=== PATIENT | male | born 1955 | race American Indian/Alaskan Native ===

== ENCOUNTER 2016-08-13 14:14 | Emergency (ER) | payer OTHER ==
[2016-08-13 14:27] VITALS: RESP 18; O2SAT 99
[2016-08-13 14:57] VITALS: BP 133/88; PULSE 84; TEMP 98.7
--- NOTE | 2016-08-13 15:00 | C.PDOC ---
History Of Present Illness 61M c/o lum in his right groin for "ahwhile" that seemed to be worse the last couple days. 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 he said it looked bigger earlier but now has gone down again. Time Seen by Provider: 08/13/16 14:40 Chief Complaint (Nursing): Male Genitourinary Past Medical History Vital Signs: Last Vital Signs Temp 97.3 F L 08/13/16 14:25 Pulse 85 08/13/16 14:25 Resp 18 08/13/16 14:25 BP 157/100 H 08/13/16 14:25 Pulse Ox 99 08/13/16 14:25 - Medical History PMH: HTN Family History: States: Other Other Family History: nc - Social History Hx Alcohol Use: No Hx Substance Use: No - Immunization History Hx Tetanus Toxoid Vaccination: No Hx Influenza Vaccination: No Hx Pneumococcal Vaccination: No Review Of Systems Constitutional: Negative for: Fever, Chills, Malaise Cardiovascular: Negative for: Chest Pain Respiratory: Negative for: Cough, Shortness of Breath Gastrointestinal: Negative for: Nausea, Vomiting, Abdominal Pain, Diarrhea Genitourinary: Negative for: Dysuria, Hematuria, Penile Discharge, Scrotal Pain , Penile Pain Physical Exam - Physical Exam Appears: Well, Non-toxic, No Acute Distress Skin: Warm, Dry Cardiovascular: Rhythm Regular Respiratory: No Accessory Muscle Use Gastrointestinal/Abdominal: Soft, No Tenderness, No Distention, No Rebound Male Genital: No Testicular Tenderness, No Testicular Swelling, Inguinal Tenderness, Inguinal Swelling (small soft ruducible right inguinal hernia), No Scrotal Swelling Neurological/Psych: Oriented x3 ED Course And Treatment O2 Sat by Pulse Oximetry: 99 Medical Decision Making Medical Decision Making: reducible inguinal hernia, no signs of incarceration at this time. disc w pt plan for f/u w surgeon and reasons to return. Disposition - Disposition Disposition: HOME/ ROUTINE Disposition Time: 15:02 Condition: GOOD - Clinical Impression Clinical Impression: Inguinal hernia
== END 2016-08-13 14:50 | disposition home or self-care (01) ==
LOC: C.ER 14:14
DX: K40.90 Unilateral inguinal hernia, without obstruction or gangrene, not specified as recurrent (principal)

== ENCOUNTER 2016-09-28 11:50 | Inpatient (IN) | payer OTHER ==
[2016-09-28] MEDS ORDERED: Albuterol-Ipratrop 3 mg / 0.5 (3 ml) UD IH STA (13:32)
[2016-09-28] MEDS ORDERED: MethylPREDNISolone 40 mg Vial IVP STA (13:33)
[2016-09-28] MEDS ORDERED: Albuterol-Ipratrop 3 mg / 0.5 (3 ml) UD ONE (13:55)
[2016-09-28 13:57] LABS: BASO % 0.1 % (0.0-2.0); EOS % 0.1 % (0.0-4.0); LYMPH # 0.4 K/uL (1.0-4.3); LYMPH % 2.3 % (20.0-40.0); MEAN CELL VOLUME 94.6 fL (80.0-94.0); MEAN CORPUSCULAR HGB CONC 32.7 g/dL (33.0-37.0); MEAN PLATELET VOLUME 8.6 fL (7.2-11.7); MONO # 1.2 K/uL (0.0-0.8); MONO % 6.3 % (0.0-10.0); NEUT # 16.9 K/uL (1.8-7.0); NEUT % 91.2 % (50.0-75.0); PLATELET COUNT 280 K/uL (130-400); RED CELL DISTRIBUTION WIDTH 14.7 % (11.5-14.5); WHITE BLOOD COUNT 18.5 K/uL (4.8-10.8)
[2016-09-28 14:11] LABS: SQUAMOUS EPITHIAL 1 /hpf (0-5); URINE BILIRUBIN NEGATIVE (NEGATIVE); URINE BLOOD 1+ (NEGATIVE); URINE CLARITY Hazy (Clear); URINE COLOR Amber (YELLOW); URINE GLUCOSE (UA) NORMAL (Normal); URINE NITRATE NEGATIVE (NEGATIVE); URINE PROTEIN 2+ mg/dL (NEGATIVE); WBC CLUMPS RARE /hpf
--- NOTE | 2016-09-28 14:14 | RAD ---
HISTORY: cough, fever COMPARISON: No prior. TECHNIQUE: Chest PA and lateral FINDINGS: LUNGS: There is mild pulmonary venous congestion. There is airspace disease in the right lower lobe. PLEURA: No significant pleural effusion identified. No pneumothorax apparent. There is fluid in the horizontal fissure. CARDIOVASCULAR: There is severe cardiomegaly. OSSEOUS STRUCTURES: No significant abnormalities. VISUALIZED UPPER ABDOMEN: Normal. OTHER FINDINGS: None. IMPRESSION: 1. Airspace disease in the right lower lobe could represent pneumonia. Follow-up after medical management is recommended to ensure complete resolution. 2. Severe cardiomegaly and mild pulmonary venous congestion. Fluid in the horizontal fissure.
[2016-09-28 14:16] LABS: URINE LEUKOCYTE ESTERASE 2+ Leu/uL (Negative)
[2016-09-28] MEDS ORDERED: Azithromycin 500 MG in Sodium Chloride 0.9% 250 ML IVPB STA (14:16)
[2016-09-28 14:18] LABS: BANDS 24 % (0-2); LYMPHOCYTE 2 % (20-40); MONOCYTE 5 % (0-10); NEUTROPHIL 69 % (50-75); PLATELET ESTIMATE NORMAL (NORMAL); TOTAL CELLS COUNTED 100
[2016-09-28 14:19] LABS: LARGE PLATELETS PRESENT; TARGET CELLS SLIGHT
[2016-09-28 14:21] LABS: ALBUMIN 3.1 g/dL (3.5-5.0)
[2016-09-28] MEDS ORDERED: cefTRIAXone IV 1 gm in Dextros 50 ML IVPB ONE (14:23)
[2016-09-28 14:24] LABS: ALB/GLOB RATIO 0.7 (1.0-2.1); CALCIUM 9.3 mg/dl (8.6-10.4)
--- NOTE | 2016-09-28 15:15 | C.PDOC ---
History Of Present Illness 61 y/o M c PMHx COPD, inguinal hernia p/w cough x 1 week and fever x 1 day. Patient also reports R lower R thoracic pain. Denies recent travel. Patient also notes that he has a hernia that he is concerned about. Has been seen in this ER for it before and has never seen a physician in office. Denies constipation, vomiting. Time Seen by Provider: 09/28/16 12:57 Chief Complaint (Nursing): Abdominal Pain Past Medical History Vital Signs: Last Vital Signs Temp 97.6 F 09/28/16 12:17 Pulse 88 09/28/16 12:17 Resp 18 09/28/16 12:17 BP 121/85 09/28/16 12:17 Pulse Ox 98 09/28/16 12:17 - Medical History PMH: HTN Family History: States: No Known Family Hx - Social History Hx Alcohol Use: No Hx Substance Use: No - Immunization History Hx Tetanus Toxoid Vaccination: No Hx Influenza Vaccination: No Hx Pneumococcal Vaccination: No Review Of Systems Except As Marked, All Systems Reviewed And Found Negative. Constitutional: Positive for: Fever Cardiovascular: Negative for: Chest Pain Respiratory: Positive for: Cough Physical Exam - Physical Exam Additional Physical Exam Comments: Constitutional: No acute distress. Head: Normocephalic. Atraumatic. Eyes: PERRL. EOMI ENT: Moist mucous membranes. Neck: Supple. Cardiovascular: Regular rate. Radial pulses 2+ bilaterally. Chest: No tenderness. Respiratory: R basilar rhonchi. Diffuse wheezing. GI: Soft. Nontender. Nondistended. : Inguinal hernia causing scrotal enlargement. Back: No CVA tenderness. No midline tenderness. Musculoskeletal: No tenderness or swelling of extremities. Skin: No rash. Neurologic: Alert, no focal deficit. ED Course And Treatment - Laboratory Results Result Diagrams: 09/28/16 13:52 09/28/16 13:52 O2 Sat by Pulse Oximetry: 98 Medical Decision Making Medical Decision Making: Patient with normal vital signs. CXR shows R sided opacification at R lower lung, consistent with Pneumonia. CAP antibiotics initiated. Will cover UTI as well. Dr. Cerrato accepts patient to hospitalist service. I discussed hernia repair with the patient and at length and the need to come to the ER for symptoms of strangulation. Disposition - Disposition Disposition: HOSPITALIZED Disposition Time: 14:37 Condition: GUARDED - POA Core Measure Indicators: Pneumonia - Clinical Impression Clinical Impression: UTI (urinary tract infection), Pneumonia, Bandemia
--- NOTE | 2016-09-28 15:44 | CP.PCM.HP ---
<DaphneKareemDarian R - Last Filed: 09/28/16 17:44> History of Present Illness - History of Present Illness History of Present Illness: CC: cough, diaphoresis and fever HPI: Mr Hirsch is a 61 yo M who presents to the the ED with worsening non- productive cough which began 3 days ago. The patient also admits to diaphoresis and fever which also began 3 days ago. The patients temperature 2 days ago was 101F as taken by his . The patient admits to right sided abdominal pain associated with the cough in the right upper and right lower quadrant. The patient admits to a loss of appetite and difficulty sleeping due to the persistent cough. The patient admits to 1 episode of diarrhea 2 days ago which has resolved. The patient states he took advil which did not alleviate his symptoms. He did not notice anything which exacerbates his symptoms. The patient denies chest pain, vomiting, shortness of breath, constipation, dysuria , numbness. 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, denies smoking, denies drinking, denies illicit drug use PMD: Dr Saucedo Present on Admission - Present on Admission Any Indicators Present on Admission: No History of DVT/PE: No History of Uncontrolled Diabetes: No Urinary Catheter: No Decubitus Ulcer Present: No History Surgical Site Infection Following: None Review of Systems - Constitutional Constitutional: As Per HPI - EENT Eyes: absent: As Per HPI, Blind Spots, Blurred Vision, Change in Vision, Decreased Night Vision, Diplopia, Discharge, Dry Eye, Exophthalmos, Floaters, Irritation, Itchy Eyes, Loss of Peripheral Vision, Pain, Photophobia, Requires Corrective Lenses, Sees Flashes, Spots in Vision, Tunnel Vision, Other Visual Disturbances, Loss of Vision, Other Ears: absent: As Per HPI, Decreased Hearing, Ear Discharge, Ear Pain, Tinnitus, Abnormal Hearing, Disequilibrium, Dizziness, Other Nose/Mouth/Throat: absent: As Per HPI, Epistaxis, Nasal Congestion, Nasal Discharge, Nasal Obstruction, Nasal Trauma, Nose Pain, Post Nasal Drip, Sinus Pain, Sinus Pressure, Bleeding Gums, Change in Voice, Dental Pain, Dry Mouth, Dysphagia, Halitosis, Hoarsness, Lip Swelling, Mouth Lesions, Mouth Pain, Odynophagia, Sore Throat, Throat Swelling, Tongue Swelling, Facial Pain, Neck Pain, Neck Mass, Other - Cardiovascular Cardiovascular: absent: As Per HPI, Acrocyanosis, Chest Pain, Chest Pain at Rest , Chest Pain with Activity, Claudication, Diaphoresis, Dyspnea, Dyspnea on Exertion, Edema, Irregular Heart Rhythm, Pain Radiating to Arm/Neck/Jaw, Leg Edema, Leg Ulcers, Lightheadedness, Orthopnea, Palpitations, Paroxysmal Nocturnal Dyspnea, Pedal Edema, Radiating Pain, Rapid Heart Rate, Slow Heart Rate, Syncope, Other - Respiratory Respiratory: Cough, Pain with Coughing. absent: Hemoptysis, Dyspnea on Exertion , Stridor - Gastrointestinal Gastrointestinal: Abdominal Pain. absent: Bloating, Constipation, Hematochezia - Genitourinary Genitourinary: absent: As Per HPI, Change in Urinary Stream, Difficulty Urinating, Dysuria, Flank Pain, Hematuria, Pyuria, Nocturia, Urinary Incontinence, Urinary Frequency, Urinary Hesitance, Urinary Urgency, Voiding Freq/Small Amts, Freq UTI, Hx Renal/Bladder Calculi, Hx /Renal Surgery, Bladder Distension, Other Additional comments: fluid collection in scrotum - Musculoskeletal Additional comments: occasional left leg pain with activity/ambulation - Neurological Neurological: absent: As Per HPI, Abnormal Gait, Abnormal Hearing, Abnormal Movements, Abnormal Speech, Behavioral Changes, Burning Sensations, Confusion, Convulsions, Disequilibrium, Dizziness, Numbness, Focal Weakness, Frequent Falls , Headaches, Lack of Coordination, Loss of Vision, Memory Loss, Paresthesias, Radicular Pain, Restless Legs, Sensory Deficit, Syncope, Tingling, Tremor, Vertigo, Weakness, Other Visual Disturbances, Other - Psychiatric Psychiatric: absent: As Per HPI, Abnormal Sleep Pattern, Anhedonia, Anxiety, Auditory Hallucinations, Behavioral Changes, Change in Appetite, Change in Libido, Confusion, Depression, Difficulty Concentrating, Hallucinations, Homicidal Ideation, Hopelessness, Irritability, Memory Loss, Mood Swings, Panic Attacks, Paranoia, Suicidal Ideation, Visual Hallucinations, Tactile Hallucinations, Other - Endocrine Endocrine: absent: As Per HPI, Change in Body Appearance, Change in Libido, Cold Intolorance, Deepening of Voice, Excessive Sweating, Fatigue, Flushing, Heat Intolorance, Increase in Ring/Shoe/Hat Size, Palpitations, Polydipsia, Polyphagia, Polyuria, Other - Hematologic/Lymphatic Hematologic: absent: As Per HPI, Easy Bleeding, Easy Bruising, Lymphadenopathy, Other Past Patient History - Infectious Disease Hx of Infectious Diseases: None - Past Social History Smoking Status: Never Smoked - CARDIAC Hx Hypertension: Yes - NEUROLOGICAL HX Cerebrovascular Accident: Yes - PSYCHIATRIC Hx Substance Use: No - SURGICAL HISTORY Hx Surgeries: No - ANESTHESIA Hx Anesthesia: No Meds Allergies/Adverse Reactions: Allergies Allergy/AdvReac Type Severity Reaction Status Date / Time No Known Allergies Allergy Verified 06/28/15 10:51 Physical Exam - Constitutional Appears: Toxic - Head Exam Head Exam: ATRAUMATIC, NORMAL INSPECTION - Eye Exam Eye Exam: EOMI, Normal appearance Pupil Exam: NORMAL ACCOMODATION, PERRL Additional comments: mild icterus - ENT Exam ENT Exam: Mucous Membranes Moist - Neck Exam Neck exam: Positive for: Normal Inspection - Respiratory Exam Respiratory Exam: Wheezes. absent: Clear to Auscultation Bilateral, Respiratory Distress - Cardiovascular Exam Cardiovascular Exam: REGULAR RHYTHM, RRR, +S1, +S2 - GI/Abdominal Exam GI & Abdominal Exam: Guarding, Normal Bowel Sounds Additional comments: some guarding on right side - Rectal Exam Rectal Exam: Deferred - Exam Exam: Scrotal Swelling Additional comments: TTP in scrotum and right inguinal area - Extremities Exam Extremities exam: Positive for: normal inspection - Back Exam Back exam: NORMAL INSPECTION. absent: CVA tenderness (L), CVA tenderness (R) - Neurological Exam Neurological exam: Alert, CN II-XII Intact, Oriented x3 - Psychiatric Exam Psychiatric exam: Normal Affect, Normal Mood - Skin Skin Exam: Normal Color, Warm Results - Vital Signs Recent Vital Signs: Last Vital Signs Temp 97.6 F 09/28/16 12:17 Pulse 88 09/28/16 12:17 Resp 18 09/28/16 12:17 BP 121/85 09/28/16 12:17 Pulse Ox 98 09/28/16 15:16 - Labs Result Diagrams: 09/28/16 13:52 09/28/16 13:52 Assessment & Plan - Assessment and Plan (Free Text) Assessment: Cough and Fever possible 2/2 to pneumonia WBC 18.5, Band Neutrophils 24 Chest xray [09/28]: airspace disease in right lower lobe could represent pneumonia stat CT chest/abd/pelvis w/o contrast, f/u rocephin 1g IV BID azithromycin 500mg IV qh sputum cx and sensitivity, f/u blood culture (collected in ED), f/u repeat chest xray [09/29], f/u cmp, cbc, mag, phos, f/u 0.9% normal saline 70 cc/hr Possible UTI vs pyleonephritis urinalysis with protein 2+, blood 1+, leukocyte esterase 2+, wbc 16 (H), rbc 6 ( H), hyaline casts 11-20 (H) stat CT chest/abd/pelvis w/o contrast, f/u urine cx, f/u Possible new-onset CHF ekg in ED - left bundle branch block chest xray [09/28] - severe cardiomegaly and mild pulmonary venous congestion. BNP, f/u echocardiogram, f/u LAURA x3, EKG x3, f/u Prophylactic Measures protonix 40mg po daily SCDs <Alex Cerrato H - Last Filed: 09/28/16 18:57> Results - Vital Signs Recent Vital Signs: Last Vital Signs Temp 98.5 F 09/28/16 18:16 Pulse 95 H 09/28/16 18:16 Resp 18 09/28/16 18:16 BP 120/75 09/28/16 18:16 Pulse Ox 98 09/28/16 18:16 - Labs Result Diagrams: 09/28/16 13:52 09/28/16 13:52 Labs: Laboratory Results - last 24 hr 09/28/16 17:35 Total Creatine Kinase 93 CK-MB (Mass) 1.79 Troponin I, Quant 0.0300 NT-Pro-B Natriuret Pep 61747 H Attending/Attestation - Attestation I have personally seen and examined this patient.: Yes I have fully participated in the care of the patient.: Yes I have reviewed all pertinent clinical information: Yes Notes (Text): 09/28/16 18:52 Medical attending: Patient was seen and examined by me with the medical lab director in the hallway 8 of the ER. The patient was not under any acute distress when he saw him, however we reviewed his lab work with him and also spoke with. We also looked at the chest x-ray. He says that he's having right side chest as well as right flank pain. His urinalysis also suggest the possibility of a UTI, possibly polynephritis as well since on exam he does have flank pain on the right-hand side he's been feeling pretty bad for the past few days with fever at home. Here he has elevated white blood cell count as well as bandemia. Because the patient's chest x-ray findings as well as right flank findings were to get a CT scan of the chest abdomen and pelvis. We'll also check sputum cultures, urine cultures, blood culture. We'll continue the IV into biotics as well. Because of the chest x-ray findings he does have cardiomegaly, it's quite impressive. On the EKG this a left bundle branch block. He tells us that he does not have any chest pain however work and check additional cardiac enzymes, he should get an echo as well considering how big the cardiac silhouette is on x -ray. Will also check a BNP. Considering that he needs sirs criteria, with the bandemia fever white blood cell count, were to start the patient on gentle intravenous fluids. Tomorrow [place] to add on a portable chest x-ray only because I don't want to fluid overload the patient in case he has as history of CHF. He tells us that he takes a diarrhetic however he is not sure what it is. Thank you very much, Alex Cerrato
[2016-09-28] MEDS ORDERED: Azithromycin 500mg/250ML NS 500 MG/250 ML BAG IVPB ONE (16:04)
[2016-09-28] MEDS ORDERED: Azithromycin 500 MG in Sodium Chloride 0.9% 250 ML IVPB SCH (17:45)
[2016-09-28] MEDS ORDERED: Sodium Chloride 0.9% 1,000 ML ONE (17:55)
[2016-09-28 18:03] LABS: CK-MB 1.79 ng/mL (0.0-3.38)
[2016-09-28] MEDS ORDERED: Benzoin Compound Tincture (60 ml) ONE (18:11)
[2016-09-28] MEDS: Sodium Chloride 0.9% 1,000 ML IV SCH (18:14)
[2016-09-29 00:16] LABS: CK-MB 2.18 ng/mL (0.0-3.38)
--- NOTE | 2016-09-29 09:15 | CP.PCM.PN ---
<Darian Serna Liz - Last Filed: 09/29/16 15:34> Subjective - Date & Time of Evaluation Date of Evaluation: 09/29/16 Time of Evaluation: 07:15 - Subjective Subjective: Patient examined at bedside. Patient is not in acute distress. Patient still complains of cough with occasional production of yellow phlegm. Patient states that he feels better than yesterday. He says he is still diaphoretic but less diaphoretic than yesterday. He complains of mild abdominal pain on his right side which has improved some since yesterday. Patient denies chest pain, shortness of breath, headache, nausea, vomiting, diarrhea, constipation, palpitations. Objective - Vital Signs/Intake and Output Vital Signs (last 24 hours): Temp Pulse Resp BP Pulse Ox 98.2 F 92 H 20 146/98 H 96 09/29/16 09:01 09/29/16 09:01 09/29/16 09:01 09/29/16 09:01 09/29/16 09:01 Intake and Output: 09/29/16 09/29/16 06:59 18:59 Intake Total 560 Balance 560 - Medications Medications: Current Medications Sodium Chloride (Sodium Chloride 0.9%) 1,000 mls @ 70 mls/hr IV .[id number] [facility] Last Admin: 09/28/16 18:14 Dose: 70 mls/hr Azithromycin 500 mg/ Sodium (Chloride) 250 mls @ 250 mls/hr IVPB Q24H [facility] Ceftriaxone Sodium 1 gm/ (Sodium Chloride) 100 mls @ 100 mls/hr IVPB Q12H [facility] Last Admin: 09/29/16 02:45 Dose: 100 mls/hr Pantoprazole Sodium (Protonix Ec Tab) 40 mg PO DAILY [facility] Pneumococcal Polyvalent Vaccine (Pneumovax 23 Vaccine) 0.5 ml IM .ONCE ONE Stop: 10/01/16 10:01 - Constitutional Appears: No Acute Distress - Head Exam Head Exam: ATRAUMATIC, NORMAL INSPECTION, NORMOCEPHALIC - Eye Exam Eye Exam: EOMI, Normal appearance, PERRL - ENT Exam ENT Exam: Mucous Membranes Moist, Normal Exam - Neck Exam Neck Exam: Full ROM, Normal Inspection. absent: Lymphadenopathy - Respiratory Exam Respiratory Exam: Rhonchi, Wheezes, NORMAL BREATHING PATTERN - Cardiovascular Exam Cardiovascular Exam: REGULAR RHYTHM, RRR, +S1, +S2 - GI/Abdominal Exam GI & Abdominal Exam: Tenderness Additional comments: tenderness on right side of abdomen - Rectal Exam Rectal Exam: Deferred - Exam Exam: Scrotal Swelling - Extremities Exam Extremities Exam: Full ROM, Normal Capillary Refill, Normal Inspection. absent : Joint Swelling, Pedal Edema - Neurological Exam Neurological Exam: Alert, Awake, Oriented x3 - Psychiatric Exam Psychiatric exam: Normal Affect, Normal Mood - Skin Skin Exam: Dry, Intact, Normal Color, Warm Assessment and Plan - Assessment and Plan (Free Text) Assessment: - Assessment and Plan (Free Text) Assessment: Pneumonia [09/28]: WBC 18.5, Band Neutrophils 24 Chest xray [09/28]: airspace disease in right lower lobe could represent pneumonia chest xray [09/29]: not significantly changed from prior examination stat CT chest/abd/pelvis w/o contrast [09/28], impression: "Consolidation in right lower lobe and lesser consolidation in posterior right upper lobe. Multifocal small opacities in right upper lobe as well as multifocal small airways disease in right upper and middle lobes. Likely pneumonia. Followup advised. Cardiomegaly. Small pericardial effusion. Aneurysmal dilatation of the ascending thoracic aorta. Right inguinal hernia containing nonobstructed loops of small bowel. Small amount of fluid in right inguinal hernia sac. Evaluation for pyelonephritis grossly limited by the absence of intravenous contrast administration." rocephin 1g IV BID azithromycin 500mg IV qh sputum cx and sensitivity: "few polymorphonuclear wbc's, few epithelial cells, no organisms seen" blood culture (collected in ED), f/u cmp, cbc, mag, phos, f/u 0.9% normal saline 70 cc/hr Right flank pain UTI vs pyleonephritis urinalysis with protein 2+, blood 1+, leukocyte esterase 2+, wbc 16 (H), rbc 6 ( H), hyaline casts 11-20 (H) stat CT chest/abd/pelvis w/o contrast [09/28] impression: "Evaluation for pyelonephritis grossly limited by the absence of intravenous contrast administration." urine cx, f/u CHF ekg in ED - left bundle branch block chest xray [09/28] - severe cardiomegaly and mild pulmonary venous congestion. BNP [id number] echocardiogram, f/u LAURA x3, negative EKG x3, f/u Prophylactic Measures protonix 40mg po daily SCDs heparin 5,000 sc q12 heart healthy diet <Alex Cerrato H - Last Filed: 09/29/16 16:03> Objective - Vital Signs/Intake and Output Vital Signs (last 24 hours): Temp Pulse Resp BP Pulse Ox 97.6 F 90 20 132/86 96 09/29/16 15:00 09/29/16 15:00 09/29/16 15:00 09/29/16 15:00 09/29/16 15:00 Intake and Output: 09/29/16 09/29/16 06:59 18:59 Intake Total 560 Balance 560 - Medications Medications: Current Medications Heparin Sodium (Porcine) (Heparin) 5,000 units SC Q12 [facility] Sodium Chloride (Sodium Chloride 0.9%) 1,000 mls @ 70 mls/hr IV .[id number] [facility] Last Admin: 09/29/16 10:06 Dose: Not Given Azithromycin 500 mg/ Sodium (Chloride) 250 mls @ 250 mls/hr IVPB Q24H [facility] Ceftriaxone Sodium 1 gm/ (Sodium Chloride) 100 mls @ 100 mls/hr IVPB Q12H [facility] Last Admin: 09/29/16 02:45 Dose: 100 mls/hr Pantoprazole Sodium (Protonix Ec Tab) 40 mg PO DAILY [facility] Last Admin: 09/29/16 09:58 Dose: 40 mg Pneumococcal Polyvalent Vaccine (Pneumovax 23 Vaccine) 0.5 ml IM .ONCE ONE Stop: 10/01/16 10:01 Attending/Attestation - Attestation I have personally seen and examined this patient.: Yes I have fully participated in the care of the patient.: Yes I have reviewed all pertinent clinical information, including history, physical exam and plan: Yes Notes (Text): 09/29/16 16:01 Medical attending: Patient was seen and examined by me, agrees the above note by medical assistant supervisor. We saw the patient together. The patient thinks that he's feeling better. We explained to them the CAT scan results showing that he has at least a right sided consolidation/pneumonia. He remains on IV into biotics at this time. He tells us that the pain that he was having when we saw him in the ER on the right chest as well as right flank area has resolved at this time. He still reporting some difficulty breathing. We should continue to monitor his cultures both blood and sputum and urine At this moment were still pending on echo to return. He does have a high BNP We repeated chest x-rays well since we do have the patient on intravenous fluids. The chest x-ray did not seem to suggest that he was fluid overload with the intravenous fluids that were giving. So at this time because he's still sepsis will continue with intravenous fluids and will monitor how he does. Hopefully we'll be able to take off intravenous fluids Thank you very much, Alex Cerrato 09/29/16 16:02
[2016-09-29] MEDS: Pantoprazole 40 mg EC Tab PO SCH (09:58)
[2016-09-29] MEDS: Sodium Chloride 0.9% 1,000 ML IV SCH ×3 (10:02→23:51)
--- NOTE | 2016-09-29 11:31 | CT ---
PROCEDURE: CT Chest, Abdomen and Pelvis without intravenous contrast HISTORY: possible pneumonia, pyleonephritis, UTI COMPARISON: None. TECHNIQUE: Radiation dose: Total exam DLP = 602.00 mGy-cm. This CT exam was performed using one or more of the following dose reduction techniques: Automated exposure control, adjustment of the mA and/or kV according to patient size, and/or use of iterative reconstruction technique. FINDINGS: CT CHEST WITHOUT CONTRAST: LUNGS: Extensive confluent opacity right lower lobe. Confluent opacity posterior right upper lobe. Multifocal small opacities apical segment right upper lobe. Also multifocal small airways disease in right upper lobe (tree in bud ). Small airways disease seen in right middle lobe. Linear scar/atelectasis apical posterior segment left upper lobe. Findings are likely infectious in origin. Cannot rule out other etiologies such as inflammatory disease or aspiration. MEDIASTINUM: Aneurysmal dilatation of the ascending thoracic aorta to a diameter of 4.8 cm. Normal descending thoracic aorta. No significant dilatation of main pulmonary artery. No lymphadenopathy. Mild cardiomegaly. Small pericardial effusion. LYMPH NODES: Unremarkable. PLEURA: Unremarkable. No pneumothorax. No pleural fluid. BONES: Unremarkable. OTHER FINDINGS: None. CT ABDOMEN AND PELVIS: LIVER: Unremarkable. No gross lesion or ductal dilatation. GALLBLADDER AND BILE DUCTS: Partially contracted. No calcified gallstones. No mural thickening. PANCREAS: Unremarkable. No gross lesion or ductal dilatation. SPLEEN: Unremarkable. ADRENALS: Unremarkable. No mass. KIDNEYS AND URETERS: No mass, calculus or hydronephrosis. Please note that evaluation for pyelonephritis is grossly limited in the absence of intravenous contrast administration. VASCULATURE: Unremarkable. No aortic aneurysm. BOWEL: No bowel obstruction. Right inguinal herniation of small bowel without evidence of bowel obstruction. Fluid is noted in the right inguinal hernia sac as well. APPENDIX: Normal appendix. PERITONEUM: Fluid in right inguinal hernia sac. No generalized ascites. Small right hydrocele mendez are noted. LYMPH NODES: Unremarkable. No enlarged lymph nodes. BLADDER: Unremarkable. REPRODUCTIVE: Normal prostate. BONES: No acute fracture. OTHER FINDINGS: None. IMPRESSION: Consolidation in right lower lobe and lesser consolidation in posterior right upper lobe. Multifocal small opacities in right upper lobe as well as multifocal small airways disease in right upper and middle lobes. Likely pneumonia. Followup advised. Cardiomegaly. Small pericardial effusion. Aneurysmal dilatation of the ascending thoracic aorta. Right inguinal hernia containing nonobstructed loops of small bowel. Small amount of fluid in right inguinal hernia sac. Evaluation for pyelonephritis grossly limited by the absence of intravenous contrast administration. Preliminary interpretation of this examination was reported by [facility] at 7:44 p.m. on 09/28/2016. There is concurrence of this report with the preliminary interpretation.
--- NOTE | 2016-09-29 12:51 | CARD ---
APPROVED REPORT EKG Measurement Heart [id number] [place] [id number] <Conclusion> Normal sinus rhythm Possible Left atrial enlargement Left bundle branch block Abnormal ECG
--- NOTE | 2016-09-29 12:59 | RAD ---
HISTORY: possible pneumonia COMPARISON: 09/28/2016 TECHNIQUE: Chest PA and lateral FINDINGS: LUNGS: Opacity at right lung base, likely lower lobe. There is opacity abutting the minor fissure in the right upper lobe. Patchy opacity in right apex. PLEURA: No significant pleural effusion identified. No pneumothorax apparent. CARDIOVASCULAR: Mild cardiomegaly. OSSEOUS STRUCTURES: No significant abnormalities. VISUALIZED UPPER ABDOMEN: Normal. OTHER FINDINGS: None. IMPRESSION: Multifocal right-sided pulmonary opacity. Not significantly changed from prior examination.
[2016-09-29] MEDS: Azithromycin 500 MG in Sodium Chloride 0.9% 250 ML IVPB SCH (18:32)
[2016-09-30 08:16] LABS: BASO % 0.1 % (0.0-2.0); LYMPH # 0.8 K/uL (1.0-4.3); LYMPH % 3.2 % (20.0-40.0); MEAN CELL VOLUME 94.8 fL (80.0-94.0); MEAN CORPUSCULAR HEMOGLOBIN 32.9 pg (27.0-31.0); MEAN CORPUSCULAR HGB CONC 34.6 g/dL (33.0-37.0); MEAN PLATELET VOLUME 8.3 fL (7.2-11.7); MONO # 1.2 K/uL (0.0-0.8); MONO % 4.8 % (0.0-10.0); NEUT # 23.8 K/uL (1.8-7.0); NEUT % 91.9 % (50.0-75.0); RED CELL DISTRIBUTION WIDTH 14.8 % (11.5-14.5); WHITE BLOOD COUNT 25.9 K/uL (4.8-10.8)
[2016-09-30 08:20] LABS: CK-MB 2.07 ng/mL (0.0-3.38)
[2016-09-30 08:23] LABS: ALBUMIN 2.6 g/dL (3.5-5.0); HEMOGLOBIN 10.9 g/dL (12.0-18.0); PLATELET COUNT 393 K/uL (130-400)
[2016-09-30 08:26] LABS: ALB/GLOB RATIO 0.7 (1.0-2.1)
[2016-09-30 08:27] LABS: CALCIUM 8.6 mg/dl (8.6-10.4); MAGNESIUM 2.7 mg/dL (1.6-2.3)
[2016-09-30] MEDS: Sodium Chloride 0.9% 1,000 ML IV SCH (08:39)
[2016-09-30 09:05] LABS: ANISOCYTOSIS SLIGHT; HYPOCHROMIC SLIGHT; LYMPHOCYTE 7 % (20-40); MONOCYTE 3 % (0-10); NEUTROPHIL 90 % (50-75); PLATELET ESTIMATE NORMAL (NORMAL); POIKILOCYTOSIS SLIGHT; TOTAL CELLS COUNTED 100
[2016-09-30 09:06] LABS: LARGE PLATELETS PRESENT; TARGET CELLS SLIGHT
[2016-09-30] MEDS: Pantoprazole 40 mg EC Tab PO SCH (11:10)
--- NOTE | 2016-09-30 12:59 | CP.PCM.PN ---
<Darian Serna R - Last Filed: 09/30/16 12:57> Subjective - Date & Time of Evaluation Date of Evaluation: 09/30/16 Time of Evaluation: 12:00 - Subjective Subjective: Patient was examined at bedside. Patient was not in acute distress. He states that he felt slightly improved since yesterday. He still has a productive cough with yellow phlegm. He said he was able to sleep, his appetite is good and he's able to make bowel movements and urinate normally. He denies chest pain, shortness of breath, headache, nausea, vomiting, diarrhea, constipation. Objective - Vital Signs/Intake and Output Vital Signs (last 24 hours): Temp Pulse Resp BP Pulse Ox 98.7 F 93 H 18 144/99 H 97 09/30/16 07:10 09/30/16 08:00 09/30/16 07:10 09/30/16 07:10 09/30/16 07:10 Intake and Output: 09/30/16 09/30/16 06:59 18:59 Intake Total 940 Output Total 700 Balance 240 - Medications Medications: Current Medications Heparin Sodium (Porcine) (Heparin) 5,000 units SC Q12 [facility] Last Admin: 09/30/16 11:09 Dose: 5,000 units Azithromycin 500 mg/ Sodium (Chloride) 250 mls @ 250 mls/hr IVPB Q24H [facility] Last Admin: 09/29/16 18:32 Dose: 250 mls/hr Ceftriaxone Sodium 1 gm/ (Sodium Chloride) 100 mls @ 100 mls/hr IVPB Q12H [facility] Last Admin: 09/30/16 03:09 Dose: 100 mls/hr Pantoprazole Sodium (Protonix Ec Tab) 40 mg PO DAILY [facility] Last Admin: 09/30/16 11:10 Dose: 40 mg Pneumococcal Polyvalent Vaccine (Pneumovax 23 Vaccine) 0.5 ml IM .ONCE ONE Stop: 10/01/16 10:01 - Labs Labs: 09/30/16 07:54 09/30/16 07:54 - Constitutional Appears: No Acute Distress - Head Exam Head Exam: ATRAUMATIC, NORMAL INSPECTION, NORMOCEPHALIC - Eye Exam Eye Exam: EOMI, Normal appearance, PERRL - ENT Exam ENT Exam: Mucous Membranes Moist, Normal Exam - Neck Exam Neck Exam: Full ROM, Normal Inspection. absent: Lymphadenopathy - Respiratory Exam Respiratory Exam: Rhonchi, Wheezes - Cardiovascular Exam Cardiovascular Exam: REGULAR RHYTHM - GI/Abdominal Exam GI & Abdominal Exam: Normal Bowel Sounds Additional comments: tender to palpation on right side - Rectal Exam Rectal Exam: Deferred - Exam Exam: Scrotal Swelling Additional comments: inguinal hernia on right side with fluid collection in scrotum - Extremities Exam Extremities Exam: Full ROM, Normal Inspection - Back Exam Back Exam: NORMAL INSPECTION - Neurological Exam Neurological Exam: Alert, Awake, Normal Gait, Oriented x3 - Psychiatric Exam Psychiatric exam: Normal Affect, Normal Mood - Skin Skin Exam: Dry, Intact, Normal Color, Warm Assessment and Plan - Assessment and Plan (Free Text) Assessment: - Assessment and Plan (Free Text) Assessment: Pneumonia con't rocephin 1g IV BID con't azithromycin 500mg IV qh [09/30]: WBC 25.9 [09/28]: WBC 18.5, Band Neutrophils 24 Chest xray [09/28]: airspace disease in right lower lobe could represent pneumonia chest xray [09/29]: not significantly changed from prior examination stat CT chest/abd/pelvis w/o contrast [09/28], impression: "Consolidation in right lower lobe and lesser consolidation in posterior right upper lobe. Multifocal small opacities in right upper lobe as well as multifocal small airways disease in right upper and middle lobes. Likely pneumonia. Followup advised. Cardiomegaly. Small pericardial effusion. Aneurysmal dilatation of the ascending thoracic aorta. Right inguinal hernia containing nonobstructed loops of small bowel. Small amount of fluid in right inguinal hernia sac. Evaluation for pyelonephritis grossly limited by the absence of intravenous contrast administration." sputum cx and sensitivity: "few polymorphonuclear wbc's, few epithelial cells, no organisms seen" blood culture (collected in ED), negative x2 urine culture negative cmp, cbc, mag, phos, f/u 0.9% normal saline 70 cc/hr discontinued [09/30] due to CHF (EF 34%) Right flank pain UTI vs pyleonephritis urinalysis with protein 2+, blood 1+, leukocyte esterase 2+, wbc 16 (H), rbc 6 ( H), hyaline casts 11-20 (H) stat CT chest/abd/pelvis w/o contrast [09/28] impression: "Evaluation for pyelonephritis grossly limited by the absence of intravenous contrast administration." urine cx, negative CHF ekg in ED - left bundle branch block chest xray [09/28] - severe cardiomegaly and mild pulmonary venous congestion. BNP [id number] echocardiogram [09/30], EF of 34% LAURA x3, negative EKG x3, normal sinus rhythm Prophylactic Measures protonix 40mg po daily SCDs heparin 5,000 sc q12 heart healthy diet <Alex Cerrato H - Last Filed: 09/30/16 17:52> Objective - Vital Signs/Intake and Output Vital Signs (last 24 hours): Temp Pulse Resp BP Pulse Ox 98.3 F 88 20 135/98 H 98 09/30/16 15:08 09/30/16 15:08 09/30/16 15:08 09/30/16 15:08 09/30/16 15:08 Intake and Output: 09/30/16 09/30/16 06:59 18:59 Intake Total 940 Output Total 700 Balance 240 - Medications Medications: Current Medications Heparin Sodium (Porcine) (Heparin) 5,000 units SC Q12 [facility] Last Admin: 09/30/16 11:09 Dose: 5,000 units Azithromycin 500 mg/ Sodium (Chloride) 250 mls @ 250 mls/hr IVPB Q24H [facility] Last Admin: 09/30/16 16:15 Dose: 250 mls/hr Ceftriaxone Sodium 1 gm/ (Sodium Chloride) 100 mls @ 100 mls/hr IVPB Q12H [facility] Last Admin: 09/30/16 14:35 Dose: 100 mls/hr Pantoprazole Sodium (Protonix Ec Tab) 40 mg PO DAILY [facility] Last Admin: 09/30/16 11:10 Dose: 40 mg Pneumococcal Polyvalent Vaccine (Pneumovax 23 Vaccine) 0.5 ml IM .ONCE ONE Stop: 10/01/16 10:01 - Labs Labs: 09/30/16 07:54 09/30/16 07:54 Attending/Attestation - Attestation I have personally seen and examined this patient.: Yes I have fully participated in the care of the patient.: Yes I have reviewed all pertinent clinical information, including history, physical exam and plan: Yes Notes (Text): Attending: Patient was seen and examined by me, agrees the above note by medical delivery technician. The patient's white blood cell count has actually increased in #25. He is not on any IV Solu-Medrol or steroid-induced's time. This being said the patient says that he feels substantially better as documented above when he came in he was having substantial right side chest pain as well as right flank pain and this was reflected on the chest imaging which showed that he had a substantial consolidative changes in the right lower lobe of the lung This is can be day 2 of the IV azithromycin and IV Rocephin. The cultures both sputum and blood are currently negative at this time the urine cultures also negative as well He's been getting intravenous fluids, this is help of his renal function. He tells us that he's been eating and drinking quite well so organist stop with intravenous fluids as he does have a history of CHF and I don't want to put him into fulminant CHF Thank you very much, working continue to monitor the blood work particularly this white blood cell count he's afebrile as well Alex Cerrato
--- NOTE | 2016-09-30 13:48 | CARD ---
APPROVED REPORT EXAM: Two-dimensional and M-mode echocardiogram with Doppler and color Doppler. Other Information Quality : GoodRhythm : NSR INDICATION CVA/TIA Chest Pain Fever; pneumonia RISK FACTORS Hypertension M-Mode DIMENSIONS RVDd3.30 (2.1-3.2cm)Left Atrium (MM)4.74 (2.5-4.0cm) IVSd0.95 (0.7-1.1cm)Aortic Root3.50 (2.2-3.7cm) LVDd6.22 (4.0-5.6cm)Aortic Cusp Exc.2.14 (1.5-2.0cm) PWd1.07 (0.7-1.1cm)FS (%) 17 % LVDs5.19 (2.0-3.8cm)LVEF (%)34 (>50%) Mitral Valve MV E Dskcxxom309.8cm/sMV A Oerkcqzb63.6cm/sE/A ratio2.5 TDI E/Lateral E'0.0E/Medial E'0.0 Tricuspid Valve TR Peak Ghrdexxx840iv/sTR Peak Gr.[id number] <Conclusion> moderately dilated la,lv. severe global lv systolic dysfunciton,paradoxical septal motion probably from severe pulmonary hypertension.,lvef of 30-35%. normal size ra,rv with normal rv systolic function. aortic,mitral,tv & pv appears normal/ severe mitral regurtion,moderate tr with calculated pulmonary systolic pressures of 70 mm of hg. moderate degree of lv diastolic dysfunction.elevated la vome index. no pericardial effusion seen. normal size aortic root. ivc is mildly dilated with poor inspiratory collapse,ra of 15 mm of hg.
[2016-09-30] MEDS: Azithromycin 500 MG in Sodium Chloride 0.9% 250 ML IVPB SCH (16:15)
[2016-10-01 07:41] LABS: BASO % 0.1 % (0.0-2.0); EOS % 0.4 % (0.0-4.0); HEMOGLOBIN 11.3 g/dL (12.0-18.0); LYMPH # 1.2 K/uL (1.0-4.3); LYMPH % 8.7 % (20.0-40.0); MEAN CELL VOLUME 93.9 fL (80.0-94.0); MEAN CORPUSCULAR HEMOGLOBIN 32.8 pg (27.0-31.0); MEAN PLATELET VOLUME 7.6 fL (7.2-11.7); MONO # 0.9 K/uL (0.0-0.8); MONO % 6.3 % (0.0-10.0); NEUT # 11.6 K/uL (1.8-7.0); NEUT % 84.5 % (50.0-75.0); NRBC % 0.1 % (0.0-2.0); PLATELET COUNT 449 K/uL (130-400); RBC 3.43 Mil/uL (4.40-5.90); WHITE BLOOD COUNT 13.8 K/uL (4.8-10.8)
--- NOTE | 2016-10-01 07:53 | CP.PCM.PN ---
<Darian Serna Liz - Last Filed: 10/01/16 11:42> Subjective - Date & Time of Evaluation Date of Evaluation: 10/01/16 Time of Evaluation: 07:20 - Subjective Subjective: Patient was examined at bedside. Patient says he feels the same/slightly better since yesterday. He admits to cough with production of yellow phlegm. He admits to pain in the right chest under his right axilla. He is having normal bowel movements and urinating normally. He denies fevers, shortness of breath, vomiting, constipation, chills. Objective - Vital Signs/Intake and Output Vital Signs (last 24 hours): Temp Pulse Resp BP Pulse Ox 98.8 F 99 H 20 149/97 H 98 10/01/16 04:53 10/01/16 04:53 10/01/16 04:53 10/01/16 04:53 09/30/16 23:25 Intake and Output: 10/01/16 10/01/16 06:59 18:59 Output Total 600 Balance -600 - Medications Medications: Current Medications Heparin Sodium (Porcine) (Heparin) 5,000 units SC Q12 [facility] Last Admin: 09/30/16 21:57 Dose: 5,000 units Azithromycin 500 mg/ Sodium (Chloride) 250 mls @ 250 mls/hr IVPB Q24H [facility] Last Admin: 09/30/16 16:15 Dose: 250 mls/hr Ceftriaxone Sodium 1 gm/ (Sodium Chloride) 100 mls @ 100 mls/hr IVPB Q12H [facility] Last Admin: 10/01/16 04:57 Dose: 100 mls/hr Pantoprazole Sodium (Protonix Ec Tab) 40 mg PO DAILY [facility] Last Admin: 09/30/16 11:10 Dose: 40 mg Pneumococcal Polyvalent Vaccine (Pneumovax 23 Vaccine) 0.5 ml IM .ONCE ONE Stop: 10/01/16 10:01 - Labs Labs: 10/01/16 07:29 09/30/16 07:54 - Constitutional Appears: Well, No Acute Distress - Head Exam Head Exam: ATRAUMATIC, NORMAL INSPECTION, NORMOCEPHALIC - Eye Exam Eye Exam: EOMI, Normal appearance, PERRL Pupil Exam: NORMAL ACCOMODATION, PERRL - ENT Exam ENT Exam: Mucous Membranes Moist, Normal Exam - Neck Exam Neck Exam: Full ROM, Normal Inspection. absent: Lymphadenopathy - Respiratory Exam Respiratory Exam: Rhonchi, Wheezes - Cardiovascular Exam Cardiovascular Exam: REGULAR RHYTHM, +S1, +S2 - GI/Abdominal Exam GI & Abdominal Exam: Soft, Normal Bowel Sounds - Rectal Exam Rectal Exam: Deferred - Extremities Exam Extremities Exam: Full ROM, Normal Capillary Refill, Normal Inspection. absent : Joint Swelling, Pedal Edema - Back Exam Back Exam: NORMAL INSPECTION - Neurological Exam Neurological Exam: Alert, Awake, Oriented x3 - Psychiatric Exam Psychiatric exam: Normal Affect, Normal Mood - Skin Skin Exam: Dry, Intact, Normal Color, Warm Assessment and Plan - Assessment and Plan (Free Text) Assessment: Pneumonia con't rocephin 1g IV BID con't azithromycin 500mg IV qh [10/01]: WBC 13.8 [09/30]: WBC 25.9 [09/28]: WBC 18.5, Band Neutrophils 24 Chest xray [09/28]: airspace disease in right lower lobe could represent pneumonia chest xray [09/29]: not significantly changed from prior examination stat CT chest/abd/pelvis w/o contrast [09/28], impression: "Consolidation in right lower lobe and lesser consolidation in posterior right upper lobe. Multifocal small opacities in right upper lobe as well as multifocal small airways disease in right upper and middle lobes. Likely pneumonia. Followup advised. Cardiomegaly. Small pericardial effusion. Aneurysmal dilatation of the ascending thoracic aorta. Right inguinal hernia containing nonobstructed loops of small bowel. Small amount of fluid in right inguinal hernia sac. Evaluation for pyelonephritis grossly limited by the absence of intravenous contrast administration." sputum cx and sensitivity: "few polymorphonuclear wbc's, few epithelial cells, no organisms seen" blood culture (collected in ED), negative x2 urine culture negative cmp, cbc, mag, phos, f/u 0.9% normal saline 70 cc/hr discontinued [09/30] due to CHF (EF 34%) Right flank pain DOMINGA, BUN 43 UTI, pyleonephritis ruled out urinalysis with protein 2+, blood 1+, leukocyte esterase 2+, wbc 16 (H), rbc 6 ( H), hyaline casts 11-20 (H) stat CT chest/abd/pelvis w/o contrast [09/28] impression: "Evaluation for pyelonephritis grossly limited by the absence of intravenous contrast administration." urine cx, negative HTN lisinopril 2.5 po daily coreg 3.125 po bid CHF [10/01] lasix 20mg IV once ekg in ED - left bundle branch block chest xray [09/28] - severe cardiomegaly and mild pulmonary venous congestion. BNP [id number] echocardiogram [09/30], EF of 34% LAURA x3, negative EKG x3, normal sinus rhythm Prophylactic Measures protonix 40mg po daily SCDs heparin 5,000 sc q12 heart healthy diet <Alex Cerrato H - Last Filed: 10/01/16 15:25> Objective - Vital Signs/Intake and Output Vital Signs (last 24 hours): Temp Pulse Resp BP Pulse Ox 98.1 F 62 20 126/83 96 10/01/16 08:59 10/01/16 08:59 10/01/16 08:59 10/01/16 14:49 10/01/16 08:59 Intake and Output: 10/01/16 10/01/16 06:59 18:59 Output Total 600 Balance -600 - Medications Medications: Current Medications Carvedilol (Coreg) 3.125 mg PO BID [facility] Last Admin: 10/01/16 12:58 Dose: 3.125 mg Heparin Sodium (Porcine) (Heparin) 5,000 units SC Q12 [facility] Last Admin: 10/01/16 09:20 Dose: 5,000 units Azithromycin 500 mg/ Sodium (Chloride) 250 mls @ 250 mls/hr IVPB Q24H [facility] Last Admin: 09/30/16 16:15 Dose: 250 mls/hr Ceftriaxone Sodium 1 gm/ (Sodium Chloride) 100 mls @ 100 mls/hr IVPB Q12H [facility] Last Admin: 10/01/16 14:49 Dose: 100 mls/hr Lisinopril (Zestril) 2.5 mg PO DAILY [facility] Last Admin: 10/01/16 12:58 Dose: 2.5 mg Pantoprazole Sodium (Protonix Ec Tab) 40 mg PO DAILY [facility] Last Admin: 10/01/16 09:16 Dose: 40 mg - Labs Labs: 10/01/16 07:29 10/01/16 07:29 Attending/Attestation - Attestation I have personally seen and examined this patient.: Yes I have fully participated in the care of the patient.: Yes I have reviewed all pertinent clinical information, including history, physical exam and plan: Yes Notes (Text): 10/01/16 15:24 Medical attending: Patient was seen and examined by me, agree with the above note by medical aides teacher. The patient's white blood cell count has decreased, so for were continue to follow the cultures, the blood cultures sputum cultures are negative at this time.. He remains on IV antibiotics There is also decrease in the BUN/creatinine as well. The patient is eating well and drinking well so were to stop with intravenous fluids at this time Thank you very much, Alex Cerrato
[2016-10-01 08:05] LABS: ALBUMIN 2.9 g/dL (3.5-5.0)
[2016-10-01 08:07] LABS: GFR AFRICAN-AMERICAN > 60; GFR NON-AFRICAN AMERICAN 52
[2016-10-01 08:08] LABS: ALB/GLOB RATIO 0.7 (1.0-2.1); ALT/SGPT 37 U/L (21-72); AST/SGOT 36 U/L (17-59); BLOOD UREA NITROGEN 43 mg/dL (9-20); CALCIUM 8.6 mg/dl (8.6-10.4)
[2016-10-01 08:09] LABS: MAGNESIUM 2.4 mg/dL (1.6-2.3)
[2016-10-01 08:45] LABS: ANISOCYTOSIS SLIGHT; BANDS 1 % (0-2); GIANT PLATELETS PRESENT; HYPOCHROMIC SLIGHT; LARGE PLATELETS PRESENT; LYMPHOCYTE 7 % (20-40); MONOCYTE 5 % (0-10); NEUTROPHIL 86 % (50-75); PLATELET ESTIMATE NORMAL (NORMAL); POIKILOCYTOSIS SLIGHT; REACTIVE LYMPHOCYTES 1 % (0-0); TOTAL CELLS COUNTED 100
[2016-10-01] MEDS: Pantoprazole 40 mg EC Tab PO SCH (09:16)
[2016-10-01] MEDS ORDERED: Pneumococcal 23-Valent Vaccine IM ONE (10:00)
[2016-10-01] MEDS ORDERED: Potassium Chloride 20 mEq ER Tab PO ONE ×2 (10:00→13:00)
[2016-10-01] MEDS: Azithromycin 500 MG in Sodium Chloride 0.9% 250 ML IVPB SCH (16:58)
[2016-10-02 07:34] LABS: BASO % 0.3 % (0.0-2.0); EOS # 0.2 K/uL (0.0-0.7); EOS % 1.4 % (0.0-4.0); HEMOGLOBIN 10.8 g/dL (12.0-18.0); LYMPH # 1.4 K/uL (1.0-4.3); LYMPH % 12.1 % (20.0-40.0); MEAN CELL VOLUME 94.1 fL (80.0-94.0); MEAN CORPUSCULAR HEMOGLOBIN 32.2 pg (27.0-31.0); MEAN CORPUSCULAR HGB CONC 34.3 g/dL (33.0-37.0); MEAN PLATELET VOLUME 7.6 fL (7.2-11.7); MONO # 0.9 K/uL (0.0-0.8); MONO % 8.1 % (0.0-10.0); NEUT # 8.9 K/uL (1.8-7.0); NEUT % 78.1 % (50.0-75.0); RBC 3.35 Mil/uL (4.40-5.90); RED CELL DISTRIBUTION WIDTH 15.2 % (11.5-14.5); WHITE BLOOD COUNT 11.4 K/uL (4.8-10.8)
[2016-10-02 08:28] LABS: ALBUMIN 2.6 g/dL (3.5-5.0)
[2016-10-02 08:31] LABS: ALB/GLOB RATIO 0.7 (1.0-2.1); AST/SGOT 31 U/L (17-59); BLOOD UREA NITROGEN 37 mg/dL (9-20); GFR AFRICAN-AMERICAN > 60; GFR NON-AFRICAN AMERICAN 56
[2016-10-02 08:32] LABS: ALT/SGPT 31 U/L (21-72); CALCIUM 8.3 mg/dl (8.6-10.4); MAGNESIUM 2.2 mg/dL (1.6-2.3)
--- NOTE | 2016-10-02 10:04 | CP.PCM.PN ---
<Precious Marie - Last Filed: 10/02/16 16:46> Subjective - Date & Time of Evaluation Date of Evaluation: 10/02/16 Time of Evaluation: 07:00 - Subjective Subjective: PGY1- Medicine note- Dr. Cerrato's service Patient seen and examined at bedside. Patient had complaint of right side rib pain. Pain is reproducible while coughing, nonradiating, severity of 9/10, and does not have remitting factors. Cough is productive and clear in color. Patient is also experiencing intermittent shortness of breath with his last episode occurring last night for a couple of hours. SOB is better upon sleeping in an upright position and denies chest pain. Patient also complains of long standing intermittent RUQ, RLQ nonradiating abdominal pain that is currently rated as 8/10. Denies chest pain, headache, dizziness, nausea, vomiting, diarrhea, constipation, dysuria, burning and frequency of urination. Objective - Vital Signs/Intake and Output Vital Signs (last 24 hours): Temp Pulse Resp BP Pulse Ox 98.1 F 82 20 125/80 98 10/02/16 08:09 10/02/16 08:09 10/02/16 08:09 10/02/16 08:09 10/02/16 08:09 Intake and Output: 10/02/16 10/02/16 06:59 18:59 Intake Total 570 Balance 570 - Medications Medications: Current Medications Carvedilol (Coreg) 3.125 mg PO BID [facility] Last Admin: 10/01/16 18:22 Dose: 3.125 mg Heparin Sodium (Porcine) (Heparin) 5,000 units SC Q12 [facility] Last Admin: 10/01/16 22:12 Dose: 5,000 units Azithromycin 500 mg/ Sodium (Chloride) 250 mls @ 250 mls/hr IVPB Q24H [facility] Last Admin: 10/01/16 16:58 Dose: 250 mls/hr Ceftriaxone Sodium 1 gm/ (Sodium Chloride) 100 mls @ 100 mls/hr IVPB Q12H [facility] Last Admin: 10/02/16 02:42 Dose: 100 mls/hr Lisinopril (Zestril) 2.5 mg PO DAILY [facility] Last Admin: 10/01/16 12:58 Dose: 2.5 mg Pantoprazole Sodium (Protonix Ec Tab) 40 mg PO DAILY [facility] Last Admin: 10/01/16 09:16 Dose: 40 mg Potassium Chloride (K-Dur 20 Meq Er Tab) 20 meq PO DAILY [facility] - Labs Labs: 10/02/16 07:20 10/02/16 07:20 - Constitutional Appears: Well, Non-toxic, No Acute Distress - Head Exam Head Exam: ATRAUMATIC, NORMAL INSPECTION, NORMOCEPHALIC - Eye Exam Eye Exam: EOMI, Normal appearance, PERRL - ENT Exam ENT Exam: Mucous Membranes Moist, Normal Exam - Respiratory Exam Respiratory Exam: Wheezes, NORMAL BREATHING PATTERN. absent: Rales, Rhonchi, Respiratory Distress, Stridor Additional comments: mild expiratory wheezes - Cardiovascular Exam Cardiovascular Exam: REGULAR RHYTHM, RRR. absent: Gallop, Rubs, Murmur - GI/Abdominal Exam GI & Abdominal Exam: Soft, Tenderness, Normal Bowel Sounds. absent: Distended, Firm, Guarding, Rigid Additional comments: right sided rib pain - Extremities Exam Extremities Exam: Full ROM, Pedal Edema. absent: Tenderness Additional comments: 1 + pitting edema bilaterally - Back Exam Back Exam: NORMAL INSPECTION. absent: rash noted - Neurological Exam Neurological Exam: Alert, Awake, Oriented x3 - Psychiatric Exam Psychiatric exam: Normal Affect, Normal Mood - Skin Skin Exam: Intact, Normal Color, Warm Assessment and Plan - Assessment and Plan (Free Text) Assessment: 1. Pneumonia CXR completed on 09/29, suspicious of pneumonia. CT 09/30, RLL infiltrates Leukocytosis is improving. 11.4 today. No bandemia. Afebrile. Sputum culture negative Blood culture negative for 3 days Treatment with azithromycin (started 09/29), rocephin (started 09/29) 2. Systolic CHF 09/28 echo results: dilated left atria, left ventricle, global LV systolic dysfunction. LVEF 30-35%. Mitral regurgitation. 09/28 BNP [id number] Continue Lisinopril 2.5mg PO daily, Coreg 3.125mg PO BID Lasix 40 mg IV, once today 3. Ascending Aortic Aneurysm Strict BP control Consult surgery, Dr. Desai, help appreciated 4. Asthma Currently well controlled Dunebs INH qh PRN 5. R inguinal hernia Non obstructed hernia No acute intervention 6. Hypokalemia 3.5 today Potassium Check CMP daily 7. UTI (09/28) Results of urine culture negative Urine culture today 8. Prophylactic Measures Heparin 5000 q12 Protonics 40 daily [facility] <Alex Cerrato H - Last Filed: 10/02/16 17:17> Objective - Vital Signs/Intake and Output Vital Signs (last 24 hours): Temp Pulse Resp BP Pulse Ox 98.6 F 80 18 125/81 98 10/02/16 15:41 10/02/16 15:41 10/02/16 15:41 10/02/16 16:26 10/02/16 15:41 Intake and Output: 10/02/16 10/02/16 06:59 18:59 Intake Total 570 Output Total 850 Balance 570 -850 - Medications Medications: Current Medications Albuterol/Ipratropium (Duoneb 3 Mg/0.5 Mg (3 Ml) Ud) 3 ml INH RQ6 PRN PRN Reason: Shortness of Breath Carvedilol (Coreg) 3.125 mg PO BID [facility] Last Admin: 10/02/16 10:23 Dose: 3.125 mg Heparin Sodium (Porcine) (Heparin) 5,000 units SC Q12 [facility] Last Admin: 10/02/16 10:23 Dose: 5,000 units Azithromycin 500 mg/ Sodium (Chloride) 250 mls @ 250 mls/hr IVPB Q24H [facility] Last Admin: 10/01/16 16:58 Dose: 250 mls/hr Ceftriaxone Sodium 1 gm/ (Sodium Chloride) 100 mls @ 100 mls/hr IVPB Q12H [facility] Last Admin: 10/02/16 16:26 Dose: 100 mls/hr Lisinopril (Zestril) 2.5 mg PO DAILY [facility] Last Admin: 10/02/16 10:23 Dose: 2.5 mg Pantoprazole Sodium (Protonix Ec Tab) 40 mg PO DAILY [facility] Last Admin: 10/02/16 10:23 Dose: 40 mg Potassium Chloride (K-Dur 20 Meq Er Tab) 20 meq PO DAILY [facility] Last Admin: 10/02/16 10:23 Dose: 20 meq - Labs Labs: 10/02/16 07:20 10/02/16 07:20 Attending/Attestation - Attestation I have personally seen and examined this patient.: Yes I have fully participated in the care of the patient.: Yes I have reviewed all pertinent clinical information, including history, physical exam and plan: Yes Notes (Text): 10/02/16 17:15 Medical Attending: Patient was seen and examined by me. Agree with the above note by the resident. The patient WBC is stable. continue with the IV abx, also the blood and sputum cultures have been negative as well. thank you Alex Cerrato
[2016-10-02] MEDS: Pantoprazole 40 mg EC Tab PO SCH (10:23)
[2016-10-02] MEDS: Potassium Chloride 20 mEq ER Tab PO SCH (10:23)
[2016-10-02] MEDS ORDERED: Potassium Chloride 20 mEq ER Tab PO ONE ×2 (12:30→15:56)
[2016-10-02] MEDS ORDERED: Albuterol-Ipratrop 3 mg / 0.5 (3 ml) UD INH PRN (15:34)
--- NOTE | 2016-10-02 16:24 | CP.PCM.CON ---
History of Present Illness - History of Present Illness History of Present Illness: SURGERY CONSULT NOTE FOR DR. LIMON 61M being treated at [facility] for pneumonia. Consult for incidental finding of thoracic aneurysm. Patient states the symptoms that brought him to the hospital started earlier this week and consisted of shortness of breathe with cough. Patient had productive cough with dark, yellow sputum that has now resolved. He denies chest pain, headache, abdominal pain. He also complains of right inguinal hernia that bothers him at work. He states this does not affect is bowel movements at all. PMH: CVA in 2004, HTN, Asthma, R inguinal hernia PSH: denies Social: denies tobacco, alcohol, illicit drug use Allergies: NKDA Past Patient History - Infectious Disease Hx of Infectious Diseases: None - Past Social History Smoking Status: Never Smoked - CARDIAC Hx Hypertension: Yes - PULMONARY Hx Chronic Obstructive Pulmonary Disease (COPD): Yes - NEUROLOGICAL HX Cerebrovascular Accident: Yes - HEENT Hx HEENT Problems: No - RENAL Hx Chronic Kidney Disease: No - ENDOCRINE/METABOLIC Hx Endocrine Disorders: No - HEMATOLOGICAL/ONCOLOGICAL Hx Blood Transfusions: No - INTEGUMENTARY Hx Dermatological Problems: No - MUSCULOSKELETAL/RHEUMATOLOGICAL Hx Falls: No - GASTROINTESTINAL Hx Gastrointestinal Disorders: No - PSYCHIATRIC Hx Substance Use: No - SURGICAL HISTORY Hx Surgeries: No - ANESTHESIA Hx Anesthesia: No Hx Anesthesia Reactions: No Hx Malignant Hyperthermia: No Has any member of the family had a problem w/ anesthesia?: No Meds Allergies/Adverse Reactions: Allergies Allergy/AdvReac Type Severity Reaction Status Date / Time No Known Allergies Allergy Verified 06/28/15 10:51 - Medications Medications: Current Medications Albuterol/Ipratropium (Duoneb 3 Mg/0.5 Mg (3 Ml) Ud) 3 ml INH RQ6 PRN PRN Reason: Shortness of Breath Carvedilol (Coreg) 3.125 mg PO BID [facility] Last Admin: 10/02/16 10:23 Dose: 3.125 mg Heparin Sodium (Porcine) (Heparin) 5,000 units SC Q12 [facility] Last Admin: 10/02/16 10:23 Dose: 5,000 units Azithromycin 500 mg/ Sodium (Chloride) 250 mls @ 250 mls/hr IVPB Q24H [facility] Last Admin: 10/01/16 16:58 Dose: 250 mls/hr Ceftriaxone Sodium 1 gm/ (Sodium Chloride) 100 mls @ 100 mls/hr IVPB Q12H [facility] Last Admin: 10/02/16 02:42 Dose: 100 mls/hr Lisinopril (Zestril) 2.5 mg PO DAILY [facility] Last Admin: 10/02/16 10:23 Dose: 2.5 mg Pantoprazole Sodium (Protonix Ec Tab) 40 mg PO DAILY [facility] Last Admin: 10/02/16 10:23 Dose: 40 mg Potassium Chloride (K-Dur 20 Meq Er Tab) 20 meq PO DAILY [facility] Last Admin: 10/02/16 10:23 Dose: 20 meq Physical Exam - Constitutional Appears: Non-toxic, No Acute Distress - Head Exam Head Exam: ATRAUMATIC - Eye Exam Eye Exam: EOMI, PERRL - ENT Exam ENT Exam: Mucous Membranes Moist - Respiratory Exam Respiratory Exam: Clear to Auscultation Bilateral, NORMAL BREATHING PATTERN - Cardiovascular Exam Cardiovascular Exam: REGULAR RHYTHM, +S1, +S2 - GI/Abdominal Exam GI & Abdominal Exam: Soft. absent: Distended, Firm, Guarding, Pulsatile Mass, Rebound, Rigid, Tenderness - Exam Exam: Scrotal Swelling (right inguinal hernia, reducible) - Extremities Exam Extremities exam: Negative for: pedal edema, tenderness - Neurological Exam Neurological exam: Alert, Oriented x3 - Psychiatric Exam Psychiatric exam: Normal Affect, Normal Mood - Skin Skin Exam: Dry, Intact, Normal Color, Warm Results - Vital Signs Recent Vital Signs: Last Vital Signs Temp 98.6 F 10/02/16 15:41 Pulse 80 10/02/16 15:41 Resp 18 10/02/16 15:41 BP 125/81 10/02/16 15:41 Pulse Ox 98 10/02/16 15:41 - Labs Result Diagrams: 10/02/16 07:20 10/02/16 07:20 Labs: Laboratory Results - last 24 hr 10/02/16 10/02/16 07:20 07:20 WBC 11.4 H RBC 3.35 L Hgb 10.8 L Hct 31.5 L MCV 94.1 H MCH 32.2 H MCHC 34.3 RDW 15.2 H Plt Count 471 H MPV 7.6 Neut % (Auto) 78.1 H Lymph % (Auto) 12.1 L Blair % (Auto) 8.1 Eos % (Auto) 1.4 Baso % (Auto) 0.3 Neut # 8.9 H Lymph # 1.4 Blair # 0.9 H Eos # 0.2 Baso # 0.0 Sodium 140 Potassium 3.5 L Chloride 102 Carbon Dioxide 30 Anion Gap 11 BUN 37 H Creatinine 1.3 Est GFR ( Amer) > 60 Est GFR (Non-Af Amer) 56 Random Glucose 84 Calcium 8.3 L Phosphorus 3.6 Magnesium 2.2 Total Bilirubin 0.8 AST 31 ALT 31 Alkaline Phosphatase 216 H Total Protein 6.3 Albumin 2.6 L Globulin 3.6 Albumin/Globulin Ratio 0.7 L Assessment & Plan - Assessment and Plan (Free Text) Assessment: 61M presents with aneurysm of ascending thoracic aorta, 4.8cm CT: 4.8cm aneurysm of ascending thoracic aorta, right inguinal hernia with no obstruction Plan: - continue blood pressure control - Follow up CT chest in 6 months - No indication for surgery for thoracic aneurysm at this time - Patient should follow up outpatient to schedule same day operation for right inguinal hernia Further recs discuss with Dr. Giselle Smith, PGY1
[2016-10-02] MEDS: Azithromycin 500 MG in Sodium Chloride 0.9% 250 ML IVPB SCH (17:32)
[2016-10-02 23:08] LABS: SQUAMOUS EPITHIAL < 1 /hpf (0-5); URINE BILIRUBIN NEGATIVE (NEGATIVE); URINE BLOOD NEGATIVE (NEGATIVE); URINE CLARITY Clear (Clear); URINE COLOR Yellow (YELLOW); URINE GLUCOSE (UA) NORMAL (Normal); URINE LEUKOCYTE ESTERASE NEG Leu/uL (Negative); URINE NITRATE NEGATIVE (NEGATIVE); URINE PROTEIN NEGATIVE (NEGATIVE)
[2016-10-03 06:33] LABS: BASO % 0.1 % (0.0-2.0); EOS # 0.1 K/uL (0.0-0.7); EOS % 1.2 % (0.0-4.0); HEMOGLOBIN 10.8 g/dL (12.0-18.0); LYMPH # 1.6 K/uL (1.0-4.3); MEAN CELL VOLUME 92.8 fL (80.0-94.0); MEAN CORPUSCULAR HEMOGLOBIN 30.9 pg (27.0-31.0); MEAN CORPUSCULAR HGB CONC 33.3 g/dL (33.0-37.0); MEAN PLATELET VOLUME 7.5 fL (7.2-11.7); MONO % 9.9 % (0.0-10.0); NEUT # 7.3 K/uL (1.8-7.0); NEUT % 72.8 % (50.0-75.0); RBC 3.49 Mil/uL (4.40-5.90); RED CELL DISTRIBUTION WIDTH 15.3 % (11.5-14.5)
--- NOTE | 2016-10-03 06:52 | CARD ---
APPROVED REPORT EKG Measurement Heart [id number] <Conclusion> Normal sinus rhythm Possible Left atrial enlargement Left axis deviation Left bundle branch block Abnormal ECG
[2016-10-03 07:21] LABS: ALBUMIN 2.7 g/dL (3.5-5.0)
[2016-10-03 07:23] LABS: GFR AFRICAN-AMERICAN > 60; GFR NON-AFRICAN AMERICAN 56
[2016-10-03 07:24] LABS: ALB/GLOB RATIO 0.7 (1.0-2.1); ALT/SGPT 31 U/L (21-72); AST/SGOT 30 U/L (17-59); BLOOD UREA NITROGEN 27 mg/dL (9-20); CALCIUM 8.3 mg/dl (8.6-10.4)
[2016-10-03 07:25] LABS: MAGNESIUM 2.1 mg/dL (1.6-2.3)
[2016-10-03] MEDS: Pantoprazole 40 mg EC Tab PO SCH (09:25)
[2016-10-03] MEDS: Potassium Chloride 20 mEq ER Tab PO SCH (09:25)
--- NOTE | 2016-10-03 11:19 | CP.PCM.PN ---
Subjective - Date & Time of Evaluation Date of Evaluation: 10/03/16 Time of Evaluation: 11:00 - Subjective Subjective: Patient was seen and examined by me. He reports feeling better. Not coughing today The WBC has decreased to 10, also is afebrile, the blood cultures negative for 4 days and the sputum negative as well. The creatine has also decreased to 1.3 I explained to the patient he might be discharged tomorrow. He wanted a note for some time off 1 week. Objective - Vital Signs/Intake and Output Vital Signs (last 24 hours): Temp Pulse Resp BP Pulse Ox 98.4 F 80 20 113/75 96 10/03/16 07:45 10/03/16 07:45 10/03/16 07:45 10/03/16 07:45 10/03/16 07:45 Intake and Output: 10/03/16 10/03/16 06:59 18:59 Intake Total 350 Output Total 1700 Balance -1350 - Medications Medications: Current Medications Albuterol/Ipratropium (Duoneb 3 Mg/0.5 Mg (3 Ml) Ud) 3 ml INH RQ6 PRN PRN Reason: Shortness of Breath Carvedilol (Coreg) 3.125 mg PO BID [facility] Last Admin: 10/03/16 09:25 Dose: 3.125 mg Heparin Sodium (Porcine) (Heparin) 5,000 units SC Q12 [facility] Last Admin: 10/03/16 09:25 Dose: 5,000 units Azithromycin 500 mg/ Sodium (Chloride) 250 mls @ 250 mls/hr IVPB Q24H [facility] Last Admin: 10/02/16 17:32 Dose: 250 mls/hr Ceftriaxone Sodium 1 gm/ (Sodium Chloride) 100 mls @ 100 mls/hr IVPB Q12H [facility] Last Admin: 10/03/16 02:00 Dose: 100 mls/hr Lisinopril (Zestril) 2.5 mg PO DAILY [facility] Last Admin: 10/03/16 09:28 Dose: 2.5 mg Pantoprazole Sodium (Protonix Ec Tab) 40 mg PO DAILY [facility] Last Admin: 10/03/16 09:25 Dose: 40 mg Potassium Chloride (K-Dur 20 Meq Er Tab) 20 meq PO DAILY [facility] Last Admin: 10/03/16 09:25 Dose: 20 meq - Labs Labs: 10/03/16 06:20 07/01/17 06:20 - Constitutional Appears: Well, Non-toxic, No Acute Distress - Head Exam Head Exam: NORMAL INSPECTION, NORMOCEPHALIC - Eye Exam Eye Exam: EOMI, Normal appearance - ENT Exam ENT Exam: Mucous Membranes Moist - Respiratory Exam Respiratory Exam: Clear to Ausculation Bilateral, NORMAL BREATHING PATTERN. absent: Chest Wall Tenderness - Cardiovascular Exam Cardiovascular Exam: REGULAR RHYTHM - GI/Abdominal Exam GI & Abdominal Exam: Soft, Normal Bowel Sounds - Neurological Exam Neurological Exam: Alert, Awake, CN II-XII Intact, Oriented x3 Neuro motor strength exam: Left Upper Extremity: 5, Right Upper Extremity: 5, Left Lower Extremity: 5, Right Lower Extremity: 5 - Psychiatric Exam Psychiatric exam: Normal Affect, Normal Mood - Skin Skin Exam: Normal Color, Warm Assessment and Plan - Assessment and Plan (Free Text) Assessment: Assessment: 1. Pneumonia 10/03: The WBC is now decreased to 10, blood cultures have been negative for 4 days. Afebrile, the sputum cx is negative as well. Will stop the IV Rocephin and IV Azithromycin. 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 CT 09/30, RLL infiltrates Leukocytosis is improving. 11.4 today. No bandemia. Afebrile. Treatment with azithromycin (started 09/29), rocephin (started 09/29) 2. Systolic CHF - Currently stable. 10/03: Stable, continue with ACEI, Lasix, BB, ASA 09/28 echo results: dilated left atria, left ventricle, global LV systolic dysfunction. LVEF 30-35%. Mitral regurgitation. 09/28 BNP 07291 Continue Lisinopril 2.5mg PO daily, Coreg 3.125mg PO BID Lasix 40 mg IV, once today 3. Ascending Aortic Aneurysm - stable 10/03: BP has been stable while here, no chest pain. Strict BP control Consult surgery, Dr. Desai, help appreciated 4. Asthma Currently well controlled Dunebs INH qh PRN 5. R inguinal hernia 10/03: I explained to the patient that he is here for pneumonia and that he will need to follow up with his PMD for outpatient refferal eventually. Non obstructed hernia No acute intervention 6. Hypokalemia 3.5 today Potassium Check CMP daily 7. Prophylactic Measures Heparin 5000 q12 Protonics 40 daily [facility]
--- NOTE | 2016-10-03 21:30 | CP.PCM.PN ---
Subjective - Date & Time of Evaluation Date of Evaluation: 10/03/16 Time of Evaluation: 07:45 - Subjective Subjective: CT sx progress note for Dr. Danisha Quintero, PGY-1 Pt S & E at bedside this AM. Pt reports some right sided abdominal discomfort overnight. Denies N/V/F/C, SOB , CP, abdominal pain, headache, vision changes. Objective - Vital Signs/Intake and Output Vital Signs (last 24 hours): Temp Pulse Resp BP Pulse Ox 98.4 F 80 20 113/75 96 10/03/16 07:45 10/03/16 07:45 10/03/16 07:45 10/03/16 07:45 10/03/16 07:45 - Medications Medications: Current Medications Albuterol/Ipratropium (Duoneb 3 Mg/0.5 Mg (3 Ml) Ud) 3 ml INH RQ6 PRN PRN Reason: Shortness of Breath Last Admin: 10/03/16 11:48 Dose: 3 ml Amoxicillin/Clavulanate Potassium (Augmentin 875 Mg-125 Mg Tab) 1 tab PO Q12 [facility] Carvedilol (Coreg) 3.125 mg PO BID [facility] Last Admin: 10/03/16 09:25 Dose: 3.125 mg Heparin Sodium (Porcine) (Heparin) 5,000 units SC Q12 [facility] Last Admin: 10/03/16 09:25 Dose: 5,000 units Lisinopril (Zestril) 2.5 mg PO DAILY [facility] Last Admin: 10/03/16 09:28 Dose: 2.5 mg Pantoprazole Sodium (Protonix Ec Tab) 40 mg PO DAILY [facility] Last Admin: 10/03/16 09:25 Dose: 40 mg Potassium Chloride (K-Dur 20 Meq Er Tab) 20 meq PO DAILY [facility] Last Admin: 10/03/16 09:25 Dose: 20 meq - Labs Labs: 10/03/16 06:20 10/03/16 06:20 - Constitutional Appears: Non-toxic, No Acute Distress - Head Exam Head Exam: ATRAUMATIC, NORMAL INSPECTION, NORMOCEPHALIC - Eye Exam Eye Exam: EOMI, Normal appearance - ENT Exam ENT Exam: Mucous Membranes Moist, Normal Exam - Neck Exam Neck Exam: Full ROM, Normal Inspection - Respiratory Exam Respiratory Exam: Clear to Ausculation Bilateral, NORMAL BREATHING PATTERN. absent: Decreased Breath Sounds, Rales, Rhonchi, Wheezes, Respiratory Distress, Stridor - Cardiovascular Exam Cardiovascular Exam: REGULAR RHYTHM, +S1, +S2 - GI/Abdominal Exam GI & Abdominal Exam: Soft, Tenderness (over right flank), Hernia (R inguinal), Normal Bowel Sounds. absent: Firm, Guarding, Rigid, Pulsatile Mass, Rebound - Extremities Exam Extremities Exam: Pedal Edema (non pitting) - Back Exam Back Exam: Full ROM, NORMAL INSPECTION - Neurological Exam Neurological Exam: Alert, Awake, CN II-XII Intact, Oriented x3 - Psychiatric Exam Psychiatric exam: Normal Affect, Normal Mood - Skin Skin Exam: Dry, Intact, Normal Color, Warm Assessment and Plan - Assessment and Plan (Free Text) Assessment: 61M w/Ascending thoracic aneurysm, R inguinal hernia w/o obstruction, currently asymptomatic with both Plan: Ascending thoracic aneurysm, R inguinal hernia w/o obstruction -Asymptomatic -Cont BP control -no current CT surgery indicated -FU with PMD every 3-6 mos for monitoring after d/c from hospital -FU outpatient for R inguinal hernia, can schedule with same day surgery Please re-consult CT surgery as needed. NATALI attending Ingrid PGY-1
[2016-10-03] MEDS: Amoxicillin-Clav 875-125 mg Tab PO SCH (23:23)
[2016-10-04 01:59] VITALS: BP 121/78
--- NOTE | 2016-10-04 02:22 | CP.PCM.PN ---
Subjective - Date & Time of Evaluation Date of Evaluation: 10/04/16 Time of Evaluation: 06:45 - Subjective Subjective: PGY-[address] Cerrato's Service: Patient was examined at bedside. Patient says he feels better since yesterday. He says he is coughing less now. He still admits to pain in the right chest under his right axilla. He is having normal bowel movements and urinating normally. He denies fevers, shortness of breath, vomiting, constipation, chills. Objective - Vital Signs/Intake and Output Vital Signs (last 24 hours): Temp Pulse Resp BP Pulse Ox 97.3 F L 90 20 121/78 99 10/03/16 23:30 10/04/16 01:07 10/03/16 23:30 10/03/16 23:30 10/03/16 23:30 Intake and Output: 10/03/16 10/04/16 18:59 06:59 Intake Total 750 Output Total 700 Balance 50 - Medications Medications: Current Medications Albuterol/Ipratropium (Duoneb 3 Mg/0.5 Mg (3 Ml) Ud) 3 ml INH RQ6 PRN PRN Reason: Shortness of Breath Last Admin: 10/03/16 11:48 Dose: 3 ml Amoxicillin/Clavulanate Potassium (Augmentin 875 Mg-125 Mg Tab) 1 tab PO Q12 [facility] Last Admin: 10/03/16 23:23 Dose: 1 tab Carvedilol (Coreg) 3.125 mg PO BID [facility] Last Admin: 10/03/16 09:25 Dose: 3.125 mg Heparin Sodium (Porcine) (Heparin) 5,000 units SC Q12 [facility] Last Admin: 10/03/16 23:22 Dose: 5,000 units Lisinopril (Zestril) 2.5 mg PO DAILY [facility] Last Admin: 10/03/16 09:28 Dose: 2.5 mg Pantoprazole Sodium (Protonix Ec Tab) 40 mg PO DAILY [facility] Last Admin: 10/03/16 09:25 Dose: 40 mg Potassium Chloride (K-Dur 20 Meq Er Tab) 20 meq PO DAILY [facility] Last Admin: 10/03/16 09:25 Dose: 20 meq - Labs Labs: 10/03/16 06:20 10/03/16 06:20 - Constitutional Appears: Well, No Acute Distress - Head Exam Head Exam: NORMAL INSPECTION - Eye Exam Eye Exam: Normal appearance Pupil Exam: NORMAL ACCOMODATION, PERRL - ENT Exam ENT Exam: Mucous Membranes Moist - Neck Exam Neck Exam: Full ROM - Respiratory Exam Respiratory Exam: Decreased Breath Sounds, Wheezes, NORMAL BREATHING PATTERN - Cardiovascular Exam Cardiovascular Exam: REGULAR RHYTHM, +S1, +S2. absent: Murmur - GI/Abdominal Exam GI & Abdominal Exam: Soft, Normal Bowel Sounds. absent: Tenderness - Rectal Exam Rectal Exam: Deferred - Extremities Exam Extremities Exam: Full ROM, Normal Capillary Refill, Normal Inspection. absent : Joint Swelling, Pedal Edema - Neurological Exam Neurological Exam: Alert, Awake, Normal Gait, Oriented x3 - Psychiatric Exam Psychiatric exam: Normal Affect, Normal Mood - Skin Skin Exam: Dry, Intact, Normal Color, Warm Assessment and Plan - Assessment and Plan (Free Text) Assessment: Assessment: 1. Pneumonia 10/03: The WBC is now decreased to 10, blood cultures have been negative for 4 days. Afebrile, the sputum cx is negative as well. Will stop the IV Rocephin and IV Azithromycin. 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 CT 09/30, RLL infiltrates Leukocytosis is improving. 11.4 today. No bandemia. Afebrile. Treatment with azithromycin (started 09/29), rocephin (started 09/29) 2. Systolic CHF - Currently stable. 10/03: Stable, continue with ACEI, Lasix, BB, ASA 09/28 echo results: dilated left atria, left ventricle, global LV systolic dysfunction. LVEF 30-35%. Mitral regurgitation. 09/28 BNP 38176 Continue Lisinopril 2.5mg PO daily, Coreg 3.125mg PO BID Lasix 40 mg IV, once today 3. Ascending Aortic Aneurysm - stable 10/03: BP has been stable while here, no chest pain. Strict BP control Consult surgery, Dr. Desia, help appreciated Per Dr. Smith: "- continue blood pressure control - Follow up CT chest in 6 months - No indication for surgery for thoracic aneurysm at this time - Patient should follow up outpatient to schedule same day operation for right inguinal hernia" 4. Asthma Currently well controlled Dunebs INH qh PRN 5. R inguinal hernia 10/03: I explained to the patient that he is here for pneumonia and that he will need to follow up with his PMD for outpatient referral eventually. Non obstructed hernia No acute intervention 6. Hypokalemia 4 today Potassium Check CMP daily 7. Prophylactic Measures Heparin 5000 q12 Protonics 40 daily [facility]
[2016-10-04 08:20] LABS: BASO # 0.1 K/uL (0.0-0.2); BASO % 1.7 % (0.0-2.0); EOS # 0.2 K/uL (0.0-0.7); EOS % 2.3 % (0.0-4.0); HEMOGLOBIN 10.4 g/dL (12.0-18.0); LYMPH # 1.4 K/uL (1.0-4.3); LYMPH % 18.9 % (20.0-40.0); MEAN CELL VOLUME 90.9 fL (80.0-94.0); MEAN PLATELET VOLUME 7.1 fL (7.2-11.7); MONO # 0.7 K/uL (0.0-0.8); NEUT % 68.1 % (50.0-75.0); RBC 3.46 Mil/uL (4.40-5.90); RED CELL DISTRIBUTION WIDTH 15.5 % (11.5-14.5); WHITE BLOOD COUNT 7.3 K/uL (4.8-10.8)
[2016-10-04 08:41] VITALS: PULSE 93; RESP 18; TEMP 97.6; O2SAT 96
[2016-10-04 08:48] LABS: ALBUMIN 2.9 g/dL (3.5-5.0)
[2016-10-04 08:51] LABS: AST/SGOT 33 U/L (17-59); GFR AFRICAN-AMERICAN > 60; GFR NON-AFRICAN AMERICAN > 60
[2016-10-04 08:52] LABS: ALB/GLOB RATIO 0.8 (1.0-2.1); ALT/SGPT 32 U/L (21-72); BLOOD UREA NITROGEN 26 mg/dL (9-20); CALCIUM 8.4 mg/dl (8.6-10.4)
[2016-10-04 08:53] LABS: MAGNESIUM 2.1 mg/dL (1.6-2.3)
[2016-10-04] MEDS: Pantoprazole 40 mg EC Tab PO SCH (09:11)
[2016-10-04] MEDS: Potassium Chloride 20 mEq ER Tab PO SCH (09:11)
[2016-10-04] MEDS: Amoxicillin-Clav 875-125 mg Tab PO SCH (09:11)
--- NOTE | 2016-10-04 10:31 | CP.PCM.DIS ---
Provider - Provider Date of Admission: 09/28/16 14:37 Attending physician: Alex Cerrato DO Primary care physician: Dr Saucedo (Patient explains he has not been to is sometime) Time Spent in preparation of Discharge (in minutes): 29 Hospital Course - Lab Results Lab Results: Micro Results 09/29/16 06:00 Sputum Gram Stain - Final 09/29/16 06:00 Sputum Sputum Culture - Final NORMAL ORAL ISA 09/29/16 06:00 Urine,Clean Catch Urine Culture - Final No Growth (<1,000 CFU/ML) Most Recent Lab Values WBC 7.3 K/uL (4.8-10.8) 10/04/16 08:13 RBC 3.46 Mil/uL (4.40-5.90) L 10/04/16 08:13 Hgb 10.4 g/dL (12.0-18.0) L 10/04/16 08:13 Hct 31.5 % (35.0-51.0) L 10/04/16 08:13 MCV 90.9 fL (80.0-94.0) 10/04/16 08:13 MCH 30.0 pg (27.0-31.0) 10/04/16 08:13 MCHC 33.0 g/dL (33.0-37.0) 10/04/16 08:13 RDW 15.5 % (11.5-14.5) H 10/04/16 08:13 Plt Count 592 K/uL (130-400) H 10/04/16 08:13 MPV 7.1 fL (7.2-11.7) L 10/04/16 08:13 Neut % (Auto) 68.1 % (50.0-75.0) 10/04/16 08:13 Lymph % (Auto) 18.9 % (20.0-40.0) L 10/04/16 08:13 [place] % (Auto) 9.0 % (0.0-10.0) 10/04/16 08:13 Eos % (Auto) 2.3 % (0.0-4.0) 10/04/16 08:13 Baso % (Auto) 1.7 % (0.0-2.0) 10/04/16 08:13 Neut # 5.0 K/uL (1.8-7.0) 10/04/16 08:13 Lymph # 1.4 K/uL (1.0-4.3) 10/04/16 08:13 [place] # 0.7 K/uL (0.0-0.8) 10/04/16 08:13 Eos # 0.2 K/uL (0.0-0.7) 10/04/16 08:13 Baso # 0.1 K/uL (0.0-0.2) 10/04/16 08:13 Neutrophils % (Manual) 86 % (50-75) H 10/01/16 07:29 Band Neutrophils % 1 % (0-2) 10/01/16 07:29 Lymphocytes % (Manual) 7 % (20-40) L 10/01/16 07:29 Reactive Lymphs % 1 % (0-0) H 10/01/16 07:29 Monocytes % (Manual) 5 % (0-10) 10/01/16 07:29 Platelet Estimate Normal (NORMAL) 10/01/16 07:29 Large Platelets Present 10/01/16 07:29 Giant Platelets Present 10/01/16 07:29 Hypochromasia (manual) Slight 10/01/16 07:29 Poikilocytosis (manual Slight 10/01/16 07:29 Anisocytosis (manual) Slight 10/01/16 07:29 Target Cells Slight 09/30/16 07:54 Sodium 139 mmol/L (132-148) 10/04/16 08:13 Potassium 4.2 mmol/L (3.6-5.2) 10/04/16 08:13 Chloride 104 mmol/L (98-107) 10/04/16 08:13 Carbon Dioxide 29 mmol/L (22-30) 10/04/16 08:13 Anion Gap 10 (10-20) 10/04/16 08:13 BUN 26 mg/dL (9-20) H 10/04/16 08:13 Creatinine 1.2 MG/DL (0.8-1.5) 10/04/16 08:13 Est GFR ( Amer) > 60 10/04/16 08:13 Est GFR (Non-Af Amer) > 60 10/04/16 08:13 Random Glucose 84 mg/dL (75-110) 10/04/16 08:13 Calcium 8.4 mg/dl (8.6-10.4) L 10/04/16 08:13 Phosphorus 3.5 mg/dL (2.5-4.5) 10/04/16 08:13 Magnesium 2.1 mg/dL (1.6-2.3) 10/04/16 08:13 Total Bilirubin 0.8 mg/dL (0.2-1.3) 10/04/16 08:13 AST 33 U/L (17-59) 10/04/16 08:13 ALT 32 U/L (21-72) 10/04/16 08:13 Alkaline Phosphatase 235 U/L (38-126) H 10/04/16 08:13 Total Creatine Kinase 48 U/L (55-170) L 09/30/16 07:54 CK-MB (Mass) 2.07 ng/mL (0.0-3.38) 09/30/16 07:54 Troponin I, Quant 0.0310 ng/mL (0.00-0.120) 09/30/16 07:54 NT-Pro-B Natriuret Pep 94459 pg/mL (0-900) H 09/28/16 17:35 Total Protein 6.7 g/dL (6.3-8.3) 10/04/16 08:13 Albumin 2.9 g/dL (3.5-5.0) L 10/04/16 08:13 Globulin 3.8 gm/dL (2.2-3.9) 10/04/16 08:13 Albumin/Globulin Ratio 0.8 (1.0-2.1) L 10/04/16 08:13 TSH 3rd Generation 0.83 mIU/L (0.46-4.68) 09/28/16 18:44 Urine Color Yellow (YELLOW) 10/02/16 23:01 Urine Clarity Clear (Clear) 10/02/16 23:01 Urine pH 6.0 (5.0-8.0) 10/02/16 23:01 Ur Specific [place] 1.012 (1.003-1.030) 10/02/16 23:01 Urine Protein Negative mg/dL (NEGATIVE) 10/02/16 23:01 Urine Glucose (UA) Normal mg/dL (Normal) 10/02/16 23:01 Urine Ketones Negative mg/dL (NEGATIVE) 10/02/16 23:01 Urine Blood Negative (NEGATIVE) 10/02/16 23:01 Urine Nitrate Negative (NEGATIVE) 10/02/16 23:01 Urine Bilirubin Negative (NEGATIVE) 10/02/16 23:01 Urine Urobilinogen 2.0 mg/dL (0.2-1.0) 10/02/16 23:01 Ur Leukocyte Esterase Neg Lola/uL (Negative) 10/02/16 23:01 Urine WBC (Auto) 1 /hpf (0-5) 10/02/16 23:01 Urine RBC (Auto) < 1 /hpf (0-3) 10/02/16 23:01 Urine WBC Clumps (Auto) Rare /hpf (NONE) H 09/28/16 13:22 Ur Squamous Epith Cells < 1 /hpf (0-5) 10/02/16 23:01 Hyaline Casts 11-20 /lpf (0-2) H 09/28/16 13:22 Stool Occult Blood Negative (NEGATIVE) 10/03/16 11:12 - Hospital Course Hospital Course: This is a 61 year old male with a past medical history of HTN who came to the hospital with right side chest tenderness, coughing, and fever. CXRAY imaging suggested right lung findings and a CT scan of the chest was done showing he has infiltrate/consolidation of the right upper and right middle lobes. CT also revealed a thoracic anursym that is stable and he will need future U/S to follow in the future. When he came to the hospital on 09/28 he had a large WBC and left shift as well as DOMINGA The patient was treated with Rocephin and Azithromycin and IVF and had a very good response. There was a history of CHF, however stable at this time and he tolerated slow IVF. His creatine decreased to 1.2. The WBC of 25 and left shift resolved. He no longer had the right side chest tenderness. He will be DC with the following: PO Augmentin 875/125 BID PO Coreg 6.25 BID PO Lisinopril 5mg QD Stop taking the Clonodine. From the resident HPI: " HPI: Mr Hirsch is a 61 yo M who presents to the the ED with worsening non- productive cough which began 3 days ago. The patient also admits to diaphoresis and fever which also began 3 days ago. The patients temperature 2 days ago was 101F as taken by his . The patient admits to right sided abdominal pain associated with the cough in the right upper and right lower quadrant. The patient admits to a loss of appetite and difficulty sleeping due to the persistent cough. The patient admits to 1 episode of diarrhea 2 days ago which has resolved. The patient states he took advil which did not alleviate his symptoms. He did not notice anything which exacerbates his symptoms. The patient denies chest pain, vomiting, shortness of breath, constipation, dysuria , numbness. " Discharge Exam - Head Exam Head Exam: NORMAL INSPECTION - Eye Exam Eye Exam: EOMI, Normal appearance Pupil Exam: NORMAL ACCOMODATION - Respiratory Exam Respiratory Exam: Clear to PA & Lateral, NORMAL BREATHING PATTERN, UNREMARKABLE. absent: Chest Wall Tenderness Additional comments: Chest wall tenderness is resolved. - GI/Abdominal Exam GI & Abdominal Exam: Normal Bowel Sounds, Soft - Exam Additional comments: he has an inguinal hernia - it is stable - not obstructing or incarecerated. - Neurological Exam Neurological exam: Abnormal Gait, Alert, CN II-XII Intact, Oriented x3 - Psychiatric Exam Psychiatric exam: Normal Affect, Normal Mood - Skin Skin Exam: Dry, Normal Color, Warm Discharge Plan - Discharge Medications Prescriptions: Amoxicillin/Clavulanate [Augmentin 875 MG-125 MG Tab] 1 tab PO Q12 #6 tab Carvedilol [Coreg] 6.25 mg PO BID #60 tab Furosemide [Lasix] 20 mg PO STAT #30 tab Lisinopril [Zestril] 5 mg PO DAILY #30 tab - Follow Up Plan Condition: GUARDED Disposition: HOME/ ROUTINE Instructions: Urinary Tract Infection in Women (DC), Urinary Tract Infection in Men (DC), Dysuria (GEN)
--- NOTE | 2016-10-07 15:22 | PQF CHF ---
This form is a permanent part of the medical record To Alex Cerrato MD, Patient was admitted thru ED with Cough, SOB, history of HTN,CHF Hyperlipidemia, Hypercholesterolemia, found to have Pneumonia and Congestive Heart Failure. Lab Reports ProBnp [id number] Ejection Fraction was 34 % Progress notes Documented as SYSTOLIC HEART FAILURE, Please document if ACUTE/CHRONIC/ACUTE ON CHRONIC CHF. tHANK YOU. Clarification of your documentation is requested to better reflect the severity of illness and intensity of treatment of your patient. Indicators present [x] Diagnosis of CHF and/or history of CHF --- SYSTOLIC CHF [x] BNP > 200 ---- [id number] [] Imaging Finding of Pulmonary Edema /Pleural Effusions [] Fluid/Volume Overload [] Pitting edema [X] Ejection Fraction < 40% (Indicative of Systolic Heart Failure) 34% [] Ejection Fraction > 40% (Indicative of Diastolic Heart Failure) [] Dyspnea / Orthopenea / Paroxysmal Nocturnal Dyspnea [] Other: Location in the medical record that reflects the above clinical findings: [] Treatment Provided: [] PHYSICIAN'S RESPONSE Based on your medical judgment of the clinical indicators outlined above, are you treating this patient for a known or suspected: [x] Acute CHF [x] Systolic [] Diastolic [] Combined [] Chronic CHF [] Systolic [] Diastolic [] Combined [] Acute on Chronic CHF []Systolic [] Diastolic [] Combined [] CHF due hypertension [] Acute systolic []Chronic systolic [] Acute/ chronic systolic [] Other, please indicate: [] [] If Unable to Determine, please check the box, sign and date. Present On Admission (POA) Indicator: [] Present at the time of admission [] Not present at the time of admission [] Clinically Undetermined In responding to this query, please exercise your independent professional judgment. The fact that a question is asked does not imply that any particular answer is desired or expected. Thank you for your clarification on this documentation. If you have any questions please call:[ ] * Thank you, [ LAURENT AMEZCUA,[facility]] research aide ELVIS
--- NOTE | 2016-10-19 13:31 | CARD ---
APPROVED REPORT EKG Measurement Heart [id number] <Conclusion> Normal sinus rhythm Possible Left atrial enlargement Left bundle branch block Abnormal ECG
== END 2016-10-04 16:15 | disposition home or self-care (01) | DRG 541 ==
LOC: C.ER 11:50 → C.9E 14:37 → C.6T 20:28
PROVIDERS: ADMIT Hospitalist; ATTEND Hospitalist
DX: J18.9 Pneumonia, unspecified organism (principal); I50.23 Acute on chronic systolic (congestive) heart failure; N12 Tubulo-interstitial nephritis, not specified as acute or chronic; I71.2 Thoracic aortic aneurysm, without rupture; J44.9 Chronic obstructive pulmonary disease, unspecified; I11.0 Hypertensive heart disease with heart failure; E87.6 Hypokalemia; D72.825 Bandemia; Z86.73 Personal history of transient ischemic attack (TIA), and cerebral infarction without residual deficits; I44.7 Left bundle-branch block, unspecified; K40.90 Unilateral inguinal hernia, without obstruction or gangrene, not specified as recurrent; J45.909 Unspecified asthma, uncomplicated; I34.0 Nonrheumatic mitral (valve) insufficiency

== ENCOUNTER 2016-11-22 16:30 | Emergency (ER) | payer OTHER ==
[2016-11-22 16:47] VITALS: O2SAT 100
--- NOTE | 2016-11-22 17:04 | C.PDOC ---
History Of Present Illness Patient is a 61 y/o M presenting with cough x 2 days. He denies chest pain, shortness of breath or fever. He reports that cough is productive with clear sputum. He also reports persistent R hydrocele but reports "its not so bad today." He reports that he has surgery follow-up and understands that he needs operative mgmt. Time Seen by Provider: 11/22/16 16:40 Chief Complaint (Nursing): Cough, Cold, Congestion Past Medical History Vital Signs: Last Vital Signs Temp 98 F 11/22/16 17:23 Pulse 82 11/22/16 17:23 Resp 16 11/22/16 17:23 BP 133/70 11/22/16 17:23 Pulse Ox 100 11/22/16 17:23 - Medical History PMH: COPD, HTN Denies: Chronic Kidney Disease Family History: States: No Known Family Hx - Social History Hx Alcohol Use: No Hx Substance Use: No - Immunization History Hx Tetanus Toxoid Vaccination: No Hx Influenza Vaccination: No Hx Pneumococcal Vaccination: No Review Of Systems Constitutional: Negative for: Fever, Chills Cardiovascular: Negative for: Chest Pain, Palpitations, Paroxysmal Noc. Dyspnea , Light Headedness Respiratory: Positive for: Cough, Sputum (clear). Negative for: Shortness of Breath, SOB with Excertion, Pleuritic Pain, Wheezing Gastrointestinal: Negative for: Nausea, Vomiting, Abdominal Pain, Diarrhea, Constipation Genitourinary: Negative for: Dysuria Musculoskeletal: Negative for: Back Pain Neurological: Negative for: Weakness, Numbness, Incoordination, Change in Speech , Confusion, Seizures, Altered Mental Status, Headache, Dizziness Psych: Negative for: Anxiety Physical Exam - Physical Exam Appears: Well, Non-toxic, No Acute Distress Skin: Normal Color, Warm, Dry Head: Atraumatic, Normacephalic Eye(s): bilateral: Normal Inspection, PERRL, EOMI Neck: Normal, Supple Chest: Symmetrical Cardiovascular: Rhythm Regular Respiratory: Normal Breath Sounds, No Rales, No Rhonchi, No Stridor, No Wheezing Gastrointestinal/Abdominal: Soft, No Tenderness, No Mass, No Distention Back: Normal Inspection Male Genital: Testicular Swelling (R sided testicular swelling) Extremity: Normal ROM Neurological/Psych: Oriented x3, Normal Cranial Nerves Gait: Steady ED Course And Treatment O2 Sat by Pulse Oximetry: 100 - Other Rad CXR X-Ray: Viewed By Me, Read By Radiologist Interpretation: HISTORY: productive cough. COMPARISON: Chest x-ray performed 09/29/16. TECHNIQUE: Chest PA and lateral. FINDINGS: LUNGS: Mild pulmonary venous congestion. No focal consolidation. PLEURA: No significant pleural effusion identified. No definite pneumothorax . CARDIOVASCULAR: Cardiomegaly. OSSEOUS STRUCTURES: Degenerative changes of the spine. VISUALIZED UPPER ABDOMEN: Elevation of the right hemidiaphragm. OTHER FINDINGS: None. IMPRESSION: Cardiomegaly. Mild pulmonary venous congestion. Medical Decision Making Medical Decision Making: Xray negative for pna. Cxray shows cardiomegaly (known to patient) and mild pulmonary venous congestion. Patient has no complaint of shortness of breath and no leg swelling. Patient is well appearing and afebrile with lungs CTA b/l and normal o2 sat. He is requesting cough medication. He has had prior testicular u/s that shows "bilateral epididymal head cysts. Mildly complex large right hydrocele. Small L hydrocele." Patient reports normal bowel habits and denies abdominal pain. He is aware that he needs to follow-up with urology. Disposition - Disposition Disposition: HOME/ ROUTINE Disposition Time: 17:09 Condition: GOOD Additional Instructions: Follow-up with PMD within 2 days. Take medication as needed for cough. Follow- up with urology Prescriptions: Benzonatate [Tessalon Perles] 100 mg PO TID PRN #30 sgl PRN Reason: Cough Instructions: Hydrocele (ED), Upper Respiratory Infection (ED) Forms: [employer] ([place]) - Clinical Impression Clinical Impression: Hydrocele, Upper respiratory infection
--- NOTE | 2016-11-22 17:06 | RAD ---
HISTORY: productive cough COMPARISON: Chest x-ray performed 09/29/16 TECHNIQUE: Chest PA and lateral FINDINGS: LUNGS: Mild pulmonary venous congestion. No focal consolidation. PLEURA: No significant pleural effusion identified. No definite pneumothorax . CARDIOVASCULAR: Cardiomegaly. OSSEOUS STRUCTURES: Degenerative changes of the spine. VISUALIZED UPPER ABDOMEN: Elevation of the right hemidiaphragm. OTHER FINDINGS: None. IMPRESSION: Cardiomegaly. Mild pulmonary venous congestion.
[2016-11-22 17:24] VITALS: BP 133/70; PULSE 82; RESP 16; TEMP 98
== END 2016-11-22 17:23 | disposition home or self-care (01) ==
LOC: C.ER 16:30
DX: J06.9 Acute upper respiratory infection, unspecified (principal); N43.3 Hydrocele, unspecified

== ENCOUNTER 2016-11-28 13:55 | Inpatient (IN) | payer OTHER ==
[2016-11-28] MEDS ORDERED: Aspirin 325 mg EC Tablets PO STA (14:08)
--- NOTE | 2016-11-28 14:15 | C.PDOC ---
History Of Present Illness 61 y/o male with a PMHx of hypertension, asthma, and cardiac disease, who states he has an enlarged heart. Presents to the ED c/o mid-sternal chest tightness and pressure associated with palpitations intermittently all week. Today he developed worsening shortness of breath and swollen ankles, and is having difficulty walking. Also with cough productive of clear phlegm. Denies fever and chills. Not taking any medications. PMD: Margaret Liriano Time Seen by Provider: 11/28/16 14:02 Chief Complaint (Nursing): Chest Pain History Per: Patient History/Exam Limitations: no limitations Onset/Duration Of Symptoms: Days (x 1 week) Current Symptoms Are (Timing): Still Present Past Medical History Reviewed: Historical Data, Nursing Documentation, Vital Signs Vital Signs: Last Vital Signs Temp 97.9 F 11/28/16 14:14 Pulse 85 11/28/16 14:24 Resp 20 11/28/16 14:24 BP 147/103 H 11/28/16 14:24 Pulse Ox 95 11/28/16 14:24 - Medical History PMH: Asthma, COPD, HTN Denies: Chronic Kidney Disease Other PMH: Cardiac disease Family History: States: No Known Family Hx - Social History Hx Alcohol Use: No Hx Substance Use: No - Immunization History Hx Tetanus Toxoid Vaccination: Yes Hx Influenza Vaccination: Yes Hx Pneumococcal Vaccination: Yes Review Of Systems Except As Marked, All Systems Reviewed And Found Negative. Constitutional: Negative for: Fever, Chills Cardiovascular: Positive for: Chest Pain, Palpitations Respiratory: Positive for: Cough, Shortness of Breath, Sputum (clear) Gastrointestinal: Negative for: Nausea, Vomiting Physical Exam - Physical Exam Appears: Well (Well-appearing at rest. Appears winded while walking in exam room.), Non-toxic, No Acute Distress Skin: Normal Color, Warm, Dry Head: Atraumatic, Normacephalic Eye(s): bilateral: Normal Inspection, PERRL, EOMI Oral Mucosa: Moist Neck: Normal ROM, Supple Chest: Symmetrical Cardiovascular: Rhythm Regular, No Murmur Respiratory: Normal Breath Sounds, No Accessory Muscle Use, No Wheezing Gastrointestinal/Abdominal: Bowel Sounds, Soft, Tenderness (Epigastric tenderness on palpation), Guarding (voluntary), No Rebound Back: Normal Inspection Extremity: Normal ROM, Pedal Edema (2-3+ firm edema to both ankles) Neurological/Psych: Oriented x3, Normal Speech Gait: Steady ED Course And Treatment - Laboratory Results Result Diagrams: 11/28/16 14:32 11/28/16 14:32 Lab Interpretation: Abnormal (BNP 22673, BUN 32, K+ 3.0 Hgb 11.0, Hct 32.4) ECG: Interpreted By Me ECG Rhythm: Sinus Rhythm, L BBB (with left axis deviation) ECG Interpretation: Abnormal - Radiology CXR: Interpreted by Me CXR Interpretation: Yes: Cardiomegaly (with vascular congestion) Progress Note: Patient treated with Lasix and Kdur in ED. Reevaluation Time: 15:27 Reassessment Condition: Unchanged - Physician Consult Information Time Consulting Physician Contacted: 15:28 Physician Contacted: Alex Cerrato Outcome Of Conversation: Patient to be admitted to telemetry for treatment of chest pain with CHF Medical Decision Making Medical Decision Making: Time: 14:08 Plan: --EKG --CMP --B-type natriuretic peptide --Troponin I --CBC --Aspirin 325 mg PO --Pending Chest X-Ray Disposition - Disposition Disposition: HOSPITALIZED Disposition Time: 15:28 Condition: STABLE - POA Present On Arrival: None - Clinical Impression Clinical Impression: Chest pain, Congestive heart failure - Scribe Statement The provider has reviewed the documentation as recorded by the Scribjerri Camejo All medical record entries made by the Scribe were at my direction and personally dictated by me. I have reviewed the chart and agree that the record accurately reflects my personal performance of the history, physical exam, medical decision making, and the department course for this patient. I have also personally directed, reviewed, and agree with the discharge instructions and disposition.
[2016-11-28 14:35] LABS: BASO # 0.1 K/uL (0.0-0.2); BASO % 0.8 % (0.0-2.0); EOS % 0.2 % (0.0-4.0); HEMATOCRIT 32.4 % (35.0-51.0); LYMPH % 15.1 % (20.0-40.0); MEAN CELL VOLUME 93.6 fL (80.0-94.0); MEAN CORPUSCULAR HEMOGLOBIN 31.7 pg (27.0-31.0); MEAN CORPUSCULAR HGB CONC 33.9 g/dL (33.0-37.0); MEAN PLATELET VOLUME 6.9 fL (7.2-11.7); MONO # 0.4 K/uL (0.0-0.8); MONO % 6.9 % (0.0-10.0); RED CELL DISTRIBUTION WIDTH 17.1 % (11.5-14.5); WHITE BLOOD COUNT 6.4 K/uL (4.8-10.8)
[2016-11-28 14:44] LABS: CHLORIDE 102 mmol/L (98-107); SODIUM 140 mmol/L (132-148)
[2016-11-28 14:46] LABS: GFR AFRICAN-AMERICAN > 60
[2016-11-28 14:47] LABS: ALB/GLOB RATIO 0.9 (1.0-2.1); ALKALINE PHOSPHATASE 180 U/L (38-126); ALT/SGPT 58 U/L (21-72); AST/SGOT 46 U/L (17-59); BLOOD UREA NITROGEN 32 mg/dL (9-20); CARBON DIOXIDE 21 mmol/L (22-30); GLUCOSE,RANDOM 91 mg/dL (75-110); TOTAL PROTEIN 6.9 g/dL (6.3-8.3)
[2016-11-28 14:48] LABS: CALCIUM 8.5 mg/dl (8.6-10.4)
[2016-11-28] MEDS ORDERED: Potassium Chloride 20 mEq ER Tab PO STA (15:26)
--- NOTE | 2016-11-28 15:26 | RAD ---
PROCEDURE: CHEST RADIOGRAPH, 1 VIEW HISTORY: chest pain COMPARISON: Prior chest radiographs 11/22/2016 FINDINGS: LUNGS: No acute infiltrate identified. PLEURA: No pneumothorax or pleural fluid seen. CARDIOVASCULAR: Stable cardiomegaly remains prominent with no pulmonary derangement appreciated. Mediastinal silhouette is unremarkable otherwise. OSSEOUS STRUCTURES: No significant abnormalities. VISUALIZED UPPER ABDOMEN: Normal. OTHER FINDINGS: None. IMPRESSION: Stable cardiomegaly. No pulmonary derangement infiltrate or pleural effusion identified at this time in the interval compared to 11/22/2016.
--- NOTE | 2016-11-28 15:37 | C.PDOC ---
History Of Present Illness This is a 61 year old male with a past medical history of HTN, CVA in 2005, systolic CHF, Bilateral epididymal cysts, and right sided inguinal hernia. Mr. Hirsch was recently admitted to [facility], in September 2016, and treated for pneumonia. He states that since his discharge the symptoms he had associated with his pneumonia have resolved so, he has no followed up with any of his doctors since. He states that he has been experiencing intermitted chest pain, localized to the left side of the chest, non-radiating, both at rest and with exertion. Associated with his chest pain, he has also been experiencing shortness of breath and pedal edema; that he explains worsens when he eats salt. He admits to experiencing orthopnea for several weeks now as well, explaining that he needs to sleep almost sitting up with 3-4 pillows. Despite these constellation of symptoms he has resisted returning to the hospital. Nevertheless, he states that his symptoms were acutely exacerbated overnight, last night after he ate a salty meal at [facility] [employer]. He states that he does not have any fevers, chills, nausea, vomiting, diarrhea, constipation. He acknowledges chest pain, shortness of breath, coughing, abdominal pain associated with coughing, and bilateral pedal edema. 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 drinking, denies illicit drug use Time Seen by Provider: 11/28/16 14:02 Chief Complaint (Nursing): Chest Pain Past Medical History Vital Signs: Last Vital Signs Temp 97.9 F 11/28/16 16:56 Pulse 92 H 11/28/16 16:56 Resp 18 11/28/16 16:56 BP 150/100 H 11/28/16 16:56 Pulse Ox 95 11/28/16 17:02 - Medical History PMH: Asthma, COPD, HTN Denies: Chronic Kidney Disease Other PMH: Cardiac disease Family History: States: No Known Family Hx - Social History Hx Alcohol Use: No Hx Substance Use: No - Immunization History Hx Tetanus Toxoid Vaccination: Yes Hx Influenza Vaccination: Yes Hx Pneumococcal Vaccination: Yes Review Of Systems Constitutional: Negative for: Fever, Chills Eyes: Negative for: Vision Change Cardiovascular: Positive for: Chest Pain, Orthopnea, Edema Respiratory: Positive for: Cough, Shortness of Breath, SOB with Excertion. Negative for: Hemoptysis, Wheezing Gastrointestinal: Positive for: Abdominal Pain (with coughing). Negative for: Nausea, Vomiting, Diarrhea, Constipation Genitourinary: Negative for: Dysuria Neurological: Negative for: Weakness, Numbness, Confusion, Dizziness Physical Exam - Physical Exam Appears: No Acute Distress Skin: Warm, Dry, No Rash Head: Atraumatic, Normacephalic Eye(s): bilateral: Normal Inspection, EOMI Oral Mucosa: Moist Neck: Normal (no jvd) Chest: No Deformity, No Tenderness Cardiovascular: Rhythm Regular, Murmur (2/6) Respiratory: No Accessory Muscle Use, No Wheezing, Other (mild basilar crackles ) Gastrointestinal/Abdominal: Soft, Tenderness, No Distention Extremity: Pedal Edema (+2 bilaterally), No Calf Tenderness Neurological/Psych: Oriented x3, Normal Speech ED Course And Treatment - Laboratory Results Result Diagrams: 11/28/16 14:32 11/28/16 14:32 ECG: Viewed By Me ECG Rhythm: L BBB (pre-existing on previous EKG in September 2016) O2 Sat by Pulse Oximetry: 95 Disposition - Disposition Disposition: HOSPITALIZED Condition: STABLE - Clinical Impression Clinical Impression: Chest pain, Congestive heart failure
[2016-11-28 15:40] LABS: RBC URINE 1 /hpf (0-3); URINE BACTERIA RARE (<OCC); URINE BILIRUBIN NEGATIVE (NEGATIVE); URINE BLOOD NEGATIVE (NEGATIVE); URINE COLOR Yellow (YELLOW); URINE GLUCOSE (UA) NORMAL (Normal); URINE HYALINE CAST 0-2 /lpf (0-2); URINE KETONE NEGATIVE (NEGATIVE); URINE LEUKOCYTE ESTERASE NEG Leu/uL (Negative); URINE PROTEIN 2+ mg/dL (NEGATIVE); WBC URINE < 1 /hpf (0-5)
[2016-11-28] MEDS ORDERED: Potassium Chloride 20 mEq ER Tab PO ONE (16:07)
--- NOTE | 2016-11-28 17:05 | CP.PCM.HP ---
<MarleenHilario Rivas - Last Filed: 11/28/16 17:28> History of Present Illness - History of Present Illness History of Present Illness: Medicine Admission Note This is a 61 year old male with a past medical history of HTN, CVA in 2004, systolic CHF, Bilateral epididymal cysts, and right sided inguinal hernia. Mr. Hirsch was recently admitted to [facility], in September 2016, and treated for pneumonia. He states that since his discharge the symptoms he had associated with his pneumonia have resolved so, he has no followed up with any of his doctors since. He states that he has been experiencing intermitted chest pain, localized to the left side of the chest, non-radiating, both at rest and with exertion. Associated with his chest pain, he has also been experiencing shortness of breath and pedal edema; that he explains worsens when he eats salt. He admits to experiencing orthopnea for several weeks now as well, explaining that he needs to sleep almost sitting up with 3-4 pillows. Despite these constellation of symptoms he has resisted returning to the hospital. Nevertheless, he states that his symptoms were acutely exacerbated overnight, last night after he ate a salty meal at [employer]. He states that he does not have any fevers, chills, nausea, vomiting, diarrhea, constipation. He acknowledges chest pain, shortness of breath, coughing, abdominal pain associated with coughing, and bilateral pedal edema. 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 absent: Diaphoresis, Syncope - Respiratory Respiratory: Cough, Dyspnea. absent: Hemoptysis - Gastrointestinal Gastrointestinal: As Per HPI, Abdominal Pain. absent: Constipation, Diarrhea, Nausea, Vomiting - Genitourinary Genitourinary: absent: Dysuria - Neurological Neurological: As Per HPI. absent: Dizziness, Numbness, Tingling, Weakness Past Patient History - Infectious Disease Hx of Infectious Diseases: None - Past Social History Smoking Status: Never Smoked - CARDIAC Hx Hypertension: Yes - PULMONARY Hx Asthma: Yes Hx Chronic Obstructive Pulmonary Disease (COPD): Yes - NEUROLOGICAL Hx Neurological Disorder: Yes HX Cerebrovascular Accident: Yes - HEENT Hx HEENT Problems: No - RENAL Hx Chronic Kidney Disease: No - ENDOCRINE/METABOLIC Hx Endocrine Disorders: No - HEMATOLOGICAL/ONCOLOGICAL Hx Blood Transfusions: No - INTEGUMENTARY Hx Dermatological Problems: No - MUSCULOSKELETAL/RHEUMATOLOGICAL Hx Falls: No - GASTROINTESTINAL Hx Gastrointestinal Disorders: No - PSYCHIATRIC Hx Substance Use: No - SURGICAL HISTORY Hx Surgeries: No - ANESTHESIA Hx Anesthesia: No Hx Anesthesia Reactions: No Hx Malignant Hyperthermia: No Meds Allergies/Adverse Reactions: Allergies Allergy/AdvReac Type Severity Reaction Status Date / Time No Known Allergies Allergy Verified 11/28/16 14:05 Physical Exam - Head Exam Head Exam: ATRAUMATIC, NORMOCEPHALIC - Eye Exam Eye Exam: EOMI, Normal appearance - ENT Exam ENT Exam: Mucous Membranes Moist - Respiratory Exam Respiratory Exam: NORMAL BREATHING PATTERN (mild basilar crackles) - Cardiovascular Exam Cardiovascular Exam: Tachycardia, Diastolic murmur (2/6) - GI/Abdominal Exam GI & Abdominal Exam: Soft, Tenderness - Extremities Exam Extremities exam: Positive for: pedal edema (+2). Negative for: calf tenderness - Neurological Exam Neurological exam: Alert, Oriented x3 Results - Vital Signs Recent Vital Signs: Last Vital Signs Temp 97.9 F 11/28/16 16:56 Pulse 92 H 11/28/16 16:56 Resp 18 11/28/16 16:56 BP 150/100 H 11/28/16 16:56 Pulse Ox 95 11/28/16 17:03 - Labs Result Diagrams: 11/28/16 14:32 11/28/16 14:32 Assessment & Plan - Assessment and Plan (Free Text) Assessment: 61 year old male with a past medical history of HTN, CVA in 2004, systolic CHF, Bilateral epididymal cysts, and right sided inguinal hernia presenting with acutely worsening chest pain and shortness of breath Plan: 1. History of systolic CHF with acute exacerbation 09/28 echo results: dilated left atria, left ventricle, global LV systolic dysfunction. LVEF 30-35%. Mitral regurgitation. 11/30 EKG: unchanged from previous admission; pre-existing L BBB 11/28 BNP [id number] Start Lisinopril 5mg PO daily Lasix 40 mg IV BID Start ASA daily Crestor 20mg PO hs Follow up AM labs: A1C, Lipid panel, TSH, T4 Heart healthy diet Consider addition of beta tere once the patient has been properly diuresed 2. Ascending Aortic Aneurysm - stable Strict BP control Pt was evaluated by Dr. Desai during last admission; no surgical intervention 4.8cm identified on CT 09/28 3. HTN Start lisinopril 5mg PO daily Continue home med: clonidine 0.2mg PO BID 4. Asthma- mild intermittent Dunebs INH q6 PRN Does not use any medications at home 5. R inguinal hernia Will need to follow up with his PMD for outpatient referral Non obstructed hernia No acute intervention 6. Hypokalemia 3.0 today Oral KCL given in ED KCL 40meq PO daily Check CMP daily 7. Prophylactic Measures Lovenox 4omg SC daily Protonics 40mg PO daily SCD Tylenol PRN Zofran PRN Case discussed with Dr. Cerrato. <Alex Cerrato H - Last Filed: 11/29/16 07:49> Results - Vital Signs Recent Vital Signs: Last Vital Signs Temp 98.1 F 11/28/16 23:10 Pulse 88 11/28/16 23:10 Resp 20 11/28/16 23:10 BP 134/93 H 11/28/16 23:10 Pulse Ox 98 11/28/16 23:10 - Labs Result Diagrams: 11/29/16 07:08 11/28/16 14:32 Labs: Laboratory Results - last 24 hr 11/29/16 07:08 WBC 6.2 RBC 3.47 L Hgb 10.9 L Hct 32.6 L MCV 93.9 MCH 31.4 H MCHC 33.5 RDW 17.1 H Plt Count 270 MPV 6.9 L Neut % (Auto) 74.1 Lymph % (Auto) 17.8 L [place] % (Auto) 7.6 Eos % (Auto) 0.2 Baso % (Auto) 0.3 Neut # 4.6 Lymph # 1.1 [place] # 0.5 Eos # 0.0 Baso # 0.0 Attending/Attestation - Attestation I have personally seen and examined this patient.: Yes I have fully participated in the care of the patient.: Yes I have reviewed all pertinent clinical information: Yes Notes (Text): Medical Attending: agree with the above note by the resident. The patient is known to the hospitalist group from previous admissions. As mentioned previously he is here with lower extremity edema, shortness of breath, several pillow orthopnea, as well as chest pressure. The patient had earlier been given IV Lasix by the emergency room chest x-ray shows that he has cardiomegaly which is known from previous admissions as well as some pulmonary congestion as well on physical exam, it was difficult to see if he had S3 or not. He certainly does have lower extremity pitting edema and spot +2 from his foot up to his mid floyd area. Cardiac exam he seemed to have a area around his mitral valve that had heavy systolic murmur. This does appear to be consistent with the recent echo this year which suggested that he has a mitral valve problems So at this time were to continue giving the patient Lasix, will have to monitor his electrolytes. Tomorrow if he is feeling better we can consider starting a beta tere. We need to continue KAMALJIT inhibitor as well. Thank you very much, Alex Cerrato
[2016-11-28] MEDS ORDERED: Albuterol-Ipratrop 3 mg / 0.5 (3 ml) UD INH PRN (17:19)
[2016-11-28] MEDS: Potassium Chloride 20 mEq ER Tab PO SCH ×2 (19:57→19:58)
[2016-11-28] MEDS ORDERED: Potassium Chloride 20 mEq ER Tab PO SCH (20:00)
[2016-11-29 07:17] LABS: BASO % 0.3 % (0.0-2.0); EOS % 0.2 % (0.0-4.0); HEMATOCRIT 32.6 % (35.0-51.0); LYMPH # 1.1 K/uL (1.0-4.3); LYMPH % 17.8 % (20.0-40.0); MEAN CELL VOLUME 93.9 fL (80.0-94.0); MEAN CORPUSCULAR HEMOGLOBIN 31.4 pg (27.0-31.0); MEAN CORPUSCULAR HGB CONC 33.5 g/dL (33.0-37.0); MEAN PLATELET VOLUME 6.9 fL (7.2-11.7); MONO # 0.5 K/uL (0.0-0.8); MONO % 7.6 % (0.0-10.0); NRBC % 0.1 % (0.0-2.0); RED CELL DISTRIBUTION WIDTH 17.1 % (11.5-14.5); WHITE BLOOD COUNT 6.2 K/uL (4.8-10.8)
[2016-11-29 07:34] LABS: CHLORIDE 101 mmol/L (98-107); POTASSIUM 3.4 mmol/L (3.6-5.2); SODIUM 138 mmol/L (132-148)
[2016-11-29 07:36] LABS: AST/SGOT 51 U/L (17-59); BILIRUBIN,TOTAL 1.7 mg/dL (0.2-1.3); BLOOD UREA NITROGEN 37 mg/dL (9-20); CARBON DIOXIDE 26 mmol/L (22-30); CHOLESTEROL 81 mg/dL (0-199); GFR AFRICAN-AMERICAN > 60; TOTAL PROTEIN 6.6 g/dL (6.3-8.3)
[2016-11-29 07:37] LABS: ALKALINE PHOSPHATASE 179 U/L (38-126); ALT/SGPT 63 U/L (21-72); CALCIUM 8.7 mg/dl (8.6-10.4); GLUCOSE,RANDOM 91 mg/dL (75-110); MAGNESIUM 1.7 mg/dL (1.6-2.3); PHOSPHOROUS 4.4 mg/dL (2.5-4.5)
--- NOTE | 2016-11-29 07:45 | CP.PCM.PN ---
<Hilario Hawley S - Last Filed: 11/29/16 09:02> Subjective - Date & Time of Evaluation Date of Evaluation: 11/29/16 Time of Evaluation: 07:45 - Subjective Subjective: Medicine Progress Note Pt seen and examined at bedside. He is sitting up comfortably enjoying his breakfast. He states that he is feeling better this morning and he was able to sleep last night but had to keep the bed inclined because he would otherwise become SOB/cough is he was flat. He acknowledges increased urinary output and good response to diuretics. He denies any acute symptoms; no F/C/N/V/CP/D/C. No acute events overnight. Objective - Vital Signs/Intake and Output Vital Signs (last 24 hours): Temp Pulse Resp BP Pulse Ox 98.1 F 88 20 134/93 H 98 11/28/16 23:10 11/28/16 23:10 11/28/16 23:10 11/28/16 23:10 11/28/16 23:10 Intake and Output: 11/29/16 11/29/16 06:59 18:59 Output Total 500 Balance -500 - Medications Medications: Current Medications Acetaminophen (Tylenol 325mg Tab) 650 mg PO Q6 PRN PRN Reason: Pain, moderate (4-7) Albuterol/Ipratropium (Duoneb 3 Mg/0.5 Mg (3 Ml) Ud) 3 ml INH RQ6 PRN PRN Reason: Shortness of Breath Aspirin (Aspirin) 325 mg PO DAILY [facility] Clonidine HCl (Catapres) 0.2 mg PO BID [facility] Last Admin: 11/28/16 17:34 Dose: 0.2 mg Enoxaparin Sodium (Lovenox) 40 mg SC DAILY [facility] Furosemide (Lasix) 40 mg IVP Q12 [facility] Last Admin: 11/28/16 21:15 Dose: 40 mg Lisinopril (Zestril) 5 mg PO DAILY [facility] Ondansetron HCl (Zofran Inj) 4 mg IVP Q6 PRN PRN Reason: Nausea/Vomiting Pantoprazole Sodium (Protonix Ec Tab) 40 mg PO DAILY [facility] Potassium Chloride (K-Dur 20 Meq Er Tab) 40 meq PO DAILY [facility] Last Admin: 11/28/16 19:58 Dose: 40 meq Potassium Chloride (K-Dur 20 Meq Er Tab) 40 meq PO DAILY [facility] Last Admin: 11/28/16 19:57 Dose: 40 meq Rosuvastatin Calcium (Crestor) 20 mg PO HS [facility] Last Admin: 11/28/16 21:15 Dose: 20 mg - Labs Labs: 11/29/16 07:08 - Head Exam Head Exam: ATRAUMATIC, NORMAL INSPECTION - Eye Exam Eye Exam: EOMI, Normal appearance - ENT Exam ENT Exam: Mucous Membranes Moist - Respiratory Exam Respiratory Exam: NORMAL BREATHING PATTERN Additional comments: minimal bibasilar crackling - Cardiovascular Exam Cardiovascular Exam: REGULAR RHYTHM, Murmur (diastolic 2/6 mitral) - GI/Abdominal Exam GI & Abdominal Exam: Soft. absent: Tenderness - Extremities Exam Extremities Exam: Pedal Edema Additional comments: + 2 pitting b/l pedal edema - Neurological Exam Neurological Exam: Alert, Awake, Oriented x3 - Skin Skin Exam: Dry, Intact Assessment and Plan - Assessment and Plan (Free Text) Plan: 1. History of systolic CHF with acute exacerbation 09/28 echo results: dilated left atria, left ventricle, global LV systolic dysfunction. LVEF 30-35%. Mitral regurgitation. 11/30 EKG: unchanged from previous admission; pre-existing L BBB 11/28 BNP [id number] 11/28 CXR- stable cardiomegaly, no infiltrates. Repeat CXR ordered for today- follow up results Start Lisinopril 5mg PO daily Lasix 40 mg IV BID Start ASA daily Crestor 20mg PO hs Follow up A1C Lipid panel * Total cholesterol- 81 * LDL- 37 * HDL- 32 * Triglycerides- 46 TSH- 0.68 T4- 7.31 Heart healthy diet PT/OT evaluations ordered- follow up recommendations Consider addition of beta tere once the patient has been properly diuresed/ optimized Pt is showing clinical improvement of symptoms today, however he has continued, significant pedal edema. We will continue diuretics and monitor electrolytes. 2. Ascending Aortic Aneurysm - stable Strict BP control Pt was evaluated by Dr. Desai during last admission; no surgical intervention 4.8cm identified on CT 09/28 3. HTN- controlled Start lisinopril 5mg PO daily Continue home med: clonidine 0.2mg PO BID 4. Asthma- mild intermittent Dunebs INH q6 PRN Does not use any medications at home 5. R inguinal hernia Will need to follow up with his PMD for outpatient referral Non obstructed hernia No acute intervention 6. Hypokalemia Improving from 3.0 yesterday to 3.4 today Continue KCl 40meq PO daily monitor daily Mg- 1.7 P- 4.4 7. Prophylactic Measures Lovenox 4omg SC daily Protonics 40mg PO daily SCD Tylenol PRN Zofran PRN Case discussed with Dr. Cerrato. <Alex Cerrato - Last Filed: 11/29/16 10:09> Objective - Vital Signs/Intake and Output Vital Signs (last 24 hours): Temp Pulse Resp BP Pulse Ox 98.3 F 71 17 133/83 99 11/29/16 07:35 11/29/16 07:35 11/29/16 07:35 11/29/16 07:35 11/29/16 07:35 Intake and Output: 11/29/16 11/29/16 06:59 18:59 Output Total 500 Balance -500 - Medications Medications: Current Medications Acetaminophen (Tylenol 325mg Tab) 650 mg PO Q6 PRN PRN Reason: Pain, moderate (4-7) Albuterol/Ipratropium (Duoneb 3 Mg/0.5 Mg (3 Ml) Ud) 3 ml INH RQ6 PRN PRN Reason: Shortness of Breath Aspirin (Aspirin) 325 mg PO DAILY [facility] Clonidine HCl (Catapres) 0.2 mg PO BID [facility] Last Admin: 11/28/16 17:34 Dose: 0.2 mg Enoxaparin Sodium (Lovenox) 40 mg SC DAILY [facility] Furosemide (Lasix) 40 mg IVP Q12 [facility] Last Admin: 11/28/16 21:15 Dose: 40 mg Lisinopril (Zestril) 5 mg PO DAILY [facility] Ondansetron HCl (Zofran Inj) 4 mg IVP Q6 PRN PRN Reason: Nausea/Vomiting Pantoprazole Sodium (Protonix Ec Tab) 40 mg PO DAILY [facility] Potassium Chloride (K-Dur 20 Meq Er Tab) 40 meq PO DAILY [facility] Last Admin: 11/28/16 19:58 Dose: 40 meq Potassium Chloride (K-Dur 20 Meq Er Tab) 40 meq PO DAILY [facility] Last Admin: 11/28/16 19:57 Dose: 40 meq Rosuvastatin Calcium (Crestor) 20 mg PO HS [facility] Last Admin: 11/28/16 21:15 Dose: 20 mg - Labs Labs: 11/29/16 07:08 11/29/16 07:08 Attending/Attestation - Attestation I have personally seen and examined this patient.: Yes I have fully participated in the care of the patient.: Yes I have reviewed all pertinent clinical information, including history, physical exam and plan: Yes Notes (Text): Medical Attending : Patient was seen and examined by me. Agree with the above note by the resident The patient reported getting up all night to urinate. Otherwise he did ok overnight. Denied chest pain. His breathing is reported as improved as well. Will add back on Coreg BID at this time Continue follow I and Os, daily weights. thank you Alex Cerrato
[2016-11-29 07:57] LABS: T4 7.31 ug/dL (5.5-11.0)
[2016-11-29 08:50] LABS: THYROID STIMULATING HORMONE 0.68 mIU/L (0.46-4.68)
[2016-11-29] MEDS: Pantoprazole 40 mg EC Tab PO SCH (10:04)
[2016-11-29] MEDS: Enoxaparin 40 mg Syringe SC SCH (10:04)
[2016-11-29] MEDS: Potassium Chloride 20 mEq ER Tab PO SCH ×2 (10:21)
--- NOTE | 2016-11-29 12:27 | RAD ---
HISTORY: CHF with SOB COMPARISON: Portable chest 11/28/2016 TECHNIQUE: Chest PA and lateral FINDINGS: LUNGS: No active pulmonary disease. PLEURA: No significant pleural effusion identified. No pneumothorax apparent. CARDIOVASCULAR: Stable cardiomegaly. No pulmonary vascular derangement identified. OSSEOUS STRUCTURES: No significant abnormalities. VISUALIZED UPPER ABDOMEN: Normal. OTHER FINDINGS: None. IMPRESSION: Stable cardiomegaly. No definitive pulmonary vascular derangement appreciated this time. No significant interval change compared to chest radiograph 11/28/2016.
[2016-11-30 07:15] LABS: BILIRUBIN,TOTAL 0.9 mg/dL (0.2-1.3); CALCIUM 8.7 mg/dl (8.6-10.4); POTASSIUM 3.8 mmol/L (3.6-5.2); TOTAL PROTEIN 6.1 g/dL (6.3-8.3)
[2016-11-30 07:23] LABS: BASO % 0.6 % (0.0-2.0); EOS # 0.1 K/uL (0.0-0.7); EOS % 2.3 % (0.0-4.0); LYMPH # 1.3 K/uL (1.0-4.3); LYMPH % 21.6 % (20.0-40.0); MEAN CELL VOLUME 93.7 fL (80.0-94.0); MEAN CORPUSCULAR HEMOGLOBIN 31.5 pg (27.0-31.0); MEAN CORPUSCULAR HGB CONC 33.6 g/dL (33.0-37.0); MEAN PLATELET VOLUME 7.3 fL (7.2-11.7); MONO # 0.5 K/uL (0.0-0.8); RED CELL DISTRIBUTION WIDTH 17.6 % (11.5-14.5); WHITE BLOOD COUNT 6.1 K/uL (4.8-10.8)
--- NOTE | 2016-11-30 07:50 | CP.PCM.PN ---
Addendum entered and electronically signed by Ce Cole 11/30/16 14:37 : Patient states he is complaint with his medications at home and does follow up with his PMD. 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 1. History of systolic CHF with acute exacerbation Patient continues to have +2 pedal edema. - Will continue diuretics and monitor electrolytes. 09/28 echo results: dilated left atria, left ventricle, global LV systolic dysfunction. LVEF 30-35%. Mitral regurgitation. - Cardiology Consult: Dr. Garcia --> help appreciated Lisinopril 5mg PO daily Lasix 40 mg IV BID Start ASA daily Crestor 20mg PO hs A1C: 5.0 Consider addition of beta tere once the patient has been properly diuresed/ optimized Original Note: <Ce Cole - Last Filed: 11/30/16 14:25> Subjective - Date & Time of Evaluation Date of Evaluation: 11/30/16 Time of Evaluation: 07:30 - Subjective Subjective: Medicine Progress Note: Patient was seen and examined at bedside in the AM. Patient states his leg swelling has improved but is still swollen bilaterally. Patient states he has chronic bilateral upper and lower leg pain for the past 5 years. Patient denies chest pain, palpitations, nausea, vomiting, dysuria, or diarrhea. Objective - Vital Signs/Intake and Output Vital Signs (last 24 hours): Temp Pulse Resp BP Pulse Ox 98.4 F 80 20 129/85 98 11/29/16 23:15 11/30/16 07:30 11/29/16 23:15 11/29/16 23:15 11/29/16 23:15 Intake and Output: 11/30/16 11/30/16 06:59 18:59 Intake Total 500 Output Total 800 Balance -300 - Medications Medications: Current Medications Acetaminophen (Tylenol 325mg Tab) 650 mg PO Q6 PRN PRN Reason: Pain, moderate (4-7) Albuterol/Ipratropium (Duoneb 3 Mg/0.5 Mg (3 Ml) Ud) 3 ml INH RQ6 PRN PRN Reason: Shortness of Breath Aspirin (Aspirin) 325 mg PO DAILY [facility] Last Admin: 11/29/16 10:04 Dose: 325 mg Clonidine HCl (Catapres) 0.2 mg PO BID [facility] Last Admin: 11/29/16 17:52 Dose: 0.2 mg Enoxaparin Sodium (Lovenox) 40 mg SC DAILY [facility] Last Admin: 11/29/16 10:04 Dose: 40 mg Furosemide (Lasix) 40 mg IVP Q12 [facility] Last Admin: 11/29/16 21:41 Dose: 40 mg Lisinopril (Zestril) 5 mg PO DAILY [facility] Last Admin: 11/29/16 10:04 Dose: 5 mg Ondansetron HCl (Zofran Inj) 4 mg IVP Q6 PRN PRN Reason: Nausea/Vomiting Pantoprazole Sodium (Protonix Ec Tab) 40 mg PO DAILY [facility] Last Admin: 11/29/16 10:04 Dose: 40 mg Potassium Chloride (K-Dur 20 Meq Er Tab) 40 meq PO DAILY [facility] Last Admin: 11/29/16 10:21 Dose: 40 meq Potassium Chloride (K-Dur 20 Meq Er Tab) 40 meq PO DAILY [facility] Last Admin: 11/29/16 10:21 Dose: Not Given Rosuvastatin Calcium (Crestor) 20 mg PO HS [facility] Last Admin: 11/29/16 21:40 Dose: 20 mg - Labs Labs: 11/30/16 06:45 11/30/16 06:45 - Constitutional Appears: Well, Non-toxic, No Acute Distress - Head Exam Head Exam: ATRAUMATIC, NORMAL INSPECTION, NORMOCEPHALIC - Eye Exam Eye Exam: EOMI, Normal appearance, PERRL Pupil Exam: NORMAL ACCOMODATION - ENT Exam ENT Exam: Mucous Membranes Moist - Respiratory Exam Respiratory Exam: Clear to Ausculation Bilateral, NORMAL BREATHING PATTERN. absent: Rales, Rhonchi, Wheezes, Respiratory Distress, Stridor - Cardiovascular Exam Cardiovascular Exam: REGULAR RHYTHM, RRR, +S1, +S2 - GI/Abdominal Exam GI & Abdominal Exam: Soft, Normal Bowel Sounds. absent: Tenderness - Extremities Exam Extremities Exam: Pedal Edema (+2 pedal edema till below the knee ) - Neurological Exam Neurological Exam: Alert, Awake, Oriented x3 - Psychiatric Exam Psychiatric exam: Normal Affect - Skin Skin Exam: Normal Color, Warm. absent: Rash Assessment and Plan - Assessment and Plan (Free Text) Plan: 1. History of systolic CHF with acute exacerbation Patient continues to have +2 pedal edema. - Will continue diuretics and monitor electrolytes. 09/28 echo results: dilated left atria, left ventricle, global LV systolic dysfunction. LVEF 30-35%. Mitral regurgitation. Lisinopril 5mg PO daily Lasix 40 mg IV BID Start ASA daily Crestor 20mg PO hs A1C: 5.0 Consider addition of beta tere once the patient has been properly diuresed/ optimized 2. Ascending Aortic Aneurysm - stable Strict BP control Pt was evaluated by Dr. Desai during last admission; no surgical intervention 4.8cm identified on CT 09/28 3. HTN- controlled Lisinopril 5mg PO daily Continue home med: clonidine 0.2mg PO BID 4. Asthma- mild intermittent Dunebs INH q6 PRN Does not use any medications at home 5. Right inguinal hernia Will need to follow up with his PMD for outpatient referral Non obstructed hernia No acute intervention 6. Hypokalemia- Stable 11/30: K 3.8 monitor daily 7. Prophylactic Measures Lovenox 4omg SC daily Protonics 40mg PO daily SCD Tylenol PRN Zofran PRN Case discussed with Dr. Bill Cole- PGY-1 <Preet Khan M - Last Filed: 12/01/16 09:08> Objective - Vital Signs/Intake and Output Vital Signs (last 24 hours): Temp Pulse Resp BP Pulse Ox 97.5 F L 78 20 124/75 97 12/01/16 08:48 12/01/16 08:48 12/01/16 08:48 12/01/16 08:48 12/01/16 08:48 Intake and Output: 12/01/16 12/01/16 06:59 18:59 Intake Total 480 Output Total 3700 Balance -3220 - Medications Medications: Current Medications Acetaminophen (Tylenol 325mg Tab) 650 mg PO Q6 PRN PRN Reason: Pain, moderate (4-7) Albuterol/Ipratropium (Duoneb 3 Mg/0.5 Mg (3 Ml) Ud) 3 ml INH RQ6 PRN PRN Reason: Shortness of Breath Aspirin (Aspirin) 325 mg PO DAILY [facility] Last Admin: 11/30/16 09:56 Dose: 325 mg Clonidine HCl (Catapres) 0.2 mg PO BID [facility] Last Admin: 11/30/16 17:53 Dose: 0.2 mg Enoxaparin Sodium (Lovenox) 40 mg SC DAILY [facility] Last Admin: 11/30/16 09:57 Dose: 40 mg Furosemide (Lasix) 40 mg IVP Q12 [facility] Last Admin: 11/30/16 21:41 Dose: 40 mg Lisinopril (Zestril) 5 mg PO DAILY [facility] Last Admin: 11/30/16 09:56 Dose: 5 mg Metoprolol Tartrate (Lopressor) 25 mg PO BID [facility] Ondansetron HCl (Zofran Inj) 4 mg IVP Q6 PRN PRN Reason: Nausea/Vomiting Pantoprazole Sodium (Protonix Ec Tab) 40 mg PO DAILY [facility] Last Admin: 11/30/16 09:56 Dose: 40 mg Rosuvastatin Calcium (Crestor) 20 mg PO HS [facility] Last Admin: 11/30/16 21:41 Dose: 20 mg - Labs Labs: 12/01/16 06:25 12/01/16 06:25 Attending/Attestation - Attestation I have personally seen and examined this patient.: Yes I have fully participated in the care of the patient.: Yes I have reviewed all pertinent clinical information, including history, physical exam and plan: Yes Notes (Text): 12/01/16 09:08 Patient was seen and examined at bedside with the resident Patient stated that breathing is improved and is able to lie down flat now. We will continue diuresis. We'll request a cardiology evaluation for the patient I discussed the plan of care with the resident and agree with the assessment and plan documented.
[2016-11-30] MEDS: Pantoprazole 40 mg EC Tab PO SCH (09:56)
[2016-11-30] MEDS: Enoxaparin 40 mg Syringe SC SCH (09:57)
[2016-11-30] MEDS: Potassium Chloride 20 mEq ER Tab PO SCH ×2 (09:58→10:00)
--- NOTE | 2016-11-30 12:32 | CARD ---
APPROVED REPORT EKG Measurement Heart [id number] <Conclusion> Normal sinus rhythm Possible Left atrial enlargement Left axis deviation Left bundle branch block Abnormal ECG
--- NOTE | 2016-11-30 14:36 | CP.PCM.CON ---
History of Present Illness - History of Present Illness History of Present Illness: Consultation requested for evaluation of CHF HPI: 61-year-old -[place] male with past medical history significant for hypertension and CVA in 2004 congestive heart failure ejection fraction 30-35% etiology unknown presenting with complains of intermittent episodes of worsening chest pain and shortness of breath. According to the patient his sister last week and he has been under significant stress and emotional distress. Since then he has been very noncompliant with his diet consuming significantly high amounts of salt load. He notices over the past week that he was getting progressively short of breath with severe worsening of his symptoms. At baseline he is NYHA - II dyspnea but over the course of the last 2 weeks symptoms got progressively worse to the point where he is now at NYHA functional class IV. He also noticed significant swelling of bilateral lower extremities. He denies having any fevers chills nausea vomiting diarrhea or constipation. He describes the chest pain as pressure-like intermittent in nature radiating to the back and neck area. He also has known history of ascending aortic aneurysm 4.7 cm which has been stable and he has been observed closely for that. Past medical history as stated above significant for CVA in 2004 for which she was treated at [facility] hypertension congestive heart failure etiology unknown bilateral epididymal cyst. Medications patient was taking clonidine 0.2 mg daily hydrochlorothiazide pain medications for his hernia and Lipitor. Next and allergies no known drug allergies penicillin family history mother from CVA father disease unknown causes stressed has diabetes and end-stage renal disease on hemodialysis. 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 Review of Systems - Review of Systems All systems: reviewed and no additional remarkable complaints except - Constitutional Constitutional: As Per HPI, Lethargy, Malaise - EENT Eyes: As Per HPI Ears: As Per HPI Nose/Mouth/Throat: As Per HPI - Cardiovascular Cardiovascular: As Per HPI, Chest Pain, Dyspnea, Dyspnea on Exertion, Leg Edema , Orthopnea - Respiratory Respiratory: As Per HPI, Dyspnea - Gastrointestinal Gastrointestinal: As Per HPI - Genitourinary Genitourinary: As Per HPI - Reproductive: Male Reproductive:Male: As Per HPI - Musculoskeletal Musculoskeletal: As Per HPI - Integumentary Integumentary: As Per HPI - Neurological Neurological: As Per HPI - Psychiatric Psychiatric: As Per HPI - Endocrine Endocrine: As Per HPI - Hematologic/Lymphatic Hematologic: As Per HPI Past Patient History - Infectious Disease Hx of Infectious Diseases: None - Past Medical History & Family History Pertinent Family History: +ve for CVA ( mom ) - Past Social History Smoking Status: Never Smoked - CARDIAC Hx Hypertension: Yes - PULMONARY Hx Chronic Obstructive Pulmonary Disease (COPD): Yes - NEUROLOGICAL HX Cerebrovascular Accident: Yes (2004) - HEENT Hx HEENT Problems: No - RENAL Hx Chronic Kidney Disease: No - ENDOCRINE/METABOLIC Hx Endocrine Disorders: No - HEMATOLOGICAL/ONCOLOGICAL Hx Blood Transfusions: No - INTEGUMENTARY Hx Dermatological Problems: No - MUSCULOSKELETAL/RHEUMATOLOGICAL Hx Falls: No - GASTROINTESTINAL Hx Gastrointestinal Disorders: No - PSYCHIATRIC Hx Substance Use: No - SURGICAL HISTORY Hx Surgeries: No - ANESTHESIA Hx Anesthesia: No Hx Anesthesia Reactions: No Hx Malignant Hyperthermia: No Meds Allergies/Adverse Reactions: Allergies Allergy/AdvReac Type Severity Reaction Status Date / Time No Known Allergies Allergy Verified 11/28/16 14:05 - Medications Medications: Current Medications Acetaminophen (Tylenol 325mg Tab) 650 mg PO Q6 PRN PRN Reason: Pain, moderate (4-7) Albuterol/Ipratropium (Duoneb 3 Mg/0.5 Mg (3 Ml) Ud) 3 ml INH RQ6 PRN PRN Reason: Shortness of Breath Aspirin (Aspirin) 325 mg PO DAILY [facility] Last Admin: 11/30/16 09:56 Dose: 325 mg Clonidine HCl (Catapres) 0.2 mg PO BID [facility] Last Admin: 11/30/16 09:56 Dose: 0.2 mg Enoxaparin Sodium (Lovenox) 40 mg SC DAILY [facility] Last Admin: 11/30/16 09:57 Dose: 40 mg Furosemide (Lasix) 40 mg IVP Q12 [facility] Last Admin: 11/30/16 09:57 Dose: 40 mg Lisinopril (Zestril) 5 mg PO DAILY [facility] Last Admin: 11/30/16 09:56 Dose: 5 mg Ondansetron HCl (Zofran Inj) 4 mg IVP Q6 PRN PRN Reason: Nausea/Vomiting Pantoprazole Sodium (Protonix Ec Tab) 40 mg PO DAILY [facility] Last Admin: 11/30/16 09:56 Dose: 40 mg Potassium Chloride (K-Dur 20 Meq Er Tab) 40 meq PO DAILY [facility] Last Admin: 11/30/16 09:58 Dose: 40 meq Potassium Chloride (K-Dur 20 Meq Er Tab) 40 meq PO DAILY [facility] Last Admin: 11/30/16 10:00 Dose: Not Given Rosuvastatin Calcium (Crestor) 20 mg PO HS [facility] Last Admin: 11/29/16 21:40 Dose: 20 mg Physical Exam - Constitutional Appears: Well - Head Exam Head Exam: ATRAUMATIC, NORMAL INSPECTION, NORMOCEPHALIC - Eye Exam Eye Exam: EOMI, Normal appearance, PERRL Pupil Exam: NORMAL ACCOMODATION, PERRL - ENT Exam ENT Exam: Mucous Membranes Moist, Normal Exam - Neck Exam Neck exam: Positive for: Normal Inspection - Respiratory Exam Respiratory Exam: Rales, NORMAL BREATHING PATTERN - Cardiovascular Exam Cardiovascular Exam: Irregular Rhythm, +S1, +S2, +S4, Systolic Murmur - GI/Abdominal Exam GI & Abdominal Exam: Normal Bowel Sounds, Soft. absent: Tenderness - Extremities Exam Extremities exam: Positive for: normal inspection, pedal edema - Back Exam Back exam: NORMAL INSPECTION - Neurological Exam Neurological exam: Alert, CN II-XII Intact, Normal Gait, Oriented x3, Reflexes Normal - Psychiatric Exam Psychiatric exam: Normal Affect, Normal Mood - Skin Skin Exam: Dry, Intact, Normal Color, Warm Results - Vital Signs Recent Vital Signs: Last Vital Signs Temp 98.2 F 11/30/16 09:44 Pulse 82 11/30/16 09:44 Resp 20 11/30/16 09:44 BP 133/90 11/30/16 09:57 Pulse Ox 96 11/30/16 09:44 - Labs Result Diagrams: 12/02/16 07:52 12/02/16 07:52 Labs: Laboratory Results - last 24 hr 11/29/16 11/30/16 11/30/16 07:08 06:45 06:45 WBC 6.1 RBC 3.52 L Hgb 11.1 L Hct 33.0 L MCV 93.7 MCH 31.5 H MCHC 33.6 RDW 17.6 H Plt Count 264 MPV 7.3 Neut % (Auto) 67.5 Lymph % (Auto) 21.6 [place] % (Auto) 8.0 Eos % (Auto) 2.3 Baso % (Auto) 0.6 Neut # 4.1 Lymph # 1.3 [place] # 0.5 Eos # 0.1 Baso # 0.0 Sodium 138 Potassium 3.8 Chloride 101 Carbon Dioxide 26 Anion Gap 15 BUN 42 H Creatinine 1.6 H Est GFR ( Amer) 54 Est GFR (Non-Af Amer) 44 Random Glucose 85 Hemoglobin A1c 5.0 Calcium 8.7 Total Bilirubin 0.9 AST 42 ALT 54 Alkaline Phosphatase 159 H Total Protein 6.1 L Albumin 3.1 L Globulin 3.0 Albumin/Globulin Ratio 1.0 Assessment & Plan (1) Congestive heart failure Assessment and Plan: etiology of heart failure unknown. Continue diuretic therapy for preload reduction KAMALJIT inhibitors for afterload reduction monitor ins and outs closely. Watch renal function. Will need further ischemic evaluation stress test Status: Acute (2) Pedal edema Assessment and Plan: secondary to acute exacerbation of Heart failure with fluid overload from activated renin angiotensin aldoster. Patient responding to IV Lasix therapContinue diuretic therapy check echocardiogram Status: Acute (3) Chest pain Assessment and Plan: etiology ? ischemic heart diseaes LAURA stress test in am asa BB once compensated statins Status: Acute
[2016-12-01 06:39] LABS: BASO % 0.9 % (0.0-2.0); EOS # 0.2 K/uL (0.0-0.7); EOS % 3.8 % (0.0-4.0); HEMATOCRIT 33.1 % (35.0-51.0); LYMPH # 1.2 K/uL (1.0-4.3); LYMPH % 23.8 % (20.0-40.0); MEAN CELL VOLUME 94.2 fL (80.0-94.0); MEAN CORPUSCULAR HEMOGLOBIN 31.5 pg (27.0-31.0); MEAN CORPUSCULAR HGB CONC 33.4 g/dL (33.0-37.0); MEAN PLATELET VOLUME 6.9 fL (7.2-11.7); MONO # 0.5 K/uL (0.0-0.8); MONO % 9.5 % (0.0-10.0); NRBC % 0.1 % (0.0-2.0); RED CELL DISTRIBUTION WIDTH 17.1 % (11.5-14.5); WHITE BLOOD COUNT 4.9 K/uL (4.8-10.8)
[2016-12-01 06:50] LABS: BILIRUBIN,TOTAL 0.6 mg/dL (0.2-1.3); CALCIUM 8.7 mg/dl (8.6-10.4); POTASSIUM 3.6 mmol/L (3.6-5.2)
--- NOTE | 2016-12-01 07:53 | CP.PCM.PN ---
<Ce Cole - Last Filed: 12/01/16 14:30> Subjective - Date & Time of Evaluation Date of Evaluation: 12/01/16 Time of Evaluation: 07:00 - Subjective Subjective: Medicine Progress Note: Patient was seen and examined at bedside in the AM. Patient states he still continues to have leg swelling. Patient also states he continues to have bilateral chronic leg pain but states he has been able to walk up and down the hallways. Per nurse he states he has some burning pain located near the chronic right inguinal hernia. Patient denies chest pain, shortness of breath, difficulty breathing, nausea or vomiting. Objective - Vital Signs/Intake and Output Vital Signs (last 24 hours): Temp Pulse Resp BP Pulse Ox 975 F H 67 20 100/63 97 12/01/16 04:35 12/01/16 04:35 12/01/16 04:35 12/01/16 04:35 11/30/16 23:15 Intake and Output: 12/01/16 12/01/16 06:59 18:59 Intake Total 480 Output Total 3700 Balance -3220 - Medications Medications: Current Medications Acetaminophen (Tylenol 325mg Tab) 650 mg PO Q6 PRN PRN Reason: Pain, moderate (4-7) Albuterol/Ipratropium (Duoneb 3 Mg/0.5 Mg (3 Ml) Ud) 3 ml INH RQ6 PRN PRN Reason: Shortness of Breath Aspirin (Aspirin) 325 mg PO DAILY [facility] Last Admin: 11/30/16 09:56 Dose: 325 mg Clonidine HCl (Catapres) 0.2 mg PO BID [facility] Last Admin: 11/30/16 17:53 Dose: 0.2 mg Enoxaparin Sodium (Lovenox) 40 mg SC DAILY [facility] Last Admin: 11/30/16 09:57 Dose: 40 mg Furosemide (Lasix) 40 mg IVP Q12 [facility] Last Admin: 11/30/16 21:41 Dose: 40 mg Lisinopril (Zestril) 5 mg PO DAILY [facility] Last Admin: 11/30/16 09:56 Dose: 5 mg Metoprolol Tartrate (Lopressor) 25 mg PO BID [facility] Ondansetron HCl (Zofran Inj) 4 mg IVP Q6 PRN PRN Reason: Nausea/Vomiting Pantoprazole Sodium (Protonix Ec Tab) 40 mg PO DAILY [facility] Last Admin: 11/30/16 09:56 Dose: 40 mg Rosuvastatin Calcium (Crestor) 20 mg PO [facility] Last Admin: 11/30/16 21:41 Dose: 20 mg - Labs Labs: 12/01/16 06:25 12/01/16 06:25 - Constitutional Appears: Well, No Acute Distress - Head Exam Head Exam: ATRAUMATIC, NORMAL INSPECTION, NORMOCEPHALIC - Eye Exam Eye Exam: EOMI, Normal appearance, PERRL Pupil Exam: NORMAL ACCOMODATION - ENT Exam ENT Exam: Mucous Membranes Moist - Respiratory Exam Respiratory Exam: Clear to Ausculation Bilateral, NORMAL BREATHING PATTERN. absent: Rales, Rhonchi, Wheezes, Stridor - Cardiovascular Exam Cardiovascular Exam: REGULAR RHYTHM, RRR, +S1, +S2 - GI/Abdominal Exam GI & Abdominal Exam: Soft, Normal Bowel Sounds. absent: Tenderness - Extremities Exam Extremities Exam: Pedal Edema (bilateral +2 pedal edema up until his knees. ) - Neurological Exam Neurological Exam: Alert, Awake, Oriented x3 - Psychiatric Exam Psychiatric exam: Normal Affect, Normal Mood - Skin Skin Exam: Normal Color, Warm Assessment and Plan - Assessment and Plan (Free Text) Plan: 1. History of systolic CHF with acute exacerbation Patient continues to have +2 pedal edema. - Will continue diuretics and monitor electrolytes until edema improves. 09/28 echo results: dilated left atria, left ventricle, global LV systolic dysfunction. LVEF 30-35%. Mitral regurgitation. - Cardiology Consult: Dr. Garcia --> help appreciated f/u Myocardial perfusion nuclear scan completed 12/01 Lisinopril 5mg PO daily Lasix 40 mg IV BID Start ASA daily Crestor 20mg PO hs A1C: 5.0 Consider addition of beta tere once the patient has been properly diuresed/ optimized 2. Ascending Aortic Aneurysm - stable Strict BP control Pt was evaluated by Dr. Desai during last admission; no surgical intervention 4.8cm identified on CT 09/28 3. HTN- controlled Lisinopril 5mg PO daily Continue home med: clonidine 0.2mg PO BID 4. Asthma- mild intermittent Dunebs INH q6 PRN Does not use any medications at home 5. Right inguinal hernia Will need to follow up with his PMD for outpatient referral Non obstructed hernia (CT of abdomen/pelvis 09/28/16) No acute intervention Patient complained of pain 12/01 - 650mg PO Tylenol once - Will continue to monitor if patient continues to have discomfort. 6. Hypokalemia- Stable 11/30: K 3.6 monitor daily 7. Prophylactic Measures Lovenox 4omg SC daily Protonics 40mg PO daily [facility] Tylenol PRN Zofran PRN Case discussed with Dr. Bill Cole- PGY-1 <Preet Khan - Last Filed: 12/02/16 12:39> Objective - Vital Signs/Intake and Output Vital Signs (last 24 hours): Temp Pulse Resp BP Pulse Ox 98 F 70 17 120/81 100 12/02/16 07:30 12/02/16 07:30 12/02/16 07:30 12/02/16 10:19 12/02/16 07:30 Intake and Output: 12/02/16 12/02/16 06:59 18:59 Intake Total 650 Balance 650 - Medications Medications: Current Medications Acetaminophen (Tylenol 325mg Tab) 650 mg PO Q6 PRN PRN Reason: Pain, moderate (4-7) Albuterol/Ipratropium (Duoneb 3 Mg/0.5 Mg (3 Ml) Ud) 3 ml INH RQ6 PRN PRN Reason: Shortness of Breath Aspirin (Aspirin) 325 mg PO DAILY [facility] Last Admin: 12/02/16 10:19 Dose: 325 mg Clonidine HCl (Catapres) 0.2 mg PO BID [facility] Last Admin: 12/02/16 10:19 Dose: 0.2 mg Enoxaparin Sodium (Lovenox) 40 mg SC DAILY [facility] Last Admin: 12/02/16 10:20 Dose: 40 mg Furosemide (Lasix) 40 mg IVP Q12 [facility] Last Admin: 12/02/16 10:18 Dose: 40 mg Lisinopril (Zestril) 5 mg PO DAILY [facility] Last Admin: 12/02/16 10:20 Dose: 5 mg Metoprolol Tartrate (Lopressor) 25 mg PO BID [facility] Last Admin: 12/02/16 10:19 Dose: 25 mg Ondansetron HCl (Zofran Inj) 4 mg IVP Q6 PRN PRN Reason: Nausea/Vomiting Pantoprazole Sodium (Protonix Ec Tab) 40 mg PO DAILY [facility] Last Admin: 12/02/16 10:20 Dose: 40 mg Rosuvastatin Calcium (Crestor) 20 mg PO HS [facility] Last Admin: 12/01/16 21:12 Dose: 20 mg - Labs Labs: 12/02/16 07:52 12/02/16 07:52 Attending/Attestation - Attestation I have personally seen and examined this patient.: Yes I have fully participated in the care of the patient.: Yes I have reviewed all pertinent clinical information, including history, physical exam and plan: Yes Notes (Text): 12/02/16 12:38 Patient was seen and examined at bedside with the resident Patient states that breathing is improved but has significant bilateral lower extremity edema and sent continue diuresis. Monitor intake and output Follow-up the results of the nuclear stress test. Follow up cardiology recommendations. I agree with the assessment and plan documented by the resident.
[2016-12-01] MEDS ORDERED: Aminophylline 25 mg/ml Inj ONE (08:57)
[2016-12-01] MEDS: Pantoprazole 40 mg EC Tab PO SCH (10:42)
[2016-12-01] MEDS: Enoxaparin 40 mg Syringe SC SCH (10:43)
[2016-12-02 08:11] LABS: BASO % 0.7 % (0.0-2.0); EOS # 0.2 K/uL (0.0-0.7); EOS % 4.5 % (0.0-4.0); HEMATOCRIT 32.4 % (35.0-51.0); LYMPH # 1.3 K/uL (1.0-4.3); LYMPH % 29.3 % (20.0-40.0); MEAN CELL VOLUME 94.3 fL (80.0-94.0); MEAN CORPUSCULAR HEMOGLOBIN 31.4 pg (27.0-31.0); MEAN CORPUSCULAR HGB CONC 33.3 g/dL (33.0-37.0); MEAN PLATELET VOLUME 7.2 fL (7.2-11.7); MONO # 0.5 K/uL (0.0-0.8); MONO % 10.3 % (0.0-10.0); RED CELL DISTRIBUTION WIDTH 17.1 % (11.5-14.5); WHITE BLOOD COUNT 4.5 K/uL (4.8-10.8)
[2016-12-02 08:27] LABS: POTASSIUM 3.7 mmol/L (3.6-5.2)
[2016-12-02 08:30] LABS: ALB/GLOB RATIO 0.9 (1.0-2.1); BILIRUBIN,TOTAL 0.6 mg/dL (0.2-1.3); CALCIUM 8.9 mg/dl (8.6-10.4); PHOSPHOROUS 3.9 mg/dL (2.5-4.5); TOTAL PROTEIN 6.8 g/dL (6.3-8.3)
[2016-12-02 08:31] LABS: MAGNESIUM 1.8 mg/dL (1.6-2.3)
[2016-12-02] MEDS: Pantoprazole 40 mg EC Tab PO SCH (10:20)
[2016-12-02] MEDS: Enoxaparin 40 mg Syringe SC SCH (10:20)
--- NOTE | 2016-12-02 11:18 | CP.PCM.PN ---
<Ce Cole - Last Filed: 12/02/16 17:27> Subjective - Date & Time of Evaluation Date of Evaluation: 12/02/16 Time of Evaluation: 07:30 - Subjective Subjective: Medicine Progress Note: Patient was seen and examined at bedside in the AM. Per nurse there were no acute events overnight. Patient denies chest pain, palpitations or shortness of breath. Patient states he still continues to have his chronic bilateral leg pain but he states that is ongoing. Patient states he continues to have some bilateral leg swelling. Patient states he has been walking up and down the hallway. Patient states he feels like he is getting a bit of a cold. Patient denies any other complaints at this time. Objective - Vital Signs/Intake and Output Vital Signs (last 24 hours): Temp Pulse Resp BP Pulse Ox 98 F 70 17 120/81 100 12/02/16 07:30 12/02/16 07:30 12/02/16 07:30 12/02/16 10:19 12/02/16 07:30 Intake and Output: 12/02/16 12/02/16 06:59 18:59 Intake Total 650 Balance 650 - Medications Medications: Current Medications Acetaminophen (Tylenol 325mg Tab) 650 mg PO Q6 PRN PRN Reason: Pain, moderate (4-7) Albuterol/Ipratropium (Duoneb 3 Mg/0.5 Mg (3 Ml) Ud) 3 ml INH RQ6 PRN PRN Reason: Shortness of Breath Aspirin (Aspirin) 325 mg PO DAILY [facility] Last Admin: 12/02/16 10:19 Dose: 325 mg Clonidine HCl (Catapres) 0.2 mg PO BID [facility] Last Admin: 12/02/16 10:19 Dose: 0.2 mg Enoxaparin Sodium (Lovenox) 40 mg SC DAILY [facility] Last Admin: 12/02/16 10:20 Dose: 40 mg Furosemide (Lasix) 40 mg IVP Q12 [facility] Last Admin: 12/02/16 10:18 Dose: 40 mg Lisinopril (Zestril) 5 mg PO DAILY [facility] Last Admin: 12/02/16 10:20 Dose: 5 mg Metoprolol Tartrate (Lopressor) 25 mg PO BID [facility] Last Admin: 12/02/16 10:19 Dose: 25 mg Ondansetron HCl (Zofran Inj) 4 mg IVP Q6 PRN PRN Reason: Nausea/Vomiting Pantoprazole Sodium (Protonix Ec Tab) 40 mg PO DAILY [facility] Last Admin: 12/02/16 10:20 Dose: 40 mg Rosuvastatin Calcium (Crestor) 20 mg PO HS [facility] Last Admin: 12/01/16 21:12 Dose: 20 mg - Labs Labs: 12/02/16 07:52 12/02/16 07:52 - Constitutional Appears: Well, No Acute Distress - Head Exam Head Exam: ATRAUMATIC, NORMAL INSPECTION, NORMOCEPHALIC - Eye Exam Eye Exam: EOMI, Normal appearance, PERRL Pupil Exam: NORMAL ACCOMODATION, PERRL - ENT Exam ENT Exam: Mucous Membranes Moist - Respiratory Exam Respiratory Exam: Clear to Ausculation Bilateral, NORMAL BREATHING PATTERN. absent: Rales, Rhonchi, Wheezes, Respiratory Distress, Stridor - Cardiovascular Exam Cardiovascular Exam: REGULAR RHYTHM, RRR, +S1, +S2 - GI/Abdominal Exam GI & Abdominal Exam: Soft, Normal Bowel Sounds. absent: Tenderness - Extremities Exam Extremities Exam: Pedal Edema (bilateral +2 pedal edema up until his knees.) - Neurological Exam Neurological Exam: Alert, Awake, Oriented x3 - Psychiatric Exam Psychiatric exam: Normal Affect, Normal Mood - Skin Skin Exam: Normal Color, Warm Assessment and Plan - Assessment and Plan (Free Text) Plan: 1. History of systolic CHF with acute exacerbation Patient continues to have +2 pedal edema. - Will continue diuretics and monitor electrolytes until edema improves. 09/28 echo results: dilated left atria, left ventricle, global LV systolic dysfunction. LVEF 30-35%. Mitral regurgitation. - Cardiology Consult: Dr. Garcia --> help appreciated - f/u Myocardial perfusion nuclear scan completed 12/01 - per Dr. Garcia possible cardiac cath needed Lisinopril 5mg PO daily Lasix 40 mg IV BID ASA 325mg daily Crestor 20mg PO hs A1C: 5.0 Consider addition of beta tere once the patient has been properly diuresed/ optimized 2. Ascending Aortic Aneurysm - stable Strict BP control Pt was evaluated by Dr. Desai during last admission; no surgical intervention 4.8cm identified on CT 09/28 3. HTN- controlled Lisinopril 5mg PO daily Continue home med: clonidine 0.2mg PO BID 4. Asthma- mild intermittent Dunebs INH q6 PRN Does not use any medications at home 5. Right inguinal hernia Will need to follow up with his PMD for outpatient referral Non obstructed hernia (CT of abdomen/pelvis 09/28/16) No acute intervention Patient complained of pain 12/01 - 650mg PO Tylenol once - Will continue to monitor if patient continues to have discomfort. 6. Hypokalemia- Stable 12/02: K 3.7 monitor daily 7. Prophylactic Measures Lovenox 4omg SC daily Protonics 40mg PO daily [facility] Tylenol PRN Zofran PRN Case discussed with Dr. Bill Cole- PGY-1 <Preet Khan - Last Filed: 12/03/16 15:16> Objective - Vital Signs/Intake and Output Vital Signs (last 24 hours): Temp Pulse Resp BP Pulse Ox 97.7 F 61 18 124/83 94 L 12/03/16 15:12 12/03/16 15:12 12/03/16 15:12 12/03/16 15:12 12/03/16 15:12 Intake and Output: 12/03/16 12/03/16 06:59 18:59 Output Total 175 Balance -175 - Medications Medications: Current Medications Acetaminophen (Tylenol 325mg Tab) 650 mg PO Q6 PRN PRN Reason: Pain, moderate (4-7) Al Hydrox/Mg Hydrox/Simethicone (Maalox 30 Ml) 30 ml PO BID PRN PRN Reason: Indigestion / Heartburn Albuterol/Ipratropium (Duoneb 3 Mg/0.5 Mg (3 Ml) Ud) 3 ml INH RQ6 PRN PRN Reason: Shortness of Breath Aspirin (Aspirin) 325 mg PO DAILY [facility] Last Admin: 12/03/16 09:23 Dose: 325 mg Enoxaparin Sodium (Lovenox) 40 mg SC DAILY [facility] Last Admin: 12/03/16 11:08 Dose: Not Given Furosemide (Lasix) 40 mg IVP Q12 [facility] Last Admin: 12/03/16 09:12 Dose: 40 mg Lisinopril (Zestril) 10 mg PO DAILY [facility] Last Admin: 12/03/16 09:11 Dose: 10 mg Metoprolol Tartrate (Lopressor) 25 mg PO BID [facility] Last Admin: 12/03/16 09:12 Dose: 25 mg Ondansetron HCl (Zofran Inj) 4 mg IVP Q6 PRN PRN Reason: Nausea/Vomiting Pantoprazole Sodium (Protonix Ec Tab) 40 mg PO DAILY [facility] Last Admin: 12/03/16 09:12 Dose: 40 mg Rosuvastatin Calcium (Crestor) 20 mg PO HS [facility] Last Admin: 12/02/16 21:41 Dose: 20 mg - Labs Labs: 12/03/16 06:10 12/03/16 06:10 Attending/Attestation - Attestation I have personally seen and examined this patient.: Yes I have fully participated in the care of the patient.: Yes I have reviewed all pertinent clinical information, including history, physical exam and plan: Yes Notes (Text): 12/03/16 15:15 Patient was seen and examined at bedside with the resident Patient is scheduled for cardiac catheterization by cardiology Continue diuresis with Lasix. Monitor intake and output. Monitor daily weights I discussed the plan of care with the resident and agree with the assessment plan documented.
--- NOTE | 2016-12-02 19:18 | CP.PCM.PN ---
Subjective - Date & Time of Evaluation Date of Evaluation: 12/02/16 Time of Evaluation: 19:18 - Subjective Subjective: feeling much better swelling down sob resolved -ve by 200 cc Objective - Vital Signs/Intake and Output Vital Signs (last 24 hours): Temp Pulse Resp BP Pulse Ox 98.2 F 65 20 103/72 98 12/02/16 15:16 12/02/16 16:00 12/02/16 15:16 12/02/16 17:57 12/02/16 15:16 Intake and Output: 12/02/16 12/03/16 18:59 06:59 Intake Total 600 Output Total 800 Balance -200 - Medications Medications: Current Medications Acetaminophen (Tylenol 325mg Tab) 650 mg PO Q6 PRN PRN Reason: Pain, moderate (4-7) Albuterol/Ipratropium (Duoneb 3 Mg/0.5 Mg (3 Ml) Ud) 3 ml INH RQ6 PRN PRN Reason: Shortness of Breath Aspirin (Aspirin) 325 mg PO DAILY [facility] Last Admin: 12/02/16 10:19 Dose: 325 mg Clonidine HCl (Catapres) 0.2 mg PO BID [facility] Last Admin: 12/02/16 17:58 Dose: Not Given Enoxaparin Sodium (Lovenox) 40 mg SC DAILY [facility] Last Admin: 12/02/16 10:20 Dose: 40 mg Furosemide (Lasix) 40 mg IVP Q12 [facility] Last Admin: 12/02/16 10:18 Dose: 40 mg Lisinopril (Zestril) 5 mg PO DAILY [facility] Last Admin: 12/02/16 10:20 Dose: 5 mg Metoprolol Tartrate (Lopressor) 25 mg PO BID [facility] Last Admin: 12/02/16 17:57 Dose: 25 mg Ondansetron HCl (Zofran Inj) 4 mg IVP Q6 PRN PRN Reason: Nausea/Vomiting Pantoprazole Sodium (Protonix Ec Tab) 40 mg PO DAILY [facility] Last Admin: 12/02/16 10:20 Dose: 40 mg Rosuvastatin Calcium (Crestor) 20 mg PO HS [facility] Last Admin: 12/01/16 21:12 Dose: 20 mg - Labs Labs: 12/02/16 07:52 12/02/16 07:52 - Constitutional Appears: Well - Head Exam Head Exam: ATRAUMATIC, NORMAL INSPECTION, NORMOCEPHALIC - Eye Exam Eye Exam: EOMI, Normal appearance, PERRL Pupil Exam: NORMAL ACCOMODATION, PERRL - ENT Exam ENT Exam: Mucous Membranes Moist, Normal Exam - Neck Exam Neck Exam: Full ROM, Normal Inspection. absent: Lymphadenopathy - Respiratory Exam Respiratory Exam: Clear to Ausculation Bilateral, NORMAL BREATHING PATTERN - Cardiovascular Exam Cardiovascular Exam: REGULAR RHYTHM, +S1, +S2, Murmur - GI/Abdominal Exam GI & Abdominal Exam: Soft, Normal Bowel Sounds. absent: Tenderness - Extremities Exam Extremities Exam: Full ROM, Normal Capillary Refill, Normal Inspection, Pedal Edema. absent: Joint Swelling - Back Exam Back Exam: NORMAL INSPECTION - Neurological Exam Neurological Exam: Alert, Awake, CN II-XII Intact, Normal Gait, Oriented x3 - Psychiatric Exam Psychiatric exam: Normal Affect, Normal Mood - Skin Skin Exam: Dry, Intact, Normal Color, Warm Assessment and Plan (1) Pedal edema Assessment & Plan: resolved Status: Acute (2) Chest pain Assessment & Plan: 2' to IHD cont asa, bb , statins plan for cath in am NPO p MN Status: Acute (3) Congestive heart failure Assessment & Plan: improving cont bb, acei, lasix add aldactone in am dc clonidine and uptitrate RAAS modulators Status: Acute
--- NOTE | 2016-12-02 22:40 | CARD ---
APPROVED REPORT Protocol: MISA Test Type: LEXISCANSTRESS Test Indications: CP Target HR: 160 bpm Resting ECG: normal Resting Heart Rate: 80 bpm Resting Blood Pressure: 130/80mmHg submaximum (85%): 136 bpm TEST SUMMARY [id number]/.0. [id number]/80.0. EXERCISESTAGE 100:511.710.04.096/.0. [id number]:330.00.01.091/.0. PROCEDURE Pharmacologic stress testing was performed using 0.4mg per 5ml of regadenoson given intravenously over 7-10 seconds. There was low-level exercise performed along with the infusion POST EXERCISE Reason for Termination: Fatigue Target HR: No Max HR: 96 bpm 62% of Maximum Predicted HR: 160 bpm Exercise duration: 00:51 min:sec, 1 Stage Exercise capacity: 4.0METs Max Blood Pressure: 130/80mmHg Blood Pressure response to exercise: normal resting BP - appropriate response Heart Rate response to exercise: attenuated secondary to medication Chest Pain: No, none Angina index: 0 Arrhythmia: No, none ST Change: No, none Deviation: 0 mm EXAM: Myocardial Perfusion STRESS/REST Imaging Protocol The imaging protocol used to acquire images was Stress Tc-99m/rest Tc-99m 1 day Rest Spect myocardial perfusion imaging was performed in supine position 45 minutes following the injection of 32.6 mCi of Tc-99 Myoview. Gated Stress Spect was performed 45 minutes after intravenous 13.1 mCi Tc-99 Myoview injection. The images were gated to evaluate regional wall motion and calculate ventricular ejection fraction.Images were reconstructed using backfilter projection method in short horizontal and verticle long axis. Spect slices were generated. RESTING DATA [id number]/min KZW450.00mlMyocardial Jnwr698.00g Av. Heart Rate66.00bpm EF22.00% STRESS DATA WKE752.71phRV8.90L/min NTZ741.00mlMyocardial Eetb951.00g EF33.00% Regional WT score at stress:3.00 Regional WM score at stress:0.00 Summed WT score at stress:38.00 Av. Heart Rate73.00bpmSummed WM score at stress:23.00 Study quality was fair. Left Ventricular size was Normal at Rest and Stress. LV Perfusion 1 Perfusion Defect Location: basal anterioseptal Perfusion Defect Size: Medium (3-4 segments) Perfusion Defect Severity: Severe Type of Perfusion Defect: Reversible TCD/TID: 0.87 LV Perf. Quant 17 Seg. SSS5.00 17 Seg. SRS2.00 17 Seg. SDS3.00 Stress Defect Extent (% LAD)19.40Rest Defect Extent (% LAD)10.60Rev. Defect Extent (% LAD)10.00 Stress Defect Extent (% LCX)12.50Rest Defect Extent (% LCX)0.00Rev. Defect Extent (% LCX)6.30 Stress Defect Extent (% RCA)0.00Rest Defect Extent (% RCA)0.00Rev. Defect Extent (% RCA)0.00 Stress Defect Extent (% MARILU)11.70Rest Defect Extent (% MARILU)4.10Rev. Defect Extent (% MARILU)6.70 Other Information Quality:Fair Overall Exercise Capacity: Poor IMPRESSION Abnormal Myocardial Perfusion exercise stress study Diseased Vessels: Left Anterior Descending Global LV Function: Moderately reduced Stress Test Summary: Nondiagnostic LV Perfusion Summary: Abnormal Metabolism/Perfusion Defects: - Medium sized moderate intensity reversible anteroseptal defect Conclusion 1. - Abnormal myocardial perfusion study with evidence of ischemia in anteroseptal wall 2. - Moderate LV systolic dysfunction
--- NOTE | 2016-12-02 23:03 | CP.PCM.PN ---
Subjective - Date & Time of Evaluation Date of Evaluation: 12/01/16 Time of Evaluation: 09:30 - Subjective Subjective: LE edema improving with diuretic therapy -ve by 3.2 liters plan for stress test today Objective - Vital Signs/Intake and Output Vital Signs (last 24 hours): Temp Pulse Resp BP Pulse Ox 98.2 F 65 20 103/72 98 12/02/16 15:16 12/02/16 16:00 12/02/16 15:16 12/02/16 21:41 12/02/16 15:16 Intake and Output: 12/02/16 12/03/16 18:59 06:59 Intake Total 600 Output Total 800 Balance -200 - Medications Medications: Current Medications Acetaminophen (Tylenol 325mg Tab) 650 mg PO Q6 PRN PRN Reason: Pain, moderate (4-7) Albuterol/Ipratropium (Duoneb 3 Mg/0.5 Mg (3 Ml) Ud) 3 ml INH RQ6 PRN PRN Reason: Shortness of Breath Aspirin (Aspirin) 325 mg PO DAILY [facility] Last Admin: 12/02/16 10:19 Dose: 325 mg Clonidine HCl (Catapres) 0.2 mg PO BID [facility] Last Admin: 12/02/16 17:58 Dose: Not Given Enoxaparin Sodium (Lovenox) 40 mg SC DAILY [facility] Last Admin: 12/02/16 10:20 Dose: 40 mg Furosemide (Lasix) 40 mg IVP Q12 [facility] Last Admin: 12/02/16 21:41 Dose: 40 mg Lisinopril (Zestril) 5 mg PO DAILY [facility] Last Admin: 12/02/16 10:20 Dose: 5 mg Metoprolol Tartrate (Lopressor) 25 mg PO BID [facility] Last Admin: 12/02/16 17:57 Dose: 25 mg Ondansetron HCl (Zofran Inj) 4 mg IVP Q6 PRN PRN Reason: Nausea/Vomiting Pantoprazole Sodium (Protonix Ec Tab) 40 mg PO DAILY [facility] Last Admin: 12/02/16 10:20 Dose: 40 mg Rosuvastatin Calcium (Crestor) 20 mg PO HS [facility] Last Admin: 12/02/16 21:41 Dose: 20 mg - Labs Labs: 12/02/16 07:52 12/02/16 07:52 - Constitutional Appears: Well - Head Exam Head Exam: ATRAUMATIC, NORMAL INSPECTION, NORMOCEPHALIC - Eye Exam Eye Exam: EOMI, Normal appearance, PERRL Pupil Exam: NORMAL ACCOMODATION, PERRL - ENT Exam ENT Exam: Mucous Membranes Moist, Normal Exam - Neck Exam Neck Exam: Full ROM, Normal Inspection. absent: Lymphadenopathy - Respiratory Exam Respiratory Exam: Rales, NORMAL BREATHING PATTERN - Cardiovascular Exam Cardiovascular Exam: REGULAR RHYTHM, +S1, +S2, Murmur - GI/Abdominal Exam GI & Abdominal Exam: Soft, Normal Bowel Sounds. absent: Tenderness - Extremities Exam Extremities Exam: Full ROM, Normal Capillary Refill, Normal Inspection. absent : Joint Swelling, Pedal Edema - Back Exam Back Exam: NORMAL INSPECTION - Neurological Exam Neurological Exam: Alert, Awake, CN II-XII Intact, Normal Gait, Oriented x3 - Psychiatric Exam Psychiatric exam: Normal Affect, Normal Mood - Skin Skin Exam: Dry, Intact, Normal Color, Warm Assessment and Plan (1) Congestive heart failure Assessment & Plan: improving cont lasix, acei add bb stress test today Status: Acute (2) Pedal edema Assessment & Plan: improving continue diuretic therapy Status: Acute (3) Chest pain Assessment & Plan: ACS ruled out EKG - LBBB stress test add BB cont asa, statins Status: Acute
[2016-12-03 06:20] LABS: BASO % 0.7 % (0.0-2.0); EOS # 0.2 K/uL (0.0-0.7); EOS % 5.1 % (0.0-4.0); HEMATOCRIT 34.2 % (35.0-51.0); LYMPH # 1.3 K/uL (1.0-4.3); LYMPH % 27.3 % (20.0-40.0); MEAN CELL VOLUME 93.7 fL (80.0-94.0); MEAN CORPUSCULAR HEMOGLOBIN 31.9 pg (27.0-31.0); MEAN CORPUSCULAR HGB CONC 34.1 g/dL (33.0-37.0); MEAN PLATELET VOLUME 6.8 fL (7.2-11.7); MONO # 0.5 K/uL (0.0-0.8); MONO % 10.7 % (0.0-10.0); RED CELL DISTRIBUTION WIDTH 16.8 % (11.5-14.5); WHITE BLOOD COUNT 4.7 K/uL (4.8-10.8)
[2016-12-03 06:39] LABS: ALB/GLOB RATIO 1.1 (1.0-2.1); ALKALINE PHOSPHATASE 165 U/L (38-126); ALT/SGPT 52 U/L (21-72); AST/SGOT 39 U/L (17-59); BILIRUBIN,TOTAL 0.6 mg/dL (0.2-1.3); BLOOD UREA NITROGEN 31 mg/dL (9-20); CALCIUM 8.8 mg/dl (8.6-10.4); CARBON DIOXIDE 35 mmol/L (22-30); CHLORIDE 95 mmol/L (98-107); GFR AFRICAN-AMERICAN > 60; GLUCOSE,RANDOM 90 mg/dL (75-110); MAGNESIUM 1.8 mg/dL (1.6-2.3); PHOSPHOROUS 3.8 mg/dL (2.5-4.5); POTASSIUM 3.6 mmol/L (3.6-5.2); SODIUM 138 mmol/L (132-148); TOTAL PROTEIN 6.4 g/dL (6.3-8.3)
--- NOTE | 2016-12-03 07:26 | CP.PCM.PN ---
Subjective - Date & Time of Evaluation Date of Evaluation: 12/03/16 Time of Evaluation: 07:26 - Subjective Subjective: cath today s/p left heart cath showing non-obstructive CAD non-ischemic CMP Objective - Vital Signs/Intake and Output Vital Signs (last 24 hours): Temp Pulse Resp BP Pulse Ox 98.2 F 67 20 114/79 96 12/02/16 23:15 12/03/16 04:03 12/02/16 23:15 12/02/16 23:15 12/02/16 23:15 Intake and Output: 12/03/16 12/03/16 06:59 18:59 Output Total 175 Balance -175 - Medications Medications: Current Medications Acetaminophen (Tylenol 325mg Tab) 650 mg PO Q6 PRN PRN Reason: Pain, moderate (4-7) Albuterol/Ipratropium (Duoneb 3 Mg/0.5 Mg (3 Ml) Ud) 3 ml INH RQ6 PRN PRN Reason: Shortness of Breath Aspirin (Aspirin) 325 mg PO DAILY [facility] Last Admin: 12/02/16 10:19 Dose: 325 mg Clonidine HCl (Catapres) 0.2 mg PO BID [facility] Last Admin: 12/02/16 17:58 Dose: Not Given Enoxaparin Sodium (Lovenox) 40 mg SC DAILY [facility] Last Admin: 12/02/16 10:20 Dose: 40 mg Furosemide (Lasix) 40 mg IVP Q12 [facility] Last Admin: 12/02/16 21:41 Dose: 40 mg Lisinopril (Zestril) 5 mg PO DAILY [facility] Last Admin: 12/02/16 10:20 Dose: 5 mg Metoprolol Tartrate (Lopressor) 25 mg PO BID [facility] Last Admin: 12/02/16 17:57 Dose: 25 mg Ondansetron HCl (Zofran Inj) 4 mg IVP Q6 PRN PRN Reason: Nausea/Vomiting Pantoprazole Sodium (Protonix Ec Tab) 40 mg PO DAILY [facility] Last Admin: 12/02/16 10:20 Dose: 40 mg Rosuvastatin Calcium (Crestor) 20 mg PO HS [facility] Last Admin: 12/02/16 21:41 Dose: 20 mg - Labs Labs: 12/03/16 06:10 12/03/16 06:10 - Constitutional Appears: Well - Head Exam Head Exam: ATRAUMATIC, NORMAL INSPECTION, NORMOCEPHALIC - Eye Exam Eye Exam: EOMI, Normal appearance, PERRL Pupil Exam: NORMAL ACCOMODATION, PERRL - ENT Exam ENT Exam: Mucous Membranes Moist, Normal Exam - Neck Exam Neck Exam: Full ROM, Normal Inspection. absent: Lymphadenopathy - Respiratory Exam Respiratory Exam: Clear to Ausculation Bilateral, NORMAL BREATHING PATTERN - Cardiovascular Exam Cardiovascular Exam: Irregular Rhythm, +S1, +S2, Murmur - GI/Abdominal Exam GI & Abdominal Exam: Soft, Normal Bowel Sounds. absent: Tenderness - Extremities Exam Extremities Exam: Full ROM, Normal Capillary Refill, Normal Inspection. absent : Joint Swelling, Pedal Edema - Back Exam Back Exam: NORMAL INSPECTION - Neurological Exam Neurological Exam: Alert, Awake, CN II-XII Intact, Normal Gait, Oriented x3 - Psychiatric Exam Psychiatric exam: Normal Affect, Normal Mood - Skin Skin Exam: Dry, Intact, Normal Color, Warm Assessment and Plan (1) Pedal edema Assessment & Plan: resolving LVEDP 16 stable to dc home on lasix 40mg bid Status: Acute (2) Chest pain Assessment & Plan: 2' to decompensated CHF non-obstructive CAD cont ASA , BB, statins Status: Acute (3) Congestive heart failure Assessment & Plan: cont with Bb , acei and aldactone uptitrate above meds for BP control stable to dc home Status: Acute
[2016-12-03] MEDS ORDERED: Aluminum Hydroxide/Magnesium Hydroxide Susp (30 mL) PO PRN (07:50)
--- NOTE | 2016-12-03 07:52 | CP.PCM.PN ---
<Ce Cole - Last Filed: 12/03/16 16:51> Subjective - Date & Time of Evaluation Date of Evaluation: 12/03/16 Time of Evaluation: 07:30 - Subjective Subjective: Medicine Progress Note: Patient was seen and examined at bedside in the AM. Per nurse there were no acute events overnight. Patient states he is hungry and would like to eat. Patient states he agrees to have his cath procedure done as long he gets breakfast with his lunch and double portions. Patient states he continues to have chronic leg pain but has been able to walk up and down the halls. Patient states he does have some acid reflux and would like to have medication for it. Patient denies any other complaints at this time. Objective - Vital Signs/Intake and Output Vital Signs (last 24 hours): Temp Pulse Resp BP Pulse Ox 98.2 F 67 20 114/79 96 12/02/16 23:15 12/03/16 04:03 12/02/16 23:15 12/02/16 23:15 12/02/16 23:15 Intake and Output: 12/03/16 12/03/16 06:59 18:59 Output Total 175 Balance -175 - Medications Medications: Current Medications Acetaminophen (Tylenol 325mg Tab) 650 mg PO Q6 PRN PRN Reason: Pain, moderate (4-7) Al Hydrox/Mg Hydrox/Simethicone (Maalox 30 Ml) 30 ml PO BID PRN PRN Reason: Indigestion / Heartburn Albuterol/Ipratropium (Duoneb 3 Mg/0.5 Mg (3 Ml) Ud) 3 ml INH RQ6 PRN PRN Reason: Shortness of Breath Aspirin (Aspirin) 325 mg PO DAILY [facility] Last Admin: 12/02/16 10:19 Dose: 325 mg Enoxaparin Sodium (Lovenox) 40 mg SC DAILY [facility] Last Admin: 12/02/16 10:20 Dose: 40 mg Furosemide (Lasix) 40 mg IVP Q12 [facility] Last Admin: 12/02/16 21:41 Dose: 40 mg Lisinopril (Zestril) 10 mg PO DAILY [facility] Metoprolol Tartrate (Lopressor) 25 mg PO BID [facility] Last Admin: 12/02/16 17:57 Dose: 25 mg Ondansetron HCl (Zofran Inj) 4 mg IVP Q6 PRN PRN Reason: Nausea/Vomiting Pantoprazole Sodium (Protonix Ec Tab) 40 mg PO DAILY [facility] Last Admin: 12/02/16 10:20 Dose: 40 mg Rosuvastatin Calcium (Crestor) 20 mg PO HS [facility] Last Admin: 12/02/16 21:41 Dose: 20 mg - Labs Labs: 12/03/16 06:10 12/03/16 06:10 - Constitutional Appears: Well, Non-toxic, No Acute Distress - Head Exam Head Exam: ATRAUMATIC, NORMAL INSPECTION, NORMOCEPHALIC - Eye Exam Eye Exam: EOMI, Normal appearance, PERRL Pupil Exam: NORMAL ACCOMODATION, PERRL - ENT Exam ENT Exam: Mucous Membranes Moist - Respiratory Exam Respiratory Exam: Clear to Ausculation Bilateral, NORMAL BREATHING PATTERN - Cardiovascular Exam Cardiovascular Exam: REGULAR RHYTHM, RRR, +S1, +S2 - GI/Abdominal Exam GI & Abdominal Exam: Soft, Normal Bowel Sounds. absent: Tenderness - Extremities Exam Extremities Exam: Pedal Edema (+2 up till his knees ) - Neurological Exam Neurological Exam: Alert, Awake, Oriented x3 - Psychiatric Exam Psychiatric exam: Agitated (because he is hungry) - Skin Skin Exam: Dry, Normal Color, Warm Assessment and Plan - Assessment and Plan (Free Text) Plan: 1. History of systolic CHF with acute exacerbation Patient continues to have +2 pedal edema. - Will continue diuretics and monitor electrolytes until edema improves. 09/28 echo results: dilated left atria, left ventricle, global LV systolic dysfunction. LVEF 30-35%. Mitral regurgitation. - Cardiology Consult: Dr. Garcia --> help appreciated - Myocardial perfusion nuclear scan completed 12/01: Ischemia in anteroseptal wall, moderate LV systolic dysfunction. - Cardiac cath 12/03: Non-obstructive CAD - Per Dr. Garcia patient stable for discharge home on lasix 40mg bid Lisinopril 5mg PO daily Lasix 40 mg IV BID ASA 325mg daily Crestor 20mg PO hs A1C: 5.0 2. Ascending Aortic Aneurysm - stable Strict BP control Pt was evaluated by Dr. Desai during last admission; no surgical intervention 4.8cm identified on CT 09/28 3. HTN- controlled Lisinopril 5mg PO daily Continue home med: clonidine 0.2mg PO BID 4. Asthma- mild intermittent Dunebs INH q6 PRN Does not use any medications at home 5. Right inguinal hernia Will need to follow up with his PMD for outpatient referral Non obstructed hernia (CT of abdomen/pelvis 09/28/16) No acute intervention Patient complained of pain 12/01 - 650mg PO Tylenol once - Will continue to monitor if patient continues to have discomfort. 6. Hypokalemia- Stable 12/02: K 3.6 monitor daily 7. Prophylactic Measures Lovenox 4omg SC daily Protonics 40mg PO daily Maalox BID SCD Tylenol PRN Zofran PRN Case discussed with Dr. Bill Cole- PGY-1 <Preet Khan M - Last Filed: 12/03/16 18:18> Objective - Vital Signs/Intake and Output Vital Signs (last 24 hours): Temp Pulse Resp BP Pulse Ox 97.5 F L 94 H 20 121/86 97 12/03/16 16:20 12/03/16 16:20 12/03/16 16:20 12/03/16 16:20 12/03/16 16:20 Intake and Output: 12/03/16 12/03/16 06:59 18:59 Output Total 175 Balance -175 - Medications Medications: Current Medications Acetaminophen (Tylenol 325mg Tab) 650 mg PO Q6 PRN PRN Reason: Pain, moderate (4-7) Al Hydrox/Mg Hydrox/Simethicone (Maalox 30 Ml) 30 ml PO BID PRN PRN Reason: Indigestion / Heartburn Albuterol/Ipratropium (Duoneb 3 Mg/0.5 Mg (3 Ml) Ud) 3 ml INH RQ6 PRN PRN Reason: Shortness of Breath Aspirin (Aspirin) 325 mg PO DAILY [facility] Last Admin: 12/03/16 09:23 Dose: 325 mg Enoxaparin Sodium (Lovenox) 40 mg SC DAILY [facility] Last Admin: 12/03/16 11:08 Dose: Not Given Furosemide (Lasix) 40 mg IVP Q12 [facility] Last Admin: 12/03/16 09:12 Dose: 40 mg Lisinopril (Zestril) 10 mg PO DAILY [facility] Last Admin: 12/03/16 09:11 Dose: 10 mg Metoprolol Tartrate (Lopressor) 25 mg PO BID [facility] Last Admin: 12/03/16 09:12 Dose: 25 mg Ondansetron HCl (Zofran Inj) 4 mg IVP Q6 PRN PRN Reason: Nausea/Vomiting Pantoprazole Sodium (Protonix Ec Tab) 40 mg PO DAILY [facility] Last Admin: 12/03/16 09:12 Dose: 40 mg Rosuvastatin Calcium (Crestor) 20 mg PO HS [facility] Last Admin: 12/02/16 21:41 Dose: 20 mg - Labs Labs: 12/03/16 06:10 12/03/16 06:10 Attending/Attestation - Attestation I have personally seen and examined this patient.: Yes I have fully participated in the care of the patient.: Yes I have reviewed all pertinent clinical information, including history, physical exam and plan: Yes Notes (Text): 12/03/16 18:17 Patient was seen and examined at bedside with the resident Cardiac catheterization report seen. Patient to continue medical management. Discharge planning in progress.
[2016-12-03] MEDS: Pantoprazole 40 mg EC Tab PO SCH (09:12)
[2016-12-03] MEDS: Enoxaparin 40 mg Syringe SC SCH (11:08)
[2016-12-03] MEDS ORDERED: Midazolam 2 MG/2 ML VIAL ONE ×3 (11:39→13:21)
--- NOTE | 2016-12-04 01:46 | CARDCATH ---
PROCEDURE DATE: 12/03/2016 INDICATIONS: New onset congestive heart failure, cardiomyopathy, abnormal myocardial perfusion study. PROCEDURE PERFORMED: Left heart catheterization via selective left and right coronary angiogram and left ventriculogram via right radial approach, 6-Telugu right radial arterial access wrist band for hemostasis. TECHNIQUES OF PROCEDURE: After obtaining informed consent, the patient was brought to the cardiac cath within post-absorptive, non-sedated state. The patient was prepped and draped in the usual sterile fashion. Lidocaine 2% was used for infiltration anesthesia. Using modified Seldinger technique, a 6-Telugu sheath was introduced into the right radial artery. Subsequently over a J-wire JR-4 catheter was used to engage the right coronary artery. Subsequently over a J-wire JR-4 was exchanged to a [place] catheter which was used to engage the left coronary system. Angiograms of the right and left coronary systems were obtained in different orthogonal views. Subsequently over a J-wire, the [place] was advanced into the LV and LV gram was obtained in the ZHENG view. ANGIOGRAPHIC FINDINGS: Right coronary artery large-sized vessel gives off SA malathi branch, RV branch and PDA and PLV. Distal PLV has [id number] 50% to 55% stenosis. Left main is a large-sized vessel that bifurcates into the left circumflex coronary artery and left anterior descending artery. Left circumflex is ectatic, gives off a large OM 1 branch and distally gives off 3 small OMs. Left anterior descending artery is a large-sized vessel that gives off septal perforators and 1 medium-sized diagonal artery. Distal diagonal has about 40% to 50% stenosis. IMPRESSION: Nonobstructive coronary artery disease, nonischemic dilated cardiomyopathy, left ventricular end-diastolic pressure was 16 mmHg. RECOMMENDATIONS: Guideline-directed medical therapy for nonischemic dilated cardiomyopathy and CHF. Treat the patient with RAAS modulators and beta blockers. Re-evaluate EF in 6 months and then consider the patient for Bi-V ICD. Julio Garcia MD
[2016-12-04 07:29] LABS: BASO % 0.6 % (0.0-2.0); EOS # 0.1 K/uL (0.0-0.7); EOS % 3.1 % (0.0-4.0); HEMATOCRIT 33.8 % (35.0-51.0); LYMPH # 1.3 K/uL (1.0-4.3); LYMPH % 26.7 % (20.0-40.0); MEAN CELL VOLUME 93.8 fL (80.0-94.0); MEAN CORPUSCULAR HEMOGLOBIN 31.3 pg (27.0-31.0); MEAN CORPUSCULAR HGB CONC 33.4 g/dL (33.0-37.0); MONO # 0.5 K/uL (0.0-0.8); MONO % 10.2 % (0.0-10.0); NRBC % 0.1 % (0.0-2.0); RED CELL DISTRIBUTION WIDTH 16.4 % (11.5-14.5); WHITE BLOOD COUNT 4.7 K/uL (4.8-10.8)
[2016-12-04 07:35] LABS: CHLORIDE 97 mmol/L (98-107); POTASSIUM 3.8 mmol/L (3.6-5.2); SODIUM 140 mmol/L (132-148)
[2016-12-04 07:37] LABS: BILIRUBIN,TOTAL 0.8 mg/dL (0.2-1.3); GFR AFRICAN-AMERICAN > 60
[2016-12-04 07:38] LABS: ALKALINE PHOSPHATASE 182 U/L (38-126); ALT/SGPT 56 U/L (21-72); AST/SGOT 44 U/L (17-59); BLOOD UREA NITROGEN 36 mg/dL (9-20); CARBON DIOXIDE 36 mmol/L (22-30); GLUCOSE,RANDOM 84 mg/dL (75-110); PHOSPHOROUS 3.4 mg/dL (2.5-4.5); TOTAL PROTEIN 6.7 g/dL (6.3-8.3)
[2016-12-04 07:39] LABS: CALCIUM 8.6 mg/dl (8.6-10.4); MAGNESIUM 1.7 mg/dL (1.6-2.3)
[2016-12-04 08:21] VITALS: O2SAT 97
[2016-12-04] MEDS: Pantoprazole 40 mg EC Tab PO SCH (10:56)
[2016-12-04] MEDS: Enoxaparin 40 mg Syringe SC SCH (10:56)
--- NOTE | 2016-12-04 14:11 | CP.PCM.DIS ---
<Ce Cole - Last Filed: 12/04/16 21:06> Provider - Provider Date of Admission: 11/30/16 15:40 Attending physician: Preet Khan MD Time Spent in preparation of Discharge (in minutes): 40 Hospital Course - Lab Results Lab Results: Most Recent Lab Values WBC 4.7 K/uL (4.8-10.8) L 12/04/16 07:05 RBC 3.60 Mil/uL (4.40-5.90) L 12/04/16 07:05 Hgb 11.3 g/dL (12.0-18.0) L 12/04/16 07:05 Hct 33.8 % (35.0-51.0) L 12/04/16 07:05 MCV 93.8 fL (80.0-94.0) 12/04/16 07:05 MCH 31.3 pg (27.0-31.0) H 12/04/16 07:05 MCHC 33.4 g/dL (33.0-37.0) 12/04/16 07:05 RDW 16.4 % (11.5-14.5) H 12/04/16 07:05 Plt Count 259 K/uL (130-400) 12/04/16 07:05 MPV 7.0 fL (7.2-11.7) L 12/04/16 07:05 Neut % (Auto) 59.4 % (50.0-75.0) 12/04/16 07:05 Lymph % (Auto) 26.7 % (20.0-40.0) 12/04/16 07:05 [place] % (Auto) 10.2 % (0.0-10.0) H 12/04/16 07:05 Eos % (Auto) 3.1 % (0.0-4.0) 12/04/16 07:05 Baso % (Auto) 0.6 % (0.0-2.0) 12/04/16 07:05 Neut # 2.8 K/uL (1.8-7.0) 12/04/16 07:05 Lymph # 1.3 K/uL (1.0-4.3) 12/04/16 07:05 [place] # 0.5 K/uL (0.0-0.8) 12/04/16 07:05 Eos # 0.1 K/uL (0.0-0.7) 12/04/16 07:05 Baso # 0.0 K/uL (0.0-0.2) 12/04/16 07:05 Sodium 140 mmol/L (132-148) 12/04/16 07:05 Potassium 3.8 mmol/L (3.6-5.2) 12/04/16 07:05 Chloride 97 mmol/L (98-107) L 12/04/16 07:05 Carbon Dioxide 36 mmol/L (22-30) H 12/04/16 07:05 Anion Gap 11 (10-20) 12/04/16 07:05 BUN 36 mg/dL (9-20) H 12/04/16 07:05 Creatinine 1.4 MG/DL (0.8-1.5) 12/04/16 07:05 Est GFR ( Amer) > 60 12/04/16 07:05 Est GFR (Non-Af Amer) 52 12/04/16 07:05 Random Glucose 84 mg/dL (75-110) 12/04/16 07:05 Hemoglobin A1c 5.0 % (4.2-6.5) 11/29/16 07:08 Calcium 8.6 mg/dl (8.6-10.4) 12/04/16 07:05 Phosphorus 3.4 mg/dL (2.5-4.5) 12/04/16 07:05 Magnesium 1.7 mg/dL (1.6-2.3) 12/04/16 07:05 Total Bilirubin 0.8 mg/dL (0.2-1.3) 12/04/16 07:05 AST 44 U/L (17-59) 12/04/16 07:05 ALT 56 U/L (21-72) 12/04/16 07:05 Alkaline Phosphatase 182 U/L (38-126) H 12/04/16 07:05 Troponin I 0.0410 ng/mL (0.00-0.120) 11/28/16 14:32 NT-Pro-B Natriuret Pep 40089 pg/mL (0-900) H 11/28/16 14:32 Total Protein 6.7 g/dL (6.3-8.3) 12/04/16 07:05 Albumin 3.3 g/dL (3.5-5.0) L 12/04/16 07:05 Globulin 3.4 gm/dL (2.2-3.9) 12/04/16 07:05 Albumin/Globulin Ratio 1.0 (1.0-2.1) 12/04/16 07:05 Triglycerides 46 mg/dL (0-149) 11/29/16 07:08 Cholesterol 81 mg/dL (0-199) 11/29/16 07:08 LDL Cholesterol Direct 37 mg/dL (0-129) 11/29/16 07:08 HDL Cholesterol 32 mg/dL (30-70) 11/29/16 07:08 Thyroxine (T4) 7.31 ug/dL (5.5-11.0) 11/29/16 07:08 TSH 3rd Generation 0.68 mIU/L (0.46-4.68) 11/29/16 07:08 Urine Color Yellow (YELLOW) 11/28/16 15:20 Urine Clarity Clear (Clear) 11/28/16 15:20 Urine pH 6.0 (5.0-8.0) 11/28/16 15:20 Ur Specific [place] 1.011 (1.003-1.030) 11/28/16 15:20 Urine Protein 2+ mg/dL (NEGATIVE) H 11/28/16 15:20 Urine Glucose (UA) Normal mg/dL (Normal) 11/28/16 15:20 Urine Ketones Negative mg/dL (NEGATIVE) 11/28/16 15:20 Urine Blood Negative (NEGATIVE) 11/28/16 15:20 Urine Nitrate Negative (NEGATIVE) 11/28/16 15:20 Urine Bilirubin Negative (NEGATIVE) 11/28/16 15:20 Urine Urobilinogen 2.0 mg/dL (0.2-1.0) 11/28/16 15:20 Ur Leukocyte Esterase Neg [place]ola/uL (Negative) 11/28/16 15:20 Urine WBC (Auto) < 1 /hpf (0-5) 11/28/16 15:20 Urine RBC (Auto) 1 /hpf (0-3) 11/28/16 15:20 Urine Bacteria Rare (<OCC) 11/28/16 15:20 Hyaline Casts 0-2 /lpf (0-2) 11/28/16 15:20 - Hospital Course Hospital Course: This is a 61 year old male with a past medical history of HTN, CVA in 2004, systolic CHF, Bilateral epididymal cysts, and right sided inguinal hernia. Mr. Hirsch was recently admitted to [facility], in September 2016, and treated for pneumonia. He states that since his discharge the symptoms he had associated with his pneumonia have resolved so, he has no followed up with any of his doctors since. He states that he has been experiencing intermitted chest pain, localized to the left side of the chest, non-radiating, both at rest and with exertion. Associated with his chest pain, he has also been experiencing shortness of breath and pedal edema; that he explains worsens when he eats salt. He admits to experiencing orthopnea for several weeks now as well, explaining that he needs to sleep almost sitting up with 3-4 pillows. Despite these constellation of symptoms he has resisted returning to the hospital. Nevertheless, he states that his symptoms were acutely exacerbated overnight, last night after he ate a salty meal at [facility]. He states that he does not have any fevers, chills, nausea, vomiting, diarrhea, constipation. He acknowledges chest pain, shortness of breath, coughing, abdominal pain associated with coughing, and bilateral pedal edema. 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 CXR performed and showed stable cardiomegaly. EKG performed and showed normal sinus rhythm, possible left atrial enlargement, left axis deviation, LBBB. Patient admitted by Dr. Cerrato due to severity of symptoms and further work up. While hospitalized patient was continued on diuretics and electrolytes were monitored. 11/29/16: Repeat CXR performed and showed no changes. 11/30/16: Dr. Garcia consulted due to cardiac symptoms. 12/01/16: Nuclear mycardial perfusion scan performed by Dr. Garcia showing evidence of ischemia in anteroseptal wall and moderate LV systolic dysfunction. 12/02/16: Pharmacy Sales Assistant procedure performed by Dr. Garcia showing nonobstructive CAD, ischemic dilated cardiomyopathy, LV end diastolic pressure was 16mmHg. Guidlin directed medical therapy, RAAS modultors, Beta blockers, and reevaluation in [address] Garcia. Patient is stable for discharge per Dr. Khan and Dr. Garcia. Patient is to follow up with primary care doctor in 1-2 weeks. Patient is to start new medications: 40mg Lasix BID PO 40mg Lipitor Once daily 25mg Spironolactone once daily 325mg Aspiring once daily 10mg Lisinopril PO daily Patient is to return to the Emergency Room if symptoms worsen. This is a brief summary of events. For a complete course, refer to the medical record. Discharge Exam - Head Exam Head Exam: ATRAUMATIC, NORMAL INSPECTION, NORMOCEPHALIC - Eye Exam Eye Exam: EOMI, Normal appearance, PERRL Pupil Exam: NORMAL ACCOMODATION - ENT Exam ENT Exam: Mucous Membranes Moist - Respiratory Exam Respiratory Exam: Clear to PA & Lateral, NORMAL BREATHING PATTERN - Cardiovascular Exam Cardiovascular Exam: REGULAR RHYTHM, RRR, +S1, +S2 - GI/Abdominal Exam GI & Abdominal Exam: Normal Bowel Sounds, Soft. absent: Tenderness - Extremities Exam Extremities exam: normal inspection - Neurological Exam Neurological exam: Alert, Oriented x3 - Psychiatric Exam Psychiatric exam: Normal Affect, Normal Mood - Skin Skin Exam: Normal Color, Warm Discharge Plan - Discharge Medications Prescriptions: Aspirin 325 mg PO DAILY #30 tab Atorvastatin [Lipitor] 40 mg PO DAILY #30 tab Furosemide [Lasix] 40 mg PO BID #60 udc Lisinopril [Zestril] 10 mg PO DAILY #30 tab Metoprolol Tartrate [Lopressor] 25 mg PO BID #60 tab Spironolactone [Aldactone] 25 mg PO DAILY #30 tab - Follow Up Plan Condition: STABLE Disposition: HOME/ ROUTINE Instructions: Metoprolol (By mouth), Spironolactone (By mouth), Lisinopril (By mouth), Furosemide (By mouth), Aspirin (By mouth), Atorvastatin (By mouth) Additional Instructions: Patient is to follow up with primary care doctor in 1-2 weeks. Patient is to start new medications: 40mg Lasix BID PO 40mg Lipitor Once daily 25mg Spironolactone once daily 325mg Aspiring once daily 10mg Lisinopril PO daily Patient is to return to the Emergency Room if symptoms worsen. Referrals: Julio Garcia MD [Staff Provider] - <Preet Khan - Last Filed: 12/05/16 16:01> Provider - Provider Date of Admission: 11/30/16 15:40 Attending physician: Preet Khan MD Hospital Course - Lab Results Lab Results: Most Recent Lab Values WBC 4.7 K/uL (4.8-10.8) L 12/04/16 07:05 RBC 3.60 Mil/uL (4.40-5.90) L 12/04/16 07:05 Hgb 11.3 g/dL (12.0-18.0) L 12/04/16 07:05 Hct 33.8 % (35.0-51.0) L 12/04/16 07:05 MCV 93.8 fL (80.0-94.0) 12/04/16 07:05 MCH 31.3 pg (27.0-31.0) H 12/04/16 07:05 MCHC 33.4 g/dL (33.0-37.0) 12/04/16 07:05 RDW 16.4 % (11.5-14.5) H 12/04/16 07:05 Plt Count 259 K/uL (130-400) 12/04/16 07:05 MPV 7.0 fL (7.2-11.7) L 12/04/16 07:05 Neut % (Auto) 59.4 % (50.0-75.0) 12/04/16 07:05 Lymph % (Auto) 26.7 % (20.0-40.0) 12/04/16 07:05 [place] % (Auto) 10.2 % (0.0-10.0) H 12/04/16 07:05 Eos % (Auto) 3.1 % (0.0-4.0) 12/04/16 07:05 Baso % (Auto) 0.6 % (0.0-2.0) 12/04/16 07:05 Neut # 2.8 K/uL (1.8-7.0) 12/04/16 07:05 Lymph # 1.3 K/uL (1.0-4.3) 12/04/16 07:05 [place] # 0.5 K/uL (0.0-0.8) 12/04/16 07:05 Eos # 0.1 K/uL (0.0-0.7) 12/04/16 07:05 Baso # 0.0 K/uL (0.0-0.2) 12/04/16 07:05 Sodium 140 mmol/L (132-148) 12/04/16 07:05 Potassium 3.8 mmol/L (3.6-5.2) 12/04/16 07:05 Chloride 97 mmol/L (98-107) L 12/04/16 07:05 Carbon Dioxide 36 mmol/L (22-30) H 12/04/16 07:05 Anion Gap 11 (10-20) 12/04/16 07:05 BUN 36 mg/dL (9-20) H 12/04/16 07:05 Creatinine 1.4 MG/DL (0.8-1.5) 12/04/16 07:05 Est GFR ( Amer) > 60 12/04/16 07:05 Est GFR (Non-Af Amer) 52 12/04/16 07:05 Random Glucose 84 mg/dL (75-110) 12/04/16 07:05 Hemoglobin A1c 5.0 % (4.2-6.5) 11/29/16 07:08 Calcium 8.6 mg/dl (8.6-10.4) 12/04/16 07:05 Phosphorus 3.4 mg/dL (2.5-4.5) 12/04/16 07:05 Magnesium 1.7 mg/dL (1.6-2.3) 12/04/16 07:05 Total Bilirubin 0.8 mg/dL (0.2-1.3) 12/04/16 07:05 AST 44 U/L (17-59) 12/04/16 07:05 ALT 56 U/L (21-72) 12/04/16 07:05 Alkaline Phosphatase 182 U/L (38-126) H 12/04/16 07:05 Troponin I 0.0410 ng/mL (0.00-0.120) 11/28/16 14:32 NT-Pro-B Natriuret Pep 23708 pg/mL (0-900) H 11/28/16 14:32 Total Protein 6.7 g/dL (6.3-8.3) 12/04/16 07:05 Albumin 3.3 g/dL (3.5-5.0) L 12/04/16 07:05 Globulin 3.4 gm/dL (2.2-3.9) 12/04/16 07:05 Albumin/Globulin Ratio 1.0 (1.0-2.1) 12/04/16 07:05 Triglycerides 46 mg/dL (0-149) 11/29/16 07:08 Cholesterol 81 mg/dL (0-199) 11/29/16 07:08 LDL Cholesterol Direct 37 mg/dL (0-129) 11/29/16 07:08 HDL Cholesterol 32 mg/dL (30-70) 11/29/16 07:08 Thyroxine (T4) 7.31 ug/dL (5.5-11.0) 11/29/16 07:08 TSH 3rd Generation 0.68 mIU/L (0.46-4.68) 11/29/16 07:08 Urine Color Yellow (YELLOW) 11/28/16 15:20 Urine Clarity Clear (Clear) 11/28/16 15:20 Urine pH 6.0 (5.0-8.0) 11/28/16 15:20 Ur Specific [place] 1.011 (1.003-1.030) 11/28/16 15:20 Urine Protein 2+ mg/dL (NEGATIVE) H 11/28/16 15:20 Urine Glucose (UA) Normal mg/dL (Normal) 11/28/16 15:20 Urine Ketones Negative mg/dL (NEGATIVE) 11/28/16 15:20 Urine Blood Negative (NEGATIVE) 11/28/16 15:20 Urine Nitrate Negative (NEGATIVE) 11/28/16 15:20 Urine Bilirubin Negative (NEGATIVE) 11/28/16 15:20 Urine Urobilinogen 2.0 mg/dL (0.2-1.0) 11/28/16 15:20 Ur Leukocyte Esterase Neg Lola/uL (Negative) 11/28/16 15:20 Urine WBC (Auto) < 1 /hpf (0-5) 11/28/16 15:20 Urine RBC (Auto) 1 /hpf (0-3) 11/28/16 15:20 Urine Bacteria Rare (<OCC) 11/28/16 15:20 Hyaline Casts 0-2 /lpf (0-2) 11/28/16 15:20 Attending/Attestation - Attestation I have personally seen and examined this patient.: Yes I have fully participated in the care of the patient.: Yes I have reviewed all pertinent clinical information, including history, physical exam and plan: Yes Notes (Text): 12/05/16 16:00 Patient was seen and examined at bedside with the resident on the day of discharge Patient is comfortable without any acute distress Patient denies any chest pain or shortness of breath Leg swelling is improved significantly. Patient is status post cardiac catheterization No PCI was needed He is cleared for discharge by cardiology We will discharge the patient home PRESCRIPTIONS given to the patient to for the medication that were started in the Hospital He was counseled on following up with the primary care clinic and also with the cardiology Discharge plan was discussed with the patient and he verbalized understanding. I discussed the plan of care with the resident I agree with the discharge note by the resident.
--- NOTE | 2016-12-04 14:33 | PCM.HF ---
Heart Failure Core Measure - Heart Failure Ejection Fraction: Less Than 40 % KAMALJIT Inhibitor Prescribed: Yes Beta-Jazmin Prescribed: None Contraindication/Reason for not providing: lopressor bid Angiotensin II Receptor Jazmin Prescribed: No Contraindication/Reason for not providing: on kamaljit AnticoagulationTherapy for Atrial Fibrillation/Atrialflutter: No Contraindication/Reason for not providing: no afib Aldosterone Antagonist Prescribed: No Contraindication/Reason for not providing: cardio to f/u as OP for further rx Hydralazine Nitrate Prescribed: No Contraindication/Reason for not providing: cardio to f/u as OP for further rx Implantable Cardioverter Defibrillator Therapy: No Contraindication/Reason for not providing: no h/o Cardiac Resynchronization Therapy Prescribed: No Contraindication/Reason for not providing: no h/o - Follow up Will be discharged to: Home Follow Up Date (must be within 7 days from discharge): 12/11/16 Follow Up Time: 09:00
[2016-12-04 16:23] VITALS: PULSE 68; RESP 20; TEMP 97.8
[2016-12-04 17:04] VITALS: BP 112/66
== END 2016-12-04 18:19 | disposition home or self-care (01) | DRG 544 ==
LOC: C.ER 13:55 → C.9E 15:29 → C.6T 16:11 → OBSVTOIN 11-30 15:40
PROVIDERS: ADMIT Internal Medicine; ATTEND Internal Medicine
PROC: B2151ZZ Fluoroscopy of Left Heart using Low Osmolar Contrast (ICD-10-PCS; principal; 2016-12-03)
PROC: B2111ZZ Fluoroscopy of Multiple Coronary Arteries using Low Osmolar Contrast (ICD-10-PCS; 2016-12-03)
PROC: 4A023N7 Measurement of Cardiac Sampling and Pressure, Left Heart, Percutaneous Approach (ICD-10-PCS; 2016-12-03)
DX: I50.22 Chronic systolic (congestive) heart failure (principal); J18.9 Pneumonia, unspecified organism; I42.0 Dilated cardiomyopathy; J44.0 Chronic obstructive pulmonary disease with (acute) lower respiratory infection; E87.6 Hypokalemia; I11.0 Hypertensive heart disease with heart failure; I71.2 Thoracic aortic aneurysm, without rupture; I25.5 Ischemic cardiomyopathy; I25.10 Atherosclerotic heart disease of native coronary artery without angina pectoris; K40.90 Unilateral inguinal hernia, without obstruction or gangrene, not specified as recurrent; N50.3 Cyst of epididymis; Z86.73 Personal history of transient ischemic attack (TIA), and cerebral infarction without residual deficits

== ENCOUNTER 2016-12-27 17:12 | Inpatient (IN) | payer MEDICAID, OTHER ==
--- NOTE | 2016-12-27 18:07 | C.PDOC ---
History Of Present Illness Irwin is a 61 y/o male with a PMHx of dilated cardiomyopathy and CAD who was admitted to the hospital 1 month ago for CHF. Presents today complaining of chest pain, shortness of breath, and leg swelling for the past 2 weeks. States he has not been taking his Lasix. Denies any associated fever, cough, or URI symptoms. PMD: Bria Liriano Time Seen by Provider: 12/27/16 17:52 Chief Complaint (Nursing): Chest Pain History Per: Patient History/Exam Limitations: no limitations Onset/Duration Of Symptoms: Days (x 2 weeks) Current Symptoms Are (Timing): Still Present Past Medical History Reviewed: Historical Data, Nursing Documentation, Vital Signs Vital Signs: Last Vital Signs Temp 98.2 F 12/27/16 17:25 Pulse 88 12/27/16 17:25 Resp 18 12/27/16 17:25 BP 146/94 H 12/27/16 17:25 Pulse Ox 98 12/27/16 19:58 - Medical History PMH: Asthma, CAD, CHF, COPD, HTN Denies: Chronic Kidney Disease - [facility] Procedures FLUOROSCOPY OF LEFT HEART USING LOW OSMOLAR CONTRAST (11/30/16) FLUOROSCOPY OF MULT COR ART USING L OSM CONTRAST (11/30/16) MEASURE OF CARDIAC SAMPL & PRESSURE, L HEART, PERC APPROACH (11/30/16) Family History: States: No Known Family Hx - Social History Hx Alcohol Use: No Hx Substance Use: No - Immunization History Hx Tetanus Toxoid Vaccination: Yes Hx Influenza Vaccination: Yes Hx Pneumococcal Vaccination: Yes Review Of Systems Except As Marked, All Systems Reviewed And Found Negative. Constitutional: Negative for: Fever ENT: Negative for: Nose Congestion, Throat Pain Cardiovascular: Positive for: Chest Pain Respiratory: Positive for: Shortness of Breath. Negative for: Cough Musculoskeletal: Positive for: Other (Bilateral leg swelling) Physical Exam - Physical Exam Appears: Non-toxic, No Acute Distress Skin: Normal Color, Warm, Dry Head: Atraumatic, Normacephalic Eye(s): bilateral: Normal Inspection, PERRL, EOMI Oral Mucosa: Moist Neck: Normal, Supple Chest: Symmetrical Cardiovascular: Rhythm Regular, No Murmur Respiratory: Rales (Scant rales at bases) Gastrointestinal/Abdominal: Normal Exam, Soft, No Tenderness Extremity: Normal ROM, Pedal Edema (Pitting edema) Neurological/Psych: Oriented x3, Normal Speech Gait: Steady ED Course And Treatment - Laboratory Results Result Diagrams: 12/27/16 18:25 12/27/16 18:25 O2 Sat by Pulse Oximetry: 98 (RA) Pulse Ox Interpretation: Normal Medical Decision Making Medical Decision Making: Time: 17:59 Initial Plan: --Counseled patient to take medication as prescribed --Ordered labs --EKG --CXR --Given Aspirin PO and Lasix IV 7:11PM EKG shows NSR at 84bpm with LBBB, unchanged from prior on 11/28/16. Cxray as read by me shows pulmonary venous congestion. BNP elevated. 7:35PM. Spoke with Dr. Curtis Lara. Patient will be admitted to Tele Observation for shortness of breath, CHF. Disposition - Disposition Disposition: HOSPITALIZED Disposition Time: 19:00 Condition: FAIR - Clinical Impression Clinical Impression: Congestive heart failure, Shortness of breath - Scribe Statement The provider has reviewed the documentation as recorded by the Sheri Camejo All medical record entries made by the Sheri were at my direction and personally dictated by me. I have reviewed the chart and agree that the record accurately reflects my personal performance of the history, physical exam, medical decision making, and the department course for this patient. I have also personally directed, reviewed, and agree with the discharge instructions and disposition.
[2016-12-27 18:28] LABS: BASO # 0.1 K/uL (0.0-0.2); BASO % 0.7 % (0.0-2.0); EOS # 0.1 K/uL (0.0-0.7); EOS % 1.9 % (0.0-4.0); HEMATOCRIT 34.6 % (35.0-51.0); LYMPH # 1.1 K/uL (1.0-4.3); LYMPH % 16.2 % (20.0-40.0); MEAN CELL VOLUME 93.7 fL (80.0-94.0); MEAN CORPUSCULAR HEMOGLOBIN 31.6 pg (27.0-31.0); MEAN CORPUSCULAR HGB CONC 33.7 g/dL (33.0-37.0); MEAN PLATELET VOLUME 6.8 fL (7.2-11.7); MONO # 0.4 K/uL (0.0-0.8); MONO % 6.5 % (0.0-10.0); NRBC % 0.1 % (0.0-2.0); RED CELL DISTRIBUTION WIDTH 16.3 % (11.5-14.5); WHITE BLOOD COUNT 6.8 K/uL (4.8-10.8)
[2016-12-27 18:43] LABS: POTASSIUM 3.4 mmol/L (3.6-5.2)
[2016-12-27 18:46] LABS: CALCIUM 8.9 mg/dl (8.6-10.4)
[2016-12-27 18:59] LABS: TROPONIN I 0.05 ng/mL (0.00-0.120)
--- NOTE | 2016-12-28 03:24 | CP.PCM.HP ---
History of Present Illness - History of Present Illness History of Present Illness: 61 yo M with a PMHx of systolic CHF (NYHA class II), HTN, CVA with right sided weakness, presented to the ED for worsening shortness of breath for the past 2 weeks. He was unable to sleep last night due to his breathing difficulty which prompted him to come to our ED. Associated symptoms include non-productive cough , abdominal pain associated with cough, bilateral leg swelling and orthopnea. Patient is not compliant with his medications and takes them only when he feels it necessary. He states not taking his furosemide because it makes him urinate too much. He denies chest pain, left arm pain, diaphoresis, tingliness, fever, diarrhea, vomiting. 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 absent: Chest Pain, Diaphoresis - Respiratory Respiratory: Cough, Dyspnea, Dyspnea on Exertion, Wheezing, Pain with Coughing. absent: Hemoptysis - Gastrointestinal Gastrointestinal: Abdominal Pain. absent: Constipation, Diarrhea, Dysphagia, Hematemesis, Hematochezia, Nausea - Genitourinary Genitourinary: Other. absent: Difficulty Urinating, Dysuria Additional comments: reducible right sided inguinal hernia - Musculoskeletal Musculoskeletal: absent: Arthralgias - Integumentary Integumentary: absent: Bleeding Lesions - Neurological Neurological: absent: Confusion, Convulsions, Dizziness - Hematologic/Lymphatic Hematologic: absent: Easy Bleeding Past Patient History - Infectious Disease Hx of Infectious Diseases: None - Past Social History Smoking Status: Never Smoked - CARDIAC Hx Congestive Heart Failure: Yes Hx Hypertension: Yes - PULMONARY Hx Asthma: Yes Hx Chronic Obstructive Pulmonary Disease (COPD): Yes - NEUROLOGICAL HX Cerebrovascular Accident: Yes (2004) - HEENT Hx HEENT Problems: No - RENAL Hx Chronic Kidney Disease: No - ENDOCRINE/METABOLIC Hx Endocrine Disorders: No - HEMATOLOGICAL/ONCOLOGICAL Hx Blood Transfusions: No - INTEGUMENTARY Hx Dermatological Problems: No - MUSCULOSKELETAL/RHEUMATOLOGICAL Hx Falls: No - GASTROINTESTINAL Hx Gastrointestinal Disorders: No - PSYCHIATRIC Hx Substance Use: No - SURGICAL HISTORY Hx Surgeries: No - ANESTHESIA Hx Anesthesia: No Hx Anesthesia Reactions: No Hx Malignant Hyperthermia: No Meds Allergies/Adverse Reactions: Allergies Allergy/AdvReac Type Severity Reaction Status Date / Time No Known Allergies Allergy Verified 12/27/16 18:03 Physical Exam - Constitutional Appears: Well, Non-toxic, No Acute Distress, Older Than Stated Age - Head Exam Head Exam: ATRAUMATIC, NORMAL INSPECTION - Eye Exam Eye Exam: EOMI Pupil Exam: PERRL - ENT Exam ENT Exam: Mucous Membranes Moist - Neck Exam Neck exam: Positive for: Normal Inspection. Negative for: Lymphadenopathy - Respiratory Exam Respiratory Exam: Wheezes. absent: Clear to Auscultation Bilateral - Cardiovascular Exam Cardiovascular Exam: REGULAR RHYTHM, JVD, +S1, +S2. absent: Bradycardia, Tachycardia, Systolic Murmur - GI/Abdominal Exam GI & Abdominal Exam: Normal Bowel Sounds, Soft. absent: Tenderness - Rectal Exam Rectal Exam: Deferred - Exam Exam: Scrotal Swelling (reducible right sided inguinal hernia, tender to palpation) - Extremities Exam Extremities exam: Positive for: pedal edema. Negative for: calf tenderness, tenderness - Neurological Exam Neurological exam: Alert, Oriented x3 - Psychiatric Exam Psychiatric exam: Normal Affect, Normal Mood - Skin Skin Exam: Dry, Intact, Normal Color, Warm Results - Vital Signs Recent Vital Signs: Last Vital Signs Temp 97.0 F L 12/28/16 00:24 Pulse 83 12/28/16 00:24 Resp 20 12/28/16 00:24 BP 163/111 H 12/28/16 00:24 Pulse Ox 97 12/28/16 00:24 - Labs Result Diagrams: 12/27/16 18:25 12/27/16 18:25 Labs: Laboratory Results - last 24 hr 12/27/16 12/27/16 18:25 18:25 WBC 6.8 RBC 3.70 L Hgb 11.7 L Hct 34.6 L MCV 93.7 MCH 31.6 H MCHC 33.7 RDW 16.3 H Plt Count 239 MPV 6.8 L Neut % (Auto) 74.7 Lymph % (Auto) 16.2 L [place] % (Auto) 6.5 Eos % (Auto) 1.9 Baso % (Auto) 0.7 Neut # 5.1 Lymph # 1.1 [place] # 0.4 Eos # 0.1 Baso # 0.1 Sodium 143 Potassium 3.4 L Chloride 108 H Carbon Dioxide 20 L Anion Gap 18 BUN 24 H Creatinine 1.5 Est GFR ( Amer) 58 Est GFR (Non-Af Amer) 48 Random Glucose 140 H Calcium 8.9 Total Creatine Kinase 244 H CK-MB (Mass) 2.88 Troponin I 0.0500 NT-Pro-B Natriuret Pep 7100 H Assessment & Plan (1) CHF exacerbation Assessment and Plan: Worsening SOB; Echo from 09/28/16 shows EF of 30-35%; non-compliant with medications; Counselled about CHF, fluid/salt weight management, compliance with meds If EF persist to be low despite being compliant with meds may benefit from AICD , Biv pace furosemide 40mg ivp daily con't home med lisinopril 10mg po daily con't home med metoprolol tartrate 25mg po bid con't home med spironolactone 25mg po daily Status: Acute (2) Hypertension Assessment and Plan: see plan/med listed under CHF exacerbation Status: Acute (3) Inguinal hernia Assessment and Plan: reducible right inguinal hernia hernia repair will need to wait until CHF symptoms are better controlled Status: Acute (4) Prophylactic measure Assessment and Plan: DVT: enoxaparin 40mg sc daily GI: not indicated Diet: heart healthy diet Status: Acute
--- NOTE | 2016-12-28 04:08 | CP.PCM.PN ---
Subjective - Date & Time of Evaluation Date of Evaluation: 12/27/16 Time of Evaluation: 22:00 - Subjective Subjective: Assessment * Presentation with worsening SOB, leg edema, with h/o recent non ischemic cardiomyopathy is from systolic heart failure * Non compliance with fluid management * Non compliance with lasix due to frequent urination * Reducible large right inguinal hernia Plan * Diuresis with lasix iv, continue spirnolactone, acei, betablocker * Counselled about CHF, fluid/salt weight management, compliance with meds * If EF persist to be low despite being compliant with meds may benefit from AICD, Biv pace * Right inguinal hernia since is reducible will need to weight till CHF well controlled not during this admission * DVT prophylaxis with lovenox. * See orders for detail. Objective - Vital Signs/Intake and Output Vital Signs (last 24 hours): Temp Pulse Resp BP Pulse Ox 97.0 F L 83 20 163/111 H 97 12/28/16 00:24 12/28/16 00:24 12/28/16 00:24 12/28/16 00:24 12/28/16 00:24 - Medications Medications: Current Medications Enoxaparin Sodium (Lovenox) 40 mg SC DAILY [facility] Furosemide (Lasix) 40 mg IVP DAILY [facility] Lisinopril (Zestril) 10 mg PO DAILY [facility] Metoprolol Tartrate (Lopressor) 25 mg PO BID [facility] Spironolactone (Aldactone) 25 mg PO DAILY [facility] - Labs Labs: 12/27/16 18:25 12/27/16 18:25
--- NOTE | 2016-12-28 09:51 | RAD ---
Chest x-ray single frontal view History: Chest pain. Comparison: 11/29/2016 Findings: Mild venous congestion. Patchy increased markings in the left mid to lower lung zone. Mild atelectatic changes in the right midlung zone. Biapical pleural thickening. Tortuous ectatic aorta. Mild cardiomegaly. Degenerative changes in the spine and shoulders. Impression: Mild venous congestion. Patchy increased markings in the left mid to lower lung zone. Mild atelectatic changes in the right midlung zone. Biapical pleural thickening. Tortuous ectatic aorta. Mild cardiomegaly.
[2016-12-28] MEDS: Enoxaparin 40 mg Syringe SC SCH (11:00)
--- NOTE | 2016-12-28 16:02 | CP.PCM.PN ---
<Ton Nunes - Last Filed: 12/28/16 18:36> Subjective - Date & Time of Evaluation Date of Evaluation: 12/28/16 Time of Evaluation: 15:02 - Subjective Subjective: PGY1 Medicine Note for Dr. Khan Patient seen and examined at bedside this afternoon. Patient admits to non- compliance as outpatient stating, "I don't like that medicine because it makes me pee too much." He states his breathing is better now but he still does not like to lay flat due to increased SOB. He is tolerating his diet. Denies f/c, n/ v, d/c, cp, headaches or vision changes. Objective - Vital Signs/Intake and Output Vital Signs (last 24 hours): Temp Pulse Resp BP Pulse Ox 97.3 F L 85 20 148/98 H 97 12/28/16 08:00 12/28/16 11:00 12/28/16 08:00 12/28/16 11:00 12/28/16 08:00 Intake and Output: 12/28/16 12/28/16 06:59 18:59 Intake Total 400 Balance 400 - Medications Medications: Current Medications Enoxaparin Sodium (Lovenox) 40 mg SC DAILY [facility] Last Admin: 12/28/16 11:00 Dose: 40 mg Furosemide (Lasix) 40 mg IVP DAILY [facility] Last Admin: 12/28/16 11:00 Dose: 40 mg Lisinopril (Zestril) 10 mg PO DAILY [facility] Last Admin: 12/28/16 11:00 Dose: 10 mg Metoprolol Tartrate (Lopressor) 25 mg PO BID [facility] Last Admin: 12/28/16 11:00 Dose: 25 mg Spironolactone (Aldactone) 25 mg PO DAILY [facility] Last Admin: 12/28/16 11:00 Dose: 25 mg - Labs Labs: 12/27/16 18:25 12/27/16 18:25 - Constitutional Appears: Non-toxic, No Acute Distress - Head Exam Head Exam: ATRAUMATIC, NORMOCEPHALIC - Eye Exam Eye Exam: EOMI, Normal appearance - ENT Exam ENT Exam: Mucous Membranes Moist - Respiratory Exam Respiratory Exam: Rales (bases of lungs b/l), NORMAL BREATHING PATTERN. absent : Accessory Muscle Use, Respiratory Distress - Cardiovascular Exam Cardiovascular Exam: REGULAR RHYTHM, JVD, +S1, +S2 - GI/Abdominal Exam GI & Abdominal Exam: Guarding, Tenderness (epigastric), Hernia (right inguinal ( reducable)), Normal Bowel Sounds. absent: Distended - Extremities Exam Extremities Exam: Pedal Edema. absent: Calf Tenderness, Tenderness Additional comments: 3+ pitting edema from foot to knee b/l - Neurological Exam Neurological Exam: Alert, Awake, Oriented x3 - Psychiatric Exam Psychiatric exam: Normal Affect, Normal Mood - Skin Skin Exam: Normal Color, Warm. absent: Dry (legs weeping b/l) Assessment and Plan - Assessment and Plan (Free Text) Assessment: CHF exacerbation Assessment and Plan: Consult Cardio, Dr. Garcia Worsening SOB; Echo from 09/28/16 shows EF of 30-35%; non-compliant with medications; Counselled about CHF, fluid/salt weight management, compliance with meds If EF persist to be low despite being compliant with meds may benefit from AICD , Biv pace furosemide 40mg ivp daily con't home med lisinopril 10mg po daily con't home med metoprolol tartrate 25mg po bid con't home med spironolactone 25mg po daily Hypertension Assessment and Plan: see plan/med listed under CHF exacerbation Inguinal hernia Assessment and Plan: reducible right inguinal hernia hernia repair will need to wait until CHF symptoms are better controlled Prophylactic measure Assessment and Plan: DVT: enoxaparin 40mg sc daily GI: not indicated Diet: heart healthy diet Case discussed with Dr. Bill Nunes <Preet Khan - Last Filed: 12/29/16 17:51> Objective - Vital Signs/Intake and Output Vital Signs (last 24 hours): Temp Pulse Resp BP Pulse Ox 97.9 F 73 18 141/96 H 98 12/29/16 16:00 12/29/16 16:00 12/29/16 16:00 12/29/16 17:06 12/29/16 16:00 Intake and Output: 12/29/16 12/29/16 06:59 18:59 Intake Total 420 Balance 420 - Medications Medications: Current Medications Enoxaparin Sodium (Lovenox) 40 mg SC DAILY [facility] Last Admin: 12/29/16 09:31 Dose: 40 mg Furosemide (Lasix) 40 mg IVP DAILY [facility] Last Admin: 12/29/16 09:30 Dose: 40 mg Lisinopril (Zestril) 10 mg PO DAILY [facility] Last Admin: 12/29/16 09:31 Dose: 10 mg Metoprolol Tartrate (Lopressor) 25 mg PO BID [facility] Last Admin: 12/29/16 17:06 Dose: 25 mg Spironolactone (Aldactone) 25 mg PO DAILY [facility] Last Admin: 12/29/16 09:31 Dose: 25 mg - Labs Labs: 12/29/16 11:27 12/29/16 11:27 Attending/Attestation - Attestation I have personally seen and examined this patient.: Yes I have fully participated in the care of the patient.: Yes I have reviewed all pertinent clinical information, including history, physical exam and plan: Yes Notes (Text): 12/29/16 17:50 Patient was seen and examined at bedside with the resident Patient states that breathing is improved. Bilateral lower extremity swelling noted We will request cardiology evaluation for the patient I discussed the plan of care with the resident I agree with assessment and plan documented.
[2016-12-28] MEDS ORDERED: Potassium Chloride 20 mEq ER Tab PO ONE (16:30)
--- NOTE | 2016-12-29 09:24 | CP.PCM.CON ---
History of Present Illness - History of Present Illness History of Present Illness: Consultation for evaluation of CHF exacerbation HPI : 61 yo M with a PMHx of systolic CHF (NYHA class II), HTN, CVA with residual right sided weakness and hyperesthesia, presented to the ED for worsening shortness of breath for the past 2 weeks. He also admits to nonproductive cough , b/l leg swelling, and abdominal pain associated with the cough. He denies CP, F/C, orthopnea, diaphoresis, dizziness, YUEN, palpitations. He has been very noncompliant with his medications, especially his diuretics which he only takes when he feels like he needs it. In particular he avoids taking his lasix because he feels it makes him urinate too much. 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 FamHx: Mother from CVA; Father , cause unknown; Sister DM, ESRD on HD Review of Systems - Review of Systems All systems: reviewed and no additional remarkable complaints except - Constitutional Constitutional: As Per HPI - EENT Eyes: As Per HPI Ears: As Per HPI Nose/Mouth/Throat: As Per HPI - Cardiovascular Cardiovascular: As Per HPI - Respiratory Respiratory: As Per HPI - Gastrointestinal Gastrointestinal: As Per HPI - Genitourinary Genitourinary: As Per HPI - Reproductive: Male Reproductive:Male: As Per HPI - Musculoskeletal Musculoskeletal: As Per HPI - Integumentary Integumentary: As Per HPI - Neurological Neurological: As Per HPI - Psychiatric Psychiatric: As Per HPI - Endocrine Endocrine: As Per HPI - Hematologic/Lymphatic Hematologic: As Per HPI Past Patient History - Infectious Disease Hx of Infectious Diseases: None - Past Medical History & Family History Past Medical History?: Yes - Past Social History Smoking Status: Never Smoked - CARDIAC Hx Congestive Heart Failure: Yes Hx Hypertension: Yes - PULMONARY Hx Asthma: Yes Hx Chronic Obstructive Pulmonary Disease (COPD): Yes - NEUROLOGICAL HX Cerebrovascular Accident: Yes (2004) - HEENT Hx HEENT Problems: No - RENAL Hx Chronic Kidney Disease: No - ENDOCRINE/METABOLIC Hx Endocrine Disorders: No - HEMATOLOGICAL/ONCOLOGICAL Hx Blood Transfusions: No - INTEGUMENTARY Hx Dermatological Problems: No - MUSCULOSKELETAL/RHEUMATOLOGICAL Hx Falls: No - GASTROINTESTINAL Hx Gastrointestinal Disorders: No - GENITOURINARY/GYNECOLOGICAL Hx Genitourinary Disorders: No - PSYCHIATRIC Hx Substance Use: No - SURGICAL HISTORY Hx Surgeries: No - ANESTHESIA Hx Anesthesia: No Hx Anesthesia Reactions: No Hx Malignant Hyperthermia: No Meds Home Medications: Home Medication List Medication Instructions Recorded Confirmed Type Aspirin 81 mg PO DAILY #30 tab 12/30/16 12/27/16 Rx Allergies/Adverse Reactions: Allergies Allergy/AdvReac Type Severity Reaction Status Date / Time No Known Allergies Allergy Verified 12/27/16 18:03 - Medications Medications: Current Medications Enoxaparin Sodium (Lovenox) 40 mg SC DAILY [facility] Last Admin: 12/28/16 11:00 Dose: 40 mg Furosemide (Lasix) 40 mg IVP DAILY [facility] Last Admin: 12/28/16 11:00 Dose: 40 mg Lisinopril (Zestril) 10 mg PO DAILY [facility] Last Admin: 12/28/16 11:00 Dose: 10 mg Metoprolol Tartrate (Lopressor) 25 mg PO BID [facility] Last Admin: 12/28/16 18:14 Dose: 25 mg Spironolactone (Aldactone) 25 mg PO DAILY [facility] Last Admin: 12/28/16 11:00 Dose: 25 mg Physical Exam - Constitutional Appears: Well - Head Exam Head Exam: ATRAUMATIC, NORMAL INSPECTION, NORMOCEPHALIC - Eye Exam Eye Exam: EOMI, Normal appearance, PERRL Pupil Exam: NORMAL ACCOMODATION, PERRL - ENT Exam ENT Exam: Mucous Membranes Moist, Normal Exam - Neck Exam Neck exam: Positive for: Normal Inspection - Respiratory Exam Respiratory Exam: Rales, NORMAL BREATHING PATTERN - Cardiovascular Exam Cardiovascular Exam: REGULAR RHYTHM, RRR, +S1, +S2, Systolic Murmur - GI/Abdominal Exam GI & Abdominal Exam: Normal Bowel Sounds, Soft. absent: Tenderness - Extremities Exam Extremities exam: Positive for: normal inspection, pedal edema - Neurological Exam Neurological exam: Alert, CN II-XII Intact, Normal Gait, Oriented x3, Reflexes Normal - Psychiatric Exam Psychiatric exam: Normal Affect, Normal Mood - Skin Skin Exam: Dry, Intact, Normal Color, Warm Results - Vital Signs Recent Vital Signs: Last Vital Signs Temp 97.4 F L 12/29/16 08:00 Pulse 73 12/29/16 08:00 Resp 20 12/29/16 08:00 BP 142/94 H 12/29/16 08:00 Pulse Ox 96 12/29/16 08:00 - Labs Result Diagrams: 12/30/16 07:47 12/30/16 07:47 Assessment & Plan (1) CHF exacerbation Status: Acute (2) Chest pain Status: Acute (3) Hypertension Status: Acute (4) Pedal edema Status: Acute (5) Shortness of breath Status: Acute
[2016-12-29] MEDS: Enoxaparin 40 mg Syringe SC SCH (09:31)
[2016-12-29 11:34] LABS: BASO % 0.8 % (0.0-2.0); EOS # 0.1 K/uL (0.0-0.7); EOS % 1.9 % (0.0-4.0); HEMATOCRIT 36.5 % (35.0-51.0); LYMPH # 1.1 K/uL (1.0-4.3); LYMPH % 26.6 % (20.0-40.0); MEAN CELL VOLUME 94.3 fL (80.0-94.0); MEAN CORPUSCULAR HGB CONC 32.9 g/dL (33.0-37.0); MEAN PLATELET VOLUME 7.2 fL (7.2-11.7); MONO # 0.3 K/uL (0.0-0.8); MONO % 7.8 % (0.0-10.0); RED CELL DISTRIBUTION WIDTH 16.5 % (11.5-14.5); WHITE BLOOD COUNT 4.2 K/uL (4.8-10.8)
[2016-12-29 11:57] LABS: ALB/GLOB RATIO 1.3 (1.0-2.1); BILIRUBIN,TOTAL 1.3 mg/dL (0.2-1.3); CALCIUM 9.3 mg/dl (8.6-10.4); POTASSIUM 3.8 mmol/L (3.6-5.2); TOTAL PROTEIN 6.8 g/dL (6.3-8.3)
--- NOTE | 2016-12-29 16:25 | CP.PCM.CON ---
<FOUZIA MELCHOR - Last Filed: 12/29/16 18:07> History of Present Illness - History of Present Illness History of Present Illness: Fouzia Melchor DO PGY1 - Cardiology Consult Note for Dr. 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 He also admits to nonproductive cough , b/l leg swelling, and abdominal pain associated with the cough. He denies CP, F/C, orthopnea, diaphoresis, dizziness, YUEN, palpitations. He has been very noncompliant with his medications, especially his diuretics which he only takes when he feels like he needs it. In particular he avoids taking his lasix because he feels it makes him urinate too much. 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 FamHx: Mother from CVA; Father , cause unknown; Sister DM, ESRD on HD Review of Systems - Constitutional Constitutional: As Per HPI - EENT Eyes: absent: Blind Spots, Blurred Vision, Change in Vision Ears: absent: Decreased Hearing Nose/Mouth/Throat: absent: Nasal Congestion, Nasal Discharge - Cardiovascular Cardiovascular: As Per HPI - Respiratory Respiratory: As Per HPI - Gastrointestinal Gastrointestinal: As Per HPI - Genitourinary Genitourinary: absent: Dysuria, Hematuria - Musculoskeletal Musculoskeletal: absent: Arthralgias, Muscle Cramps, Muscle Weakness - Neurological Neurological: As Per HPI - Psychiatric Psychiatric: absent: Behavioral Changes - Endocrine Endocrine: absent: Cold Intolorance, Heat Intolorance - Hematologic/Lymphatic Hematologic: absent: Easy Bleeding, Easy Bruising Past Patient History - Infectious Disease Hx of Infectious Diseases: None - Past Medical History & Family History Past Medical History?: Yes - Past Social History Smoking Status: Never Smoked - CARDIAC Hx Congestive Heart Failure: Yes Hx Hypertension: Yes - PULMONARY Hx Chronic Obstructive Pulmonary Disease (COPD): Yes - NEUROLOGICAL HX Cerebrovascular Accident: Yes (2004) - HEENT Hx HEENT Problems: No - RENAL Hx Chronic Kidney Disease: No - ENDOCRINE/METABOLIC Hx Endocrine Disorders: No - HEMATOLOGICAL/ONCOLOGICAL Hx Blood Transfusions: No - INTEGUMENTARY Hx Dermatological Problems: No - MUSCULOSKELETAL/RHEUMATOLOGICAL Hx Falls: No - GASTROINTESTINAL Hx Gastrointestinal Disorders: No - GENITOURINARY/GYNECOLOGICAL Hx Genitourinary Disorders: No - PSYCHIATRIC Hx Substance Use: No - SURGICAL HISTORY Hx Surgeries: No - ANESTHESIA Hx Anesthesia: No Hx Anesthesia Reactions: No Hx Malignant Hyperthermia: No Meds Home Medications: Home Medication List Medication Instructions Recorded Confirmed Type Aspirin 81 mg PO DAILY #30 tab 12/30/16 12/27/16 Rx Allergies/Adverse Reactions: Allergies Allergy/AdvReac Type Severity Reaction Status Date / Time No Known Allergies Allergy Verified 12/27/16 18:03 - Medications Medications: Current Medications Enoxaparin Sodium (Lovenox) 40 mg SC DAILY [facility] Last Admin: 12/29/16 09:31 Dose: 40 mg Furosemide (Lasix) 40 mg IVP DAILY [facility] Last Admin: 12/29/16 09:30 Dose: 40 mg Lisinopril (Zestril) 10 mg PO DAILY [facility] Last Admin: 12/29/16 09:31 Dose: 10 mg Metoprolol Tartrate (Lopressor) 25 mg PO BID [facility] Last Admin: 12/29/16 09:31 Dose: 25 mg Spironolactone (Aldactone) 25 mg PO DAILY [facility] Last Admin: 12/29/16 09:31 Dose: 25 mg Physical Exam - Constitutional Appears: Non-toxic, No Acute Distress - Head Exam Head Exam: ATRAUMATIC, NORMOCEPHALIC - Eye Exam Eye Exam: EOMI, Normal appearance - ENT Exam ENT Exam: Mucous Membranes Moist - Neck Exam Neck exam: Negative for: Lymphadenopathy, Meningismus, Thyromegaly - Respiratory Exam Respiratory Exam: NORMAL BREATHING PATTERN Additional comments: Bibasilar rales - Cardiovascular Exam Cardiovascular Exam: RRR, +S1, +S2 - GI/Abdominal Exam GI & Abdominal Exam: Soft. absent: Tenderness - Extremities Exam Additional comments: 2-3+ pitting edema b/l LE - Neurological Exam Neurological exam: Alert, Oriented x3 - Psychiatric Exam Psychiatric exam: Normal Affect, Normal Mood - Skin Skin Exam: Dry, Intact Results - Vital Signs Recent Vital Signs: Last Vital Signs Temp 97.4 F L 12/29/16 08:00 Pulse 71 12/29/16 08:00 Resp 20 12/29/16 08:00 BP 142/94 H 12/29/16 09:31 Pulse Ox 96 12/29/16 08:00 - Labs Result Diagrams: 12/29/16 11:27 12/29/16 11:27 Labs: Laboratory Results - last 24 hr 12/29/16 12/29/16 11:27 11:27 WBC 4.2 L RBC 3.87 L Hgb 12.0 Hct 36.5 MCV 94.3 H MCH 31.0 MCHC 32.9 L RDW 16.5 H Plt Count 251 MPV 7.2 Neut % (Auto) 62.9 Lymph % (Auto) 26.6 [place] % (Auto) 7.8 Eos % (Auto) 1.9 Baso % (Auto) 0.8 Neut # 2.7 Lymph # 1.1 [place] # 0.3 Eos # 0.1 Baso # 0.0 Sodium 142 Potassium 3.8 Chloride 104 Carbon Dioxide 25 Anion Gap 17 BUN 30 H Creatinine 1.6 H Est GFR ( Amer) 54 Est GFR (Non-Af Amer) 44 Random Glucose 137 H Calcium 9.3 Total Bilirubin 1.3 AST 36 ALT 49 Alkaline Phosphatase 111 Total Protein 6.8 Albumin 3.8 Globulin 3.0 Albumin/Globulin Ratio 1.3 Assessment & Plan - Assessment and Plan (Free Text) Assessment: 61 yo M with PMH of CHF (LVEF 30-35% on 09/2016), HTN, CVA presents with SOB 2/2 acute CHF exacerbation 2/2 medication noncompliance Plan: 1. Acute decompensated CHF - Patient has history of CHF, LVEF 30-35% on echo 09/2016; Currently NYHA class II - Patient presented with SOB, now improved; denies orthopnea - Patient admits to medication noncompliance, and has been here for this same problem multiple times in the past few months - Stressed compliance with all medications - Currently on IV lasix and PO spironolactone; responding and tolerating well; will continue - Patient may warrant AICD placement if no improvement in heart function after 6 months of appropriate medical management; or if patient remains noncompliant - Strict I&O; Daily weights - O2 by [place] titrated to maintain SaO2 > 92% 2. HTN - BP currently stable on Lasix, spironolactone, metoprolol, and lisinopril - He should discontinue home clonidine - Continue current regimen Patient seen, discussed, and reviewed with attending <Julio Garcia - Last Filed: 12/31/16 00:34> Meds - Medications Medications: Current Medications Enoxaparin Sodium (Lovenox) 40 mg SC DAILY [facility] Last Admin: 12/29/16 09:31 Dose: 40 mg Furosemide (Lasix) 40 mg IVP DAILY [facility] Last Admin: 12/29/16 09:30 Dose: 40 mg Lisinopril (Zestril) 10 mg PO DAILY [facility] Last Admin: 12/29/16 09:31 Dose: 10 mg Metoprolol Tartrate (Lopressor) 25 mg PO BID [facility] Last Admin: 12/29/16 17:06 Dose: 25 mg Spironolactone (Aldactone) 25 mg PO DAILY [facility] Last Admin: 12/29/16 09:31 Dose: 25 mg Results - Vital Signs Recent Vital Signs: Last Vital Signs Temp 97.9 F 12/29/16 16:00 Pulse 73 12/29/16 16:00 Resp 18 12/29/16 16:00 BP 141/96 H 12/29/16 17:06 Pulse Ox 98 12/29/16 16:00 - Labs Result Diagrams: 12/30/16 07:47 12/30/16 07:47 Labs: Laboratory Results - last 24 hr 12/29/16 12/29/16 11:27 11:27 WBC 4.2 L RBC 3.87 L Hgb 12.0 Hct 36.5 MCV 94.3 H MCH 31.0 MCHC 32.9 L RDW 16.5 H Plt Count 251 MPV 7.2 Neut % (Auto) 62.9 Lymph % (Auto) 26.6 [place] % (Auto) 7.8 Eos % (Auto) 1.9 Baso % (Auto) 0.8 Neut # 2.7 Lymph # 1.1 [place] # 0.3 Eos # 0.1 Baso # 0.0 Sodium 142 Potassium 3.8 Chloride 104 Carbon Dioxide 25 Anion Gap 17 BUN 30 H Creatinine 1.6 H Est GFR ( Amer) 54 Est GFR (Non-Af Amer) 44 Random Glucose 137 H Calcium 9.3 Total Bilirubin 1.3 AST 36 ALT 49 Alkaline Phosphatase 111 Total Protein 6.8 Albumin 3.8 Globulin 3.0 Albumin/Globulin Ratio 1.3 Attending/Attestation - Attestation I have personally seen and examined this patient.: Yes I have fully participated in the care of the patient.: Yes I have reviewed all pertinent clinical information: Yes
--- NOTE | 2016-12-29 18:00 | CP.PCM.PN ---
Subjective - Date & Time of Evaluation Date of Evaluation: 12/29/16 Time of Evaluation: 07:30 - Subjective Subjective: PGY1 Medicine Note for Dr. Khan Patient seen and examined at bedside this morning. Patient states that the swelling in his legs has gone down. He states he still is experiencing increased difficulty with breathing while laying flat. Patient states that he has not gotten up to walk very much be cause his legs are in pain. He does not want to be discharged today. Denies f/c, n/v, d/c, cp, headaches, numbness or tingling. Objective - Vital Signs/Intake and Output Vital Signs (last 24 hours): Temp Pulse Resp BP Pulse Ox 97.9 F 73 18 141/96 H 98 12/29/16 16:00 12/29/16 16:00 12/29/16 16:00 12/29/16 17:06 12/29/16 16:00 Intake and Output: 12/29/16 12/29/16 06:59 18:59 Intake Total 420 Balance 420 - Medications Medications: Current Medications Enoxaparin Sodium (Lovenox) 40 mg SC DAILY [facility] Last Admin: 12/29/16 09:31 Dose: 40 mg Furosemide (Lasix) 40 mg IVP DAILY [facility] Last Admin: 12/29/16 09:30 Dose: 40 mg Lisinopril (Zestril) 10 mg PO DAILY [facility] Last Admin: 12/29/16 09:31 Dose: 10 mg Metoprolol Tartrate (Lopressor) 25 mg PO BID [facility] Last Admin: 12/29/16 17:06 Dose: 25 mg Spironolactone (Aldactone) 25 mg PO DAILY [facility] Last Admin: 12/29/16 09:31 Dose: 25 mg - Labs Labs: 12/29/16 11:27 12/29/16 11:27 - Constitutional Appears: Non-toxic, No Acute Distress - Head Exam Head Exam: ATRAUMATIC, NORMOCEPHALIC - Eye Exam Eye Exam: EOMI, Normal appearance - ENT Exam ENT Exam: Mucous Membranes Moist - Respiratory Exam Respiratory Exam: Clear to Ausculation Bilateral, NORMAL BREATHING PATTERN. absent: Accessory Muscle Use, Rales, Rhonchi, Wheezes, Respiratory Distress - Cardiovascular Exam Cardiovascular Exam: REGULAR RHYTHM, +S1, +S2. absent: JVD - GI/Abdominal Exam GI & Abdominal Exam: Soft, Normal Bowel Sounds. absent: Distended, Firm, Guarding, Rigid, Tenderness - Extremities Exam Extremities Exam: Full ROM, Normal Capillary Refill, Normal Inspection, Pedal Edema (trace pitting edema). absent: Calf Tenderness, Joint Swelling, Tenderness - Neurological Exam Neurological Exam: Alert, Awake, Oriented x3 - Psychiatric Exam Psychiatric exam: Normal Affect, Normal Mood - Skin Skin Exam: Dry, Normal Color, Warm Assessment and Plan - Assessment and Plan (Free Text) Assessment: CHF exacerbation Assessment and Plan: Consult Cardio, Dr. Garcia - follow up recs Worsening SOB; Echo from 09/28/16 shows EF of 30-35%; non-compliant with medications; Counselled about CHF, fluid/salt weight management, compliance with meds If EF persist to be low despite being compliant with meds may benefit from AICD , Biv pace furosemide 40mg ivp daily con't home med lisinopril 10mg po daily con't home med metoprolol tartrate 25mg po bid con't home med spironolactone 25mg po daily PT consulted for complaints of leg pain/weakness. Recommends d/c home with home PT 3-5 times per week for 2 weeks. Patient walks with a cane. Hypertension Assessment and Plan: see plan/med listed under CHF exacerbation Inguinal hernia Assessment and Plan: reducible right inguinal hernia hernia repair will need to wait until CHF symptoms are better controlled Prophylactic measure Assessment and Plan: DVT: enoxaparin 40mg sc daily GI: not indicated Diet: heart healthy diet Case discussed with Dr. Bill Nunes
[2016-12-30 07:54] LABS: BASO % 0.7 % (0.0-2.0); EOS # 0.1 K/uL (0.0-0.7); EOS % 1.8 % (0.0-4.0); HEMATOCRIT 34.4 % (35.0-51.0); LYMPH # 1.5 K/uL (1.0-4.3); MEAN CORPUSCULAR HEMOGLOBIN 31.5 pg (27.0-31.0); MEAN CORPUSCULAR HGB CONC 33.9 g/dL (33.0-37.0); MEAN PLATELET VOLUME 6.8 fL (7.2-11.7); MONO # 0.4 K/uL (0.0-0.8); MONO % 8.9 % (0.0-10.0); WHITE BLOOD COUNT 4.9 K/uL (4.8-10.8)
[2016-12-30 07:55] VITALS: RESP 20
[2016-12-30 08:09] LABS: POTASSIUM 3.5 mmol/L (3.6-5.2)
[2016-12-30 08:12] LABS: ALB/GLOB RATIO 1.1 (1.0-2.1); BILIRUBIN,TOTAL 1.2 mg/dL (0.2-1.3); CALCIUM 9.2 mg/dl (8.6-10.4); TOTAL PROTEIN 7.1 g/dL (6.3-8.3)
[2016-12-30] MEDS ORDERED: Potassium Chloride 20 mEq ER Tab PO SCH (10:00)
--- NOTE | 2016-12-30 10:50 | CP.PCM.PN ---
<FOUZIA FREIRE - Last Filed: 12/30/16 16:30> Subjective - Date & Time of Evaluation Date of Evaluation: 12/30/16 Time of Evaluation: 10:00 - Subjective Subjective: Fouzia Freire DO PGY1 - Cardiology Progress Note for Dr. Garcia Patient seen and evaluated at bedside. Patient reports improvement in SOB, but still has some shortness of breath when he lies supine, which improves when he sits up. Patient is also complaining of a nonproductive cough, which he has had for a long time. He denies chest pain, palpitations, diaphoresis, dizziness, headache. Objective - Vital Signs/Intake and Output Vital Signs (last 24 hours): Temp Pulse Resp BP Pulse Ox 97.9 F 75 20 135/83 94 L 12/30/16 07:00 12/30/16 07:00 12/30/16 07:00 12/30/16 07:00 12/30/16 07:00 Intake and Output: 12/30/16 12/30/16 06:59 18:59 Intake Total 950 Balance 950 - Medications Medications: Current Medications Enoxaparin Sodium (Lovenox) 40 mg SC DAILY [facility] Last Admin: 12/29/16 09:31 Dose: 40 mg Furosemide (Lasix) 40 mg IVP Q8 [facility] Last Admin: 12/30/16 05:17 Dose: 40 mg Lisinopril (Zestril) 10 mg PO DAILY [facility] Last Admin: 12/29/16 09:31 Dose: 10 mg Metoprolol Tartrate (Lopressor) 25 mg PO BID [facility] Last Admin: 12/29/16 17:06 Dose: 25 mg Potassium Chloride (K-Dur 20 Meq Er Tab) 40 meq PO DAILY [facility] Spironolactone (Aldactone) 25 mg PO DAILY [facility] Last Admin: 12/29/16 09:31 Dose: 25 mg - Labs Labs: 12/30/16 07:47 12/30/16 07:47 - Constitutional Appears: Toxic, No Acute Distress - Head Exam Head Exam: ATRAUMATIC, NORMOCEPHALIC - Eye Exam Eye Exam: EOMI, Normal appearance - ENT Exam ENT Exam: Mucous Membranes Moist - Neck Exam Neck Exam: Full ROM, Normal Inspection - Respiratory Exam Respiratory Exam: Clear to Ausculation Bilateral, NORMAL BREATHING PATTERN. absent: Rales, Rhonchi, Wheezes - Cardiovascular Exam Cardiovascular Exam: RRR, +S1, +S2 - GI/Abdominal Exam GI & Abdominal Exam: Soft. absent: Tenderness - Extremities Exam Extremities Exam: Pedal Edema. absent: Calf Tenderness Additional comments: 2+ pitting edema to mid floyd - Neurological Exam Neurological Exam: Alert, Awake, Oriented x3 - Psychiatric Exam Psychiatric exam: Normal Affect, Normal Mood - Skin Skin Exam: Dry, Intact Assessment and Plan - Assessment and Plan (Free Text) Assessment: 61 yo M with PMH of CHF (LVEF 30-35% on 09/2016), HTN, asthma, CVA presents with SOB 2/2 acute CHF exacerbation 2/2 medication noncompliance Plan: 1. Acute decompensated CHF - 2/2 medication noncompliance; improving - Patient has history of CHF, LVEF 30-35% on echo 09/2016; Currently NYHA class II - Patient presented with SOB, improving - Patient admits to medication noncompliance, and has been here for this same problem multiple times in the past few months - Stressed compliance with all medications - Currently on IV lasix and PO spironolactone; responding and tolerating well; will continue - Patient may warrant AICD placement if no improvement in heart function after 6 months of appropriate medical management; or if patient remains noncompliant - Strict I&O; Daily weights - O2 by NC titrated to maintain SaO2 > 92% - Patient improving and stable, may be discharged on current regimen 2. HTN - BP somewhat labile on Lasix, spironolactone, metoprolol, and lisinopril - May require increased dose of lisinopril, but will monitor as fluid status continues to improve - He should discontinue home clonidine - Continue current regimen 3. Asthma - Patient reports history of asthma, is currently complaining of cough - Management per primary team Patient seen, discussed, and reviewed with attending <Julio Garcia - Last Filed: 12/31/16 00:35> Objective - Vital Signs/Intake and Output Vital Signs (last 24 hours): Temp Pulse Resp BP Pulse Ox 97.9 F 78 20 136/96 H 96 12/30/16 19:23 12/30/16 19:23 12/30/16 19:23 12/30/16 19:23 12/30/16 19:23 Intake and Output: 12/30/16 12/31/16 18:59 06:59 Intake Total 150 Balance 150 - Labs Labs: 12/30/16 07:47 12/30/16 07:47 Attending/Attestation - Attestation I have personally seen and examined this patient.: Yes I have fully participated in the care of the patient.: Yes I have reviewed all pertinent clinical information, including history, physical exam and plan: Yes Notes (Text): 12/31/16 00:34 compensated, euvolemic stable to dc home counselled patient to dc clonidine to allow uptitration of RAAS modulators and lasix therapy outpt f/u in 1-2 weeks
[2016-12-30] MEDS: Enoxaparin 40 mg Syringe SC SCH (11:00)
--- NOTE | 2016-12-30 17:33 | CP.PCM.DIS ---
Provider - Provider Date of Admission: 12/29/16 17:46 Attending physician: Preet Khan MD Consults: Cardio - Dr. Garcia Time Spent in preparation of Discharge (in minutes): 30 Hospital Course - Lab Results Lab Results: Most Recent Lab Values WBC 4.9 K/uL (4.8-10.8) 12/30/16 07:47 RBC 3.70 Mil/uL (4.40-5.90) L 12/30/16 07:47 Hgb 11.7 g/dL (12.0-18.0) L 12/30/16 07:47 Hct 34.4 % (35.0-51.0) L 12/30/16 07:47 MCV 93.0 fL (80.0-94.0) 12/30/16 07:47 MCH 31.5 pg (27.0-31.0) H 12/30/16 07:47 MCHC 33.9 g/dL (33.0-37.0) 12/30/16 07:47 RDW 16.0 % (11.5-14.5) H 12/30/16 07:47 Plt Count 246 K/uL (130-400) 12/30/16 07:47 MPV 6.8 fL (7.2-11.7) L 12/30/16 07:47 Neut % (Auto) 57.6 % (50.0-75.0) 12/30/16 07:47 Lymph % (Auto) 31.0 % (20.0-40.0) 12/30/16 07:47 [place] % (Auto) 8.9 % (0.0-10.0) 12/30/16 07:47 Eos % (Auto) 1.8 % (0.0-4.0) 12/30/16 07:47 Baso % (Auto) 0.7 % (0.0-2.0) 12/30/16 07:47 Neut # 2.8 K/uL (1.8-7.0) 12/30/16 07:47 Lymph # 1.5 K/uL (1.0-4.3) 12/30/16 07:47 [place] # 0.4 K/uL (0.0-0.8) 12/30/16 07:47 Eos # 0.1 K/uL (0.0-0.7) 12/30/16 07:47 Baso # 0.0 K/uL (0.0-0.2) 12/30/16 07:47 Sodium 142 mmol/L (132-148) 12/30/16 07:47 Potassium 3.5 mmol/L (3.6-5.2) L 12/30/16 07:47 Chloride 99 mmol/L (98-107) 12/30/16 07:47 Carbon Dioxide 26 mmol/L (22-30) 12/30/16 07:47 Anion Gap 21 (10-20) H 12/30/16 07:47 BUN 34 mg/dL (9-20) H 12/30/16 07:47 Creatinine 1.7 MG/DL (0.8-1.5) H 12/30/16 07:47 Est GFR ( Amer) 50 12/30/16 07:47 Est GFR (Non-Af Amer) 41 12/30/16 07:47 Random Glucose 77 mg/dL (75-110) 12/30/16 07:47 Calcium 9.2 mg/dl (8.6-10.4) 12/30/16 07:47 Total Bilirubin 1.2 mg/dL (0.2-1.3) 12/30/16 07:47 AST 37 U/L (17-59) 12/30/16 07:47 ALT 46 U/L (21-72) 12/30/16 07:47 Alkaline Phosphatase 124 U/L (38-126) 12/30/16 07:47 Total Creatine Kinase 244 U/L (55-170) H 12/27/16 18:25 CK-MB (Mass) 2.88 ng/mL (0.0-3.38) 12/27/16 18:25 Troponin I 0.0500 ng/mL (0.00-0.120) 12/27/16 18:25 NT-Pro-B Natriuret Pep 7100 pg/mL (0-900) H 12/27/16 18:25 Total Protein 7.1 g/dL (6.3-8.3) 12/30/16 07:47 Albumin 3.7 g/dL (3.5-5.0) 12/30/16 07:47 Globulin 3.4 gm/dL (2.2-3.9) 12/30/16 07:47 Albumin/Globulin Ratio 1.1 (1.0-2.1) 12/30/16 07:47 - Hospital Course Hospital Course: As per admission documentation, 61 yo M with a PMHx of systolic CHF (NYHA class II), HTN, CVA with right sided weakness, presented to the ED for worsening shortness of breath for the past 2 weeks. He was unable to sleep last night due to his breathing difficulty which prompted him to come to our ED. Associated symptoms include non-productive cough , abdominal pain associated with cough, bilateral leg swelling and orthopnea. Patient is not compliant with his medications and takes them only when he feels it necessary. He states not taking his furosemide because it makes him urinate too much. He denies chest pain, left arm pain, diaphoresis, tingliness, fever, diarrhea, vomiting. Hospital Course, Patient was admitted for CHF exacerbation. Cardiology was consulted, Dr. Garcia. Echo from 09/28/16 shows EF of 30-35% CXR on 12/27/16 showed Mild venous congestion. Patchy increased markings in the left mid to lower lung zone. Mild atelectatic changes in the right midlung zone. Biapical pleural thickening. Tortuous ectatic aorta. Mild cardiomegaly. Patient openly admitted that he did not take his medications as directed because he does not like that they cause him to urinate more frequently. Patient was re-started on his home medications, with Lasix being switched to IV. Patient was stable throughout his stay. He had minimal leg edema b/l upon that admission, which improved to none-trace pitting edema on discharge. He was counseled on his diagnosis of CHF, fluid/salt weight management, and importance of compliance with all of his medications. It was told to him that if his EF persists to be low despite being compliant with meds may benefit from AICD, Biv pace, per Dr. Garcia. He is to follow up with Dr. Garcia within 3-4 months to re- assess EF. Discharge instructions, Patient is to be discharged home as per Dr. Khan. Patient is to continue his home medications as directed by the prescribing physician. Patient is to follow up with his Primary Care Physician within one week. If patient does not have a Primary Care Physician, he is to follow up with the health clinic located at [facility]. Patient is to follow up with Dr. Garcia within 3 months. It is stressed to patient the need for compliance with his medications. If patient has any new or worsening symptoms, patient is to return to the hospital. No new medications prescribed. New prescriptions given for all medications. Continue Home Medications: Lasix 40mg PO BID Lisinopril 10mg PO daily Metoprolol Tartrate 25mg PO BID Aldactone 25mg PO daily Clonidine 0.1mg PO daily Aspirin 81mg PO daily Atorvastatin 40mg PO daily - Date & Time of H&P Date of H&P: 12/28/16 Time of H&P: 03:05 Discharge Exam - Head Exam Head Exam: ATRAUMATIC, NORMOCEPHALIC - Eye Exam Eye Exam: EOMI, Normal appearance - ENT Exam ENT Exam: Mucous Membranes Moist - Respiratory Exam Respiratory Exam: Clear to PA & Lateral, NORMAL BREATHING PATTERN. absent: Accessory Muscle Use, Rhonchi, Wheezes, Respiratory Distress - Cardiovascular Exam Cardiovascular Exam: REGULAR RHYTHM, +S1, +S2 - GI/Abdominal Exam GI & Abdominal Exam: Normal Bowel Sounds, Soft, Unremarkable. absent: Distended , Firm, Guarding, Hernia, Rigid - Extremities Exam Extremities exam: pedal pulses present Additional comments: none to trace pitting edema b/l - Neurological Exam Neurological exam: Alert, Normal Gait (baseline walking with cane), Oriented x3 - Psychiatric Exam Psychiatric exam: Normal Affect, Normal Mood - Skin Skin Exam: Dry, Intact, Normal Color, Warm Discharge Plan - Follow Up Plan Condition: FAIR Disposition: HOME/ ROUTINE Instructions: Heart Failure (DC), Heart Failure (GEN) Additional Instructions: Patient is to be discharged home as per Dr. Khan. Patient is to continue his home medications as directed by the prescribing physician. Patient is to follow up with his Primary Care Physician within one week. If patient does not have a Primary Care Physician, he is to follow up with the health clinic located at [facility]. Patient is to follow up with Dr. Garcia within 3 months. It is stressed to patient the need for compliance with his medications. If patient has any new or worsening symptoms, patient is to return to the hospital. No new medications prescribed. New prescriptions given for all medications. Continue Home Medications: Lasix 40mg PO BID Lisinopril 10mg PO daily Metoprolol Tartrate 25mg PO BID Aldactone 25mg PO daily Clonidine 0.1mg PO daily Aspirin 81mg PO daily Atorvastatin 40mg PO daily Referrals: [facility] [Outside] Julio Garcia MD [Staff Provider] - Clinical Quality Measures - CQM - Heart Failure Ejection Fraction: Less Than 40 % Left Ventricular Function to be assessed after discharge: Yes KAMALJIT Inhibitor Prescribed: Yes Beta-Jazmin Prescribed: Metoprolol Succinate (metoprolol tartrate) Angiotensin II Receptor Jazmin Prescribed: No Contraindication/Reason for not providing: on kamaljit AnticoagulationTherapy for Atrial Fibrillation/Atrialflutter: No Contraindication/Reason for not providing: sinus rhythm Aldosterone Antagonist Prescribed: Yes Hydralazine Nitrate Prescribed: No Contraindication/Reason for not providing: on kamaljit, bb, spironolactone, lasix Implantable Cardioverter Defibrillator Therapy: No Contraindication/Reason for not providing: will be re-evaluated in 3-4 months as outpt. need med compliance. Cardiac Resynchronization Therapy Prescribed: No Contraindication/Reason for not providing: sinus rhythm Will be discharged to: Home Follow Up Date (must be within 7 days from discharge): 01/05/17 (follow up with pmd or [facility] in one week. ) Follow Up Time: 09:00 - Date & Time of Discharge Summary Date of Discharge Summary: 12/31/16 Time of Discharge Summary: 13:26
[2016-12-30 19:23] VITALS: BP 136/96; PULSE 78; TEMP 97.9; O2SAT 96
--- NOTE | 2016-12-31 11:44 | CARD ---
APPROVED REPORT EKG Measurement Heart [id number] <Conclusion> Normal sinus rhythm Possible Left atrial enlargement Left bundle branch block Abnormal ECG
== END 2016-12-30 19:35 | disposition home or self-care (01) | DRG 127 ==
LOC: C.ER 17:12 → C.9E 19:35 → C.5S 23:54 → OBSVTOIN 12-29 17:46
PROVIDERS: ADMIT Internal Medicine; ATTEND Internal Medicine
DX: I11.0 Hypertensive heart disease with heart failure (principal); I50.23 Acute on chronic systolic (congestive) heart failure; I42.0 Dilated cardiomyopathy; I69.351 Hemiplegia and hemiparesis following cerebral infarction affecting right dominant side; J44.9 Chronic obstructive pulmonary disease, unspecified; I25.10 Atherosclerotic heart disease of native coronary artery without angina pectoris; I77.819 Aortic ectasia, unspecified site; K40.90 Unilateral inguinal hernia, without obstruction or gangrene, not specified as recurrent; Z79.82 Long term (current) use of aspirin; Z82.3 Family history of stroke; Z91.14 Patient's other noncompliance with medication regimen; Z91.19 Patient's noncompliance with other medical treatment and regimen

== ENCOUNTER 2017-02-03 15:30 | Inpatient (IN) | payer MEDICAID ==
--- NOTE | 2017-02-03 16:25 | C.PDOC ---
History Of Present Illness 61 y/o with PMH of dilated cardiomyopathy and CAD presents to ED with complaints of shortness of breath worse on exertion for 1 week. Patient also complaints of legs swelling and states legs "feel heavy". Patient was admitted to hospital 2 months ago for CHF. Patient reports he is compliant with Lasix but has not followed up with MD or been evaluated by someone for symptoms. He states PMD is DR Liriano but has not seen him for years and does not want him as PCP. Patient denies fever, chills, nausea, vomiting, chest pain or any other complaints at this time. Time Seen by Provider: 02/03/17 16:13 Chief Complaint (Nursing): Shortness Of Breath History Per: Patient History/Exam Limitations: no limitations Onset/Duration Of Symptoms: Days Current Symptoms Are (Timing): Still Present Past Medical History Reviewed: Historical Data, Nursing Documentation, Vital Signs Vital Signs: Last Vital Signs Temp 97.6 F 02/03/17 15:31 Pulse 74 02/03/17 15:31 Resp 22 02/03/17 16:40 BP 155/94 H 02/03/17 15:31 Pulse Ox 97 02/03/17 18:05 - Medical History PMH: Asthma, CAD, CHF, COPD, HTN Surgical History: No Surg Hx - [facility] Procedures FLUOROSCOPY OF LEFT HEART USING LOW OSMOLAR CONTRAST (11/30/16) FLUOROSCOPY OF MULT COR ART USING L OSM CONTRAST (11/30/16) MEASURE OF CARDIAC SAMPL & PRESSURE, L HEART, PERC APPROACH (11/30/16) Family History: States: No Known Family Hx - Social History Hx Alcohol Use: No Hx Substance Use: No - Immunization History Hx Tetanus Toxoid Vaccination: Yes Hx Influenza Vaccination: Yes Hx Pneumococcal Vaccination: Yes Review Of Systems Constitutional: Negative for: Fever, Chills Cardiovascular: Negative for: Chest Pain Respiratory: Positive for: Shortness of Breath Gastrointestinal: Negative for: Nausea, Vomiting Skin: Negative for: Rash Neurological: Negative for: Weakness, Numbness Physical Exam - Physical Exam Appears: Non-toxic, No Acute Distress Skin: Warm, Dry, No Rash Head: Atraumatic, Normacephalic Eye(s): bilateral: Normal Inspection, EOMI Oral Mucosa: Moist Neck: Normal ROM, Supple Chest: Symmetrical Cardiovascular: Rhythm Regular, No Murmur Respiratory: Decreased Breath Sounds (at bases of lungs), No Rales, No Rhonchi, No Wheezing Gastrointestinal/Abdominal: Soft, No Tenderness, No Guarding, No Rebound Extremity: Normal ROM, Pedal Edema (bilateral), Capillary Refill, Swelling ( bilateral LE) Pulses: Left Dorsalis Pedis: Normal, Right Dorsalis Pedis: Normal Neurological/Psych: Oriented x3, Normal Speech, Normal Motor, Normal Sensation ED Course And Treatment - Laboratory Results Result Diagrams: 02/03/17 16:50 02/03/17 16:50 Lab Interpretation: Abnormal ECG: Interpreted By Me, Viewed By Me ECG Rhythm: Sinus Rhythm, L BBB ECG Interpretation: No Changes From Prior (12/27/16) Interpretation Of ECG: NSR 72BPM. Left axis deviation, LBBB Rate From EC (bpm) O2 Sat by Pulse Oximetry: 97 (ra) Pulse Ox Interpretation: Normal - Radiology CXR: Interpreted by Me, Viewed By Me CXR Interpretation: Yes: Cardiomegaly. No: Infiltrates Medical Decision Making Medical Decision Making: Impression: Dyspnea, likely CHF Prior records reviewed: patient last seen and admitted to tele-obs 12/27/16 for CHF. Plan: * EKG * CXR * Labs * IV Lasix Progress: EKG shows NSR at 72bpm with LBBB, LAD unchanged from prior on 12/27/16. BNP elevated [id number] and worsening renal function in comparison to last visit. Plan for observation admit to medicine front line supervisor. Case discussed with attending who agrees with plan. 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 - Scribe Statement The provider has reviewed the documentation as recorded by the Sheri Langley All medical record entries made by the Abbeyibjerri were at my direction and personally dictated by me. I have reviewed the chart and agree that the record accurately reflects my personal performance of the history, physical exam, medical decision making, and the department course for this patient. I have also personally directed, reviewed, and agree with the discharge instructions and disposition. Decision To Admit - Pt Status Changed To: Hospital Disposition Of: Observation - . Bed Request Type: Telemetry Admitting Physician: Mark Ordonez Patient Diagnosis: Chronic congestive heart failure, CHF exacerbation
--- NOTE | 2017-02-03 16:41 | RAD ---
HISTORY: SOB COMPARISON: 12/27/2016 TECHNIQUE: Chest PA and lateral FINDINGS: LUNGS: No active pulmonary disease. PLEURA: No significant pleural effusion identified. No pneumothorax apparent. CARDIOVASCULAR: Cardiomegaly. No congestive change. OSSEOUS STRUCTURES: No significant abnormalities. VISUALIZED UPPER ABDOMEN: Normal. OTHER FINDINGS: None. IMPRESSION: Cardiomegaly. No infiltrate.
[2017-02-03 16:58] LABS: BASO # 0.1 K/uL (0.0-0.2); BASO % 1.3 % (0.0-2.0); EOS # 0.1 K/uL (0.0-0.7); EOS % 0.9 % (0.0-4.0); HEMATOCRIT 36.4 % (35.0-51.0); LYMPH # 1.2 K/uL (1.0-4.3); LYMPH % 20.4 % (20.0-40.0); MEAN CELL VOLUME 91.8 fL (80.0-94.0); MEAN CORPUSCULAR HEMOGLOBIN 30.6 pg (27.0-31.0); MEAN CORPUSCULAR HGB CONC 33.3 g/dL (33.0-37.0); MEAN PLATELET VOLUME 7.3 fL (7.2-11.7); MONO # 0.4 K/uL (0.0-0.8); MONO % 7.3 % (0.0-10.0); NRBC % 0.1 % (0.0-2.0); RBC URINE 22 /hpf (0-3); RED CELL DISTRIBUTION WIDTH 15.7 % (11.5-14.5); URINE BILIRUBIN NEGATIVE (NEGATIVE); URINE BLOOD 1+ (NEGATIVE); URINE COLOR Yellow (YELLOW); URINE GLUCOSE (UA) NORMAL (Normal); URINE KETONE NEGATIVE (NEGATIVE); URINE LEUKOCYTE ESTERASE NEG Leu/uL (Negative); URINE PROTEIN 2+ mg/dL (NEGATIVE); WBC URINE 4 /hpf (0-5); WHITE BLOOD COUNT 6.1 K/uL (4.8-10.8)
[2017-02-03 17:03] LABS: POTASSIUM 3.5 mmol/L (3.6-5.2)
[2017-02-03 17:04] LABS: INR 1.6
[2017-02-03 17:05] LABS: ALB/GLOB RATIO 1.3 (1.0-2.1); BILIRUBIN,TOTAL 1.8 mg/dL (0.2-1.3)
[2017-02-03 17:18] LABS: TROPONIN I 0.053 ng/mL (0.00-0.120)
[2017-02-03] MEDS ORDERED: Potassium Chloride 20 mEq ER Tab PO STA (20:38)
--- NOTE | 2017-02-03 20:58 | CP.PCM.HP ---
History of Present Illness - History of Present Illness History of Present Illness: A 61-year-old male with PMHHTN, hyperlipidemia, asthma, CHF [EF 30-35%] presented to the ER with C/Oshortness of breath for the last 3 hours. C/Oshortness of breath for 3 hours, acute in onset, rapidly progressive, NYHA grade 4, occurs at rest, not relieved by any medications. Patient admits to being noncompliant with his heart failure medications. Patient was recently admitted on December 29 for similar complaints. No C/Ochest pain, abdominal pain, palpitation, cough, PND, orthopnea. Past Patient History - Infectious Disease Hx of Infectious Diseases: None - Past Medical History & Family History Past Medical History?: Yes - Past Social History Smoking Status: Never Smoked - CARDIAC Hx Congestive Heart Failure: Yes Hx Hypertension: Yes - PULMONARY Hx Asthma: Yes Hx Chronic Obstructive Pulmonary Disease (COPD): Yes - NEUROLOGICAL HX Cerebrovascular Accident: Yes (2004) - HEENT Hx HEENT Problems: No - RENAL Hx Chronic Kidney Disease: No - ENDOCRINE/METABOLIC Hx Endocrine Disorders: No - HEMATOLOGICAL/ONCOLOGICAL Hx Blood Transfusions: No - INTEGUMENTARY Hx Dermatological Problems: No - MUSCULOSKELETAL/RHEUMATOLOGICAL Hx Falls: No - GASTROINTESTINAL Hx Gastrointestinal Disorders: No - GENITOURINARY/GYNECOLOGICAL Hx Genitourinary Disorders: No - PSYCHIATRIC Hx Substance Use: No - SURGICAL HISTORY Hx Surgeries: No - ANESTHESIA Hx Anesthesia: No Hx Anesthesia Reactions: No Hx Malignant Hyperthermia: No Meds Allergies/Adverse Reactions: Allergies Allergy/AdvReac Type Severity Reaction Status Date / Time No Known Allergies Allergy Verified 12/27/16 18:03 Physical Exam - Constitutional Appears: Well - Head Exam Head Exam: ATRAUMATIC, NORMAL INSPECTION, NORMOCEPHALIC - Eye Exam Eye Exam: EOMI, Normal appearance, PERRL Pupil Exam: NORMAL ACCOMODATION, PERRL - ENT Exam ENT Exam: Mucous Membranes Moist, Normal Exam - Neck Exam Neck exam: Positive for: Normal Inspection - Respiratory Exam Respiratory Exam: Decreased Breath Sounds - Cardiovascular Exam Cardiovascular Exam: REGULAR RHYTHM, +S1, +S2 - GI/Abdominal Exam GI & Abdominal Exam: Diminished Bowel Sounds, Soft - Rectal Exam Rectal Exam: Deferred Results - Vital Signs Recent Vital Signs: Last Vital Signs Temp 97.8 F 02/03/17 20:11 Pulse 80 02/03/17 20:11 Resp 20 02/03/17 20:11 BP 147/92 H 02/03/17 20:11 Pulse Ox 95 02/03/17 20:11 - Labs Result Diagrams: 02/05/17 07:10 02/05/17 07:10 Labs: Laboratory Results - last 24 hr 02/03/17 02/03/17 02/03/17 16:50 16:50 16:50 WBC 6.1 RBC 3.96 L Hgb 12.1 Hct 36.4 MCV 91.8 MCH 30.6 MCHC 33.3 RDW 15.7 H Plt Count 211 MPV 7.3 Neut % (Auto) 70.1 Lymph % (Auto) 20.4 [place] % (Auto) 7.3 Eos % (Auto) 0.9 Baso % (Auto) 1.3 Neut # 4.3 Lymph # 1.2 [place] # 0.4 Eos # 0.1 Baso # 0.1 PT 18.0 H INR 1.6 APTT 31 Sodium Potassium Chloride Carbon Dioxide Anion Gap BUN Creatinine Est GFR ( Amer) Est GFR (Non-Af Amer) Random Glucose Calcium Total Bilirubin AST ALT Alkaline Phosphatase Troponin I NT-Pro-B Natriuret Pep Total Protein Albumin Globulin Albumin/Globulin Ratio Urine Color Yellow Urine Clarity Clear Urine pH 5.0 Ur Specific [place] 1.013 Urine Protein 2+ H Urine Glucose (UA) Normal Urine Ketones Negative Urine Blood 1+ H Urine Nitrate Negative Urine Bilirubin Negative Urine Urobilinogen 2.0 Ur Leukocyte Esterase Neg Urine WBC (Auto) 4 Urine RBC (Auto) 22 H Ur Squamous Epith Cells < 1 Hyaline Casts 11-20 H 02/03/17 16:50 WBC RBC Hgb Hct MCV MCH MCHC RDW Plt Count MPV Neut % (Auto) Lymph % (Auto) [place] % (Auto) Eos % (Auto) Baso % (Auto) Neut # Lymph # [place] # Eos # Baso # PT INR APTT Sodium 136 Potassium 3.5 L Chloride 102 Carbon Dioxide 22 Anion Gap 16 BUN 45 H Creatinine 2.0 H Est GFR ( Amer) 41 Est GFR (Non-Af Amer) 34 Random Glucose 82 Calcium 9.0 Total Bilirubin 1.8 H AST 54 ALT 55 Alkaline Phosphatase 166 H D Troponin I 0.0530 NT-Pro-B Natriuret Pep 08113 H Total Protein 7.0 Albumin 4.0 Globulin 3.0 Albumin/Globulin Ratio 1.3 Urine Color Urine Clarity Urine pH Ur Specific [place] Urine Protein Urine Glucose (UA) Urine Ketones Urine Blood Urine Nitrate Urine Bilirubin Urine Urobilinogen Ur Leukocyte Esterase Urine WBC (Auto) Urine RBC (Auto) Ur Squamous Epith Cells Hyaline Casts
[2017-02-04] MEDS: Albuterol-Ipratrop 3 mg / 0.5 (3 ml) UD INH SCH ×4 (01:09→19:14)
[2017-02-04] MEDS: Pantoprazole 40 mg EC Tab PO SCH (09:12)
--- NOTE | 2017-02-04 09:25 | CP.PCM.CON ---
<Laura Brewster - Last Filed: 02/04/17 11:16> History of Present Illness - History of Present Illness History of Present Illness: Pulmonology Consult Note for Dr. Truong's Service Reason for consult: "Shortness of Breath" HPI: 61M with PMHx of HTN, HLD, Asthma, CHF, LVEF 30-35% on echo 09/2016; Currently NYHA class II presented to the ED with shortness of breath. Patient was recently admitted 12/29/16 for SOB. Patient admits to noncompliance with his CHF medications. Admitted Denied chest pain, abdominal pain, n/v/d/c, or urinary symptoms. 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 FamHx: Mother from CVA; Father , cause unknown; Sister DM, ESRD on HD Past Patient History - Infectious Disease Hx of Infectious Diseases: None - Past Medical History & Family History Past Medical History?: Yes - Past Social History Smoking Status: Never Smoked - CARDIAC Hx Congestive Heart Failure: Yes Hx Hypertension: Yes - PULMONARY Hx Asthma: Yes Hx Chronic Obstructive Pulmonary Disease (COPD): Yes - NEUROLOGICAL HX Cerebrovascular Accident: Yes (2004) - HEENT Hx HEENT Problems: No - RENAL Hx Chronic Kidney Disease: No - ENDOCRINE/METABOLIC Hx Endocrine Disorders: No - HEMATOLOGICAL/ONCOLOGICAL Hx Blood Transfusions: No - INTEGUMENTARY Hx Dermatological Problems: No - MUSCULOSKELETAL/RHEUMATOLOGICAL Hx Falls: No - GASTROINTESTINAL Hx Gastrointestinal Disorders: No - GENITOURINARY/GYNECOLOGICAL Hx Genitourinary Disorders: No - PSYCHIATRIC Hx Substance Use: No - SURGICAL HISTORY Hx Surgeries: No - ANESTHESIA Hx Anesthesia: No Hx Anesthesia Reactions: No Hx Malignant Hyperthermia: No Meds Allergies/Adverse Reactions: Allergies Allergy/AdvReac Type Severity Reaction Status Date / Time No Known Allergies Allergy Verified 12/27/16 18:03 - Medications Medications: Current Medications Albuterol/Ipratropium (Duoneb 3 Mg/0.5 Mg (3 Ml) Ud) 3 ml INH RQ6 [facility] Last Admin: 02/04/17 07:38 Dose: 3 ml Aspirin (Aspirin Chewable) 81 mg PO DAILY [facility] Clonidine HCl (Catapres) 0.1 mg PO DAILY [facility] Last Admin: 02/04/17 09:10 Dose: 0.1 mg Furosemide (Lasix) 40 mg IVP BID [facility] Heparin Sodium (Porcine) (Heparin) 5,000 units SC Q12 [facility] Last Admin: 02/04/17 09:13 Dose: 5,000 units Lisinopril (Zestril) 10 mg PO DAILY [facility] Metoprolol Tartrate (Lopressor) 25 mg PO BID [facility] Last Admin: 02/04/17 09:11 Dose: 25 mg Pantoprazole Sodium (Protonix Ec Tab) 40 mg PO DAILY [facility] Last Admin: 02/04/17 09:12 Dose: 40 mg Rosuvastatin Calcium (Crestor) 20 mg PO HS [facility] Last Admin: 02/03/17 21:45 Dose: 20 mg Spironolactone (Aldactone) 25 mg PO DAILY [facility] Physical Exam - Constitutional Appears: No Acute Distress - Head Exam Head Exam: NORMAL INSPECTION, NORMOCEPHALIC - Eye Exam Eye Exam: EOMI, Normal appearance, PERRL Pupil Exam: NORMAL ACCOMODATION - ENT Exam ENT Exam: Normal Exam - Respiratory Exam Respiratory Exam: Decreased Breath Sounds, Rales - Cardiovascular Exam Cardiovascular Exam: REGULAR RHYTHM - GI/Abdominal Exam GI & Abdominal Exam: Normal Bowel Sounds, Soft. absent: Distended, Tenderness - Extremities Exam Extremities exam: Positive for: joint swelling, normal inspection, pedal pulses present. Negative for: pedal edema, tenderness - Neurological Exam Neurological exam: Alert, Oriented x3 - Psychiatric Exam Psychiatric exam: Normal Affect, Normal Mood - Skin Skin Exam: Dry, Intact, Normal Color, Warm Results - Vital Signs Recent Vital Signs: Last Vital Signs Temp 97.7 F 02/04/17 07:10 Pulse 70 02/04/17 08:58 Resp 20 02/04/17 07:10 BP 160/100 H 02/04/17 09:11 Pulse Ox 100 02/04/17 07:10 - Labs Result Diagrams: 02/03/17 16:50 02/03/17 16:50 Labs: Laboratory Results - last 24 hr 02/03/17 02/03/17 02/03/17 16:50 16:50 16:50 WBC 6.1 RBC 3.96 L Hgb 12.1 Hct 36.4 MCV 91.8 MCH 30.6 MCHC 33.3 RDW 15.7 H Plt Count 211 MPV 7.3 Neut % (Auto) 70.1 Lymph % (Auto) 20.4 [place] % (Auto) 7.3 Eos % (Auto) 0.9 Baso % (Auto) 1.3 Neut # 4.3 Lymph # 1.2 [place] # 0.4 Eos # 0.1 Baso # 0.1 PT 18.0 H INR 1.6 APTT 31 Sodium Potassium Chloride Carbon Dioxide Anion Gap BUN Creatinine Est GFR ( Amer) Est GFR (Non-Af Amer) Random Glucose Calcium Total Bilirubin AST ALT Alkaline Phosphatase Troponin I NT-Pro-B Natriuret Pep Total Protein Albumin Globulin Albumin/Globulin Ratio Urine Color Yellow Urine Clarity Clear Urine pH 5.0 Ur Specific [place] 1.013 Urine Protein 2+ H Urine Glucose (UA) Normal Urine Ketones Negative Urine Blood 1+ H Urine Nitrate Negative Urine Bilirubin Negative Urine Urobilinogen 2.0 Ur Leukocyte Esterase Neg Urine WBC (Auto) 4 Urine RBC (Auto) 22 H Ur Squamous Epith Cells < 1 Hyaline Casts 11-20 H 02/03/17 16:50 WBC RBC Hgb Hct MCV MCH MCHC RDW Plt Count MPV Neut % (Auto) Lymph % (Auto) [place] % (Auto) Eos % (Auto) Baso % (Auto) Neut # Lymph # [place] # Eos # Baso # PT INR APTT Sodium 136 Potassium 3.5 L Chloride 102 Carbon Dioxide 22 Anion Gap 16 BUN 45 H Creatinine 2.0 H Est GFR ( Amer) 41 Est GFR (Non-Af Amer) 34 Random Glucose 82 Calcium 9.0 Total Bilirubin 1.8 H AST 54 ALT 55 Alkaline Phosphatase 166 H D Troponin I 0.0530 NT-Pro-B Natriuret Pep 16845 H Total Protein 7.0 Albumin 4.0 Globulin 3.0 Albumin/Globulin Ratio 1.3 Urine Color Urine Clarity Urine pH Ur Specific [place] Urine Protein Urine Glucose (UA) Urine Ketones Urine Blood Urine Nitrate Urine Bilirubin Urine Urobilinogen Ur Leukocyte Esterase Urine WBC (Auto) Urine RBC (Auto) Ur Squamous Epith Cells Hyaline Casts Assessment & Plan - Assessment and Plan (Free Text) Plan: Acute on Chronic CHF exacerbation Non-compliant with medications Patient has history of CHF, LVEF 30-35% on echo 09/2016; Currently NYHA class II If EF persist to be low despite being compliant with meds may benefit from AICD , Biv pace Counselled about CHF, fluid/salt weight management, compliance with meds Cardiology consulted - Dr. Gan- who is covering Dr. Garcia (who saw patient on previous admission) Repeat ECHO for evaluation of Biv pace AICD Medications: Lasix 40mg IVP BID Spironolactone 25mg PO daily ASA 81mg PO daily Lisinopril 10mg PO daily Metoprolol tartrate 25mg PO bid Hx of Asthma Duonebs Q6H Hx of Hypertension Hx of HLD Hx of CVA w/ right sided weakness Hx of reducible right inguinal hernia DW Narcisa Quintana DO, PGY-1 <Ladarius Truong S - Last Filed: 02/04/17 16:28> Meds - Medications Medications: Current Medications Albuterol/Ipratropium (Duoneb 3 Mg/0.5 Mg (3 Ml) Ud) 3 ml INH RQ6 [facility] Last Admin: 02/04/17 13:50 Dose: Not Given Aspirin (Aspirin Chewable) 81 mg PO DAILY [facility] Last Admin: 02/04/17 10:22 Dose: 81 mg Clonidine HCl (Catapres) 0.1 mg PO DAILY [facility] Last Admin: 02/04/17 09:10 Dose: 0.1 mg Furosemide (Lasix) 40 mg IVP BID [facility] Last Admin: 02/04/17 12:04 Dose: Not Given Heparin Sodium (Porcine) (Heparin) 5,000 units SC Q12 [facility] Last Admin: 02/04/17 09:13 Dose: 5,000 units Lisinopril (Zestril) 10 mg PO DAILY [facility] Last Admin: 02/04/17 10:22 Dose: 10 mg Metoprolol Tartrate (Lopressor) 25 mg PO BID [facility] Last Admin: 02/04/17 09:11 Dose: 25 mg Pantoprazole Sodium (Protonix Ec Tab) 40 mg PO DAILY [facility] Last Admin: 02/04/17 09:12 Dose: 40 mg Rosuvastatin Calcium (Crestor) 20 mg PO HS [facility] Last Admin: 02/03/17 21:45 Dose: 20 mg Spironolactone (Aldactone) 25 mg PO DAILY [facility] Last Admin: 02/04/17 10:22 Dose: 25 mg Results - Vital Signs Recent Vital Signs: Last Vital Signs Temp 97.9 F 02/04/17 15:56 Pulse 66 02/04/17 15:56 Resp 20 02/04/17 15:56 BP 127/87 02/04/17 15:56 Pulse Ox 99 02/04/17 15:56 - Labs Result Diagrams: 02/04/17 11:21 02/04/17 11:21 Labs: Laboratory Results - last 24 hr 02/03/17 02/03/17 02/03/17 16:50 16:50 16:50 WBC 6.1 RBC 3.96 L Hgb 12.1 Hct 36.4 MCV 91.8 MCH 30.6 MCHC 33.3 RDW 15.7 H Plt Count 211 MPV 7.3 Neut % (Auto) 70.1 Lymph % (Auto) 20.4 [place] % (Auto) 7.3 Eos % (Auto) 0.9 Baso % (Auto) 1.3 Neut # 4.3 Lymph # 1.2 [place] # 0.4 Eos # 0.1 Baso # 0.1 PT 18.0 H INR 1.6 APTT 31 Sodium Potassium Chloride Carbon Dioxide Anion Gap BUN Creatinine Est GFR ( Amer) Est GFR (Non-Af Amer) Random Glucose Calcium Phosphorus Magnesium Total Bilirubin AST ALT Alkaline Phosphatase Troponin I NT-Pro-B Natriuret Pep Total Protein Albumin Globulin Albumin/Globulin Ratio Urine Color Yellow Urine Clarity Clear Urine pH 5.0 Ur Specific [place] 1.013 Urine Protein 2+ H Urine Glucose (UA) Normal Urine Ketones Negative Urine Blood 1+ H Urine Nitrate Negative Urine Bilirubin Negative Urine Urobilinogen 2.0 Ur Leukocyte Esterase Neg Urine WBC (Auto) 4 Urine RBC (Auto) 22 H Ur Squamous Epith Cells < 1 Hyaline Casts 11-20 H 02/03/17 02/04/17 02/04/17 16:50 11:21 11:21 WBC 4.4 L RBC 4.03 L Hgb 12.3 Hct 37.0 MCV 91.6 MCH 30.6 MCHC 33.4 RDW 15.5 H Plt Count 214 MPV 7.7 Neut % (Auto) 70.3 Lymph % (Auto) 19.9 L [place] % (Auto) 6.5 Eos % (Auto) 2.6 Baso % (Auto) 0.7 Neut # 3.1 Lymph # 0.9 L [place] # 0.3 Eos # 0.1 Baso # 0.0 PT INR APTT Sodium 136 137 Potassium 3.5 L 3.4 L Chloride 102 101 Carbon Dioxide 22 22 Anion Gap 16 17 BUN 45 H 45 H Creatinine 2.0 H 1.8 H Est GFR ( Amer) 41 47 Est GFR (Non-Af Amer) 34 39 Random Glucose 82 144 H Calcium 9.0 9.1 Phosphorus 3.7 Magnesium 2.0 Total Bilirubin 1.8 H 1.6 H AST 54 54 ALT 55 53 Alkaline Phosphatase 166 H D 170 H Troponin I 0.0530 NT-Pro-B Natriuret Pep 21128 H Total Protein 7.0 7.0 Albumin 4.0 4.1 Globulin 3.0 3.0 Albumin/Globulin Ratio 1.3 1.4 Urine Color Urine Clarity Urine pH Ur Specific [place] Urine Protein Urine Glucose (UA) Urine Ketones Urine Blood Urine Nitrate Urine Bilirubin Urine Urobilinogen Ur Leukocyte Esterase Urine WBC (Auto) Urine RBC (Auto) Ur Squamous Epith Cells Hyaline Casts Attending/Attestation - Attestation I have personally seen and examined this patient.: Yes I have fully participated in the care of the patient.: Yes I have reviewed all pertinent clinical information: Yes Notes (Text): 02/04/17 16:28 patient seen and examined Admitted with CHF exacerbation Continue diuretics Continue nebulizer treatment for asthma Cardiology workup
[2017-02-04] MEDS ORDERED: Enoxaparin 40 mg Syringe SC SCH (10:00)
[2017-02-04 11:29] LABS: BASO % 0.7 % (0.0-2.0); EOS # 0.1 K/uL (0.0-0.7); EOS % 2.6 % (0.0-4.0); LYMPH # 0.9 K/uL (1.0-4.3); LYMPH % 19.9 % (20.0-40.0); MEAN CELL VOLUME 91.6 fL (80.0-94.0); MEAN CORPUSCULAR HEMOGLOBIN 30.6 pg (27.0-31.0); MEAN CORPUSCULAR HGB CONC 33.4 g/dL (33.0-37.0); MEAN PLATELET VOLUME 7.7 fL (7.2-11.7); MONO # 0.3 K/uL (0.0-0.8); MONO % 6.5 % (0.0-10.0); NRBC % 0.1 % (0.0-2.0); RED CELL DISTRIBUTION WIDTH 15.5 % (11.5-14.5); WHITE BLOOD COUNT 4.4 K/uL (4.8-10.8)
--- NOTE | 2017-02-04 11:49 | CP.PCM.CON ---
<Shine LANCASTERChiara K - Last Filed: 02/04/17 15:58> History of Present Illness - History of Present Illness History of Present Illness: Cardiology consult note for Dr. Gan Patient is a 61 year old male with PMHx of HTN, CHF, CVA in 2004, right inguinal hernia who presented to the ED on 02/03/17 with complaint of shortness of breath. Patient states he is always short of breath and that his legs swell. Patient states he came in because of worsening dyspnea and lower extremity edema. Patient states his hernia repair is pending due to his heart issues. Patient admits to medical noncompliance in past but reports compliance with lasix. 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 absent: Chest Pain - Respiratory Respiratory: Cough - Gastrointestinal Gastrointestinal: absent: Nausea, Vomiting - Genitourinary Genitourinary: absent: Difficulty Urinating - Musculoskeletal Musculoskeletal: absent: Back Pain - Integumentary Integumentary: absent: Rash - Neurological Neurological: Weakness (residual from CVA) Past Patient History - Infectious Disease Hx of Infectious Diseases: None - Past Medical History & Family History Past Medical History?: Yes - Past Social History Smoking Status: Never Smoked - CARDIAC Hx Congestive Heart Failure: Yes Hx Hypertension: Yes - PULMONARY Hx Asthma: Yes Hx Chronic Obstructive Pulmonary Disease (COPD): Yes - NEUROLOGICAL HX Cerebrovascular Accident: Yes (2004) - HEENT Hx HEENT Problems: No - RENAL Hx Chronic Kidney Disease: No - ENDOCRINE/METABOLIC Hx Endocrine Disorders: No - HEMATOLOGICAL/ONCOLOGICAL Hx Blood Transfusions: No - INTEGUMENTARY Hx Dermatological Problems: No - MUSCULOSKELETAL/RHEUMATOLOGICAL Hx Falls: No - GASTROINTESTINAL Hx Gastrointestinal Disorders: No - GENITOURINARY/GYNECOLOGICAL Hx Genitourinary Disorders: No - PSYCHIATRIC Hx Substance Use: No - SURGICAL HISTORY Hx Surgeries: No - ANESTHESIA Hx Anesthesia: No Hx Anesthesia Reactions: No Hx Malignant Hyperthermia: No Meds Allergies/Adverse Reactions: Allergies Allergy/AdvReac Type Severity Reaction Status Date / Time No Known Allergies Allergy Verified 12/27/16 18:03 - Medications Medications: Current Medications Albuterol/Ipratropium (Duoneb 3 Mg/0.5 Mg (3 Ml) Ud) 3 ml INH RQ6 [facility] Last Admin: 02/04/17 07:38 Dose: 3 ml Aspirin (Aspirin Chewable) 81 mg PO DAILY [facility] Last Admin: 02/04/17 10:22 Dose: 81 mg Clonidine HCl (Catapres) 0.1 mg PO DAILY [facility] Last Admin: 02/04/17 09:10 Dose: 0.1 mg Furosemide (Lasix) 40 mg IVP BID [facility] Heparin Sodium (Porcine) (Heparin) 5,000 units SC Q12 [facility] Last Admin: 02/04/17 09:13 Dose: 5,000 units Lisinopril (Zestril) 10 mg PO DAILY [facility] Last Admin: 02/04/17 10:22 Dose: 10 mg Metoprolol Tartrate (Lopressor) 25 mg PO BID [facility] Last Admin: 02/04/17 09:11 Dose: 25 mg Pantoprazole Sodium (Protonix Ec Tab) 40 mg PO DAILY [facility] Last Admin: 02/04/17 09:12 Dose: 40 mg Rosuvastatin Calcium (Crestor) 20 mg PO HS [facility] Last Admin: 02/03/17 21:45 Dose: 20 mg Spironolactone (Aldactone) 25 mg PO DAILY [facility] Last Admin: 02/04/17 10:22 Dose: 25 mg Physical Exam - Constitutional Appears: Non-toxic, No Acute Distress - Head Exam Head Exam: ATRAUMATIC, NORMOCEPHALIC - Eye Exam Eye Exam: EOMI - ENT Exam ENT Exam: Mucous Membranes Moist - Respiratory Exam Respiratory Exam: Rales, NORMAL BREATHING PATTERN. absent: Respiratory Distress - Cardiovascular Exam Cardiovascular Exam: +S1, +S2, Systolic Murmur - GI/Abdominal Exam GI & Abdominal Exam: Normal Bowel Sounds, Soft. absent: Tenderness - Extremities Exam Extremities exam: Positive for: pedal edema. Negative for: calf tenderness - Neurological Exam Neurological exam: Alert, Oriented x3 - Psychiatric Exam Psychiatric exam: Normal Affect - Skin Skin Exam: Warm Results - Vital Signs Recent Vital Signs: Last Vital Signs Temp 97.7 F 02/04/17 07:10 Pulse 70 02/04/17 08:58 Resp 20 02/04/17 07:10 BP 139/80 02/04/17 11:25 Pulse Ox 100 02/04/17 07:10 - Labs Result Diagrams: 02/04/17 11:21 02/04/17 11:21 Labs: Laboratory Results - last 24 hr 02/03/17 02/03/17 02/03/17 16:50 16:50 16:50 WBC 6.1 RBC 3.96 L Hgb 12.1 Hct 36.4 MCV 91.8 MCH 30.6 MCHC 33.3 RDW 15.7 H Plt Count 211 MPV 7.3 Neut % (Auto) 70.1 Lymph % (Auto) 20.4 [place] % (Auto) 7.3 Eos % (Auto) 0.9 Baso % (Auto) 1.3 Neut # 4.3 Lymph # 1.2 [place] # 0.4 Eos # 0.1 Baso # 0.1 PT 18.0 H INR 1.6 APTT 31 Sodium Potassium Chloride Carbon Dioxide Anion Gap BUN Creatinine Est GFR ( Amer) Est GFR (Non-Af Amer) Random Glucose Calcium Total Bilirubin AST ALT Alkaline Phosphatase Troponin I NT-Pro-B Natriuret Pep Total Protein Albumin Globulin Albumin/Globulin Ratio Urine Color Yellow Urine Clarity Clear Urine pH 5.0 Ur Specific [place] 1.013 Urine Protein 2+ H Urine Glucose (UA) Normal Urine Ketones Negative Urine Blood 1+ H Urine Nitrate Negative Urine Bilirubin Negative Urine Urobilinogen 2.0 Ur Leukocyte Esterase Neg Urine WBC (Auto) 4 Urine RBC (Auto) 22 H Ur Squamous Epith Cells < 1 Hyaline Casts 11-20 H 02/03/17 02/04/17 16:50 11:21 WBC 4.4 L RBC 4.03 L Hgb 12.3 Hct 37.0 MCV 91.6 MCH 30.6 MCHC 33.4 RDW 15.5 H Plt Count 214 MPV 7.7 Neut % (Auto) 70.3 Lymph % (Auto) 19.9 L [place] % (Auto) 6.5 Eos % (Auto) 2.6 Baso % (Auto) 0.7 Neut # 3.1 Lymph # 0.9 L [place] # 0.3 Eos # 0.1 Baso # 0.0 PT INR APTT Sodium 136 Potassium 3.5 L Chloride 102 Carbon Dioxide 22 Anion Gap 16 BUN 45 H Creatinine 2.0 H Est GFR ( Amer) 41 Est GFR (Non-Af Amer) 34 Random Glucose 82 Calcium 9.0 Total Bilirubin 1.8 H AST 54 ALT 55 Alkaline Phosphatase 166 H D Troponin I 0.0530 NT-Pro-B Natriuret Pep 18822 H Total Protein 7.0 Albumin 4.0 Globulin 3.0 Albumin/Globulin Ratio 1.3 Urine Color Urine Clarity Urine pH Ur Specific [place] Urine Protein Urine Glucose (UA) Urine Ketones Urine Blood Urine Nitrate Urine Bilirubin Urine Urobilinogen Ur Leukocyte Esterase Urine WBC (Auto) Urine RBC (Auto) Ur Squamous Epith Cells Hyaline Casts Assessment & Plan - Assessment and Plan (Free Text) Assessment: 61 year old male with history HTN, CHF, dilated cardiomyopathy who presents with worsening dyspnea Acute on Chronic CHF NYHA class II 12/01/16: Nuclear mycardial perfusion scan showed evidence of ischemia in anteroseptal wall and moderate LV systolic dysfunction 12/02/16: Cath showed nonobstructive CAD, ischemic dilated cardiomyopathy, LV end diastolic pressure was 16mmHg 09/2016: echo: moderately dilated LA, LV, severe global LV systolic dysfunction, paradoxical septal motion probably from severe pulm HTN, LVEF 30-35%, severe mitral regurgitation, moderate tricuspid regurg with pulm systolic pressure of 70mmHg. Moderate degree LV diastolic dysfunction Will check new echocardiogram to see if any improvement in function following medical therapy for past few months if EF still low, patient would be candidate for BiV ICD Patient should follow up with [facility], Dr. Lewis next week Patient may also benefit from Entresto as outpatient Will check repeat EKG as well Plan as per Dr. Gan <Wilfredo Gan - Last Filed: 02/04/17 23:13> Meds - Medications Medications: Current Medications Albuterol/Ipratropium (Duoneb 3 Mg/0.5 Mg (3 Ml) Ud) 3 ml INH RQ6 [facility] Last Admin: 02/04/17 19:14 Dose: 3 ml Aspirin (Aspirin Chewable) 81 mg PO DAILY [facility] Last Admin: 02/04/17 10:22 Dose: 81 mg Clonidine HCl (Catapres) 0.1 mg PO DAILY [facility] Last Admin: 02/04/17 09:10 Dose: 0.1 mg Furosemide (Lasix) 40 mg IVP BID [facility] Last Admin: 02/04/17 18:17 Dose: 40 mg Heparin Sodium (Porcine) (Heparin) 5,000 units SC Q12 [facility] Last Admin: 02/04/17 22:28 Dose: 5,000 units Lisinopril (Zestril) 10 mg PO DAILY [facility] Last Admin: 02/04/17 10:22 Dose: 10 mg Metoprolol Tartrate (Lopressor) 25 mg PO BID [facility] Last Admin: 02/04/17 18:22 Dose: 25 mg Pantoprazole Sodium (Protonix Ec Tab) 40 mg PO DAILY [facility] Last Admin: 02/04/17 09:12 Dose: 40 mg Rosuvastatin Calcium (Crestor) 20 mg PO HS [facility] Last Admin: 02/04/17 22:28 Dose: 20 mg Spironolactone (Aldactone) 25 mg PO DAILY [facility] Last Admin: 02/04/17 10:22 Dose: 25 mg Results - Vital Signs Recent Vital Signs: Last Vital Signs Temp 97.9 F 02/04/17 15:56 Pulse 66 02/04/17 15:56 Resp 20 02/04/17 15:56 BP 138/76 02/04/17 18:22 Pulse Ox 99 02/04/17 15:56 - Labs Result Diagrams: 02/04/17 11:21 02/04/17 11:21 Labs: Laboratory Results - last 24 hr 02/04/17 02/04/17 11:21 11:21 WBC 4.4 L RBC 4.03 L Hgb 12.3 Hct 37.0 MCV 91.6 MCH 30.6 MCHC 33.4 RDW 15.5 H Plt Count 214 MPV 7.7 Neut % (Auto) 70.3 Lymph % (Auto) 19.9 L [place] % (Auto) 6.5 Eos % (Auto) 2.6 Baso % (Auto) 0.7 Neut # 3.1 Lymph # 0.9 L [place] # 0.3 Eos # 0.1 Baso # 0.0 Sodium 137 Potassium 3.4 L Chloride 101 Carbon Dioxide 22 Anion Gap 17 BUN 45 H Creatinine 1.8 H Est GFR ( Amer) 47 Est GFR (Non-Af Amer) 39 Random Glucose 144 H Calcium 9.1 Phosphorus 3.7 Magnesium 2.0 Total Bilirubin 1.6 H AST 54 ALT 53 Alkaline Phosphatase 170 H Total Protein 7.0 Albumin 4.1 Globulin 3.0 Albumin/Globulin Ratio 1.4 Assessment & Plan - Assessment and Plan (Free Text) Assessment: Patient seen and evaluated with the medical records custodian Repeat ECHO seen. Severe symptomatic Cardiomyopathy. EF 15% (No improvement after maximal medical therapy for CHF for more than 3 months) BiV ICD prior to discharge Patient to be transferred to [place] for BiV ICD
[2017-02-04 11:50] LABS: POTASSIUM 3.4 mmol/L (3.6-5.2)
[2017-02-04 11:52] LABS: ALB/GLOB RATIO 1.4 (1.0-2.1); BILIRUBIN,TOTAL 1.6 mg/dL (0.2-1.3); PHOSPHOROUS 3.7 mg/dL (2.5-4.5)
[2017-02-04 11:53] LABS: CALCIUM 9.1 mg/dl (8.6-10.4)
[2017-02-04] MEDS ORDERED: Perflutren Lipid Microsphere 1.5 ML SUS IV ONE (14:04)
--- NOTE | 2017-02-04 15:27 | CP.PCM.PN ---
<Ton Jiang - Last Filed: 02/04/17 15:29> Subjective - Date & Time of Evaluation Date of Evaluation: 02/04/17 Time of Evaluation: 15:30 - Subjective Subjective: This is a 61 year old male with past medical hx of HTN, CHF, CVA in 2004, right inguinal hernia, who presented to [facility] ER on 02/03/17 with complaint of shortness of breath. Patient states he is always short of breath and that his legs swell. Patient states that shortness of breath was getting worse so he decided to come in. PMHHTN, HLD, Asthma, CHF, LVEF 30-35% on echo 09/2016; Currently NYHA class II, Hx of CVA w/ right sided weakness, reducible right inguinal hernia PSH: none Home medications: aspirin 325 mg po daily, atorvastatin 40 mg po daily, clonidine 0.1mg po daily, furosemide 40 mg po bid, lisinopril 10mg po daily, metoprolol tartrate 25 mg po bid, spironolactone 25 mg po daily Allergies : NKDA SocialHx: Denies smoking, drinking, drug use. 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 FH: DM, ESRD in family Objective - Vital Signs/Intake and Output Vital Signs (last 24 hours): Temp Pulse Resp BP Pulse Ox 97.7 F 70 20 139/80 100 02/04/17 07:10 02/04/17 08:58 02/04/17 07:10 02/04/17 11:25 02/04/17 07:10 Intake and Output: 02/04/17 02/04/17 06:59 18:59 Intake Total 480 Output Total 300 Balance 180 - Medications Medications: Current Medications Albuterol/Ipratropium (Duoneb 3 Mg/0.5 Mg (3 Ml) Ud) 3 ml INH RQ6 [facility] Last Admin: 02/04/17 13:50 Dose: Not Given Aspirin (Aspirin Chewable) 81 mg PO DAILY [facility] Last Admin: 02/04/17 10:22 Dose: 81 mg Clonidine HCl (Catapres) 0.1 mg PO DAILY [facility] Last Admin: 02/04/17 09:10 Dose: 0.1 mg Furosemide (Lasix) 40 mg IVP BID [facility] Last Admin: 02/04/17 12:04 Dose: Not Given Heparin Sodium (Porcine) (Heparin) 5,000 units SC Q12 [facility] Last Admin: 02/04/17 09:13 Dose: 5,000 units Lisinopril (Zestril) 10 mg PO DAILY [facility] Last Admin: 02/04/17 10:22 Dose: 10 mg Metoprolol Tartrate (Lopressor) 25 mg PO BID [facility] Last Admin: 02/04/17 09:11 Dose: 25 mg Pantoprazole Sodium (Protonix Ec Tab) 40 mg PO DAILY [facility] Last Admin: 02/04/17 09:12 Dose: 40 mg Rosuvastatin Calcium (Crestor) 20 mg PO HS [facility] Last Admin: 02/03/17 21:45 Dose: 20 mg Spironolactone (Aldactone) 25 mg PO DAILY [facility] Last Admin: 02/04/17 10:22 Dose: 25 mg - Labs Labs: 02/04/17 11:21 02/04/17 11:21 PT 18.0 SECONDS (9.7-12.2) H 02/03/17 16:50 INR 1.6 02/03/17 16:50 APTT 31 SECONDS (21-34) 02/03/17 16:50 - Constitutional Appears: Non-toxic, No Acute Distress - Head Exam Head Exam: ATRAUMATIC, NORMAL INSPECTION, NORMOCEPHALIC - Eye Exam Eye Exam: EOMI - ENT Exam ENT Exam: Mucous Membranes Moist - Neck Exam Neck Exam: Full ROM, Normal Inspection - Respiratory Exam Respiratory Exam: Rales. absent: Respiratory Distress - Cardiovascular Exam Cardiovascular Exam: +S1, +S2 - GI/Abdominal Exam GI & Abdominal Exam: Soft, Normal Bowel Sounds. absent: Tenderness - Extremities Exam Extremities Exam: Full ROM. absent: Normal Inspection - Neurological Exam Neurological Exam: Alert, Awake, Oriented x3 - Psychiatric Exam Psychiatric exam: Normal Affect, Normal Mood - Skin Skin Exam: Dry, Intact, Normal Color, Warm Assessment and Plan - Assessment and Plan (Free Text) Assessment: This is a 61 yo male with 1. CHF exacerbation -cardio consult. recs appreciated. -continue duonebs -asa 81 mg daily -will repeat echo -recent cath and stress test -continue lasix 40 PO bid -continue spironolactone daily -pulm consult. recs appreciated. 2. hx of HTN -clonidine .1 po daily -continue lisinopril -continue lopressor bid -continue spironolactone 3. hx of HLD -continue crestor 20 4. GI/DVT ppx -heparin 5000 q 12 -continue protonix daily discussed with Dr. Ordonez. <Mark Ordonez - Last Filed: 02/04/17 21:57> Objective - Vital Signs/Intake and Output Vital Signs (last 24 hours): Temp Pulse Resp BP Pulse Ox 97.9 F 66 20 138/76 99 02/04/17 15:56 02/04/17 15:56 02/04/17 15:56 02/04/17 18:22 02/04/17 15:56 Intake and Output: 02/04/17 02/05/17 18:59 06:59 Intake Total 480 Output Total 300 Balance 180 - Medications Medications: Current Medications Albuterol/Ipratropium (Duoneb 3 Mg/0.5 Mg (3 Ml) Ud) 3 ml INH RQ6 [facility] Last Admin: 02/04/17 19:14 Dose: 3 ml Aspirin (Aspirin Chewable) 81 mg PO DAILY [facility] Last Admin: 02/04/17 10:22 Dose: 81 mg Clonidine HCl (Catapres) 0.1 mg PO DAILY [facility] Last Admin: 02/04/17 09:10 Dose: 0.1 mg Furosemide (Lasix) 40 mg IVP BID [facility] Last Admin: 02/04/17 18:17 Dose: 40 mg Heparin Sodium (Porcine) (Heparin) 5,000 units SC Q12 [facility] Last Admin: 02/04/17 09:13 Dose: 5,000 units Lisinopril (Zestril) 10 mg PO DAILY [facility] Last Admin: 02/04/17 10:22 Dose: 10 mg Metoprolol Tartrate (Lopressor) 25 mg PO BID [facility] Last Admin: 02/04/17 18:22 Dose: 25 mg Pantoprazole Sodium (Protonix Ec Tab) 40 mg PO DAILY [facility] Last Admin: 02/04/17 09:12 Dose: 40 mg Rosuvastatin Calcium (Crestor) 20 mg PO HS [facility] Last Admin: 02/03/17 21:45 Dose: 20 mg Spironolactone (Aldactone) 25 mg PO DAILY [facility] Last Admin: 02/04/17 10:22 Dose: 25 mg - Labs Labs: 02/04/17 11:21 02/04/17 11:21 PT 18.0 SECONDS (9.7-12.2) H 02/03/17 16:50 INR 1.6 02/03/17 16:50 APTT 31 SECONDS (21-34) 02/03/17 16:50 Attending/Attestation - Attestation I have fully participated in the care of the patient.: Yes I have reviewed all pertinent clinical information, including history, physical exam and plan: Yes Notes (Text): 02/04/17 21:56 Patient had a seizure earlier known because of seizure patient had a right hip fracture follow-up with orthopedic Dr. pérez seen n and discussed with the staff and the resident
[2017-02-04] MEDS ORDERED: Potassium Chloride 20 mEq ER Tab PO ONE ×2 (16:19→17:45)
--- NOTE | 2017-02-04 18:28 | CARD ---
APPROVED REPORT EXAM: Two-dimensional and M-mode echocardiogram with Doppler, color Doppler with contrast. Other Information Quality : GoodRhythm : NSR INDICATION Congestive Heart Failure SOB, RISK FACTORS Hypertension 2D DIMENSIONS IVSd1.3 (0.7-1.1cm)LVDd5.9 (3.9-5.9cm) PWd1.2 (0.7-1.1cm)LVDs5.5 (2.5-4.0cm) FS (%) 6.2 %LVEF (%)13.8 (>50%) M-Mode DIMENSIONS Left Atrium (MM)5.31 (2.5-4.0cm)Aortic Root4.05 (2.2-3.7cm) Mitral Valve MV E Yjxdzqrs47.9cm/sMV A Noddilzo49.4cm/sE/A ratio1.3 TDI E/Lateral E'0.0E/Medial E'0.0 Tricuspid Valve TR Peak [id number]/sTR Peak Gr.[id number] LEFT VENTRICLE The Left Ventricle is severely dilated. There is borderline to mild concentric left ventricular hypertrophy. Left ventricle systolic function is severely impaired. The Ejection Fraction is - 15%. Paradoxical septal motion. Transmitral Doppler flow pattern is Grade II-pseudonormal filling dynamics. RIGHT VENTRICLE The right ventricle is moderately to severely dilated. There is normal right ventricular wall thickness. Systolic function is moderately to severely reduced. Right Ventricular septal motion is paradoxical. ATRIA The left atrium is moderately dilated. The right atrium is severely dilated with interatrial septum bowing to the left. AORTIC VALVE The aortic valve is normal in structure. No aortic regurgitation is present. MITRAL VALVE The mitral valve is normal in structure. Mitral regurgitation is moderate. TRICUSPID VALVE The tricuspid valve is normal in structure. There is moderate tricuspid regurgitation. Right ventricular systolic pressure is estimated at 50-60 mmHg. There is moderate-severe pulmonary hypertension. PULMONIC VALVE The pulmonary valve is normal in structure. There is trace pulmonic valvular regurgitation. GREAT VESSELS Dilated IVC with poor inspiration collapse is consistent with elevated right atrial pressure. PERICARDIAL EFFUSION There is a trace pericardial effusion. <Conclusion> Markedl diatation of all cardiac chambers. Profound bi-ventricular systolic dysfunction. Moderate diastolic dydfunction. Grade II-pseudonormal filling dynamics. Moderate to severe pulmonary hypertension. Moderate mitral regurgitation. There is moderate to severe tricuspid regurgitation. There is a trace pericardial effusion. Rest of the study as described above. IMAGING ENHANCEMENT WITH IV CONTRAST BY DEFINITY Severe global left venticular hypokinesis. Pardoxical septal motion. No evidence of thrombus.
[2017-02-05] MEDS: Albuterol-Ipratrop 3 mg / 0.5 (3 ml) UD INH SCH ×4 (01:56→20:14)
[2017-02-05 07:37] LABS: POTASSIUM 3.6 mmol/L (3.6-5.2)
[2017-02-05 07:39] LABS: ALB/GLOB RATIO 1.4 (1.0-2.1); BASO % 0.6 % (0.0-2.0); BILIRUBIN,TOTAL 1.3 mg/dL (0.2-1.3); EOS # 0.2 K/uL (0.0-0.7); EOS % 3.8 % (0.0-4.0); HEMATOCRIT 34.5 % (35.0-51.0); LYMPH # 1.2 K/uL (1.0-4.3); LYMPH % 24.3 % (20.0-40.0); MEAN CELL VOLUME 92.6 fL (80.0-94.0); MEAN CORPUSCULAR HGB CONC 33.4 g/dL (33.0-37.0); MEAN PLATELET VOLUME 7.6 fL (7.2-11.7); MONO # 0.4 K/uL (0.0-0.8); MONO % 8.3 % (0.0-10.0); RED CELL DISTRIBUTION WIDTH 15.9 % (11.5-14.5); TOTAL PROTEIN 6.4 g/dL (6.3-8.3); WHITE BLOOD COUNT 4.8 K/uL (4.8-10.8)
[2017-02-05 07:40] LABS: CALCIUM 8.7 mg/dl (8.6-10.4); MAGNESIUM 1.8 mg/dL (1.6-2.3); PHOSPHOROUS 3.8 mg/dL (2.5-4.5)
--- NOTE | 2017-02-05 08:59 | CP.PCM.PN ---
Subjective - Date & Time of Evaluation Date of Evaluation: 02/05/17 Time of Evaluation: 09:00 - Subjective Subjective: Pulmonology Note for Dr. Truong's Service Patient seen and examined at bedside this morning. Patient reports his breathing has improved since he has been receiving IV medications. Denied chills , headache, chest pain, cough, abdominal pain, n/v/d/c, or urinary symptoms. Objective - Vital Signs/Intake and Output Vital Signs (last 24 hours): Temp Pulse Resp BP Pulse Ox 97.7 F 73 20 144/93 H 99 02/04/17 23:45 02/05/17 00:10 02/04/17 23:45 02/04/17 23:45 02/04/17 23:45 Intake and Output: 02/05/17 02/05/17 06:59 18:59 Intake Total 830 Output Total 300 Balance 530 - Medications Medications: Current Medications Albuterol/Ipratropium (Duoneb 3 Mg/0.5 Mg (3 Ml) Ud) 3 ml INH RQ6 [facility] Last Admin: 02/05/17 07:40 Dose: 3 ml Aspirin (Aspirin Chewable) 81 mg PO DAILY [facility] Last Admin: 02/04/17 10:22 Dose: 81 mg Clonidine HCl (Catapres) 0.1 mg PO DAILY [facility] Last Admin: 02/04/17 09:10 Dose: 0.1 mg Furosemide (Lasix) 40 mg IVP BID [facility] Last Admin: 02/04/17 18:17 Dose: 40 mg Heparin Sodium (Porcine) (Heparin) 5,000 units SC Q12 [facility] Last Admin: 02/04/17 22:28 Dose: 5,000 units Lisinopril (Zestril) 10 mg PO DAILY [facility] Last Admin: 02/04/17 10:22 Dose: 10 mg Metoprolol Tartrate (Lopressor) 25 mg PO BID [facility] Last Admin: 02/04/17 18:22 Dose: 25 mg Pantoprazole Sodium (Protonix Ec Tab) 40 mg PO DAILY [facility] Last Admin: 02/04/17 09:12 Dose: 40 mg Rosuvastatin Calcium (Crestor) 20 mg PO HS [facility] Last Admin: 02/04/17 22:28 Dose: 20 mg Spironolactone (Aldactone) 25 mg PO DAILY [facility] Last Admin: 02/04/17 10:22 Dose: 25 mg - Labs Labs: 02/05/17 07:10 02/05/17 07:10 PT 18.0 SECONDS (9.7-12.2) H 02/03/17 16:50 INR 1.6 02/03/17 16:50 APTT 31 SECONDS (21-34) 02/03/17 16:50 - Additional Findings Additional findings: - Constitutional Appears: No Acute Distress - Head Exam Head Exam: NORMAL INSPECTION, NORMOCEPHALIC - Eye Exam Eye Exam: EOMI, Normal appearance, PERRL Pupil Exam: NORMAL ACCOMODATION - ENT Exam ENT Exam: Normal Exam - Respiratory Exam Respiratory Exam: Decreased Breath Sounds, Rales - Cardiovascular Exam Cardiovascular Exam: REGULAR RHYTHM - GI/Abdominal Exam GI & Abdominal Exam: Normal Bowel Sounds, Soft. absent: Distended, Tenderness - Extremities Exam Extremities exam: Positive for: joint swelling, normal inspection, pedal pulses present. Negative for: pedal edema, tenderness - Neurological Exam Neurological exam: Alert, Oriented x3 - Psychiatric Exam Psychiatric exam: Normal Affect, Normal Mood - Skin Skin Exam: Dry, Intact, Normal Color, Warm Assessment and Plan - Assessment and Plan (Free Text) Plan: Acute on Chronic CHF exacerbation Non-compliant with medications Patient has history of CHF, LVEF 30-35% on echo 09/2016; Currently NYHA class II If EF persist to be low despite being compliant with meds may benefit from AICD , Biv pace Counselled about CHF, fluid/salt weight management, compliance with meds Cardiology consulted - Dr. Gan- who is covering Dr. Garcia (who saw patient on previous admission) Repeat ECHO 02/04/17 for evaluation of Biv pace AICD Severe symptomatic Cardiomyopathy. EF 15% (No improvement after maximal medical therapy for CHF for more than 3 months). Patient for BiV ICD prior to discharge Patient to be transferred to [place] for BiV ICD Medications: Lasix 40mg IVP BID Spironolactone 25mg PO daily ASA 81mg PO daily Lisinopril 10mg PO daily Metoprolol tartrate 25mg PO bid Hx of Asthma Duonebs Q6H Hx of Hypertension Hx of HLD Hx of CVA w/ right sided weakness Hx of reducible right inguinal hernia DW Narcisa Quintana DO, PGY-1
--- NOTE | 2017-02-05 09:51 | CP.PCM.PN ---
<Ton Jiang - Last Filed: 02/05/17 11:08> Subjective - Date & Time of Evaluation Date of Evaluation: 02/05/17 Time of Evaluation: 09:45 - Subjective Subjective: PROGRESS NOTE. Attending: DR. Marge JAMES Pt seen and examined at bedside. No acute distress. No events overnight. Pt reports his legs are still swollen and he has trouble breathing on his back. No fevers, chills, vomiting, diarrhea. Objective - Vital Signs/Intake and Output Vital Signs (last 24 hours): Temp Pulse Resp BP Pulse Ox 97.8 F 74 18 138/94 H 96 02/05/17 09:14 02/05/17 09:14 02/05/17 09:14 02/05/17 09:14 02/05/17 09:14 Intake and Output: 02/05/17 02/05/17 06:59 18:59 Intake Total 830 Output Total 300 Balance 530 - Medications Medications: Current Medications Albuterol/Ipratropium (Duoneb 3 Mg/0.5 Mg (3 Ml) Ud) 3 ml INH RQ6 [facility] Last Admin: 02/05/17 07:40 Dose: 3 ml Aspirin (Aspirin Chewable) 81 mg PO DAILY [facility] Last Admin: 02/04/17 10:22 Dose: 81 mg Clonidine HCl (Catapres) 0.1 mg PO DAILY [facility] Last Admin: 02/04/17 09:10 Dose: 0.1 mg Furosemide (Lasix) 40 mg IVP BID [facility] Last Admin: 02/04/17 18:17 Dose: 40 mg Heparin Sodium (Porcine) (Heparin) 5,000 units SC Q12 [facility] Last Admin: 02/04/17 22:28 Dose: 5,000 units Lisinopril (Zestril) 10 mg PO DAILY [facility] Last Admin: 02/04/17 10:22 Dose: 10 mg Metoprolol Tartrate (Lopressor) 25 mg PO BID [facility] Last Admin: 02/04/17 18:22 Dose: 25 mg Pantoprazole Sodium (Protonix Ec Tab) 40 mg PO DAILY [facility] Last Admin: 02/04/17 09:12 Dose: 40 mg Rosuvastatin Calcium (Crestor) 20 mg PO HS [facility] Last Admin: 02/04/17 22:28 Dose: 20 mg Spironolactone (Aldactone) 25 mg PO DAILY [facility] Last Admin: 02/04/17 10:22 Dose: 25 mg - Labs Labs: 02/05/17 07:10 02/05/17 07:10 PT 18.0 SECONDS (9.7-12.2) H 02/03/17 16:50 INR 1.6 02/03/17 16:50 APTT 31 SECONDS (21-34) 02/03/17 16:50 - Constitutional Appears: Non-toxic, No Acute Distress - Head Exam Head Exam: ATRAUMATIC, NORMAL INSPECTION, NORMOCEPHALIC - Eye Exam Eye Exam: EOMI - ENT Exam ENT Exam: Mucous Membranes Moist - Neck Exam Neck Exam: Normal Inspection - Respiratory Exam Respiratory Exam: Rales - Cardiovascular Exam Cardiovascular Exam: +S1, +S2 - GI/Abdominal Exam GI & Abdominal Exam: Soft, Tenderness - Extremities Exam Extremities Exam: Full ROM, Pedal Edema - Neurological Exam Neurological Exam: Alert, Awake, CN II-XII Intact - Psychiatric Exam Psychiatric exam: Flat Affect - Skin Skin Exam: Dry, Intact, Normal Color, Warm Assessment and Plan - Assessment and Plan (Free Text) Assessment: This is a 61 yo male with 1. CHF exacerbation -cardio consult. recs appreciated. -continue duonebs -asa 81 mg daily -will repeat echo>>> severe systolic dysfunction and severe pulmonary hypertension -recent cath and stress test -continue lasix 40 PO bid -continue spironolactone daily -pulm consult. recs appreciated. -pt is candidate for [employer] and biventricular pacemaker -plan is for patient to be transferred to [place] for procedure. 2. hx of HTN -clonidine .1 po daily -continue lisinopril -continue lopressor bid -continue spironolactone 3. hx of HLD -continue crestor 20 4. Pulmonary hypertension -treat underlying heart failure. -outpatient pulm follow/up 5. Increased alk phos -likely secondary to severe congestive heart failure -AST and ALT normal -continue to monitor 6. GI/DVT ppx -heparin 5000 q 12 -continue protonix daily discussed with Dr. James. <Mark James - Last Filed: 02/09/17 15:46> Objective - Vital Signs/Intake and Output Vital Signs (last 24 hours): Temp Pulse Resp BP Pulse Ox 98.0 F 66 18 111/74 99 02/09/17 07:46 02/09/17 12:17 02/09/17 07:46 02/09/17 09:30 02/09/17 07:46 Intake and Output: 02/09/17 02/09/17 06:59 18:59 Intake Total 640 400 Balance 640 400 - Medications Medications: Current Medications Albuterol/Ipratropium (Duoneb 3 Mg/0.5 Mg (3 Ml) Ud) 3 ml INH RQ2 PRN PRN Reason: Shortness of Breath Aspirin (Aspirin Chewable) 81 mg PO DAILY [facility] Last Admin: 02/09/17 09:27 Dose: 81 mg Clonidine HCl (Catapres) 0.1 mg PO DAILY [facility] Last Admin: 02/09/17 09:27 Dose: 0.1 mg Furosemide (Lasix) 40 mg IVP BID [facility] Last Admin: 02/09/17 09:30 Dose: 40 mg Heparin Sodium (Porcine) (Heparin) 5,000 units SC Q12 [facility] Last Admin: 02/09/17 09:29 Dose: 5,000 units Lisinopril (Zestril) 10 mg PO DAILY [facility] Last Admin: 02/09/17 09:27 Dose: 10 mg Metoprolol Tartrate (Lopressor) 25 mg PO BID [facility] Last Admin: 02/09/17 09:28 Dose: 25 mg Pantoprazole Sodium (Protonix Ec Tab) 40 mg PO DAILY [facility] Last Admin: 02/09/17 09:28 Dose: 40 mg Rosuvastatin Calcium (Crestor) 20 mg PO HS [facility] Last Admin: 02/08/17 21:20 Dose: 20 mg Spironolactone (Aldactone) 25 mg PO DAILY [facility] Last Admin: 02/09/17 09:27 Dose: 25 mg - Labs Labs: 02/09/17 08:44 02/09/17 08:44 PT 18.0 SECONDS (9.7-12.2) H 02/03/17 16:50 INR 1.6 02/03/17 16:50 APTT 31 SECONDS (21-34) 02/03/17 16:50 Assessment and Plan (1) CHF exacerbation Status: Acute (2) Chronic congestive heart failure Status: Acute (3) Bandemia Status: Acute (4) Chest pain Status: Acute (5) Congestive heart failure Status: Acute (6) Hydrocele Status: Acute (7) Hydrocele, bilateral Status: Acute (8) Hypertension Status: Acute (9) Inguinal hernia Status: Acute (10) Pedal edema Status: Acute (11) Pneumonia Status: Acute (12) Prophylactic measure Status: Acute (13) Shortness of breath Status: Acute (14) Testicular cyst Status: Acute (15) UTI (urinary tract infection) Status: Acute (16) Upper respiratory infection Status: Acute Attending/Attestation - Attestation I have personally seen and examined this patient.: Yes I have fully participated in the care of the patient.: Yes I have reviewed all pertinent clinical information, including history, physical exam and plan: Yes Notes (Text): Patient examined. No acute distress. Cardiology consult. Patient candidate for [employer] and biventricular pacemaker. Planning to transfer to [place] for procedure. Continue treatment for HTN, hyperlipidemia and pulmonary hypertension.
[2017-02-05] MEDS ORDERED: Influenza Vaccine 60 mcg/0.5 mL SYR (4YR UP) IM ONE ×2 (10:00→11:15)
[2017-02-05] MEDS: Pantoprazole 40 mg EC Tab PO SCH (10:58)
--- NOTE | 2017-02-05 17:05 | CARD ---
APPROVED REPORT EKG Measurement Heart [id number] CA [id number] <Conclusion> Normal sinus rhythm Possible Left atrial enlargement Left axis deviation Left bundle branch block Abnormal ECG
--- NOTE | 2017-02-05 19:15 | CARD ---
APPROVED REPORT EKG Measurement Heart [id number] MD [id number] <Conclusion> Sinus rhythm with premature atrial complexes Possible Left atrial enlargement Left axis deviation Left bundle branch block Abnormal ECG
--- NOTE | 2017-02-05 19:41 | CP.PCM.PN ---
Subjective - Date & Time of Evaluation Date of Evaluation: 02/05/17 Time of Evaluation: 12:00 - Subjective Subjective: clinically same Objective - Vital Signs/Intake and Output Vital Signs (last 24 hours): Temp Pulse Resp BP Pulse Ox 97.8 F 70 20 133/87 98 02/05/17 15:00 02/05/17 15:00 02/05/17 15:00 02/05/17 18:30 02/05/17 15:00 Intake and Output: 02/05/17 02/06/17 18:59 06:59 Output Total 900 Balance -900 - Medications Medications: Current Medications Albuterol/Ipratropium (Duoneb 3 Mg/0.5 Mg (3 Ml) Ud) 3 ml INH RQ6 [facility] Last Admin: 02/05/17 13:14 Dose: Not Given Aspirin (Aspirin Chewable) 81 mg PO DAILY [facility] Last Admin: 02/05/17 10:57 Dose: 81 mg Clonidine HCl (Catapres) 0.1 mg PO DAILY [facility] Last Admin: 02/05/17 10:57 Dose: 0.1 mg Furosemide (Lasix) 40 mg IVP BID [facility] Last Admin: 02/05/17 18:30 Dose: 40 mg Heparin Sodium (Porcine) (Heparin) 5,000 units SC Q12 [facility] Last Admin: 02/05/17 10:58 Dose: 5,000 units Lisinopril (Zestril) 10 mg PO DAILY [facility] Last Admin: 02/04/17 10:22 Dose: 10 mg Metoprolol Tartrate (Lopressor) 25 mg PO BID [facility] Last Admin: 02/05/17 18:30 Dose: 25 mg Pantoprazole Sodium (Protonix Ec Tab) 40 mg PO DAILY [facility] Last Admin: 02/05/17 10:58 Dose: 40 mg Rosuvastatin Calcium (Crestor) 20 mg PO HS [facility] Last Admin: 02/04/17 22:28 Dose: 20 mg Spironolactone (Aldactone) 25 mg PO DAILY [facility] Last Admin: 02/05/17 10:57 Dose: 25 mg - Labs Labs: 02/05/17 07:10 02/05/17 07:10 PT 18.0 SECONDS (9.7-12.2) H 02/03/17 16:50 INR 1.6 02/03/17 16:50 APTT 31 SECONDS (21-34) 02/03/17 16:50 - Constitutional Appears: Well - Head Exam Head Exam: ATRAUMATIC, NORMAL INSPECTION, NORMOCEPHALIC - Eye Exam Eye Exam: EOMI, Normal appearance, PERRL Pupil Exam: NORMAL ACCOMODATION, PERRL - ENT Exam ENT Exam: Mucous Membranes Moist, Normal Exam - Neck Exam Neck Exam: Full ROM, Normal Inspection. absent: Lymphadenopathy - Respiratory Exam Respiratory Exam: Decreased Breath Sounds, Rhonchi - Cardiovascular Exam Cardiovascular Exam: REGULAR RHYTHM, +S1, +S2. absent: Murmur - GI/Abdominal Exam GI & Abdominal Exam: Soft, Normal Bowel Sounds. absent: Tenderness - Rectal Exam Rectal Exam: Deferred Assessment and Plan (1) CHF exacerbation Status: Acute (2) Chronic congestive heart failure Status: Acute (3) Bandemia Status: Acute (4) Chest pain Status: Acute (5) Congestive heart failure Status: Acute (6) Hydrocele Status: Acute (7) Hydrocele, bilateral Status: Acute (8) Hypertension Status: Acute (9) Inguinal hernia Status: Acute (10) Pedal edema Status: Acute (11) Pneumonia Status: Acute (12) Prophylactic measure Status: Acute (13) Shortness of breath Status: Acute (14) Testicular cyst Status: Acute (15) UTI (urinary tract infection) Status: Acute (16) Upper respiratory infection Status: Acute - Assessment and Plan (Free Text) Plan: Patient's came with the new onset CHF given IV Lasix seen by cardiology and pulmonary patient supposed to go to the [facility] for dual chamber pacemaker placement to the [facility] patient agreed Continue same medical
[2017-02-06] MEDS: Albuterol-Ipratrop 3 mg / 0.5 (3 ml) UD INH SCH ×4 (01:18→20:28)
--- NOTE | 2017-02-06 03:32 | CP.PCM.PN ---
Subjective - Date & Time of Evaluation Date of Evaluation: 02/05/17 Time of Evaluation: 19:10 - Subjective Subjective: Patient seen and evaluated Severe symptomatic systolic CHF Bi ventricular failure with conducton delay No improvement in EF c/w prior ECHO Patient will benefit from BiVICD D/w patient. he wants to think about it Objective - Vital Signs/Intake and Output Vital Signs (last 24 hours): Temp Pulse Resp BP Pulse Ox 97.8 F 82 20 126/83 97 02/05/17 23:50 02/05/17 23:50 02/05/17 23:50 02/05/17 23:50 02/05/17 23:50 Intake and Output: 02/05/17 02/06/17 18:59 06:59 Intake Total 480 Output Total 900 Balance -900 480 - Medications Medications: Current Medications Albuterol/Ipratropium (Duoneb 3 Mg/0.5 Mg (3 Ml) Ud) 3 ml INH RQ6 [facility] Last Admin: 02/06/17 01:18 Dose: Not Given Aspirin (Aspirin Chewable) 81 mg PO DAILY [facility] Last Admin: 02/05/17 10:57 Dose: 81 mg Clonidine HCl (Catapres) 0.1 mg PO DAILY [facility] Last Admin: 02/05/17 10:57 Dose: 0.1 mg Furosemide (Lasix) 40 mg IVP BID [facility] Last Admin: 02/05/17 18:30 Dose: 40 mg Heparin Sodium (Porcine) (Heparin) 5,000 units SC Q12 [facility] Last Admin: 02/05/17 22:35 Dose: 5,000 units Lisinopril (Zestril) 10 mg PO DAILY [facility] Last Admin: 02/04/17 10:22 Dose: 10 mg Metoprolol Tartrate (Lopressor) 25 mg PO BID [facility] Last Admin: 02/05/17 18:30 Dose: 25 mg Pantoprazole Sodium (Protonix Ec Tab) 40 mg PO DAILY [facility] Last Admin: 02/05/17 10:58 Dose: 40 mg Rosuvastatin Calcium (Crestor) 20 mg PO HS [facility] Last Admin: 02/05/17 22:35 Dose: 20 mg Spironolactone (Aldactone) 25 mg PO DAILY [facility] Last Admin: 02/05/17 10:57 Dose: 25 mg - Labs Labs: 02/05/17 07:10 02/05/17 07:10 PT 18.0 SECONDS (9.7-12.2) H 02/03/17 16:50 INR 1.6 02/03/17 16:50 APTT 31 SECONDS (21-34) 02/03/17 16:50
[2017-02-06 06:52] LABS: BASO % 0.9 % (0.0-2.0); EOS # 0.2 K/uL (0.0-0.7); EOS % 5.3 % (0.0-4.0); HEMATOCRIT 34.4 % (35.0-51.0); LYMPH # 1.2 K/uL (1.0-4.3); LYMPH % 24.9 % (20.0-40.0); MEAN CELL VOLUME 91.8 fL (80.0-94.0); MEAN CORPUSCULAR HEMOGLOBIN 30.4 pg (27.0-31.0); MEAN CORPUSCULAR HGB CONC 33.1 g/dL (33.0-37.0); MEAN PLATELET VOLUME 6.9 fL (7.2-11.7); MONO # 0.5 K/uL (0.0-0.8); MONO % 10.3 % (0.0-10.0); NRBC % 0.1 % (0.0-2.0); RED CELL DISTRIBUTION WIDTH 15.4 % (11.5-14.5); WHITE BLOOD COUNT 4.6 K/uL (4.8-10.8)
[2017-02-06 07:05] LABS: POTASSIUM 3.5 mmol/L (3.6-5.2)
[2017-02-06 07:07] LABS: ALB/GLOB RATIO 0.9 (1.0-2.1); BILIRUBIN,TOTAL 0.6 mg/dL (0.2-1.3)
[2017-02-06 07:08] LABS: CALCIUM 8.6 mg/dl (8.6-10.4)
[2017-02-06] MEDS: Pantoprazole 40 mg EC Tab PO SCH (09:37)
--- NOTE | 2017-02-06 11:26 | CP.PCM.CON ---
<Vignesh Hoffman Doreen - Last Filed: 02/06/17 11:39> History of Present Illness - History of Present Illness History of Present Illness: Cardiology consult note for Dr. Garcia - Vignesh Pichardo DO, PGY-4 Reason For Consult: B/l LE Swelling HPI: 61M with pertinent PMHx of HTN, HLD, CHF, (LVEF 30-35%, echo 09/2016; Currently NYHA class II) presented to the ED with shortness of breath of 3 hours duration in addition to b/l LE swelling. Pt denies cough or f/ch. Patient states that he takes his Lasix every day, and that he has tried to control his salt intake. Patient is well known to Dr. Garcia and has a hx of non-compliance with medications. Pt denies cp/n/v/d/dysuria/frequency PSHx: Denies PMHx: HTN; HLD; Asthma; CHF, LVEF 30-35% on echo 09/2016-NYHA class II; CVA w / right sided weakness, R inguinal hernia All: NKDA SocHx: Denies tobacco, etoh, illicits Hosp: Recently admitted 12/29/16 for SOB FamHx: CVA, DM, ESRD Meds: ASA 325mg qD, Lipitor 40mg qD, Clonidine 0.1mg qD, Lasix 40mg bid, Lisinopril 10mg qD, Toprol tartrate 25mg po bid, Aldactone 25mg qD ROS: Const'l: pt denies fever, chills, generalized weakness ENT: pt denies dysphagia, otalgia, hearing deficit, rhinorrhea Eyes: pt denies sudden loss of vision, diplopia, blurred vision MSK: pt denies muscle stiffness, joint pain, extremity cramping Cardio: +see hpi Pulm: +see hpi; pt denies cough, hemoptysis GI: pt denies loss of appetite, abdominal pain, constipation, melena, n/v/d : pt denies burning on urination, urinary frequency, hematuria, urinary urgency Neuro: pt denies paresis, paresthesia, dizziness, ny, numbness, tingling Derm: pt denies skin changes, lesions, nail changes Endo: pt denies intolerance to heat/cold, diaphoresis, night sweats, polydipsia Psych: pt denies anxiety, depression, mood changes Past Patient History - Infectious Disease Hx of Infectious Diseases: None - Past Medical History & Family History Past Medical History?: Yes - Past Social History Smoking Status: Never Smoked - CARDIAC Hx Congestive Heart Failure: Yes Hx Hypertension: Yes - PULMONARY Hx Asthma: Yes Hx Chronic Obstructive Pulmonary Disease (COPD): Yes - NEUROLOGICAL HX Cerebrovascular Accident: Yes (2004) - HEENT Hx HEENT Problems: No - RENAL Hx Chronic Kidney Disease: No - ENDOCRINE/METABOLIC Hx Endocrine Disorders: No - HEMATOLOGICAL/ONCOLOGICAL Hx Blood Transfusions: No - INTEGUMENTARY Hx Dermatological Problems: No - MUSCULOSKELETAL/RHEUMATOLOGICAL Hx Falls: No - GASTROINTESTINAL Hx Gastrointestinal Disorders: No - GENITOURINARY/GYNECOLOGICAL Hx Genitourinary Disorders: No - PSYCHIATRIC Hx Substance Use: No - SURGICAL HISTORY Hx Surgeries: No - ANESTHESIA Hx Anesthesia: No Hx Anesthesia Reactions: No Hx Malignant Hyperthermia: No Meds Allergies/Adverse Reactions: Allergies Allergy/AdvReac Type Severity Reaction Status Date / Time No Known Allergies Allergy Verified 12/27/16 18:03 - Medications Medications: Current Medications Albuterol/Ipratropium (Duoneb 3 Mg/0.5 Mg (3 Ml) Ud) 3 ml INH RQ6 [facility] Last Admin: 02/06/17 07:37 Dose: Not Given Aspirin (Aspirin Chewable) 81 mg PO DAILY [facility] Last Admin: 02/06/17 09:37 Dose: 81 mg Clonidine HCl (Catapres) 0.1 mg PO DAILY [facility] Last Admin: 02/06/17 09:37 Dose: 0.1 mg Furosemide (Lasix) 40 mg IVP BID [facility] Last Admin: 02/06/17 09:37 Dose: 40 mg Heparin Sodium (Porcine) (Heparin) 5,000 units SC Q12 [facility] Last Admin: 02/06/17 09:37 Dose: 5,000 units Lisinopril (Zestril) 10 mg PO DAILY [facility] Last Admin: 02/06/17 09:36 Dose: 10 mg Metoprolol Tartrate (Lopressor) 25 mg PO BID [facility] Last Admin: 02/06/17 09:36 Dose: 25 mg Pantoprazole Sodium (Protonix Ec Tab) 40 mg PO DAILY [facility] Last Admin: 02/06/17 09:37 Dose: 40 mg Rosuvastatin Calcium (Crestor) 20 mg PO HS [facility] Last Admin: 02/05/17 22:35 Dose: 20 mg Spironolactone (Aldactone) 25 mg PO DAILY [facility] Last Admin: 02/06/17 09:37 Dose: 25 mg Physical Exam - Additional Findings Additional findings: Phys Exam: VS as below Const'l: a&o x 4, nad Head/Neck: neck supple, no jvd, trachea midline, carotid midline, no cervical /head mass Eyes: yasmeen, nonicteric sclera, eom intact ENT: auditory acuity grossly intact, throat not congested, no nasal deformity Cardio: rrr, no m/r/g, no carotid bruit, nml s1, s2 Pulm: + b/l rales in posterior bases; no accessory muscle use, equal nml breath sounds bilaterally Abd: s/nt/nd, nbs x 4 q, no palpable masses Derm: no rashes, no ulcers, no lesions Extr: + 3+ pitting edema; no cyanosis, no calf tenderness, no lesions, no varicosities Neuro: cn II-XII grossly intact, ue and le 5/5 muscle strength bilaterally, no los ue, le bilaterally and core Results - Vital Signs Recent Vital Signs: Last Vital Signs Temp 98 F 02/06/17 07:00 Pulse 69 02/06/17 08:00 Resp 20 02/06/17 07:00 BP 128/83 02/06/17 09:37 Pulse Ox 100 02/06/17 07:00 - Labs Result Diagrams: 02/06/17 06:36 02/06/17 06:36 Labs: Laboratory Results - last 24 hr 02/06/17 02/06/17 06:36 06:36 WBC 4.6 L RBC 3.75 L Hgb 11.4 L Hct 34.4 L MCV 91.8 MCH 30.4 MCHC 33.1 RDW 15.4 H Plt Count 209 MPV 6.9 L Neut % (Auto) 58.6 Lymph % (Auto) 24.9 [place] % (Auto) 10.3 H Eos % (Auto) 5.3 H Baso % (Auto) 0.9 Neut # 2.7 Lymph # 1.2 [place] # 0.5 Eos # 0.2 Baso # 0.0 Sodium 135 Potassium 3.5 L Chloride 100 Carbon Dioxide 27 Anion Gap 12 BUN 38 H Creatinine 1.7 H Est GFR ( Amer) 50 Est GFR (Non-Af Amer) 41 Random Glucose 86 Calcium 8.6 Total Bilirubin 0.6 AST 39 ALT 58 Alkaline Phosphatase 141 H Total Protein 7.0 Albumin 3.3 L Globulin 3.7 Albumin/Globulin Ratio 0.9 L Assessment & Plan - Assessment and Plan (Free Text) Assessment: A/P 61 M with PMHx pertinent for CHF, LVEF 30-35%, presents with sob. Suspected non -compliance with medications (lasix) and lifestyle modifications (salt intake). SOB likely 2/2 non-compliance with medications and salt overload - Continue to diurese with Lasix 40 bid, Aldactone 25. May adjust diuretic therapy if no improvement - Continue Metoprolol 25 mg bid - Continue Duonebs Q6H - Add Duonebs Q2H PRN Thank you for this interesting consult. Vignesh Pichardo DO PGY-1 d/w Dr. Garcia <Julio Garcia - Last Filed: 02/07/17 00:59> Meds - Medications Medications: Current Medications Albuterol/Ipratropium (Duoneb 3 Mg/0.5 Mg (3 Ml) Ud) 3 ml INH RQ6 [facility] Last Admin: 02/06/17 20:28 Dose: Not Given Albuterol/Ipratropium (Duoneb 3 Mg/0.5 Mg (3 Ml) Ud) 3 ml INH RQ2 PRN PRN Reason: Shortness of Breath Aspirin (Aspirin Chewable) 81 mg PO DAILY [facility] Last Admin: 02/06/17 09:37 Dose: 81 mg Clonidine HCl (Catapres) 0.1 mg PO DAILY [facility] Last Admin: 02/06/17 09:37 Dose: 0.1 mg Furosemide (Lasix) 60 mg IVP BID [facility] Last Admin: 02/06/17 17:28 Dose: 60 mg Heparin Sodium (Porcine) (Heparin) 5,000 units SC Q12 [facility] Last Admin: 02/06/17 21:14 Dose: 5,000 units Lisinopril (Zestril) 10 mg PO DAILY [facility] Last Admin: 02/06/17 09:36 Dose: 10 mg Metoprolol Tartrate (Lopressor) 25 mg PO BID [facility] Last Admin: 02/06/17 17:29 Dose: 25 mg Pantoprazole Sodium (Protonix Ec Tab) 40 mg PO DAILY [facility] Last Admin: 02/06/17 09:37 Dose: 40 mg Rosuvastatin Calcium (Crestor) 20 mg PO HS [facility] Last Admin: 02/06/17 21:14 Dose: 20 mg Spironolactone (Aldactone) 25 mg PO DAILY [facility] Last Admin: 02/06/17 09:37 Dose: 25 mg Results - Vital Signs Recent Vital Signs: Last Vital Signs Temp 98.0 F 02/06/17 15:21 Pulse 67 02/06/17 18:00 Resp 20 02/06/17 15:21 BP 146/79 02/06/17 17:29 Pulse Ox 97 02/06/17 15:21 - Labs Result Diagrams: 02/06/17 06:36 02/06/17 06:36 Labs: Laboratory Results - last 24 hr 02/06/17 02/06/17 06:36 06:36 WBC 4.6 L RBC 3.75 L Hgb 11.4 L Hct 34.4 L MCV 91.8 MCH 30.4 MCHC 33.1 RDW 15.4 H Plt Count 209 MPV 6.9 L Neut % (Auto) 58.6 Lymph % (Auto) 24.9 [place] % (Auto) 10.3 H Eos % (Auto) 5.3 H Baso % (Auto) 0.9 Neut # 2.7 Lymph # 1.2 [place] # 0.5 Eos # 0.2 Baso # 0.0 Sodium 135 Potassium 3.5 L Chloride 100 Carbon Dioxide 27 Anion Gap 12 BUN 38 H Creatinine 1.7 H Est GFR ( Amer) 50 Est GFR (Non-Af Amer) 41 Random Glucose 86 Calcium 8.6 Total Bilirubin 0.6 AST 39 ALT 58 Alkaline Phosphatase 141 H Total Protein 7.0 Albumin 3.3 L Globulin 3.7 Albumin/Globulin Ratio 0.9 L Attending/Attestation - Attestation I have personally seen and examined this patient.: Yes I have fully participated in the care of the patient.: Yes I have reviewed all pertinent clinical information: Yes Notes (Text): 02/07/17 00:59 CHF exacerbation 2' to non-compliance cont diuretics cont GDMT for CHF ( non-ischemic CMP ) titrate RAAS modulators and BB
[2017-02-06] MEDS ORDERED: Albuterol-Ipratrop 3 mg / 0.5 (3 ml) UD INH PRN (11:34)
--- NOTE | 2017-02-06 15:54 | CP.PCM.PN ---
Subjective - Date & Time of Evaluation Date of Evaluation: 02/06/17 Time of Evaluation: 21:30 - Subjective Subjective: clinically same. Objective - Vital Signs/Intake and Output Vital Signs (last 24 hours): Temp Pulse Resp BP Pulse Ox 98 F 69 20 128/83 100 02/06/17 07:00 02/06/17 08:00 02/06/17 07:00 02/06/17 09:37 02/06/17 07:00 Intake and Output: 02/06/17 02/06/17 06:59 18:59 Intake Total 960 Balance 960 - Medications Medications: Current Medications Albuterol/Ipratropium (Duoneb 3 Mg/0.5 Mg (3 Ml) Ud) 3 ml INH RQ6 [facility] Last Admin: 02/06/17 13:35 Dose: 3 ml Albuterol/Ipratropium (Duoneb 3 Mg/0.5 Mg (3 Ml) Ud) 3 ml INH RQ2 PRN PRN Reason: Shortness of Breath Aspirin (Aspirin Chewable) 81 mg PO DAILY [facility] Last Admin: 02/06/17 09:37 Dose: 81 mg Clonidine HCl (Catapres) 0.1 mg PO DAILY [facility] Last Admin: 02/06/17 09:37 Dose: 0.1 mg Furosemide (Lasix) 60 mg IVP BID [facility] Heparin Sodium (Porcine) (Heparin) 5,000 units SC Q12 [facility] Last Admin: 02/06/17 09:37 Dose: 5,000 units Lisinopril (Zestril) 10 mg PO DAILY [facility] Last Admin: 02/06/17 09:36 Dose: 10 mg Metoprolol Tartrate (Lopressor) 25 mg PO BID [facility] Last Admin: 02/06/17 09:36 Dose: 25 mg Pantoprazole Sodium (Protonix Ec Tab) 40 mg PO DAILY [facility] Last Admin: 02/06/17 09:37 Dose: 40 mg Rosuvastatin Calcium (Crestor) 20 mg PO HS [facility] Last Admin: 02/05/17 22:35 Dose: 20 mg Spironolactone (Aldactone) 25 mg PO DAILY [facility] Last Admin: 02/06/17 09:37 Dose: 25 mg - Labs Labs: 02/06/17 06:36 02/06/17 06:36 PT 18.0 SECONDS (9.7-12.2) H 02/03/17 16:50 INR 1.6 02/03/17 16:50 APTT 31 SECONDS (21-34) 02/03/17 16:50 - Constitutional Appears: Well - Head Exam Head Exam: ATRAUMATIC, NORMAL INSPECTION, NORMOCEPHALIC - Eye Exam Eye Exam: EOMI, Normal appearance, PERRL Pupil Exam: NORMAL ACCOMODATION, PERRL - ENT Exam ENT Exam: Mucous Membranes Moist, Normal Exam - Neck Exam Neck Exam: Full ROM, Normal Inspection. absent: Lymphadenopathy - Respiratory Exam Respiratory Exam: Decreased Breath Sounds, Rhonchi - Cardiovascular Exam Cardiovascular Exam: REGULAR RHYTHM, +S1, +S2. absent: Murmur - GI/Abdominal Exam GI & Abdominal Exam: Soft, Normal Bowel Sounds. absent: Tenderness - Rectal Exam Rectal Exam: Deferred Assessment and Plan (1) CHF exacerbation Status: Acute (2) Chronic congestive heart failure Status: Acute (3) Bandemia Status: Acute (4) Chest pain Status: Acute (5) Congestive heart failure Status: Acute (6) Hydrocele Status: Acute (7) Hydrocele, bilateral Status: Acute (8) Hypertension Status: Acute (9) Inguinal hernia Status: Acute (10) Pedal edema Status: Acute (11) Pneumonia Status: Acute (12) Prophylactic measure Status: Acute (13) Shortness of breath Status: Acute (14) Testicular cyst Status: Acute (15) UTI (urinary tract infection) Status: Acute (16) Upper respiratory infection Status: Acute - Assessment and Plan (Free Text) Plan: Patient examined. Breathing better. Chest x-ray suggestive cardiomegaly. EKG suggestive of diverticular enlargement, left axis deviation, LBBB. 2D echo suggestive of marked dilatation of all 4 chambers. Biventricular systolic dysfunction. Diastolic dysfunction. Pulmonary hypertension. Moderate MR. Severe TR. EF of 15%. Paradoxical septal motion. Continue heparin. Continue diuretic furosemide. Continue aspirin. Continue metoprolol, spironolactone and supportive medications.
[2017-02-06] MEDS ORDERED: Potassium Chloride 10 mEq ER Tab PO STA (16:11)
--- NOTE | 2017-02-06 23:26 | CP.PCM.PN ---
Subjective - Date & Time of Evaluation Date of Evaluation: 02/06/17 Time of Evaluation: 15:00 - Subjective Subjective: Patient seen and evaluated D/W patient about the need for BiVICD Wants think about it. Objective - Vital Signs/Intake and Output Vital Signs (last 24 hours): Temp Pulse Resp BP Pulse Ox 98.0 F 67 20 146/79 97 02/06/17 15:21 02/06/17 18:00 02/06/17 15:21 02/06/17 17:29 02/06/17 15:21 Intake and Output: 02/06/17 02/07/17 18:59 05:59 Intake Total 500 Output Total 800 Balance -300 - Medications Medications: Current Medications Albuterol/Ipratropium (Duoneb 3 Mg/0.5 Mg (3 Ml) Ud) 3 ml INH RQ6 [facility] Last Admin: 02/06/17 20:28 Dose: Not Given Albuterol/Ipratropium (Duoneb 3 Mg/0.5 Mg (3 Ml) Ud) 3 ml INH RQ2 PRN PRN Reason: Shortness of Breath Aspirin (Aspirin Chewable) 81 mg PO DAILY [facility] Last Admin: 02/06/17 09:37 Dose: 81 mg Clonidine HCl (Catapres) 0.1 mg PO DAILY [facility] Last Admin: 02/06/17 09:37 Dose: 0.1 mg Furosemide (Lasix) 60 mg IVP BID [facility] Last Admin: 02/06/17 17:28 Dose: 60 mg Heparin Sodium (Porcine) (Heparin) 5,000 units SC Q12 [facility] Last Admin: 02/06/17 21:14 Dose: 5,000 units Lisinopril (Zestril) 10 mg PO DAILY [facility] Last Admin: 02/06/17 09:36 Dose: 10 mg Metoprolol Tartrate (Lopressor) 25 mg PO BID [facility] Last Admin: 02/06/17 17:29 Dose: 25 mg Pantoprazole Sodium (Protonix Ec Tab) 40 mg PO DAILY [facility] Last Admin: 02/06/17 09:37 Dose: 40 mg Rosuvastatin Calcium (Crestor) 20 mg PO HS [facility] Last Admin: 02/06/17 21:14 Dose: 20 mg Spironolactone (Aldactone) 25 mg PO DAILY [facility] Last Admin: 02/06/17 09:37 Dose: 25 mg - Labs Labs: 02/06/17 06:36 02/06/17 06:36 PT 18.0 SECONDS (9.7-12.2) H 02/03/17 16:50 INR 1.6 02/03/17 16:50 APTT 31 SECONDS (21-34) 02/03/17 16:50
[2017-02-07] MEDS: Albuterol-Ipratrop 3 mg / 0.5 (3 ml) UD INH SCH ×4 (01:01→20:36)
[2017-02-07 08:11] LABS: POTASSIUM 3.4 mmol/L (3.6-5.2)
[2017-02-07 08:15] LABS: CALCIUM 8.8 mg/dl (8.6-10.4)
[2017-02-07] MEDS: Pantoprazole 40 mg EC Tab PO SCH (09:59)
[2017-02-07] MEDS ORDERED: Potassium Chloride 20 mEq ER Tab PO ONE (12:45)
--- NOTE | 2017-02-07 17:33 | CP.PCM.PN ---
Subjective - Date & Time of Evaluation Date of Evaluation: 02/07/17 Time of Evaluation: 11:20 - Subjective Subjective: clinically same Objective - Vital Signs/Intake and Output Vital Signs (last 24 hours): Temp Pulse Resp BP Pulse Ox 98.0 F 70 20 130/76 95 02/07/17 08:36 02/07/17 08:36 02/07/17 08:36 02/07/17 10:00 02/07/17 08:36 Intake and Output: 02/07/17 02/07/17 06:59 18:59 Intake Total Output Total Balance - Medications Medications: Current Medications Albuterol/Ipratropium (Duoneb 3 Mg/0.5 Mg (3 Ml) Ud) 3 ml INH RQ6 [facility] Last Admin: 02/07/17 14:00 Dose: 3 ml Albuterol/Ipratropium (Duoneb 3 Mg/0.5 Mg (3 Ml) Ud) 3 ml INH RQ2 PRN PRN Reason: Shortness of Breath Aspirin (Aspirin Chewable) 81 mg PO DAILY [facility] Last Admin: 02/07/17 09:59 Dose: 81 mg Clonidine HCl (Catapres) 0.1 mg PO DAILY [facility] Last Admin: 02/07/17 09:59 Dose: 0.1 mg Furosemide (Lasix) 40 mg IVP BID [facility] Last Admin: 02/07/17 09:59 Dose: Not Given Lisinopril (Zestril) 10 mg PO DAILY [facility] Last Admin: 02/07/17 09:59 Dose: 10 mg Metoprolol Tartrate (Lopressor) 25 mg PO BID [facility] Last Admin: 02/07/17 10:00 Dose: 25 mg Pantoprazole Sodium (Protonix Ec Tab) 40 mg PO DAILY [facility] Last Admin: 02/07/17 09:59 Dose: 40 mg Rosuvastatin Calcium (Crestor) 20 mg PO HS [facility] Last Admin: 02/06/17 21:14 Dose: 20 mg Spironolactone (Aldactone) 25 mg PO DAILY [facility] Last Admin: 02/07/17 09:59 Dose: 25 mg - Labs Labs: 02/06/17 06:36 02/07/17 07:50 PT 18.0 SECONDS (9.7-12.2) H 02/03/17 16:50 INR 1.6 02/03/17 16:50 APTT 31 SECONDS (21-34) 02/03/17 16:50 - Constitutional Appears: Well - Head Exam Head Exam: ATRAUMATIC, NORMAL INSPECTION, NORMOCEPHALIC - Eye Exam Eye Exam: EOMI, Normal appearance, PERRL Pupil Exam: NORMAL ACCOMODATION, PERRL - ENT Exam ENT Exam: Mucous Membranes Moist, Normal Exam - Neck Exam Neck Exam: Full ROM, Normal Inspection. absent: Lymphadenopathy - Respiratory Exam Respiratory Exam: Decreased Breath Sounds - Cardiovascular Exam Cardiovascular Exam: REGULAR RHYTHM, +S1, +S2 - GI/Abdominal Exam GI & Abdominal Exam: Soft, Diminished Bowel Sounds - Rectal Exam Rectal Exam: Deferred Assessment and Plan (1) CHF exacerbation Status: Acute (2) Chronic congestive heart failure Status: Acute (3) Bandemia Status: Acute (4) Chest pain Status: Acute (5) Congestive heart failure Status: Acute (6) Hydrocele Status: Acute (7) Hydrocele, bilateral Status: Acute (8) Hypertension Status: Acute (9) Inguinal hernia Status: Acute (10) Pedal edema Status: Acute (11) Pneumonia Status: Acute (12) Prophylactic measure Status: Acute (13) Shortness of breath Status: Acute (14) Testicular cyst Status: Acute (15) UTI (urinary tract infection) Status: Acute (16) Upper respiratory infection Status: Acute - Assessment and Plan (Free Text) Plan: Patient examined. Breathing better. Continue diuretic furosemide and Spironolactone. Continue aspirin. Bronchodilators. Continue supportive care.
--- NOTE | 2017-02-07 19:30 | CP.PCM.PN ---
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 about BiVICD If patient does not want BiVICD now, will send him home with LifeVest will continue current Heart Failure therapy Objective - Vital Signs/Intake and Output Vital Signs (last 24 hours): Temp Pulse Resp BP Pulse Ox 98.2 F 67 20 115/61 98 02/07/17 15:32 02/07/17 15:32 02/07/17 15:32 02/07/17 18:47 02/07/17 15:32 - Medications Medications: Current Medications Albuterol/Ipratropium (Duoneb 3 Mg/0.5 Mg (3 Ml) Ud) 3 ml INH RQ6 [facility] Last Admin: 02/07/17 14:00 Dose: 3 ml Albuterol/Ipratropium (Duoneb 3 Mg/0.5 Mg (3 Ml) Ud) 3 ml INH RQ2 PRN PRN Reason: Shortness of Breath Aspirin (Aspirin Chewable) 81 mg PO DAILY [facility] Last Admin: 02/07/17 09:59 Dose: 81 mg Clonidine HCl (Catapres) 0.1 mg PO DAILY [facility] Last Admin: 02/07/17 09:59 Dose: 0.1 mg Furosemide (Lasix) 40 mg IVP BID [facility] Last Admin: 02/07/17 18:46 Dose: 40 mg Lisinopril (Zestril) 10 mg PO DAILY [facility] Last Admin: 02/07/17 09:59 Dose: 10 mg Metoprolol Tartrate (Lopressor) 25 mg PO BID [facility] Last Admin: 02/07/17 18:47 Dose: 25 mg Pantoprazole Sodium (Protonix Ec Tab) 40 mg PO DAILY [facility] Last Admin: 02/07/17 09:59 Dose: 40 mg Rosuvastatin Calcium (Crestor) 20 mg PO HS [facility] Last Admin: 02/06/17 21:14 Dose: 20 mg Spironolactone (Aldactone) 25 mg PO DAILY [facility] Last Admin: 02/07/17 09:59 Dose: 25 mg - Labs Labs: 02/06/17 06:36 02/07/17 07:50 PT 18.0 SECONDS (9.7-12.2) H 02/03/17 16:50 INR 1.6 02/03/17 16:50 APTT 31 SECONDS (21-34) 02/03/17 16:50
[2017-02-07] MEDS ORDERED: Potassium Chloride 20 mEq/15 ml LIQ UD PO STA (21:06)
[2017-02-08] MEDS: Albuterol-Ipratrop 3 mg / 0.5 (3 ml) UD INH SCH ×4 (01:26→19:49)
--- NOTE | 2017-02-08 06:28 | CP.PCM.PN ---
<Vignesh Hoffman - Last Filed: 02/08/17 06:37> Subjective - Date & Time of Evaluation Date of Evaluation: 02/08/17 Time of Evaluation: 06:27 - Subjective Subjective: Cardiology progress note for Dr. Garcia - Vignesh Pichardo DO, PGY-7 Pt s/e bedside. States that sob is improved, but that it comes and goes. Wants to discuss BiVICD with Dr. Liriano before making a decision. Per Dr. Gan , will d/c on Lifevest if no BiVICD. Otherwise, patient is doing well, states that b/l LE swelling is better, but that there is still some pain. Objective - Vital Signs/Intake and Output Vital Signs (last 24 hours): Temp Pulse Resp BP Pulse Ox 98.5 F 82 20 121/74 98 02/07/17 23:40 02/08/17 03:58 02/07/17 23:40 02/07/17 23:40 02/07/17 23:40 Intake and Output: 02/07/17 02/08/17 18:59 06:59 Intake Total 400 Output Total 800 Balance -400 - Medications Medications: Current Medications Albuterol/Ipratropium (Duoneb 3 Mg/0.5 Mg (3 Ml) Ud) 3 ml INH RQ6 [facility] Last Admin: 02/08/17 01:26 Dose: Not Given Albuterol/Ipratropium (Duoneb 3 Mg/0.5 Mg (3 Ml) Ud) 3 ml INH RQ2 PRN PRN Reason: Shortness of Breath Aspirin (Aspirin Chewable) 81 mg PO DAILY [facility] Last Admin: 02/07/17 09:59 Dose: 81 mg Clonidine HCl (Catapres) 0.1 mg PO DAILY [facility] Last Admin: 02/07/17 09:59 Dose: 0.1 mg Furosemide (Lasix) 40 mg IVP BID [facility] Last Admin: 02/07/17 18:46 Dose: 40 mg Lisinopril (Zestril) 10 mg PO DAILY [facility] Last Admin: 02/07/17 09:59 Dose: 10 mg Metoprolol Tartrate (Lopressor) 25 mg PO BID [facility] Last Admin: 02/07/17 18:47 Dose: 25 mg Pantoprazole Sodium (Protonix Ec Tab) 40 mg PO DAILY [facility] Last Admin: 02/07/17 09:59 Dose: 40 mg Rosuvastatin Calcium (Crestor) 20 mg PO HS [facility] Last Admin: 02/07/17 21:42 Dose: 20 mg Spironolactone (Aldactone) 25 mg PO DAILY [facility] Last Admin: 02/07/17 09:59 Dose: 25 mg - Labs Labs: 02/06/17 06:36 02/07/17 07:50 PT 18.0 SECONDS (9.7-12.2) H 02/03/17 16:50 INR 1.6 02/03/17 16:50 APTT 31 SECONDS (21-34) 02/03/17 16:50 - Additional Findings Additional findings: Phys Exam: VS as below Const'l: a&o x 4, nad Head/Neck: neck supple, no jvd, trachea midline, carotid midline, no cervical /head mass Eyes: yasmeen, nonicteric sclera, eom intact ENT: auditory acuity grossly intact, throat not congested, no nasal deformity Cardio: rrr, no m/r/g, no carotid bruit, nml s1, s2 Pulm: + b/l rales in posterior bases - resolved; +mild anterior wheezes; no accessory muscle use, equal nml breath sounds bilaterally Abd: s/nt/nd, nbs x 4 q, no palpable masses Derm: no rashes, no ulcers, no lesions Extr: + 3+ pitting edema improved - now 2+; no cyanosis, no calf tenderness, no lesions, no varicosities Neuro: cn II-XII grossly intact, ue and le 5/5 muscle strength bilaterally, no los ue, le bilaterally and core Assessment and Plan - Assessment and Plan (Free Text) Assessment: A/P 61 M with PMHx pertinent for CHF, LVEF 30-35%, presents with sob. Suspected non -compliance with medications (lasix) and lifestyle modifications (salt intake). SOB likely 2/2 non-compliance with medications and salt overload - Improved - Continue to diurese with Lasix 40 bid, Aldactone 25. May adjust diuretic therapy if no improvement - Continue Metoprolol 25 mg bid - Continue Duonebs Q6H - Add Duonebs Q2H PRN Dispo: will d/c on life vest if pt refuses BiVICD Thank you for this interesting consult. Vignesh Pichardo DO PGY-1 d/w Dr. Garcia <Julio Garcia - Last Filed: 02/08/17 15:32> Objective - Vital Signs/Intake and Output Vital Signs (last 24 hours): Temp Pulse Resp BP Pulse Ox 98.2 F 77 20 105/65 96 02/08/17 09:05 02/08/17 12:24 02/08/17 09:05 02/08/17 09:15 02/08/17 09:05 Intake and Output: 02/08/17 02/08/17 06:59 18:59 Intake Total 400 400 Output Total 800 Balance -400 400 - Medications Medications: Current Medications Albuterol/Ipratropium (Duoneb 3 Mg/0.5 Mg (3 Ml) Ud) 3 ml INH RQ6 [facility] Last Admin: 02/08/17 13:26 Dose: 3 ml Albuterol/Ipratropium (Duoneb 3 Mg/0.5 Mg (3 Ml) Ud) 3 ml INH RQ2 PRN PRN Reason: Shortness of Breath Aspirin (Aspirin Chewable) 81 mg PO DAILY [facility] Last Admin: 02/08/17 09:15 Dose: 81 mg Clonidine HCl (Catapres) 0.1 mg PO DAILY [facility] Last Admin: 02/08/17 09:14 Dose: 0.1 mg Furosemide (Lasix) 40 mg IVP BID [facility] Last Admin: 02/08/17 09:15 Dose: 40 mg Heparin Sodium (Porcine) (Heparin) 5,000 units SC Q12 [facility] Lisinopril (Zestril) 10 mg PO DAILY [facility] Last Admin: 02/08/17 09:15 Dose: 10 mg Metoprolol Tartrate (Lopressor) 25 mg PO BID [facility] Last Admin: 02/08/17 09:14 Dose: 25 mg Pantoprazole Sodium (Protonix Ec Tab) 40 mg PO DAILY [facility] Last Admin: 02/08/17 09:15 Dose: 40 mg Rosuvastatin Calcium (Crestor) 20 mg PO HS [facility] Last Admin: 02/07/17 21:42 Dose: 20 mg Spironolactone (Aldactone) 25 mg PO DAILY [facility] Last Admin: 02/08/17 09:15 Dose: 25 mg - Labs Labs: 02/08/17 13:22 02/08/17 13:22 PT 18.0 SECONDS (9.7-12.2) H 02/03/17 16:50 INR 1.6 02/03/17 16:50 APTT 31 SECONDS (21-34) 02/03/17 16:50 Attending/Attestation - Attestation I have personally seen and examined this patient.: Yes I have fully participated in the care of the patient.: Yes I have reviewed all pertinent clinical information, including history, physical exam and plan: Yes Notes (Text): 02/08/17 15:32 plan for BiV-ICD at [place] arranged by Dr.Benz may JHAVERI for CHF
--- NOTE | 2017-02-08 08:30 | CP.PCM.PN ---
Subjective - Date & Time of Evaluation Date of Evaluation: 02/08/17 Time of Evaluation: 11:00 - Subjective Subjective: clinically same Objective - Vital Signs/Intake and Output Vital Signs (last 24 hours): Temp Pulse Resp BP Pulse Ox 98.5 F 77 20 121/74 98 02/07/17 23:40 02/08/17 08:00 02/07/17 23:40 02/07/17 23:40 02/07/17 23:40 Intake and Output: 02/08/17 02/08/17 06:59 18:59 Intake Total 400 Output Total 800 Balance -400 - Medications Medications: Current Medications Albuterol/Ipratropium (Duoneb 3 Mg/0.5 Mg (3 Ml) Ud) 3 ml INH RQ6 [facility] Last Admin: 02/08/17 06:45 Dose: 3 ml Albuterol/Ipratropium (Duoneb 3 Mg/0.5 Mg (3 Ml) Ud) 3 ml INH RQ2 PRN PRN Reason: Shortness of Breath Aspirin (Aspirin Chewable) 81 mg PO DAILY [facility] Last Admin: 02/07/17 09:59 Dose: 81 mg Clonidine HCl (Catapres) 0.1 mg PO DAILY [facility] Last Admin: 02/07/17 09:59 Dose: 0.1 mg Furosemide (Lasix) 40 mg IVP BID [facility] Last Admin: 02/07/17 18:46 Dose: 40 mg Lisinopril (Zestril) 10 mg PO DAILY [facility] Last Admin: 02/07/17 09:59 Dose: 10 mg Metoprolol Tartrate (Lopressor) 25 mg PO BID [facility] Last Admin: 02/07/17 18:47 Dose: 25 mg Pantoprazole Sodium (Protonix Ec Tab) 40 mg PO DAILY [facility] Last Admin: 02/07/17 09:59 Dose: 40 mg Rosuvastatin Calcium (Crestor) 20 mg PO HS [facility] Last Admin: 02/07/17 21:42 Dose: 20 mg Spironolactone (Aldactone) 25 mg PO DAILY [facility] Last Admin: 02/07/17 09:59 Dose: 25 mg - Labs Labs: 02/06/17 06:36 02/07/17 07:50 PT 18.0 SECONDS (9.7-12.2) H 02/03/17 16:50 INR 1.6 02/03/17 16:50 APTT 31 SECONDS (21-34) 02/03/17 16:50 - Constitutional Appears: Well - Head Exam Head Exam: ATRAUMATIC, NORMAL INSPECTION, NORMOCEPHALIC - Eye Exam Eye Exam: EOMI, Normal appearance, PERRL Pupil Exam: NORMAL ACCOMODATION, PERRL - ENT Exam ENT Exam: Mucous Membranes Moist, Normal Exam - Neck Exam Neck Exam: Full ROM, Normal Inspection. absent: Lymphadenopathy - Respiratory Exam Respiratory Exam: Decreased Breath Sounds - Cardiovascular Exam Cardiovascular Exam: REGULAR RHYTHM, +S1, +S2. absent: Murmur - GI/Abdominal Exam GI & Abdominal Exam: Soft, Normal Bowel Sounds. absent: Tenderness - Rectal Exam Rectal Exam: Deferred Assessment and Plan (1) CHF exacerbation Status: Acute (2) Chronic congestive heart failure Status: Acute (3) Bandemia Status: Acute (4) Chest pain Status: Acute (5) Congestive heart failure Status: Acute (6) Hydrocele Status: Acute (7) Hydrocele, bilateral Status: Acute (8) Hypertension Status: Acute (9) Inguinal hernia Status: Acute (10) Pedal edema Status: Acute (11) Pneumonia Status: Acute (12) Prophylactic measure Status: Acute (13) Shortness of breath Status: Acute (14) Testicular cyst Status: Acute (15) UTI (urinary tract infection) Status: Acute (16) Upper respiratory infection Status: Acute - Assessment and Plan (Free Text) Plan: Patient examined. Patient clinically better. Breathing improved. Continue diuretic furosemide and Spironolactone. Continue aspirin. Continue supportive medications.
[2017-02-08] MEDS: Pantoprazole 40 mg EC Tab PO SCH (09:15)
--- NOTE | 2017-02-08 11:24 | CP.PCM.PN ---
<Ton Jiang - Last Filed: 02/08/17 11:24> Subjective - Date & Time of Evaluation Date of Evaluation: 02/08/17 Time of Evaluation: 11:20 - Subjective Subjective: Progress note. Attending: Dr. Ordonez Pt seen and examined at bedside. No acute distress. No events overnight. No fevers, chills, vomiting, diarrhea. Objective - Vital Signs/Intake and Output Vital Signs (last 24 hours): Temp Pulse Resp BP Pulse Ox 98.2 F 80 20 105/65 96 02/08/17 09:05 02/08/17 09:05 02/08/17 09:05 02/08/17 09:15 02/08/17 09:05 Intake and Output: 02/08/17 02/08/17 06:59 18:59 Intake Total 400 Output Total 800 Balance -400 - Medications Medications: Current Medications Albuterol/Ipratropium (Duoneb 3 Mg/0.5 Mg (3 Ml) Ud) 3 ml INH RQ6 [facility] Last Admin: 02/08/17 06:45 Dose: 3 ml Albuterol/Ipratropium (Duoneb 3 Mg/0.5 Mg (3 Ml) Ud) 3 ml INH RQ2 PRN PRN Reason: Shortness of Breath Aspirin (Aspirin Chewable) 81 mg PO DAILY [facility] Last Admin: 02/08/17 09:15 Dose: 81 mg Clonidine HCl (Catapres) 0.1 mg PO DAILY [facility] Last Admin: 02/08/17 09:14 Dose: 0.1 mg Furosemide (Lasix) 40 mg IVP BID [facility] Last Admin: 02/08/17 09:15 Dose: 40 mg Lisinopril (Zestril) 10 mg PO DAILY [facility] Last Admin: 02/08/17 09:15 Dose: 10 mg Metoprolol Tartrate (Lopressor) 25 mg PO BID [facility] Last Admin: 02/08/17 09:14 Dose: 25 mg Pantoprazole Sodium (Protonix Ec Tab) 40 mg PO DAILY [facility] Last Admin: 02/08/17 09:15 Dose: 40 mg Rosuvastatin Calcium (Crestor) 20 mg PO HS [facility] Last Admin: 02/07/17 21:42 Dose: 20 mg Spironolactone (Aldactone) 25 mg PO DAILY [facility] Last Admin: 02/08/17 09:15 Dose: 25 mg - Labs Labs: 02/06/17 06:36 02/07/17 07:50 PT 18.0 SECONDS (9.7-12.2) H 02/03/17 16:50 INR 1.6 02/03/17 16:50 APTT 31 SECONDS (21-34) 02/03/17 16:50 - Constitutional Appears: Non-toxic, No Acute Distress - Head Exam Head Exam: ATRAUMATIC, NORMAL INSPECTION, NORMOCEPHALIC - Eye Exam Eye Exam: EOMI - ENT Exam ENT Exam: Mucous Membranes Moist - Neck Exam Neck Exam: Full ROM, Normal Inspection - Respiratory Exam Respiratory Exam: Rales. absent: Respiratory Distress - Cardiovascular Exam Cardiovascular Exam: +S1, +S2 - GI/Abdominal Exam GI & Abdominal Exam: Soft, Normal Bowel Sounds. absent: Tenderness - Extremities Exam Extremities Exam: Full ROM, Normal Inspection - Neurological Exam Neurological Exam: Alert, Awake, Oriented x3 - Psychiatric Exam Psychiatric exam: Normal Affect, Normal Mood - Skin Skin Exam: Dry, Intact, Normal Color, Warm Assessment and Plan - Assessment and Plan (Free Text) Assessment: This is a 61 yo male with 1. CHF exacerbation -cardio consult. recs appreciated. -continue duonebs -asa 81 mg daily -will repeat echo>>> severe systolic dysfunction and severe pulmonary hypertension -recent cath and stress test -continue lasix 40 PO bid -continue spironolactone daily -pulm consult. recs appreciated. -pt is candidate for [employer] and biventricular pacemaker -pt will first be evaluated by Dr. Liriano, if pt refuses transfer to [place], will be discharged home on [facility]. 2. hx of HTN -clonidine .1 po daily -continue lisinopril -continue lopressor bid -continue spironolactone 3. hx of HLD -continue crestor 20 4. Pulmonary hypertension -treat underlying heart failure. -outpatient pulm follow/up 5. Increased alk phos -likely secondary to severe congestive heart failure -AST and ALT normal -continue to monitor 6. GI/DVT ppx -heparin 5000 q 12 -continue protonix daily discussed with Dr. Ordonez. <Mark Ordonez - Last Filed: 02/09/17 15:47> Objective - Vital Signs/Intake and Output Vital Signs (last 24 hours): Temp Pulse Resp BP Pulse Ox 98.0 F 66 18 111/74 99 02/09/17 07:46 02/09/17 12:17 02/09/17 07:46 02/09/17 09:30 02/09/17 07:46 Intake and Output: 02/09/17 02/09/17 06:59 18:59 Intake Total 640 400 Balance 640 400 - Medications Medications: Current Medications Albuterol/Ipratropium (Duoneb 3 Mg/0.5 Mg (3 Ml) Ud) 3 ml INH RQ2 PRN PRN Reason: Shortness of Breath Aspirin (Aspirin Chewable) 81 mg PO DAILY [facility] Last Admin: 02/09/17 09:27 Dose: 81 mg Clonidine HCl (Catapres) 0.1 mg PO DAILY [facility] Last Admin: 02/09/17 09:27 Dose: 0.1 mg Furosemide (Lasix) 40 mg IVP BID [facility] Last Admin: 02/09/17 09:30 Dose: 40 mg Heparin Sodium (Porcine) (Heparin) 5,000 units SC Q12 [facility] Last Admin: 02/09/17 09:29 Dose: 5,000 units Lisinopril (Zestril) 10 mg PO DAILY [facility] Last Admin: 02/09/17 09:27 Dose: 10 mg Metoprolol Tartrate (Lopressor) 25 mg PO BID [facility] Last Admin: 02/09/17 09:28 Dose: 25 mg Pantoprazole Sodium (Protonix Ec Tab) 40 mg PO DAILY [facility] Last Admin: 02/09/17 09:28 Dose: 40 mg Rosuvastatin Calcium (Crestor) 20 mg PO HS [facility] Last Admin: 02/08/17 21:20 Dose: 20 mg Spironolactone (Aldactone) 25 mg PO DAILY [facility] Last Admin: 02/09/17 09:27 Dose: 25 mg - Labs Labs: 02/09/17 08:44 02/09/17 08:44 PT 18.0 SECONDS (9.7-12.2) H 02/03/17 16:50 INR 1.6 02/03/17 16:50 APTT 31 SECONDS (21-34) 02/03/17 16:50 Assessment and Plan (1) CHF exacerbation Status: Acute (2) Chronic congestive heart failure Status: Acute (3) Bandemia Status: Acute (4) Chest pain Status: Acute (5) Congestive heart failure Status: Acute (6) Hydrocele Status: Acute (7) Hydrocele, bilateral Status: Acute (8) Hypertension Status: Acute (9) Inguinal hernia Status: Acute (10) Pedal edema Status: Acute (11) Pneumonia Status: Acute (12) Prophylactic measure Status: Acute (13) Shortness of breath Status: Acute (14) Testicular cyst Status: Acute (15) UTI (urinary tract infection) Status: Acute (16) Upper respiratory infection Status: Acute Attending/Attestation - Attestation I have personally seen and examined this patient.: Yes I have fully participated in the care of the patient.: Yes I have reviewed all pertinent clinical information, including history, physical exam and plan: Yes Notes (Text): Patient examined. No acute distress. Patient refused to go to [place]. Continue treatment for HTN, hyperlipidemia and pulmonary hypertension.
[2017-02-08] MEDS ORDERED: Potassium Chloride 20 mEq ER Tab PO ONE (12:00)
[2017-02-08 13:28] LABS: EOS # 0.3 K/uL (0.0-0.7); EOS % 5.6 % (0.0-4.0); LYMPH % 23.1 % (20.0-40.0); MEAN CELL VOLUME 91.5 fL (80.0-94.0); MEAN CORPUSCULAR HEMOGLOBIN 30.2 pg (27.0-31.0); MEAN CORPUSCULAR HGB CONC 33.1 g/dL (33.0-37.0); MEAN PLATELET VOLUME 7.5 fL (7.2-11.7); MONO # 0.6 K/uL (0.0-0.8); MONO % 12.7 % (0.0-10.0); RED CELL DISTRIBUTION WIDTH 15.8 % (11.5-14.5); WHITE BLOOD COUNT 4.5 K/uL (4.8-10.8)
[2017-02-08 13:43] LABS: POTASSIUM 3.9 mmol/L (3.6-5.2)
[2017-02-08 13:45] LABS: BILIRUBIN,TOTAL 0.9 mg/dL (0.2-1.3)
[2017-02-08 13:47] LABS: ALB/GLOB RATIO 1.4 (1.0-2.1); CALCIUM 8.8 mg/dl (8.6-10.4); TOTAL PROTEIN 6.8 g/dL (6.3-8.3)
--- NOTE | 2017-02-08 14:08 | PCM.URO ---
Urology Progress Note - Objective Lab Results Last 24 Hours: Laboratory Results - last 24 hr 02/08/17 02/08/17 13:22 13:22 WBC 4.5 L RBC 4.16 L Hgb 12.6 Hct 38.0 MCV 91.5 MCH 30.2 MCHC 33.1 RDW 15.8 H Plt Count 245 MPV 7.5 Neut % (Auto) 57.6 Lymph % (Auto) 23.1 [place] % (Auto) 12.7 H Eos % (Auto) 5.6 H Baso % (Auto) 1.0 Neut # 2.6 Lymph # 1.0 [place] # 0.6 Eos # 0.3 Baso # 0.0 Sodium 136 Potassium 3.9 Chloride 97 L Carbon Dioxide 30 Anion Gap 13 BUN 29 H Creatinine 1.6 H Est GFR ( Amer) 54 Est GFR (Non-Af Amer) 44 Random Glucose 105 Calcium 8.8 Total Bilirubin 0.9 AST 40 ALT 47 Alkaline Phosphatase 160 H Total Protein 6.8 Albumin 3.9 Globulin 2.8 Albumin/Globulin Ratio 1.4 Intake & Output: Intake & Output 02/07/17 02/08/17 02/08/17 18:59 06:59 18:59 Intake Total 400 Output Total 800 Balance -400 Weight 179 lb 0.2 oz Intake: Oral 400 Output: Urine 800 Urine, Voided 800 Vital Signs: Vital Signs - 24 hr 02/07/17 02/07/17 02/07/17 15:30 15:32 18:46 Temperature 98.2 F Pulse Rate 66 67 Respiratory 20 Rate Blood Pressure 115/71 115/61 O2 Sat by Pulse 98 Oximetry 02/07/17 02/07/17 02/07/17 18:47 23:39 23:40 Temperature 98.5 F Pulse Rate 68 73 Respiratory 20 Rate Blood Pressure 115/61 121/74 O2 Sat by Pulse 98 Oximetry 02/08/17 02/08/17 02/08/17 03:58 08:00 09:05 Temperature 98.2 F Pulse Rate 82 77 80 Respiratory 20 Rate Blood Pressure 151/98 H O2 Sat by Pulse 96 Oximetry 02/08/17 02/08/17 02/08/17 09:13 09:14 09:15 Temperature Pulse Rate Respiratory Rate Blood Pressure 105/65 105/65 105/65 O2 Sat by Pulse Oximetry 11/06/17 12:24 Temperature Pulse Rate 77 Respiratory Rate Blood Pressure O2 Sat by Pulse Oximetry
--- NOTE | 2017-02-08 18:46 | US ---
EXAM: US Scrotum EXAM DATE/TIME: Exam ordered 02/08/2017 2:14 PM CLINICAL HISTORY: 61 years old, male; Condition or disease; Mass, lump, or swelling; Additional info: Scrotal swelling unable to examine testes well TECHNIQUE: Real-time ultrasound of the scrotum with color Doppler and image documentation. COMPARISON: US - TESTICULAR 2015-06-28 11:31 FINDINGS: Right testicle: The right testes measures 3.7 x 2.5 x 3.1 cm. No mass. No torsion. Left testicle: The left Teste measures 4.1 x 2.6 x 2.4 cm.. No mass. No torsion. Epididymides: The right epididymal head measures 1.5 x 1.3 x 1.5 cm.. TThere are 2 cysts within the epididymal head measuring 6 mm and 5 mm respectively in maximum diameter. The left epididymal head measures 0.9 x 0.8 x 1.4 cm in maximum diameter.There is a septated cyst in the head of the left epididymis measuring 3 mm in maximum diameter. Scrotum: There is a large complex right hydrocele. There is a small complex left hydrocele. There are bilateral varicoceles. Other findings: Blood flow is seen in the right Teste and the right epididymis on color Doppler examination. Blood flow is seen in the left Teste and the left epididymis on color Doppler examination. . A 3 mm cystic structure noted within the right Teste is actually related to tubular ectasia of the mediastinum Teste. This is unchanged from previous. IMPRESSION: 1. Moderate-sized complex hydrocele on the right. Small complex hydrocele on the left. No change. 2. Bilateral epididymal head cysts. No change. 3. Small bilateral varicoceles. No change..
--- NOTE | 2017-02-09 02:11 | CON ---
DATE: 02/08/2017 UROLOGY CONSULTATION REASON FOR CONSULTATION: Scrotal swelling. HISTORY OF PRESENT ILLNESS: A pleasant gentleman admitted to the hospital with CHF and other cardiac issues. He has lower extremity edema and he has penile and scrotal edema that we were consulted for. He also has some mild irritative and obstructive voiding complaints. PAST MEDICAL AND SURGICAL HISTORY: As is listed on the chart. [place] REVIEW OF SYSTEMS: As above. PHYSICAL EXAMINATION: GENERAL: A well nourished male, in no apparent distress. VITAL SIGNS: Noted. GENITOURINARY: Castellanos catheter is in place in the location draining clear yellow urine. Looks to be a moderate-sized prostate . Normal male phallus without discharge. He has scrotal edema bilaterally, not really a big difference seen in the left and right side. Left is a little more and pronounced. DIAGNOSIS: Scrotal edema. In summary, Mr. Irwin Hirsch is a very pleasant gentleman, he is 61-year-old gentleman, who is in the hospital with multiple medical issues. From Urology standpoint, we were consulted because of scrotal pain and swelling. PLAN: As follows; 1. Scrotal elevation. 2. Ultrasound of the testicles. 3. Further plans to follow. 4. So he has mild complaints. The edema is noted. We will just proceed. The management is also medical and cardiac, etc. Further plans to follow as needed. The urology plan as follows: 1. Elevation. 2. Order a scrotal ultrasound. 3. Review labs. Matthew Gil MD
[2017-02-09] MEDS: Albuterol-Ipratrop 3 mg / 0.5 (3 ml) UD INH SCH (02:34)
--- NOTE | 2017-02-09 07:40 | CP.PCM.PN ---
Addendum entered and electronically signed by Vignesh Hoffman DO 07:42: Awaiting a call from [place] for a bed Original Note: <Vignesh Hoffman - Last Filed: 02/09/17 07:34> Subjective - Date & Time of Evaluation Date of Evaluation: 02/09/17 Time of Evaluation: 07:34 - Subjective Subjective: Cardiology progress note for Dr. Garcia - Vignesh Pichardo DO, PGY-4 Pt s/e bedside, states he is doing well and that his sob has improved. He still complains of pain upon palpation of his b/l LE, but less so than yesterday. No further complaints at this time. Objective - Vital Signs/Intake and Output Vital Signs (last 24 hours): Temp Pulse Resp BP Pulse Ox 98.5 F 73 20 124/80 98 02/08/17 23:50 02/08/17 23:50 02/08/17 23:50 02/08/17 23:50 02/08/17 23:50 Intake and Output: 02/09/17 02/09/17 06:59 18:59 Intake Total 640 Balance 640 - Medications Medications: Current Medications Albuterol/Ipratropium (Duoneb 3 Mg/0.5 Mg (3 Ml) Ud) 3 ml INH RQ2 PRN PRN Reason: Shortness of Breath Aspirin (Aspirin Chewable) 81 mg PO DAILY [facility] Last Admin: 02/08/17 09:15 Dose: 81 mg Clonidine HCl (Catapres) 0.1 mg PO DAILY [facility] Last Admin: 02/08/17 09:14 Dose: 0.1 mg Furosemide (Lasix) 40 mg IVP BID [facility] Last Admin: 02/08/17 17:28 Dose: 40 mg Heparin Sodium (Porcine) (Heparin) 5,000 units SC Q12 [facility] Last Admin: 02/08/17 21:20 Dose: 5,000 units Lisinopril (Zestril) 10 mg PO DAILY [facility] Last Admin: 02/08/17 09:15 Dose: 10 mg Metoprolol Tartrate (Lopressor) 25 mg PO BID [facility] Last Admin: 02/08/17 17:28 Dose: 25 mg Pantoprazole Sodium (Protonix Ec Tab) 40 mg PO DAILY [facility] Last Admin: 02/08/17 09:15 Dose: 40 mg Rosuvastatin Calcium (Crestor) 20 mg PO HS [facility] Last Admin: 02/08/17 21:20 Dose: 20 mg Spironolactone (Aldactone) 25 mg PO DAILY [facility] Last Admin: 02/08/17 09:15 Dose: 25 mg - Labs Labs: 02/08/17 13:22 02/08/17 13:22 PT 18.0 SECONDS (9.7-12.2) H 02/03/17 16:50 INR 1.6 02/03/17 16:50 APTT 31 SECONDS (21-34) 02/03/17 16:50 - Additional Findings Additional findings: Phys Exam: VS as below Const'l: a&o x 4, nad Head/Neck: neck supple, no jvd, trachea midline, carotid midline, no cervical /head mass Eyes: yasmeen, nonicteric sclera, eom intact ENT: auditory acuity grossly intact, throat not congested, no nasal deformity Cardio: rrr, no m/r/g, no carotid bruit, nml s1, s2 Pulm: + b/l rales in posterior bases - resolved; +mild anterior wheezes; no accessory muscle use, equal nml breath sounds bilaterally Abd: s/nt/nd, nbs x 4 q, no palpable masses Derm: no rashes, no ulcers, no lesions Extr: + 3+ pitting edema improved - now 2+; no cyanosis, no calf tenderness, no lesions, no varicosities Neuro: cn II-XII grossly intact, ue and le 5/5 muscle strength bilaterally, no los ue, le bilaterally and core Assessment and Plan - Assessment and Plan (Free Text) Assessment: A/P 61 M with PMHx pertinent for CHF, LVEF 30-35%, presents with sob. Suspected non -compliance with medications (lasix) and lifestyle modifications (salt intake). SOB likely 2/2 non-compliance with medications and salt overload - Improved - Continue to diurese with Lasix 40 bid, Aldactone 25. May adjust diuretic therapy if no improvement - Continue Metoprolol 25 mg bid - Continue Duonebs Q6H - Continue Duonebs Q2H PRN Dispo: [facility] at [place] with Dr. Gan Thank you for this interesting consult. Vignesh Pichardo DO PGY-1 d/w Dr. Garcia <JoseJulio - Last Filed: 02/10/17 08:46> Objective - Vital Signs/Intake and Output Vital Signs (last 24 hours): Temp Pulse Resp BP Pulse Ox 98.2 F 65 17 123/81 100 02/10/17 07:20 02/10/17 07:20 02/10/17 07:20 02/10/17 07:20 02/10/17 07:20 Intake and Output: 02/10/17 02/10/17 06:59 18:59 Output Total 250 Balance -250 - Medications Medications: Current Medications Albuterol/Ipratropium (Duoneb 3 Mg/0.5 Mg (3 Ml) Ud) 3 ml INH RQ2 PRN PRN Reason: Shortness of Breath Aspirin (Aspirin Chewable) 81 mg PO DAILY [facility] Last Admin: 02/09/17 09:27 Dose: 81 mg Clonidine HCl (Catapres) 0.1 mg PO DAILY [facility] Last Admin: 02/09/17 09:27 Dose: 0.1 mg Furosemide (Lasix) 40 mg IVP BID [facility] Last Admin: 02/09/17 17:33 Dose: 40 mg Heparin Sodium (Porcine) (Heparin) 5,000 units SC Q12 [facility] Last Admin: 02/09/17 21:03 Dose: 5,000 units Lisinopril (Zestril) 10 mg PO DAILY [facility] Last Admin: 02/09/17 09:27 Dose: 10 mg Metoprolol Tartrate (Lopressor) 25 mg PO BID [facility] Last Admin: 02/09/17 21:03 Dose: 25 mg Pantoprazole Sodium (Protonix Ec Tab) 40 mg PO DAILY [facility] Last Admin: 02/09/17 09:28 Dose: 40 mg Rosuvastatin Calcium (Crestor) 20 mg PO HS [facility] Last Admin: 02/09/17 21:02 Dose: 20 mg Spironolactone (Aldactone) 25 mg PO DAILY [facility] Last Admin: 02/09/17 09:27 Dose: 25 mg - Labs Labs: 02/10/17 08:19 02/10/17 08:19 PT 18.0 SECONDS (9.7-12.2) H 02/03/17 16:50 INR 1.6 02/03/17 16:50 APTT 31 SECONDS (21-34) 02/03/17 16:50 Attending/Attestation - Attestation I have personally seen and examined this patient.: Yes I have fully participated in the care of the patient.: Yes I have reviewed all pertinent clinical information, including history, physical exam and plan: Yes Notes (Text): 02/10/17 08:46 plan for [facility] at [facility] fluid overload improving cont with diuretic and RAAS modulators
[2017-02-09 08:48] LABS: BASO % 1.1 % (0.0-2.0); EOS # 0.3 K/uL (0.0-0.7); EOS % 5.7 % (0.0-4.0); HEMATOCRIT 39.4 % (35.0-51.0); LYMPH # 1.2 K/uL (1.0-4.3); LYMPH % 25.9 % (20.0-40.0); MEAN CELL VOLUME 92.4 fL (80.0-94.0); MEAN CORPUSCULAR HEMOGLOBIN 30.4 pg (27.0-31.0); MEAN CORPUSCULAR HGB CONC 32.9 g/dL (33.0-37.0); MEAN PLATELET VOLUME 7.3 fL (7.2-11.7); MONO # 0.4 K/uL (0.0-0.8); MONO % 9.1 % (0.0-10.0); RED CELL DISTRIBUTION WIDTH 15.5 % (11.5-14.5); WHITE BLOOD COUNT 4.6 K/uL (4.8-10.8)
[2017-02-09 08:57] LABS: POTASSIUM 4.1 mmol/L (3.6-5.2)
[2017-02-09 08:59] LABS: ALB/GLOB RATIO 1.4 (1.0-2.1); BILIRUBIN,TOTAL 0.9 mg/dL (0.2-1.3); CALCIUM 8.6 mg/dl (8.6-10.4); TOTAL PROTEIN 6.8 g/dL (6.3-8.3)
[2017-02-09] MEDS: Pantoprazole 40 mg EC Tab PO SCH (09:28)
--- NOTE | 2017-02-09 10:45 | PCM.URO ---
Urology Progress Note - General General: No Complaints, Tolerating Diet - Subjective Abdominal Pain: Yes (slight, R groin) Flank Pain: No Nausea: No Vomiting: No Voiding Well: Yes Urinary Urgency: No Good Stream: Yes - Objective Lab Results Last 24 Hours: Laboratory Results - last 24 hr 02/08/17 02/08/17 02/09/17 13:22 13:22 08:44 WBC 4.5 L 4.6 L RBC 4.16 L 4.26 L Hgb 12.6 13.0 Hct 38.0 39.4 MCV 91.5 92.4 MCH 30.2 30.4 MCHC 33.1 32.9 L RDW 15.8 H 15.5 H Plt Count 245 245 MPV 7.5 7.3 Neut % (Auto) 57.6 58.2 Lymph % (Auto) 23.1 25.9 [place] % (Auto) 12.7 H 9.1 Eos % (Auto) 5.6 H 5.7 H Baso % (Auto) 1.0 1.1 Neut # 2.6 2.7 Lymph # 1.0 1.2 [place] # 0.6 0.4 Eos # 0.3 0.3 Baso # 0.0 0.0 Sodium 136 Potassium 3.9 Chloride 97 L Carbon Dioxide 30 Anion Gap 13 BUN 29 H Creatinine 1.6 H Est GFR ( Amer) 54 Est GFR (Non-Af Amer) 44 Random Glucose 105 Calcium 8.8 Total Bilirubin 0.9 AST 40 ALT 47 Alkaline Phosphatase 160 H Total Protein 6.8 Albumin 3.9 Globulin 2.8 Albumin/Globulin Ratio 1.4 02/09/17 08:44 WBC RBC Hgb Hct MCV MCH MCHC RDW Plt Count MPV Neut % (Auto) Lymph % (Auto) [place] % (Auto) Eos % (Auto) Baso % (Auto) Neut # Lymph # [place] # Eos # Baso # Sodium 136 Potassium 4.1 Chloride 95 L Carbon Dioxide 33 H Anion Gap 12 BUN 28 H Creatinine 1.5 Est GFR ( Amer) 58 Est GFR (Non-Af Amer) 48 Random Glucose 94 Calcium 8.6 Total Bilirubin 0.9 AST 41 ALT 53 Alkaline Phosphatase 151 H Total Protein 6.8 Albumin 4.0 Globulin 2.8 Albumin/Globulin Ratio 1.4 Intake & Output: Intake & Output 02/08/17 02/09/17 02/09/17 18:59 06:59 18:59 Intake Total 400 640 Balance 400 640 Weight 176 lb 4.8 oz Intake: Oral 400 640 Other: # Voids Urine, Voided 2 3 Vital Signs: Vital Signs - 24 hr 02/08/17 02/08/17 02/08/17 12:24 15:16 16:21 Temperature 98.4 F Pulse Rate 77 73 73 Respiratory 20 Rate Blood Pressure 117/76 O2 Sat by Pulse 97 Oximetry 02/08/17 02/08/17 02/09/17 17:28 23:50 07:46 Temperature 98.5 F 98.0 F Pulse Rate 73 79 Respiratory 20 18 Rate Blood Pressure 117/76 124/80 132/80 O2 Sat by Pulse 98 99 Oximetry 02/09/17 02/09/17 02/09/17 08:00 09:28 09:30 Temperature Pulse Rate 67 Respiratory Rate Blood Pressure 111/74 111/74 O2 Sat by Pulse Oximetry - Physical Exam Abdominal Exam: Soft, Non-Tender, Non-Distended (Prob RIH w scrotal descent) Back: No CVA Tenderness Genitalia: Without Inflammation - Male Phallus: Normal Testes: Normal: Bilateral (normal testes palpable) - Plan Additional Information: Imp;. R scrotal swelling. Poss hydrocele, poss RIH - Date & Time of Note Date: 02/09/17 Time: 09:30
--- NOTE | 2017-02-09 11:19 | CP.PCM.PN ---
<BertaChiara H - Last Filed: 02/09/17 11:12> Subjective - Date & Time of Evaluation Date of Evaluation: 02/09/17 Time of Evaluation: 09:00 - Subjective Subjective: PGY3 Medicine Note - Dr. Marge Ordonez's service: Patient seen and examined at bedside this AM. Patient reports breathing improving. Patient reports testicular swelling that comes and goes for past [address] Ritchie Gil told him it will resolve with getting a biventricular pacemaker for the CHF. Patient denies fevers, chills, chest pain , SOB, abdominal pain, nausea, vomiting. Objective - Vital Signs/Intake and Output Vital Signs (last 24 hours): Temp Pulse Resp BP Pulse Ox 98.0 F 67 18 111/74 99 02/09/17 07:46 02/09/17 08:00 02/09/17 07:46 02/09/17 09:30 02/09/17 07:46 Intake and Output: 02/09/17 02/09/17 06:59 18:59 Intake Total 640 Balance 640 - Medications Medications: Current Medications Albuterol/Ipratropium (Duoneb 3 Mg/0.5 Mg (3 Ml) Ud) 3 ml INH RQ2 PRN PRN Reason: Shortness of Breath Aspirin (Aspirin Chewable) 81 mg PO DAILY [facility] Last Admin: 02/09/17 09:27 Dose: 81 mg Clonidine HCl (Catapres) 0.1 mg PO DAILY [facility] Last Admin: 02/09/17 09:27 Dose: 0.1 mg Furosemide (Lasix) 40 mg IVP BID [facility] Last Admin: 02/09/17 09:30 Dose: 40 mg Heparin Sodium (Porcine) (Heparin) 5,000 units SC Q12 [facility] Last Admin: 02/09/17 09:29 Dose: 5,000 units Lisinopril (Zestril) 10 mg PO DAILY [facility] Last Admin: 02/09/17 09:27 Dose: 10 mg Metoprolol Tartrate (Lopressor) 25 mg PO BID [facility] Last Admin: 02/09/17 09:28 Dose: 25 mg Pantoprazole Sodium (Protonix Ec Tab) 40 mg PO DAILY [facility] Last Admin: 02/09/17 09:28 Dose: 40 mg Rosuvastatin Calcium (Crestor) 20 mg PO HS [facility] Last Admin: 02/08/17 21:20 Dose: 20 mg Spironolactone (Aldactone) 25 mg PO DAILY [facility] Last Admin: 02/09/17 09:27 Dose: 25 mg - Labs Labs: 02/09/17 08:44 02/09/17 08:44 PT 18.0 SECONDS (9.7-12.2) H 02/03/17 16:50 INR 1.6 02/03/17 16:50 APTT 31 SECONDS (21-34) 02/03/17 16:50 - Constitutional Appears: Non-toxic, No Acute Distress - Head Exam Head Exam: NORMAL INSPECTION - Eye Exam Eye Exam: EOMI - ENT Exam ENT Exam: Mucous Membranes Moist - Respiratory Exam Respiratory Exam: Rales, NORMAL BREATHING PATTERN - Cardiovascular Exam Cardiovascular Exam: REGULAR RHYTHM, JVD Additional comments: + S3 - GI/Abdominal Exam GI & Abdominal Exam: Soft, Normal Bowel Sounds. absent: Tenderness - Exam Exam: Scrotal Swelling - Extremities Exam Extremities Exam: Pedal Edema (1+ pitting) - Neurological Exam Neurological Exam: Alert, Awake, Oriented x3 - Psychiatric Exam Psychiatric exam: Normal Affect, Normal Mood - Skin Skin Exam: Normal Color, Warm Assessment and Plan - Assessment and Plan (Free Text) Assessment: 1. CHF exacerbation -cardio consult. recs appreciated. -continue duonebs -asa 81 mg PO daily -will repeat echo>>> severe systolic dysfunction and severe pulmonary hypertension; LVEF 13.8 -recent cath and stress test -continue lasix 40 IVP bid -continue spironolactone 25mg PO daily -pulm consult. - Dr. Truong - recs appreciated. -pt is candidate for [employer] and biventricular pacemaker -pt wants to see Dr. Liriano to make decision; if pt refuses transfer to [place], will be discharged home on life vest. 2. Testicular swelling -Likely secondary to severe CHF -Urology consult - Drs. Dugan and Kirstie Gil - help appreciated 3. hx of HTN -clonidine 0.1 mg po daily -continue lisinopril 10mg PO daily -continue lopressor 25mg PO bid -continue spironolactone 25mg PO daily 4. hx of HLD -continue crestor 20mg PO HS 5. Pulmonary hypertension -treat underlying heart failure. -outpatient pulm follow/up - Dr. Alexi - help appreicated 6. Increased alk phos -likely secondary to severe congestive heart failure -AST and ALT normal -f/u GGT in AM -continue to monitor 7. GI/DVT ppx -heparin 5000 SC q12 -continue protonix 40mg PO daily All medical management per Dr. Ordonez. <Mark Ordonez - Last Filed: 02/09/17 15:48> Objective - Vital Signs/Intake and Output Vital Signs (last 24 hours): Temp Pulse Resp BP Pulse Ox 98.0 F 66 18 111/74 99 02/09/17 07:46 02/09/17 12:17 02/09/17 07:46 02/09/17 09:30 02/09/17 07:46 Intake and Output: 02/09/17 02/09/17 06:59 18:59 Intake Total 640 400 Balance 640 400 - Medications Medications: Current Medications Albuterol/Ipratropium (Duoneb 3 Mg/0.5 Mg (3 Ml) Ud) 3 ml INH RQ2 PRN PRN Reason: Shortness of Breath Aspirin (Aspirin Chewable) 81 mg PO DAILY [facility] Last Admin: 02/09/17 09:27 Dose: 81 mg Clonidine HCl (Catapres) 0.1 mg PO DAILY [facility] Last Admin: 02/09/17 09:27 Dose: 0.1 mg Furosemide (Lasix) 40 mg IVP BID [facility] Last Admin: 02/09/17 09:30 Dose: 40 mg Heparin Sodium (Porcine) (Heparin) 5,000 units SC Q12 [facility] Last Admin: 02/09/17 09:29 Dose: 5,000 units Lisinopril (Zestril) 10 mg PO DAILY [facility] Last Admin: 02/09/17 09:27 Dose: 10 mg Metoprolol Tartrate (Lopressor) 25 mg PO BID [facility] Last Admin: 02/09/17 09:28 Dose: 25 mg Pantoprazole Sodium (Protonix Ec Tab) 40 mg PO DAILY [facility] Last Admin: 02/09/17 09:28 Dose: 40 mg Rosuvastatin Calcium (Crestor) 20 mg PO HS [facility] Last Admin: 02/08/17 21:20 Dose: 20 mg Spironolactone (Aldactone) 25 mg PO DAILY [facility] Last Admin: 02/09/17 09:27 Dose: 25 mg - Labs Labs: 02/09/17 08:44 02/09/17 08:44 PT 18.0 SECONDS (9.7-12.2) H 02/03/17 16:50 INR 1.6 02/03/17 16:50 APTT 31 SECONDS (21-34) 02/03/17 16:50 Assessment and Plan (1) CHF exacerbation Status: Acute (2) Chronic congestive heart failure Status: Acute (3) Bandemia Status: Acute (4) Chest pain Status: Acute (5) Congestive heart failure Status: Acute (6) Hydrocele Status: Acute (7) Hydrocele, bilateral Status: Acute (8) Hypertension Status: Acute (9) Inguinal hernia Status: Acute (10) Pedal edema Status: Acute (11) Pneumonia Status: Acute (12) Prophylactic measure Status: Acute (13) Shortness of breath Status: Acute (14) Testicular cyst Status: Acute (15) UTI (urinary tract infection) Status: Acute (16) Upper respiratory infection Status: Acute Attending/Attestation - Attestation I have personally seen and examined this patient.: Yes I have fully participated in the care of the patient.: Yes I have reviewed all pertinent clinical information, including history, physical exam and plan: Yes Notes (Text): Patient examined. No acute complaints. Continue treatment for CHF exacerbation, testicular swelling, HTN, hyperlipidemia, pulmonary hypertension.
--- NOTE | 2017-02-09 23:19 | CP.PCM.PN ---
Subjective - Date & Time of Evaluation Date of Evaluation: 02/09/17 Time of Evaluation: 20:40 Objective - Vital Signs/Intake and Output Vital Signs (last 24 hours): Temp Pulse Resp BP Pulse Ox 98.2 F 81 20 139/81 99 02/09/17 15:08 02/09/17 21:00 02/09/17 15:08 02/09/17 21:03 02/09/17 15:08 Intake and Output: 02/09/17 02/10/17 18:59 06:59 Intake Total 400 Balance 400 - Medications Medications: Current Medications Albuterol/Ipratropium (Duoneb 3 Mg/0.5 Mg (3 Ml) Ud) 3 ml INH RQ2 PRN PRN Reason: Shortness of Breath Aspirin (Aspirin Chewable) 81 mg PO DAILY [facility] Last Admin: 02/09/17 09:27 Dose: 81 mg Clonidine HCl (Catapres) 0.1 mg PO DAILY [facility] Last Admin: 02/09/17 09:27 Dose: 0.1 mg Furosemide (Lasix) 40 mg IVP BID [facility] Last Admin: 02/09/17 17:33 Dose: 40 mg Heparin Sodium (Porcine) (Heparin) 5,000 units SC Q12 [facility] Last Admin: 02/09/17 21:03 Dose: 5,000 units Lisinopril (Zestril) 10 mg PO DAILY [facility] Last Admin: 02/09/17 09:27 Dose: 10 mg Metoprolol Tartrate (Lopressor) 25 mg PO BID [facility] Last Admin: 02/09/17 21:03 Dose: 25 mg Pantoprazole Sodium (Protonix Ec Tab) 40 mg PO DAILY [facility] Last Admin: 02/09/17 09:28 Dose: 40 mg Rosuvastatin Calcium (Crestor) 20 mg PO HS [facility] Last Admin: 02/09/17 21:02 Dose: 20 mg Spironolactone (Aldactone) 25 mg PO DAILY [facility] Last Admin: 02/09/17 09:27 Dose: 25 mg - Labs Labs: 02/09/17 08:44 02/09/17 08:44 PT 18.0 SECONDS (9.7-12.2) H 02/03/17 16:50 INR 1.6 02/03/17 16:50 APTT 31 SECONDS (21-34) 02/03/17 16:50
--- NOTE | 2017-02-10 07:32 | CP.PCM.PN ---
<DaltonVignesh - Last Filed: 02/10/17 07:46> Subjective - Date & Time of Evaluation Date of Evaluation: 02/10/17 Time of Evaluation: 07:31 - Subjective Subjective: Pt s/e bedside, states he is doing well and that his sob has improved. No further complaints at this time. Objective - Vital Signs/Intake and Output Vital Signs (last 24 hours): Temp Pulse Resp BP Pulse Ox 98.1 F 69 20 123/75 98 02/09/17 23:35 02/10/17 04:05 02/09/17 23:35 02/09/17 23:35 02/09/17 23:35 Intake and Output: 02/10/17 02/10/17 06:59 18:59 Output Total 250 Balance -250 - Medications Medications: Current Medications Albuterol/Ipratropium (Duoneb 3 Mg/0.5 Mg (3 Ml) Ud) 3 ml INH RQ2 PRN PRN Reason: Shortness of Breath Aspirin (Aspirin Chewable) 81 mg PO DAILY [facility] Last Admin: 02/09/17 09:27 Dose: 81 mg Clonidine HCl (Catapres) 0.1 mg PO DAILY [facility] Last Admin: 02/09/17 09:27 Dose: 0.1 mg Furosemide (Lasix) 40 mg IVP BID [facility] Last Admin: 02/09/17 17:33 Dose: 40 mg Heparin Sodium (Porcine) (Heparin) 5,000 units SC Q12 [facility] Last Admin: 02/09/17 21:03 Dose: 5,000 units Lisinopril (Zestril) 10 mg PO DAILY [facility] Last Admin: 02/09/17 09:27 Dose: 10 mg Metoprolol Tartrate (Lopressor) 25 mg PO BID [facility] Last Admin: 02/09/17 21:03 Dose: 25 mg Pantoprazole Sodium (Protonix Ec Tab) 40 mg PO DAILY [facility] Last Admin: 02/09/17 09:28 Dose: 40 mg Rosuvastatin Calcium (Crestor) 20 mg PO HS [facility] Last Admin: 02/09/17 21:02 Dose: 20 mg Spironolactone (Aldactone) 25 mg PO DAILY [facility] Last Admin: 02/09/17 09:27 Dose: 25 mg - Labs Labs: 02/09/17 08:44 02/09/17 08:44 PT 18.0 SECONDS (9.7-12.2) H 02/03/17 16:50 INR 1.6 02/03/17 16:50 APTT 31 SECONDS (21-34) 02/03/17 16:50 - Additional Findings Additional findings: Phys Exam: VS as below Const'l: a&o x 4, nad Head/Neck: neck supple, no jvd, trachea midline, carotid midline, no cervical /head mass Eyes: yasmeen, nonicteric sclera, eom intact ENT: auditory acuity grossly intact, throat not congested, no nasal deformity Cardio: rrr, no m/r/g, no carotid bruit, nml s1, s2 Pulm: + b/l rales in posterior bases - resolved; +mild anterior wheezes; no accessory muscle use, equal nml breath sounds bilaterally Abd: s/nt/nd, nbs x 4 q, no palpable masses Derm: no rashes, no ulcers, no lesions Extr: + 3+ pitting edema improved - now 2+; no cyanosis, no calf tenderness, no lesions, no varicosities Neuro: cn II-XII grossly intact, ue and le 5/5 muscle strength bilaterally, no los ue, le bilaterally and core Assessment and Plan - Assessment and Plan (Free Text) Assessment: A/P 61 M with PMHx pertinent for CHF, LVEF 30-35%, presents with sob. Suspected non -compliance with medications (lasix) and lifestyle modifications (salt intake). SOB likely 2/2 non-compliance with medications and salt overload - Improved - Continue to diurese with Lasix 40 bid, Aldactone 25. May adjust diuretic therapy if no improvement - Continue Metoprolol 25 mg bid - Continue Duonebs Q6H - Continue Duonebs Q2H PRN Dispo: [facility] at [place] held for now Thank you for this interesting consult. Vignesh Pichardo DO PGY-1 d/w Dr. Garcia <Julio Garcia - Last Filed: 02/12/17 16:48> Objective - Vital Signs/Intake and Output Vital Signs (last 24 hours): Temp Pulse Resp BP Pulse Ox 97.8 F 76 18 121/77 97 02/12/17 16:00 02/12/17 16:00 02/12/17 16:00 02/12/17 16:00 02/12/17 16:00 Intake and Output: 02/12/17 02/12/17 06:59 18:59 Intake Total 400 Output Total 500 Balance -500 400 - Medications Medications: Current Medications Albuterol/Ipratropium (Duoneb 3 Mg/0.5 Mg (3 Ml) Ud) 3 ml INH RQ2 PRN PRN Reason: Shortness of Breath Aspirin (Aspirin Chewable) 81 mg PO DAILY [facility] Last Admin: 02/12/17 10:00 Dose: 81 mg Clonidine HCl (Catapres) 0.1 mg PO DAILY [facility] Last Admin: 02/12/17 10:01 Dose: 0.1 mg Furosemide (Lasix) 40 mg IVP BID [facility] Last Admin: 02/12/17 10:01 Dose: 40 mg Heparin Sodium (Porcine) (Heparin) 5,000 units SC Q12 [facility] Last Admin: 02/12/17 10:00 Dose: 5,000 units Lisinopril (Zestril) 10 mg PO DAILY [facility] Last Admin: 02/12/17 10:00 Dose: 10 mg Metoprolol Tartrate (Lopressor) 25 mg PO BID [facility] Last Admin: 02/12/17 10:00 Dose: 25 mg Pantoprazole Sodium (Protonix Ec Tab) 40 mg PO DAILY [facility] Last Admin: 02/12/17 10:01 Dose: 40 mg Rosuvastatin Calcium (Crestor) 20 mg PO HS [facility] Last Admin: 02/11/17 22:24 Dose: 20 mg Spironolactone (Aldactone) 25 mg PO DAILY [facility] Last Admin: 02/12/17 10:00 Dose: 25 mg - Labs Labs: 02/11/17 07:11 02/11/17 07:11 PT 13.2 SECONDS (9.7-12.2) H 02/10/17 22:14 INR 1.2 02/10/17 22:14 APTT 31 SECONDS (21-34) 02/03/17 16:50 Attending/Attestation - Attestation I have personally seen and examined this patient.: Yes I have fully participated in the care of the patient.: Yes I have reviewed all pertinent clinical information, including history, physical exam and plan: Yes
[2017-02-10 08:32] LABS: BASO % 0.8 % (0.0-2.0); EOS # 0.2 K/uL (0.0-0.7); EOS % 5.9 % (0.0-4.0); HEMATOCRIT 37.8 % (35.0-51.0); LYMPH # 1.2 K/uL (1.0-4.3); LYMPH % 30.9 % (20.0-40.0); MEAN CELL VOLUME 91.9 fL (80.0-94.0); MEAN CORPUSCULAR HEMOGLOBIN 30.2 pg (27.0-31.0); MEAN CORPUSCULAR HGB CONC 32.9 g/dL (33.0-37.0); MEAN PLATELET VOLUME 7.6 fL (7.2-11.7); MONO # 0.4 K/uL (0.0-0.8); MONO % 11.2 % (0.0-10.0); NRBC % 0.1 % (0.0-2.0); RED CELL DISTRIBUTION WIDTH 15.7 % (11.5-14.5); WHITE BLOOD COUNT 3.7 K/uL (4.8-10.8)
[2017-02-10 08:42] LABS: POTASSIUM 4.4 mmol/L (3.6-5.2)
[2017-02-10 08:44] LABS: ALB/GLOB RATIO 1.3 (1.0-2.1); BILIRUBIN,TOTAL 0.8 mg/dL (0.2-1.3); TOTAL PROTEIN 6.3 g/dL (6.3-8.3)
[2017-02-10 08:45] LABS: CALCIUM 8.6 mg/dl (8.6-10.4)
--- NOTE | 2017-02-10 09:29 | CP.PCM.PN ---
<Chiara Hampton - Last Filed: 02/10/17 09:26> Subjective - Date & Time of Evaluation Date of Evaluation: 02/10/17 Time of Evaluation: 08:05 - Subjective Subjective: PGY3 Medicine Note - Dr. Marge Ordonez's service: Patient seen and examined at bedside this AM. Patient reports breathing improving. Patient reports testicular swelling improving. Patient talked to Dr. Liriano last night and has decided to go to [place] to get the biventricular pacemaker. Patient denies fevers, chills, chest pain, SOB, abdominal pain, nausea, vomiting. Objective - Vital Signs/Intake and Output Vital Signs (last 24 hours): Temp Pulse Resp BP Pulse Ox 98.2 F 65 17 123/81 100 02/10/17 07:20 02/10/17 07:20 02/10/17 07:20 02/10/17 07:20 02/10/17 07:20 Intake and Output: 02/10/17 02/10/17 06:59 18:59 Output Total 250 Balance -250 - Medications Medications: Current Medications Albuterol/Ipratropium (Duoneb 3 Mg/0.5 Mg (3 Ml) Ud) 3 ml INH RQ2 PRN PRN Reason: Shortness of Breath Aspirin (Aspirin Chewable) 81 mg PO DAILY [facility] Last Admin: 02/09/17 09:27 Dose: 81 mg Clonidine HCl (Catapres) 0.1 mg PO DAILY [facility] Last Admin: 02/09/17 09:27 Dose: 0.1 mg Furosemide (Lasix) 40 mg IVP BID [facility] Last Admin: 02/09/17 17:33 Dose: 40 mg Heparin Sodium (Porcine) (Heparin) 5,000 units SC Q12 [facility] Last Admin: 02/09/17 21:03 Dose: 5,000 units Lisinopril (Zestril) 10 mg PO DAILY [facility] Last Admin: 02/09/17 09:27 Dose: 10 mg Metoprolol Tartrate (Lopressor) 25 mg PO BID [facility] Last Admin: 02/09/17 21:03 Dose: 25 mg Pantoprazole Sodium (Protonix Ec Tab) 40 mg PO DAILY [facility] Last Admin: 02/09/17 09:28 Dose: 40 mg Rosuvastatin Calcium (Crestor) 20 mg PO HS [facility] Last Admin: 02/09/17 21:02 Dose: 20 mg Spironolactone (Aldactone) 25 mg PO DAILY [facility] Last Admin: 02/09/17 09:27 Dose: 25 mg - Labs Labs: 02/10/17 08:19 02/10/17 08:19 PT 18.0 SECONDS (9.7-12.2) H 02/03/17 16:50 INR 1.6 02/03/17 16:50 APTT 31 SECONDS (21-34) 02/03/17 16:50 - Constitutional Appears: Non-toxic, No Acute Distress - Head Exam Head Exam: NORMAL INSPECTION - Eye Exam Eye Exam: EOMI - Respiratory Exam Respiratory Exam: Rales, NORMAL BREATHING PATTERN. absent: Rhonchi, Wheezes - Cardiovascular Exam Cardiovascular Exam: REGULAR RHYTHM, JVD, +S1, +S2. absent: Gallop, Rubs - GI/Abdominal Exam GI & Abdominal Exam: Soft, Normal Bowel Sounds. absent: Tenderness - Extremities Exam Extremities Exam: Pedal Edema - Neurological Exam Neurological Exam: Alert, Awake, Oriented x3 - Psychiatric Exam Psychiatric exam: Normal Affect, Normal Mood - Skin Skin Exam: Normal Color, Warm Assessment and Plan - Assessment and Plan (Free Text) Assessment: 1. CHF exacerbation -cardio consult. recs appreciated. -continue duonebs -asa 81 mg PO daily -will repeat echo>>> severe systolic dysfunction and severe pulmonary hypertension; LVEF 13.8 -recent cath and stress test -continue lasix 40 IVP bid -continue spironolactone 25mg PO daily -pulm consult. - Dr. Truong - recs appreciated. -pt is candidate for [employer] and biventricular pacemaker -Patient will be transferred to [facility] today for biventricular pacemaker placement. He will return to [facility] 02/11/17. 2. Testicular swelling -Likely secondary to severe CHF -Urology consult - Drs. Dugan and Kirstie Gil - help appreciated 3. hx of HTN -clonidine 0.1 mg po daily -continue lisinopril 10mg PO daily -continue lopressor 25mg PO bid -continue spironolactone 25mg PO daily 4. hx of HLD -continue crestor 20mg PO HS 5. Pulmonary hypertension -treat underlying heart failure. -outpatient pulm follow/up - Dr. Truong - help appreicated 6. Increased alk phos -likely secondary to severe congestive heart failure -AST and ALT normal -f/u GGT in AM -continue to monitor 7. GI/DVT ppx -heparin 5000 SC q12 -continue protonix 40mg PO daily All medical management per Dr. Ordonez. <Mark Ordonez - Last Filed: 02/15/17 16:08> Objective - Vital Signs/Intake and Output Vital Signs (last 24 hours): Temp Pulse Resp BP Pulse Ox 97.8 F 76 18 121/77 97 02/12/17 16:00 02/12/17 16:00 02/12/17 16:00 02/12/17 17:12 02/12/17 16:00 - Labs Labs: 02/11/17 07:11 02/11/17 07:11 PT 13.2 SECONDS (9.7-12.2) H 02/10/17 22:14 INR 1.2 02/10/17 22:14 APTT 31 SECONDS (21-34) 02/03/17 16:50 Assessment and Plan (1) CHF exacerbation Status: Acute (2) Chronic congestive heart failure Status: Acute (3) Bandemia Status: Acute (4) Chest pain Status: Acute (5) Congestive heart failure Status: Acute (6) Hydrocele Status: Acute (7) Hydrocele, bilateral Status: Acute (8) Hypertension Status: Acute (9) Inguinal hernia Status: Acute (10) Pedal edema Status: Acute (11) Pneumonia Status: Acute (12) Prophylactic measure Status: Acute (13) Shortness of breath Status: Acute (14) Testicular cyst Status: Acute (15) UTI (urinary tract infection) Status: Acute (16) Upper respiratory infection Status: Acute Attending/Attestation - Attestation I have personally seen and examined this patient.: Yes I have fully participated in the care of the patient.: Yes I have reviewed all pertinent clinical information, including history, physical exam and plan: Yes Notes (Text): Patient examined. Patient clinically better. Breathing improving. Continue diuretic furosemide and Spironolactone. Continue supportive care.
[2017-02-10] MEDS: Pantoprazole 40 mg EC Tab PO SCH (09:43)
--- NOTE | 2017-02-10 13:25 | CP.PCM.CON ---
History of Present Illness - History of Present Illness History of Present Illness: CARDIOLOGY EVAL CHART EXAMINED AND PT INTERVIEWED D/W PT HIS CARDIAC CONDITION PT HAS AGREED TO GO FOR [facility]. PACEMAKER WITH DEFIBRILLATOR PT WILL RETURN TO FOR TESTICULAR SURGERY DR. LINDER Past Patient History - Infectious Disease Hx of Infectious Diseases: None - Past Medical History & Family History Past Medical History?: Yes - Past Social History Smoking Status: Never Smoked - CARDIAC Hx Congestive Heart Failure: Yes Hx Hypertension: Yes - PULMONARY Hx Asthma: Yes Hx Chronic Obstructive Pulmonary Disease (COPD): Yes - NEUROLOGICAL HX Cerebrovascular Accident: Yes (2004) - HEENT Hx HEENT Problems: No - RENAL Hx Chronic Kidney Disease: No - ENDOCRINE/METABOLIC Hx Endocrine Disorders: No - HEMATOLOGICAL/ONCOLOGICAL Hx Blood Transfusions: No - INTEGUMENTARY Hx Dermatological Problems: No - MUSCULOSKELETAL/RHEUMATOLOGICAL Hx Falls: No - GASTROINTESTINAL Hx Gastrointestinal Disorders: No - GENITOURINARY/GYNECOLOGICAL Hx Genitourinary Disorders: No - PSYCHIATRIC Hx Substance Use: No - SURGICAL HISTORY Hx Surgeries: No - ANESTHESIA Hx Anesthesia: No Hx Anesthesia Reactions: No Hx Malignant Hyperthermia: No Meds Allergies/Adverse Reactions: Allergies Allergy/AdvReac Type Severity Reaction Status Date / Time No Known Allergies Allergy Verified 12/27/16 18:03 - Medications Medications: Current Medications Albuterol/Ipratropium (Duoneb 3 Mg/0.5 Mg (3 Ml) Ud) 3 ml INH RQ2 PRN PRN Reason: Shortness of Breath Aspirin (Aspirin Chewable) 81 mg PO DAILY [facility] Last Admin: 02/10/17 09:42 Dose: 81 mg Clonidine HCl (Catapres) 0.1 mg PO DAILY [facility] Last Admin: 02/10/17 09:43 Dose: 0.1 mg Furosemide (Lasix) 40 mg IVP BID [facility] Last Admin: 02/10/17 09:46 Dose: 40 mg Heparin Sodium (Porcine) (Heparin) 5,000 units SC Q12 [facility] Last Admin: 02/10/17 09:47 Dose: 5,000 units Lisinopril (Zestril) 10 mg PO DAILY [facility] Last Admin: 02/10/17 09:42 Dose: 10 mg Metoprolol Tartrate (Lopressor) 25 mg PO BID [facility] Last Admin: 02/10/17 09:43 Dose: 25 mg Pantoprazole Sodium (Protonix Ec Tab) 40 mg PO DAILY [facility] Last Admin: 02/10/17 09:43 Dose: 40 mg Rosuvastatin Calcium (Crestor) 20 mg PO HS [facility] Last Admin: 02/09/17 21:02 Dose: 20 mg Spironolactone (Aldactone) 25 mg PO DAILY [facility] Last Admin: 02/10/17 09:43 Dose: 25 mg Results - Vital Signs Recent Vital Signs: Last Vital Signs Temp 98.2 F 02/10/17 07:20 Pulse 65 02/10/17 07:20 Resp 17 02/10/17 07:20 BP 123/81 02/10/17 09:46 Pulse Ox 100 02/10/17 07:20 - Labs Result Diagrams: 02/10/17 08:19 02/10/17 08:19 Labs: Laboratory Results - last 24 hr 02/10/17 02/10/17 08:19 08:19 WBC 3.7 L RBC 4.11 L Hgb 12.4 Hct 37.8 MCV 91.9 MCH 30.2 MCHC 32.9 L RDW 15.7 H Plt Count 228 MPV 7.6 Neut % (Auto) 51.2 Lymph % (Auto) 30.9 Carver % (Auto) 11.2 H Eos % (Auto) 5.9 H Baso % (Auto) 0.8 Neut # 1.9 Lymph # 1.2 Carver # 0.4 Eos # 0.2 Baso # 0.0 Sodium 135 Potassium 4.4 Chloride 96 L Carbon Dioxide 34 H Anion Gap 9 L BUN 30 H Creatinine 1.7 H Est GFR ( Amer) 50 Est GFR (Non-Af Amer) 41 Random Glucose 82 Calcium 8.6 Total Bilirubin 0.8 GGT 409 H AST 40 ALT 44 Alkaline Phosphatase 138 H Total Protein 6.3 Albumin 3.6 Globulin 2.7 Albumin/Globulin Ratio 1.3
--- NOTE | 2017-02-10 20:10 | CP.PCM.PN ---
Subjective - Date & Time of Evaluation Date of Evaluation: 02/10/17 Time of Evaluation: 10:00 - Subjective Subjective: clinically same Objective - Vital Signs/Intake and Output Vital Signs (last 24 hours): Temp Pulse Resp BP Pulse Ox 98.0 F 65 20 101/65 99 02/10/17 15:07 02/10/17 15:07 02/10/17 15:07 02/10/17 19:57 02/10/17 15:07 - Medications Medications: Current Medications Albuterol/Ipratropium (Duoneb 3 Mg/0.5 Mg (3 Ml) Ud) 3 ml INH RQ2 PRN PRN Reason: Shortness of Breath Aspirin (Aspirin Chewable) 81 mg PO DAILY [facility] Last Admin: 02/10/17 09:42 Dose: 81 mg Clonidine HCl (Catapres) 0.1 mg PO DAILY [facility] Last Admin: 02/10/17 09:43 Dose: 0.1 mg Furosemide (Lasix) 40 mg IVP BID [facility] Last Admin: 02/10/17 17:40 Dose: 40 mg Heparin Sodium (Porcine) (Heparin) 5,000 units SC Q12 [facility] Last Admin: 02/10/17 09:47 Dose: 5,000 units Lisinopril (Zestril) 10 mg PO DAILY [facility] Last Admin: 02/10/17 09:42 Dose: 10 mg Metoprolol Tartrate (Lopressor) 25 mg PO BID [facility] Last Admin: 02/10/17 19:57 Dose: 25 mg Pantoprazole Sodium (Protonix Ec Tab) 40 mg PO DAILY [facility] Last Admin: 02/10/17 09:43 Dose: 40 mg Rosuvastatin Calcium (Crestor) 20 mg PO HS [facility] Last Admin: 02/09/17 21:02 Dose: 20 mg Spironolactone (Aldactone) 25 mg PO DAILY [facility] Last Admin: 02/10/17 09:43 Dose: 25 mg - Labs Labs: 02/10/17 08:19 02/10/17 08:19 PT 18.0 SECONDS (9.7-12.2) H 02/03/17 16:50 INR 1.6 02/03/17 16:50 APTT 31 SECONDS (21-34) 02/03/17 16:50 - Constitutional Appears: Well - Head Exam Head Exam: ATRAUMATIC, NORMAL INSPECTION, NORMOCEPHALIC - Eye Exam Eye Exam: EOMI, Normal appearance, PERRL Pupil Exam: NORMAL ACCOMODATION, PERRL - ENT Exam ENT Exam: Mucous Membranes Moist, Normal Exam - Neck Exam Neck Exam: Full ROM, Normal Inspection. absent: Lymphadenopathy - Respiratory Exam Respiratory Exam: Decreased Breath Sounds - Cardiovascular Exam Cardiovascular Exam: REGULAR RHYTHM, +S1, +S2 - GI/Abdominal Exam GI & Abdominal Exam: Soft, Diminished Bowel Sounds - Rectal Exam Rectal Exam: Deferred Assessment and Plan (1) CHF exacerbation Status: Acute (2) Chronic congestive heart failure Status: Acute (3) Bandemia Status: Acute (4) Chest pain Status: Acute (5) Congestive heart failure Status: Acute (6) Hydrocele Status: Acute (7) Hydrocele, bilateral Status: Acute (8) Hypertension Status: Acute (9) Inguinal hernia Status: Acute (10) Pedal edema Status: Acute (11) Pneumonia Status: Acute (12) Prophylactic measure Status: Acute (13) Shortness of breath Status: Acute (14) Testicular cyst Status: Acute (15) UTI (urinary tract infection) Status: Acute (16) Upper respiratory infection Status: Acute - Assessment and Plan (Free Text) Plan: Patient examined. Patient clinically better. Continue furosemide and spironolactone. Continue aspirin. Continue supportive care.
[2017-02-10 22:39] LABS: INR 1.2
--- NOTE | 2017-02-10 23:28 | CP.PCM.PN ---
Subjective - Date & Time of Evaluation Date of Evaluation: 02/10/17 Time of Evaluation: 10:30 - Subjective Subjective: Patient seen and evaluated Now with improved breathing Continue current meds Transfer to [facility] for BiVICD tomorrow Objective - Vital Signs/Intake and Output Vital Signs (last 24 hours): Temp Pulse Resp BP Pulse Ox 98.0 F 65 20 101/65 99 02/10/17 15:07 02/10/17 15:07 02/10/17 15:07 02/10/17 19:57 02/10/17 15:07 - Medications Medications: Current Medications Albuterol/Ipratropium (Duoneb 3 Mg/0.5 Mg (3 Ml) Ud) 3 ml INH RQ2 PRN PRN Reason: Shortness of Breath Aspirin (Aspirin Chewable) 81 mg PO DAILY [facility] Last Admin: 02/10/17 09:42 Dose: 81 mg Clonidine HCl (Catapres) 0.1 mg PO DAILY [facility] Last Admin: 02/10/17 09:43 Dose: 0.1 mg Furosemide (Lasix) 40 mg IVP BID [facility] Last Admin: 02/10/17 17:40 Dose: 40 mg Heparin Sodium (Porcine) (Heparin) 5,000 units SC Q12 [facility] Last Admin: 02/10/17 21:21 Dose: 5,000 units Lisinopril (Zestril) 10 mg PO DAILY [facility] Last Admin: 02/10/17 09:42 Dose: 10 mg Metoprolol Tartrate (Lopressor) 25 mg PO BID [facility] Last Admin: 02/10/17 19:57 Dose: 25 mg Pantoprazole Sodium (Protonix Ec Tab) 40 mg PO DAILY [facility] Last Admin: 02/10/17 09:43 Dose: 40 mg Rosuvastatin Calcium (Crestor) 20 mg PO HS [facility] Last Admin: 02/10/17 21:50 Dose: 20 mg Spironolactone (Aldactone) 25 mg PO DAILY [facility] Last Admin: 02/10/17 09:43 Dose: 25 mg - Labs Labs: 02/10/17 08:19 02/10/17 08:19 PT 13.2 SECONDS (9.7-12.2) H 02/10/17 22:14 INR 1.2 02/10/17 22:14 APTT 31 SECONDS (21-34) 02/03/17 16:50
--- NOTE | 2017-02-11 07:24 | CP.PCM.PN ---
Subjective - Date & Time of Evaluation Date of Evaluation: 02/11/17 Time of Evaluation: 07:23 - Subjective Subjective: Cardiology progress note for Dr. Jose Pichardo DO, PGY-1, Pt s/e bedside, states he is doing well and that his sob has improved. No further complaints at this time. Objective - Vital Signs/Intake and Output Vital Signs (last 24 hours): Temp Pulse Resp BP Pulse Ox 98.0 F 72 20 114/81 96 02/11/17 02:43 02/11/17 02:43 02/11/17 02:43 02/11/17 02:43 02/11/17 02:43 - Medications Medications: Current Medications Albuterol/Ipratropium (Duoneb 3 Mg/0.5 Mg (3 Ml) Ud) 3 ml INH RQ2 PRN PRN Reason: Shortness of Breath Aspirin (Aspirin Chewable) 81 mg PO DAILY [facility] Last Admin: 02/10/17 09:42 Dose: 81 mg Clonidine HCl (Catapres) 0.1 mg PO DAILY [facility] Last Admin: 02/10/17 09:43 Dose: 0.1 mg Furosemide (Lasix) 40 mg IVP BID [facility] Last Admin: 02/10/17 17:40 Dose: 40 mg Heparin Sodium (Porcine) (Heparin) 5,000 units SC Q12 [facility] Last Admin: 02/10/17 21:21 Dose: 5,000 units Lisinopril (Zestril) 10 mg PO DAILY [facility] Last Admin: 02/10/17 09:42 Dose: 10 mg Metoprolol Tartrate (Lopressor) 25 mg PO BID [facility] Last Admin: 02/10/17 19:57 Dose: 25 mg Pantoprazole Sodium (Protonix Ec Tab) 40 mg PO DAILY [facility] Last Admin: 02/10/17 09:43 Dose: 40 mg Rosuvastatin Calcium (Crestor) 20 mg PO HS [facility] Last Admin: 02/10/17 21:50 Dose: 20 mg Spironolactone (Aldactone) 25 mg PO DAILY [facility] Last Admin: 02/10/17 09:43 Dose: 25 mg - Labs Labs: 02/10/17 08:19 02/10/17 08:19 PT 13.2 SECONDS (9.7-12.2) H 11/08/17 22:14 INR 1.2 02/10/17 22:14 APTT 31 SECONDS (21-34) 02/03/17 16:50 - Additional Findings Additional findings: Phys Exam: VS as below Const'l: a&o x 4, nad Head/Neck: neck supple, no jvd, trachea midline, carotid midline, no cervical /head mass Eyes: yasmeen, nonicteric sclera, eom intact ENT: auditory acuity grossly intact, throat not congested, no nasal deformity Cardio: rrr, no m/r/g, no carotid bruit, nml s1, s2 Pulm: + b/l rales in posterior bases - resolved; +mild anterior wheezes; no accessory muscle use, equal nml breath sounds bilaterally Abd: s/nt/nd, nbs x 4 q, no palpable masses Derm: no rashes, no ulcers, no lesions Extr: + 3+ pitting edema improved - now 2+; no cyanosis, no calf tenderness, no lesions, no varicosities Neuro: cn II-XII grossly intact, ue and le 5/5 muscle strength bilaterally, no los ue, le bilaterally and core Assessment and Plan - Assessment and Plan (Free Text) Assessment: A/P 61 M with PMHx pertinent for CHF, LVEF 30-35%, presents with sob. Suspected non -compliance with medications (lasix) and lifestyle modifications (salt intake). SOB likely 2/2 non-compliance with medications and salt overload - Improved - Continue to diurese with Lasix 40 bid, Aldactone 25. May adjust diuretic therapy if no improvement - Continue Metoprolol 25 mg bid - Continue Duonebs Q6H - Continue Duonebs Q2H PRN Dispo: Per Dr. Liriano - Dori agreed to by pt. Thank you for this interesting consult. Vignesh Pichardo DO PGY-1 d/w Dr. Garcia
[2017-02-11 07:29] LABS: BASO % 0.5 % (0.0-2.0); EOS # 0.2 K/uL (0.0-0.7); EOS % 5.7 % (0.0-4.0); HEMATOCRIT 39.3 % (35.0-51.0); LYMPH # 1.4 K/uL (1.0-4.3); LYMPH % 31.6 % (20.0-40.0); MEAN CELL VOLUME 91.6 fL (80.0-94.0); MEAN CORPUSCULAR HEMOGLOBIN 30.3 pg (27.0-31.0); MEAN CORPUSCULAR HGB CONC 33.1 g/dL (33.0-37.0); MEAN PLATELET VOLUME 7.7 fL (7.2-11.7); MONO # 0.4 K/uL (0.0-0.8); MONO % 10.1 % (0.0-10.0); NRBC % 0.1 % (0.0-2.0); RED CELL DISTRIBUTION WIDTH 15.3 % (11.5-14.5); WHITE BLOOD COUNT 4.3 K/uL (4.8-10.8)
[2017-02-11 07:33] LABS: POTASSIUM 4.3 mmol/L (3.6-5.2)
[2017-02-11 07:35] LABS: BILIRUBIN,TOTAL 0.7 mg/dL (0.2-1.3)
[2017-02-11 07:36] LABS: ALB/GLOB RATIO 1.3 (1.0-2.1); CALCIUM 8.6 mg/dl (8.6-10.4); TOTAL PROTEIN 6.5 g/dL (6.3-8.3)
[2017-02-11] MEDS: Pantoprazole 40 mg EC Tab PO SCH (09:22)
--- NOTE | 2017-02-11 16:48 | CP.PCM.PN ---
<Ton Jiang - Last Filed: 02/11/17 16:50> Subjective - Date & Time of Evaluation Date of Evaluation: 02/11/17 Time of Evaluation: 16:45 - Subjective Subjective: Progress note. Attending: Dr. Ordonez. Pt seen and examined at bedside. No acute distress. No events overnight. No fevers, chills, vomiting, diarrhea. Plan to transfer to [place] today. Objective - Vital Signs/Intake and Output Vital Signs (last 24 hours): Temp Pulse Resp BP Pulse Ox 98.2 F 68 18 102/69 96 02/11/17 10:20 02/11/17 10:20 02/11/17 10:20 02/11/17 10:20 02/11/17 10:20 Intake and Output: 02/11/17 02/11/17 06:59 18:59 Intake Total 200 Balance 200 - Labs Labs: 02/11/17 07:11 02/11/17 07:11 PT 13.2 SECONDS (9.7-12.2) H 02/10/17 22:14 INR 1.2 02/10/17 22:14 APTT 31 SECONDS (21-34) 02/03/17 16:50 - Constitutional Appears: Non-toxic, No Acute Distress - Head Exam Head Exam: ATRAUMATIC, NORMAL INSPECTION, NORMOCEPHALIC - Eye Exam Eye Exam: EOMI - ENT Exam ENT Exam: Mucous Membranes Moist - Neck Exam Neck Exam: Full ROM, Normal Inspection - Respiratory Exam Respiratory Exam: Rales. absent: Respiratory Distress - Cardiovascular Exam Cardiovascular Exam: +S1, +S2 - GI/Abdominal Exam GI & Abdominal Exam: Soft, Normal Bowel Sounds. absent: Tenderness - Extremities Exam Extremities Exam: Full ROM, Normal Inspection - Neurological Exam Neurological Exam: Alert, Awake, Oriented x3 - Psychiatric Exam Psychiatric exam: Normal Affect, Normal Mood - Skin Skin Exam: Dry, Intact, Normal Color, Warm Assessment and Plan - Assessment and Plan (Free Text) Assessment: This is a 61 yo male with 1. CHF exacerbation -cardio consult. Dr. Gan. recs appreciated. -continue duonebs -asa 81 mg PO daily -will repeat echo>>> severe systolic dysfunction and severe pulmonary hypertension; LVEF 13.8 -recent cath and stress test -continue lasix 40 IVP bid -continue spironolactone 25mg PO daily -pulm consult. - Dr. Alexi pryor appreciated. -pt is candidate for [employer] and biventricular pacemaker -Patient will be transferred to [facility] today for biventricular pacemaker placement 2. Testicular swelling -Likely secondary to severe CHF -Urology consult - Drs. Dugan and Kirstie pryor appreciated -possible intervention after pt goes to [place] 3. hx of HTN -clonidine 0.1 mg po daily -continue lisinopril 10mg PO daily -continue lopressor 25mg PO bid -continue spironolactone 25mg PO daily 4. hx of HLD -continue crestor 20mg PO HS 5. Pulmonary hypertension -treat underlying heart failure. -outpatient pulm follow/up - Dr. Alexi pryor appreciated. 6. Increased alk phos -likely secondary to severe congestive heart failure -AST and ALT normal -GGT elevated. -continue to monitor 7. GI/DVT ppx -heparin 5000 SC q12 -continue protonix 40mg PO daily All medical management per Dr. Ordonez. <Mark Ordonez S - Last Filed: 02/15/17 16:10> Objective - Vital Signs/Intake and Output Vital Signs (last 24 hours): Temp Pulse Resp BP Pulse Ox 97.8 F 76 18 121/77 97 02/12/17 16:00 02/12/17 16:00 02/12/17 16:00 02/12/17 17:12 02/12/17 16:00 - Labs Labs: 02/11/17 07:11 02/11/17 07:11 PT 13.2 SECONDS (9.7-12.2) H 02/10/17 22:14 INR 1.2 02/10/17 22:14 APTT 31 SECONDS (21-34) 02/03/17 16:50 Assessment and Plan (1) CHF exacerbation Status: Acute (2) Chronic congestive heart failure Status: Acute (3) Bandemia Status: Acute (4) Chest pain Status: Acute (5) Congestive heart failure Status: Acute (6) Hydrocele Status: Acute (7) Hydrocele, bilateral Status: Acute (8) Hypertension Status: Acute (9) Inguinal hernia Status: Acute (10) Pedal edema Status: Acute (11) Pneumonia Status: Acute (12) Prophylactic measure Status: Acute (13) Shortness of breath Status: Acute (14) Testicular cyst Status: Acute (15) UTI (urinary tract infection) Status: Acute (16) Upper respiratory infection Status: Acute Attending/Attestation - Attestation I have personally seen and examined this patient.: Yes I have fully participated in the care of the patient.: Yes I have reviewed all pertinent clinical information, including history, physical exam and plan: Yes Notes (Text): Patient examined. Patient better. Plan to transfer to [place] today. Continue all medications.
--- NOTE | 2017-02-12 00:09 | CP.PCM.PN ---
Subjective - Date & Time of Evaluation Date of Evaluation: 02/11/17 Time of Evaluation: 07:35 - Subjective Subjective: Patient will be transferred to [place] for ICD today Patient seen and evaluated Comfortable Objective - Vital Signs/Intake and Output Vital Signs (last 24 hours): Temp Pulse Resp BP Pulse Ox 98.7 F 73 18 119/77 100 02/11/17 19:00 02/11/17 19:00 02/11/17 19:00 02/11/17 22:25 02/11/17 19:00 Intake and Output: 02/11/17 02/12/17 18:59 06:59 Intake Total 200 Balance 200 - Medications Medications: Current Medications Albuterol/Ipratropium (Duoneb 3 Mg/0.5 Mg (3 Ml) Ud) 3 ml INH RQ2 PRN PRN Reason: Shortness of Breath Aspirin (Aspirin Chewable) 81 mg PO DAILY [facility] Last Admin: 02/11/17 09:19 Dose: Not Given Clonidine HCl (Catapres) 0.1 mg PO DAILY [facility] Last Admin: 02/11/17 09:23 Dose: 0.1 mg Furosemide (Lasix) 40 mg IVP BID [facility] Last Admin: 02/11/17 22:25 Dose: 40 mg Heparin Sodium (Porcine) (Heparin) 5,000 units SC Q12 [facility] Last Admin: 02/11/17 22:28 Dose: 5,000 units Lisinopril (Zestril) 10 mg PO DAILY [facility] Last Admin: 02/11/17 09:23 Dose: 10 mg Metoprolol Tartrate (Lopressor) 25 mg PO BID [facility] Last Admin: 02/11/17 22:25 Dose: 25 mg Pantoprazole Sodium (Protonix Ec Tab) 40 mg PO DAILY [facility] Last Admin: 02/11/17 09:22 Dose: 40 mg Rosuvastatin Calcium (Crestor) 20 mg PO HS [facility] Last Admin: 02/11/17 22:24 Dose: 20 mg Spironolactone (Aldactone) 25 mg PO DAILY [facility] Last Admin: 02/11/17 09:22 Dose: 25 mg - Labs Labs: 02/11/17 07:11 02/11/17 07:11 PT 13.2 SECONDS (9.7-12.2) H 02/10/17 22:14 INR 1.2 02/10/17 22:14 APTT 31 SECONDS (21-34) 02/03/17 16:50
[2017-02-12 08:07] VITALS: RESP 18
--- NOTE | 2017-02-12 08:20 | CP.PCM.PN ---
Subjective - Date & Time of Evaluation Date of Evaluation: 02/12/17 Time of Evaluation: :17 - Subjective Subjective: Pt s/e bedside. Pt had his ICD placed yesterday. States he is feeling fine, but there is some 'tightness' around the implantation site. Pt states his sob is much improved, but still present. No further complaints. Objective - Vital Signs/Intake and Output Vital Signs (last 24 hours): Temp Pulse Resp BP Pulse Ox 98.3 F 84 18 114/76 100 02/12/17 08:06 02/12/17 08:06 02/12/17 08:06 02/12/17 08:06 02/12/17 08:06 Intake and Output: 02/12/17 02/12/17 06:59 18:59 Output Total 500 Balance -500 - Medications Medications: Current Medications Albuterol/Ipratropium (Duoneb 3 Mg/0.5 Mg (3 Ml) Ud) 3 ml INH RQ2 PRN PRN Reason: Shortness of Breath Aspirin (Aspirin Chewable) 81 mg PO DAILY [facility] Last Admin: 02/11/17 09:19 Dose: Not Given Clonidine HCl (Catapres) 0.1 mg PO DAILY [facility] Last Admin: 02/11/17 09:23 Dose: 0.1 mg Furosemide (Lasix) 40 mg IVP BID [facility] Last Admin: 02/11/17 22:25 Dose: 40 mg Heparin Sodium (Porcine) (Heparin) 5,000 units SC Q12 [facility] Last Admin: 02/11/17 22:28 Dose: 5,000 units Lisinopril (Zestril) 10 mg PO DAILY [facility] Last Admin: 02/11/17 09:23 Dose: 10 mg Metoprolol Tartrate (Lopressor) 25 mg PO BID [facility] Last Admin: 02/11/17 22:25 Dose: 25 mg Pantoprazole Sodium (Protonix Ec Tab) 40 mg PO DAILY [facility] Last Admin: 02/11/17 09:22 Dose: 40 mg Rosuvastatin Calcium (Crestor) 20 mg PO HS [facility] Last Admin: 02/11/17 22:24 Dose: 20 mg Spironolactone (Aldactone) 25 mg PO DAILY [facility] Last Admin: 02/11/17 09:22 Dose: 25 mg - Labs Labs: 02/11/17 07:11 11/09/17 07:11 PT 13.2 SECONDS (9.7-12.2) H 02/10/17 22:14 INR 1.2 02/10/17 22:14 APTT 31 SECONDS (21-34) 02/03/17 16:50 - Additional Findings Additional findings: Phys Exam: VS as below Const'l: a&o x 4, nad Head/Neck: neck supple, no jvd, trachea midline, carotid midline, no cervical /head mass Eyes: yasmeen, nonicteric sclera, eom intact ENT: auditory acuity grossly intact, throat not congested, no nasal deformity Cardio: rrr, no m/r/g, no carotid bruit, nml s1, s2 Pulm: +mild anterior wheezes; no accessory muscle use, equal nml breath sounds bilaterally Abd: s/nt/nd, nbs x 4 q, no palpable masses Derm: no rashes, no ulcers, no lesions Extr: + 3+ pitting edema improved - now 1+; no cyanosis, no calf tenderness, no lesions, no varicosities Neuro: cn II-XII grossly intact, ue and le 5/5 muscle strength bilaterally, no los ue, le bilaterally and core Assessment and Plan - Assessment and Plan (Free Text) Assessment: A/P 61 M with PMHx pertinent for CHF, LVEF 30-35%, presents with sob. Suspected non -compliance with medications (lasix) and lifestyle modifications (salt intake). SOB likely 2/2 non-compliance with medications and salt overload - Improved - Continue to diurese with Lasix 40 bid, Aldactone 25. May adjust diuretic therapy if no improvement - Continue Metoprolol 25 mg bid - Continue Duonebs Q6H - Continue Duonebs Q2H PRN ICD Management - Per Dr. Liriano and Dr. Gan Dispo: Per Dr. Liriano - BiVICD agreed to by pt, pt had ICD placed yesterday Thank you for this interesting consult. Vignesh Pichardo DO PGY-1 d/w Dr. Garcia
[2017-02-12] MEDS: Pantoprazole 40 mg EC Tab PO SCH (10:01)
--- NOTE | 2017-02-12 11:31 | CP.PCM.PN ---
<Ton Jiang - Last Filed: 02/12/17 11:32> Subjective - Date & Time of Evaluation Date of Evaluation: 02/12/17 Time of Evaluation: 11:30 - Subjective Subjective: Progress note. Attending: Dr. Ordonez. Pt seen and examined at bedside. No acute distress. No events overnight. No fevers, chills, vomiting, diarrhea. Some sob, but better. had ICD placed yesterday. Objective - Vital Signs/Intake and Output Vital Signs (last 24 hours): Temp Pulse Resp BP Pulse Ox 98.3 F 84 18 114/74 100 02/12/17 08:06 02/12/17 08:06 02/12/17 08:06 02/12/17 10:01 02/12/17 08:06 Intake and Output: 02/12/17 02/12/17 06:59 18:59 Output Total 500 Balance -500 - Medications Medications: Current Medications Albuterol/Ipratropium (Duoneb 3 Mg/0.5 Mg (3 Ml) Ud) 3 ml INH RQ2 PRN PRN Reason: Shortness of Breath Aspirin (Aspirin Chewable) 81 mg PO DAILY [facility] Last Admin: 02/12/17 10:00 Dose: 81 mg Clonidine HCl (Catapres) 0.1 mg PO DAILY [facility] Last Admin: 02/12/17 10:01 Dose: 0.1 mg Furosemide (Lasix) 40 mg IVP BID [facility] Last Admin: 02/12/17 10:01 Dose: 40 mg Heparin Sodium (Porcine) (Heparin) 5,000 units SC Q12 [facility] Last Admin: 02/12/17 10:00 Dose: 5,000 units Lisinopril (Zestril) 10 mg PO DAILY [facility] Last Admin: 02/12/17 10:00 Dose: 10 mg Metoprolol Tartrate (Lopressor) 25 mg PO BID [facility] Last Admin: 02/12/17 10:00 Dose: 25 mg Pantoprazole Sodium (Protonix Ec Tab) 40 mg PO DAILY [facility] Last Admin: 02/12/17 10:01 Dose: 40 mg Rosuvastatin Calcium (Crestor) 20 mg PO HS [facility] Last Admin: 02/11/17 22:24 Dose: 20 mg Spironolactone (Aldactone) 25 mg PO DAILY [facility] Last Admin: 02/12/17 10:00 Dose: 25 mg - Labs Labs: 02/11/17 07:11 02/11/17 07:11 PT 13.2 SECONDS (9.7-12.2) H 02/10/17 22:14 INR 1.2 02/10/17 22:14 APTT 31 SECONDS (21-34) 02/03/17 16:50 - Constitutional Appears: Non-toxic, No Acute Distress - Head Exam Head Exam: ATRAUMATIC, NORMAL INSPECTION, NORMOCEPHALIC - Eye Exam Eye Exam: EOMI - ENT Exam ENT Exam: Mucous Membranes Moist - Neck Exam Neck Exam: Full ROM, Normal Inspection - Respiratory Exam Respiratory Exam: Wheezes. absent: Respiratory Distress - Cardiovascular Exam Cardiovascular Exam: +S1, +S2 - GI/Abdominal Exam GI & Abdominal Exam: Soft, Normal Bowel Sounds. absent: Tenderness - Extremities Exam Extremities Exam: Full ROM, Normal Inspection - Neurological Exam Neurological Exam: Alert, Awake, Oriented x3 - Psychiatric Exam Psychiatric exam: Normal Affect, Normal Mood - Skin Skin Exam: Dry, Intact, Normal Color, Warm Assessment and Plan - Assessment and Plan (Free Text) Assessment: This is a 61 yo male with 1. CHF exacerbation -cardio consult. Dr. Benz. pryor appreciated. -continue duonebs -asa 81 mg PO daily -will repeat echo>>> severe systolic dysfunction and severe pulmonary hypertension; LVEF 13.8 -recent cath and stress test -continue lasix 40 IVP bid -continue spironolactone 25mg PO daily -pulm consult. - Dr. Alexi pryor appreciated. -pt is candidate for [employer] and biventricular pacemaker -ICD placed yesterday at [place]; doing well post procedure. 2. Testicular swelling -Likely secondary to severe CHF -Urology consult - Drs. Dugan and Kirstie pryor appreciated 3. hx of HTN -clonidine 0.1 mg po daily -continue lisinopril 10mg PO daily -continue lopressor 25mg PO bid -continue spironolactone 25mg PO daily 4. hx of HLD -continue crestor 20mg PO HS 5. Pulmonary hypertension -treat underlying heart failure. -outpatient pulm follow/up - Dr. Alexi pryor appreciated. 6. Increased alk phos -likely secondary to severe congestive heart failure -AST and ALT normal -GGT elevated. -continue to monitor 7. GI/DVT ppx -heparin 5000 SC q12 -continue protonix 40mg PO daily All medical management per Dr. Ordonez. <Mark Ordonez - Last Filed: 02/15/17 16:11> Objective - Vital Signs/Intake and Output Vital Signs (last 24 hours): Temp Pulse Resp BP Pulse Ox 97.8 F 76 18 121/77 97 02/12/17 16:00 02/12/17 16:00 02/12/17 16:00 02/12/17 17:12 02/12/17 16:00 - Labs Labs: 02/11/17 07:11 02/11/17 07:11 PT 13.2 SECONDS (9.7-12.2) H 02/10/17 22:14 INR 1.2 02/10/17 22:14 APTT 31 SECONDS (21-34) 02/03/17 16:50 Assessment and Plan (1) CHF exacerbation Status: Acute (2) Chronic congestive heart failure Status: Acute (3) Bandemia Status: Acute (4) Chest pain Status: Acute (5) Congestive heart failure Status: Acute (6) Hydrocele Status: Acute (7) Hydrocele, bilateral Status: Acute (8) Hypertension Status: Acute (9) Inguinal hernia Status: Acute (10) Pedal edema Status: Acute (11) Pneumonia Status: Acute (12) Prophylactic measure Status: Acute (13) Shortness of breath Status: Acute (14) Testicular cyst Status: Acute (15) UTI (urinary tract infection) Status: Acute (16) Upper respiratory infection Status: Acute Attending/Attestation - Attestation I have personally seen and examined this patient.: Yes I have fully participated in the care of the patient.: Yes I have reviewed all pertinent clinical information, including history, physical exam and plan: Yes Notes (Text): Patient examined. Patient had ICD placed yesterday. Occasional shortness of breath. Continue diuretic furosemide and Spironolactone. Continue aspirin. Continue supportive medications.
[2017-02-12 16:14] VITALS: BP 121/77; PULSE 76; TEMP 97.8; O2SAT 97
== END 2017-02-12 17:31 | disposition home or self-care (01) | DRG 544 ==
LOC: C.ER 15:30 → C.9E 18:05 → C.6T 19:28 → OBSVTOIN 02-05 08:48 → UNDODISIN 02-11 10:35 → C.6T 02-11 19:08
PROVIDERS: ADMIT Internal Medicine Nephrology; ATTEND Internal Medicine Nephrology
DX: I11.0 Hypertensive heart disease with heart failure (principal); J18.9 Pneumonia, unspecified organism; I42.0 Dilated cardiomyopathy; I69.351 Hemiplegia and hemiparesis following cerebral infarction affecting right dominant side; J44.0 Chronic obstructive pulmonary disease with (acute) lower respiratory infection; N39.0 Urinary tract infection, site not specified; I27.20 Pulmonary hypertension, unspecified; I50.23 Acute on chronic systolic (congestive) heart failure; I25.10 Atherosclerotic heart disease of native coronary artery without angina pectoris; E78.5 Hyperlipidemia, unspecified; Z91.19 Patient's noncompliance with other medical treatment and regimen; N43.3 Hydrocele, unspecified

== ENCOUNTER 2017-02-24 15:45 | Inpatient (IN) | payer MEDICAID ==
--- NOTE | 2017-02-24 16:03 | C.PDOC ---
History Of Present Illness 61M c/o diffuse abdominal pain worsening over the last 2 weeks. worse with chronic cough. takes some med for pain but unsure of name, is not helping. no other exac or reliev fx. Time Seen by Provider: 02/24/17 16:03 Chief Complaint (Nursing): Abdominal Pain Past Medical History Vital Signs: Last Vital Signs Temp 97.7 F 02/27/17 08:32 Pulse 68 02/27/17 08:32 Resp 20 02/27/17 08:32 BP 136/75 02/27/17 08:32 Pulse Ox 98 02/27/17 08:32 - Medical History PMH: Asthma, CAD, CHF, COPD, HTN Surgical History: Pacemaker - [facility] Procedures FLUOROSCOPY OF LEFT HEART USING LOW OSMOLAR CONTRAST (11/30/16) FLUOROSCOPY OF MULT COR ART USING L OSM CONTRAST (11/30/16) MEASURE OF CARDIAC SAMPL & PRESSURE, L HEART, PERC APPROACH (11/30/16) Family History: States: Other Other Family History: nc - Social History Hx Alcohol Use: No Hx Substance Use: No - Immunization History Hx Tetanus Toxoid Vaccination: Yes Hx Influenza Vaccination: No Hx Pneumococcal Vaccination: Yes Review Of Systems Except As Marked, All Systems Reviewed And Found Negative. Constitutional: Negative for: Fever, Chills Cardiovascular: Negative for: Chest Pain Respiratory: Positive for: Cough (chronic) Gastrointestinal: Positive for: Abdominal Pain. Negative for: Nausea, Vomiting , Diarrhea, Melena, Hematochezia Genitourinary: Negative for: Dysuria Neurological: Negative for: Weakness, Numbness Physical Exam - Physical Exam Appears: Well, Non-toxic, No Acute Distress Skin: Warm, Dry Eye(s): bilateral: PERRL Nose: No Epistaxis Oral Mucosa: Moist Neck: Supple Chest: Other (surgical site of ICD left chest wall- steri strips in place no erythema or drainage) Cardiovascular: Rhythm Regular Respiratory: No Decreased Breath Sounds, No Accessory Muscle Use, No Rales, No Rhonchi, No Stridor, No Wheezing Gastrointestinal/Abdominal: Soft, Tenderness, No Distention, No Guarding, No Rebound Extremity: No Swelling Neurological/Psych: Oriented x3, Other (no focal deficits) ED Course And Treatment - Laboratory Results Result Diagrams: 02/26/17 06:59 02/26/17 06:59 O2 Sat by Pulse Oximetry: 100 Medical Decision Making Medical Decision Making: ecg- a sensed v paced rhythm rate 75 disc w rads- SBO on CT disc w Dr Liriano who will admit disc results and plan w the pt Disposition - Disposition Disposition: HOSPITALIZED Disposition Time: 18:57 Condition: STABLE - Clinical Impression Clinical Impression: sbo
[2017-02-24 16:48] LABS: VENOUS BLOOD GAS BASE EXCESS 1.7 mmol/L (0.0-2.0); VENOUS BLOOD GAS PCO2 45 mmHg (40-60); VENOUS BLOOD PH 7.39 (7.32-7.43)
[2017-02-24 16:53] LABS: BASO # 0.1 K/uL (0.0-0.2); BASO % 0.8 % (0.0-2.0); EOS # 0.2 K/uL (0.0-0.7); EOS % 2.5 % (0.0-4.0); HEMATOCRIT 40.4 % (35.0-51.0); LYMPH # 1.8 K/uL (1.0-4.3); LYMPH % 19.4 % (20.0-40.0); MEAN CELL VOLUME 89.9 fL (80.0-94.0); MEAN CORPUSCULAR HEMOGLOBIN 30.3 pg (27.0-31.0); MEAN CORPUSCULAR HGB CONC 33.7 g/dL (33.0-37.0); MEAN PLATELET VOLUME 7.6 fL (7.2-11.7); MONO # 0.6 K/uL (0.0-0.8); MONO % 6.8 % (0.0-10.0); NRBC % 0.1 % (0.0-2.0); RED CELL DISTRIBUTION WIDTH 15.3 % (11.5-14.5); WHITE BLOOD COUNT 9.4 K/uL (4.8-10.8)
[2017-02-24 17:03] LABS: BILIRUBIN,TOTAL 1.5 mg/dL (0.2-1.3); CALCIUM 8.9 mg/dl (8.6-10.4); GFR AFRICAN-AMERICAN > 60; GLUCOSE,RANDOM 86 mg/dL (75-110); TOTAL PROTEIN 8.3 g/dL (6.3-8.3)
[2017-02-24 17:05] LABS: ALB/GLOB RATIO 1.2 (1.0-2.1); ALKALINE PHOSPHATASE 170 U/L (38-126); ALT/SGPT 45 U/L (21-72); AST/SGOT 46 U/L (17-59); BLOOD UREA NITROGEN 22 mg/dL (9-20); CARBON DIOXIDE 23 mmol/L (22-30); CHLORIDE 101 mmol/L (98-107); POTASSIUM 3.7 mmol/L (3.6-5.2); SODIUM 136 mmol/L (132-148)
[2017-02-24 17:13] LABS: RBC URINE 2 /hpf (0-3); URINE BACTERIA RARE (<OCC); URINE BILIRUBIN NEGATIVE (NEGATIVE); URINE COLOR Yellow (YELLOW); URINE GLUCOSE (UA) NORMAL (Normal); URINE KETONE NEGATIVE (NEGATIVE); URINE LEUKOCYTE ESTERASE NEG Leu/uL (Negative); URINE PROTEIN 1+ mg/dL (NEGATIVE); URINE UROBILINOGEN NORMAL mg/dL (0.2-1.0); WBC URINE 1 /hpf (0-5)
[2017-02-24 17:14] LABS: URINE BLOOD NEGATIVE (NEGATIVE)
[2017-02-24] MEDS ORDERED: Iohexol 350mg/ml 100 ML ONE (17:46)
--- NOTE | 2017-02-24 19:02 | CT ---
PROCEDURE: CT Abdomen and Pelvis with contrast HISTORY: abdominal pain COMPARISON: CT chest, abdomen, and pelvis without contrast performed 09/28/16 TECHNIQUE: Contrast dose: 100 mL Omnipaque 300 Radiation dose: Total exam DLP = 336.22 mGy-cm. This CT exam was performed using one or more of the following dose reduction techniques: Automated exposure control, adjustment of the mA and/or kV according to patient size, and/or use of iterative reconstruction technique. FINDINGS: LOWER THORAX: No visible consolidation, pleural effusion, or pneumothorax. Partially imaged cardiomegaly. LIVER: Unremarkable. GALLBLADDER AND BILE DUCTS: Unremarkable. PANCREAS: Unremarkable. SPLEEN: Unremarkable. ADRENALS: Unremarkable. KIDNEYS AND URETERS: The kidneys enhance symmetrically. No hydronephrosis or obstructing calculus identified. VASCULATURE: No aortic aneurysm. BOWEL: Stomach is nondistended. Lack of oral contrast limits evaluation for bowel pathology. Thick-walled small bowel loops in the right lower quadrant with fecalization of bowel contents. Abnormal bowel leads into the right inguinal hernia sac at which point bowel loops are decompressed. Appearance consistent with bowel obstruction. APPENDIX: The appendix appears within normal limits of caliber. No secondary signs of acute appendicitis. PERITONEUM: Small abdominal ascites. No definite free air. LYMPH NODES: No bulky adenopathy identified. BLADDER: Mildly thick-walled under distended urinary bladder. REPRODUCTIVE: The prostate gland measures approximately 2.8 x 4.9 cm and contains calcifications. BONES: Degenerative changes of the spine. OTHER FINDINGS: Bowel and fluid within a large right inguinal hernia. Small fat containing left inguinal hernia. IMPRESSION: Thick-walled small bowel loops with evidence of fecalization of bowel contents. Abnormal bowel leads into the right inguinal hernia sac at which point bowel loops are decompressed. Appearance consistent with bowel obstruction. Large fluid noted within the right inguinal hernia. Small ascites. Small bilateral hydroceles. Additional incidental findings as above. Case discussed with Dr. Morrell on 02/24/17 at 6:53 p.m.
[2017-02-24] MEDS ORDERED: Dextrose 5%/0.45% NS 1,000 ML IV ONE (19:55)
[2017-02-24] MEDS ORDERED: Morphine 4 MG/ML VIAL ONE (20:01)
[2017-02-24] MEDS: Morphine 4 MG/ML VIAL IVP PRN (20:10)
[2017-02-24] MEDS: Dextrose 5%/0.45% NS 1,000 ML IV SCH (20:10)
[2017-02-25] MEDS: Morphine 4 MG/ML VIAL IVP PRN ×4 (00:06→16:16)
--- NOTE | 2017-02-25 00:15 | CP.PCM.CON ---
History of Present Illness - History of Present Illness History of Present Illness: GENERAL SURGERY CONSULT NOTE FOR DR. SKINNER 61yo M with PMHx of HTN, HLD, CVA, severe cardiomyopathy s/p recent ICD, R inguinal hernia, pneumonia presents to the ED with diffuse abdominal pain. The pain has been on and off for the past 3-4 weeks. He denies nausea or vomiting. His bowel movements have been normal and he is passing lots of flatus. His last BM was yesterday and his last flatus was tonight. The pain is worse with heavy coughing. Patient states that he had pneumonia before. He is coughing up phlegm. CT from September 2016 showed bowel containing right inguinal hernia without obstruction. The patient has noticed a right inguinal hernia for about a year now. He wants it repaired but was told he would need to have his heart problems fixed before he could undergo surgery. He was recently admitted from 02/03 - here and he had a BiV ICD placed on 02/11/17 at [facility]. PMHx: HTN, HLD, CHF (LVEF 30-35% on 09/2016 ECHO), CVA w/ right sided weakness, R inguinal hernia, pneumonia Surg: BiV ICD 02/11/17 at [facility] Allerg: none Social history: denies tobacco use or illicit drug use. States hasn't drank in 30 years. Review of Systems - Review of Systems All systems: reviewed and no additional remarkable complaints except (as per HPI ) Past Patient History - Infectious Disease Hx of Infectious Diseases: None - Past Medical History & Family History Past Medical History?: Yes - Past Social History Smoking Status: Never Smoked - CARDIAC Hx Congestive Heart Failure: Yes Hx Hypertension: Yes Hx Pacemaker: Yes - PULMONARY Hx Asthma: Yes Hx Chronic Obstructive Pulmonary Disease (COPD): Yes - NEUROLOGICAL HX Cerebrovascular Accident: Yes (2004) - HEENT Hx HEENT Problems: No - RENAL Hx Chronic Kidney Disease: No - ENDOCRINE/METABOLIC Hx Endocrine Disorders: No - HEMATOLOGICAL/ONCOLOGICAL Hx Blood Transfusions: No - INTEGUMENTARY Hx Dermatological Problems: No - MUSCULOSKELETAL/RHEUMATOLOGICAL Hx Falls: Yes (in 2004 when he had a stroke) - GASTROINTESTINAL Hx Gastrointestinal Disorders: No - GENITOURINARY/GYNECOLOGICAL Hx Genitourinary Disorders: No - PSYCHIATRIC Hx Substance Use: No - SURGICAL HISTORY Hx Surgeries: No Other/Comment: pacemaker placement 2017 - ANESTHESIA Hx Anesthesia: No Hx Anesthesia Reactions: No Hx Malignant Hyperthermia: No Has any member of the family had a problem w/ anesthesia?: No Meds Allergies/Adverse Reactions: Allergies Allergy/AdvReac Type Severity Reaction Status Date / Time No Known Allergies Allergy Verified 02/24/17 15:55 - Medications Medications: Current Medications Clonidine HCl (Catapres) 0.1 mg PO DAILY [facility] Dextrose/Sodium Chloride (Dextrose 5%/0.45% Ns 1000 Ml) 1,000 mls @ 80 mls/hr IV .[id number] [facility] Last Admin: 02/24/17 20:10 Dose: 80 mls/hr Lisinopril (Zestril) 10 mg PO DAILY [facility] Metoprolol Tartrate (Lopressor) 25 mg PO BID [facility] Morphine Sulfate (Morphine) 4 mg IVP Q4 PRN PRN Reason: Pain, moderate (4-7) Last Admin: 02/24/17 20:10 Dose: 4 mg Ondansetron HCl (Zofran Inj) 4 mg IVP Q4 PRN PRN Reason: Nausea/Vomiting Rosuvastatin Calcium (Crestor) 20 mg PO HS [facility] Spironolactone (Aldactone) 25 mg PO DAILY [facility] Physical Exam - Constitutional Appears: Well, Non-toxic, No Acute Distress - Head Exam Head Exam: ATRAUMATIC, NORMAL INSPECTION - Eye Exam Eye Exam: EOMI, Normal appearance - Respiratory Exam Respiratory Exam: NORMAL BREATHING PATTERN. absent: Respiratory Distress Additional comments: occasional coughs - Cardiovascular Exam Cardiovascular Exam: +S1, +S2. absent: Tachycardia - GI/Abdominal Exam GI & Abdominal Exam: Hernia (large right inguinal hernia - partially reducible, no erythema), Soft, Tenderness (mildly tender over right inguinal hernia). absent: Distended, Firm, Guarding, Rebound, Rigid - Extremities Exam Extremities exam: Positive for: normal inspection. Negative for: calf tenderness Additional comments: No LE edema or calf tenderness - Neurological Exam Neurological exam: Alert, CN II-XII Intact, Oriented x3 - Psychiatric Exam Psychiatric exam: Normal Affect, Normal Mood - Skin Skin Exam: Dry, Normal Color, Warm Results - Vital Signs Recent Vital Signs: Last Vital Signs Temp 98.6 F 02/24/17 20:09 Pulse 79 02/24/17 20:09 Resp 18 02/24/17 20:09 BP 153/87 H 02/24/17 20:09 Pulse Ox 99 02/24/17 20:09 - Labs Result Diagrams: 02/25/17 07:01 02/25/17 07:01 Labs: Laboratory Results - last 24 hr 02/24/17 02/24/17 02/24/17 16:40 16:44 16:44 WBC 9.4 D RBC 4.50 Hgb 13.6 Hct 40.4 MCV 89.9 MCH 30.3 MCHC 33.7 RDW 15.3 H Plt Count 327 MPV 7.6 Neut % (Auto) 70.5 Lymph % (Auto) 19.4 L [place] % (Auto) 6.8 Eos % (Auto) 2.5 Baso % (Auto) 0.8 Neut # 6.6 Lymph # 1.8 [place] # 0.6 Eos # 0.2 Baso # 0.1 pO2 41 VBG pH 7.39 VBG pCO2 45 VBG HCO3 25.7 VBG Total CO2 28.6 H VBG O2 Sat (Calc) 78.5 H VBG Base Excess 1.7 VBG Potassium 3.7 Sodium 141.0 Chloride 108.0 H Glucose 90 Lactate 0.9 Potassium Carbon Dioxide Anion Gap BUN Creatinine Est GFR ( Amer) Est GFR (Non-Af Amer) Random Glucose Calcium Total Bilirubin AST ALT Alkaline Phosphatase Troponin I Total Protein Albumin Globulin Albumin/Globulin Ratio Lipase Venous Blood Potassium 3.7 Urine Color Yellow Urine Clarity Clear Urine pH 5.0 Ur Specific [place] 1.015 Urine Protein 1+ H Urine Glucose (UA) Normal Urine Ketones Negative Urine Blood Negative Urine Nitrate Negative Urine Bilirubin Negative Urine Urobilinogen Normal Ur Leukocyte Esterase Neg Urine WBC (Auto) 1 Urine RBC (Auto) 2 Ur Squamous Epith Cells < 1 Urine Bacteria Rare Hyaline Casts 11-20 H 02/24/17 16:44 WBC RBC Hgb Hct MCV MCH MCHC RDW Plt Count MPV Neut % (Auto) Lymph % (Auto) [place] % (Auto) Eos % (Auto) Baso % (Auto) Neut # Lymph # [place] # Eos # Baso # pO2 VBG pH VBG pCO2 VBG HCO3 VBG Total CO2 VBG O2 Sat (Calc) VBG Base Excess VBG Potassium Sodium 136 Chloride 101 Glucose Lactate Potassium 3.7 Carbon Dioxide 23 Anion Gap 16 BUN 22 H Creatinine 1.2 Est GFR ( Amer) > 60 Est GFR (Non-Af Amer) > 60 Random Glucose 86 Calcium 8.9 Total Bilirubin 1.5 H AST 46 ALT 45 Alkaline Phosphatase 170 H Troponin I 0.0280 Total Protein 8.3 Albumin 4.5 Globulin 3.8 Albumin/Globulin Ratio 1.2 Lipase 114 Venous Blood Potassium Urine Color Urine Clarity Urine pH Ur Specific [place] Urine Protein Urine Glucose (UA) Urine Ketones Urine Blood Urine Nitrate Urine Bilirubin Urine Urobilinogen Ur Leukocyte Esterase Urine WBC (Auto) Urine RBC (Auto) Ur Squamous Epith Cells Urine Bacteria Hyaline Casts Assessment & Plan - Assessment and Plan (Free Text) Assessment: 61yo M with PMHx of HTN, HLD, CVA, severe cardiomyopathy s/p recent ICD, R inguinal hernia, pneumonia presents with diffuse abdominal pain and was found to have SBO secondary to large right inguinal hernia - Afebrile, VSS - Lactate WNL - No leukocytosis - CT: thick walled small bowel loops in RLQ with fecalization of bowel contents ; abnormal bowel leads into right inguinal hernia sac at which point bowel loops are decompressed, suggesting bowel obstruction - Bowel rest: NPO, IV fluids - Zofran and Morphine PRN - Serial abdominal exams - Would need cardiac clearance prior to any surgery for hernia - Will discuss plan with Dr. Jovita Palomo PGY-3
[2017-02-25 00:52] VITALS: RESP 20
[2017-02-25] MEDS: Dextrose 5%/0.45% NS 1,000 ML IV SCH ×3 (05:29→21:10)
[2017-02-25 07:10] LABS: BASO % 0.5 % (0.0-2.0); EOS # 0.3 K/uL (0.0-0.7); EOS % 4.5 % (0.0-4.0); HEMATOCRIT 38.9 % (35.0-51.0); LYMPH # 1.2 K/uL (1.0-4.3); LYMPH % 18.1 % (20.0-40.0); MEAN CELL VOLUME 89.5 fL (80.0-94.0); MEAN CORPUSCULAR HEMOGLOBIN 30.2 pg (27.0-31.0); MEAN CORPUSCULAR HGB CONC 33.7 g/dL (33.0-37.0); MEAN PLATELET VOLUME 7.7 fL (7.2-11.7); MONO # 0.8 K/uL (0.0-0.8); MONO % 11.6 % (0.0-10.0); NRBC % 0.3 % (0.0-2.0); WHITE BLOOD COUNT 6.5 K/uL (4.8-10.8)
[2017-02-25 07:56] LABS: ALB/GLOB RATIO 1.2 (1.0-2.1); ALKALINE PHOSPHATASE 133 U/L (38-126); ALT/SGPT 38 U/L (21-72); AST/SGOT 46 U/L (17-59); BILIRUBIN,TOTAL 1.2 mg/dL (0.2-1.3); BLOOD UREA NITROGEN 20 mg/dL (9-20); CALCIUM 8.6 mg/dl (8.6-10.4); CARBON DIOXIDE 26 mmol/L (22-30); CHLORIDE 103 mmol/L (98-107); GFR AFRICAN-AMERICAN > 60; GLUCOSE,RANDOM 90 mg/dL (75-110); POTASSIUM 3.4 mmol/L (3.6-5.2); SODIUM 137 mmol/L (132-148); TOTAL PROTEIN 6.7 g/dL (6.3-8.3)
--- NOTE | 2017-02-25 16:10 | CP.PCM.HP ---
History of Present Illness - History of Present Illness History of Present Illness: COMPREHENSIVE HISTORY & PHYSICAL EXAM HPI ADMITTED WITH LOWER ABD PAIN FOR FEW DAYS AND HAS PROGRESSIVELY INCREASED IN INSTENSITY A/W VOMITING . CT SHOWED SBO AT R INGUINAL HERNIA AREA NO FEVER /LEUCOCYTOSIS PAST HIST. ALCOHOLIC CARDIOMYOPATHY, NOR. CORONARIES , LAST LV EF 35%, BI PACEMAKER WITH DEFBRILLATOR ,HTN PERSONAL HIST: Smoking. N Alcohol. Y Allergy N Travel_- . FAMILY HIST : ROS : Constitutional: Negative for weight change, chills, night sweats, Eyes: Negative for redness, swelling, itching, discharge, vision changes, blurry vision, double vision, glaucoma, cataracts, Ears: Negative for hearing loss, ringing, , tinnitus, vertigo Nose: Negative for rhinorrhea, stuffiness, sniffing, itching, postnasal drip, discoloration, nasal congestion and epistaxis. Throat: Negative for throat clearing, sore throat, hoarseness, difficulty swallowing and difficulty speaking. Respiratory: Negative for cough, , sputum production, chest tightness, wheezing, pleuritic chest pain ,daytime somnolence, chronic cough, hemoptysis, snoring at night, Cardiovascular: Negative for chest pain, palpitations, orthopnea, PND, Edema of legs, leg cramps, angina, claudication, , irregular heartbeat, Neurology: Negative for irritability, muscle weakness, numbness and tingling, seizures, tremors, migraines, slurred speech, syncope, memory loss, mood changes , recurrent headaches Gastrointestinal: Negative for difficulty swallowing, diarrhea, constipation, black stools, rectal bleeding, , changes in bowel habits, Genitourinary: Negative for frequent urination, hematuria, discharge, incontinence, urinary retention, frequent UTI, Psychiatric: Negative for depression, anxiety/panic, suicidal tendencies, Musculoskeletal: Negative for swollen joints, back pain, , neck pain, morning stiffness of joints, . Skin: Negative for rash, ulcers, itching, dry skin and pigmented lesions. P/E: Constitutional: Appears stated age and in no apparent distress. Head: Normocephalic. Ears: External ear canals patent without inflammation. Tympanic membranes intact with normal light reflex and landmark. Eyes: Pupils are central, bilaterally equal, symmetrical and reacts to light with normal movements and no icterus or pallor. Nose: External nares are patent. Mucosa is pink Mouth-Throat: Good general appearance and condition. No post-pharyngeal/oropharyngeal erythema and tonsillar hypertrophy. Good dental hygiene. Neck-Lymphatic: Neck is supple with normal ROM, no thyromegaly, lymph nodes or masses. JVD is normal with no carotid bruit. Lungs: Clear to percussion and auscultation with bilateral normal air entry. Cardiovascular: S1 and S2 are normal with no murmurs, gallops and rub. GI Exam: No hepatomegaly. Abdomen is soft and tender. No Organomegaly , masses or hernias are evident and bowel sounds are normal and active. Neurology: Higher function and all cranial nerves intact, with no gross motor or sensory deficit. Superficial and deep reflexes are normal with downwards planters. No cerebellar deficit with normal gait. Musculoskeletal: No tender spots with normal curvature of the spine with no swelling or restricted ROM of the small and large joints. Extremities: Homans sign absent. Intact pulses with no pitting edema, calf tenderness or skin color changes. Skin: No rash, eruptions or abnormal skin pigmentation LAB/RADIOLOGY: ASSESMENT : SMALL BOWEL OBSTRUCTION R. INGUINAL HERNIA CARDIOMYOPATHY WITH AICD PLAN: STABILIZE MEDICALLY AND MAY BE OPERATIVE Present on Admission - Present on Admission Any Indicators Present on Admission: No Past Patient History - Infectious Disease Hx of Infectious Diseases: None - Past Medical History & Family History Past Medical History?: Yes - Past Social History Smoking Status: Never Smoked - CARDIAC Hx Congestive Heart Failure: Yes Hx Hypertension: Yes - PULMONARY Hx Chronic Obstructive Pulmonary Disease (COPD): Yes - NEUROLOGICAL HX Cerebrovascular Accident: Yes (2004) - HEENT Hx HEENT Problems: No - RENAL Hx Chronic Kidney Disease: No - ENDOCRINE/METABOLIC Hx Endocrine Disorders: No - HEMATOLOGICAL/ONCOLOGICAL Hx Blood Transfusions: No - INTEGUMENTARY Hx Dermatological Problems: No - MUSCULOSKELETAL/RHEUMATOLOGICAL Hx Falls: Yes (in 2004 when he had a stroke) - GASTROINTESTINAL Hx Gastrointestinal Disorders: No - GENITOURINARY/GYNECOLOGICAL Hx Genitourinary Disorders: No - PSYCHIATRIC Hx Substance Use: No - SURGICAL HISTORY Hx Surgeries: No Other/Comment: pacemaker placement 2017 - ANESTHESIA Hx Anesthesia: No Hx Anesthesia Reactions: No Hx Malignant Hyperthermia: No Has any member of the family had a problem w/ anesthesia?: No Meds Allergies/Adverse Reactions: Allergies Allergy/AdvReac Type Severity Reaction Status Date / Time No Known Allergies Allergy Verified 02/24/17 15:55 Results - Vital Signs Recent Vital Signs: Last Vital Signs Temp 98.5 F 02/25/17 08:02 Pulse 81 02/25/17 08:02 Resp 20 02/25/17 08:02 BP 134/78 02/25/17 09:27 Pulse Ox 98 02/25/17 08:02 - Labs Result Diagrams: 02/25/17 07:01 02/25/17 07:01 Labs: Laboratory Results - last 24 hr 02/24/17 02/24/17 02/24/17 16:40 16:44 16:44 WBC 9.4 D RBC 4.50 Hgb 13.6 Hct 40.4 MCV 89.9 MCH 30.3 MCHC 33.7 RDW 15.3 H Plt Count 327 MPV 7.6 Neut % (Auto) 70.5 Lymph % (Auto) 19.4 L [place] % (Auto) 6.8 Eos % (Auto) 2.5 Baso % (Auto) 0.8 Neut # 6.6 Lymph # 1.8 [place] # 0.6 Eos # 0.2 Baso # 0.1 pO2 41 VBG pH 7.39 VBG pCO2 45 VBG HCO3 25.7 VBG Total CO2 28.6 H VBG O2 Sat (Calc) 78.5 H VBG Base Excess 1.7 VBG Potassium 3.7 Sodium 141.0 Chloride 108.0 H Glucose 90 Lactate 0.9 Potassium Carbon Dioxide Anion Gap BUN Creatinine Est GFR ( Amer) Est GFR (Non-Af Amer) Random Glucose Calcium Total Bilirubin AST ALT Alkaline Phosphatase Troponin I Total Protein Albumin Globulin Albumin/Globulin Ratio Lipase Venous Blood Potassium 3.7 Urine Color Yellow Urine Clarity Clear Urine pH 5.0 Ur Specific [place] 1.015 Urine Protein 1+ H Urine Glucose (UA) Normal Urine Ketones Negative Urine Blood Negative Urine Nitrate Negative Urine Bilirubin Negative Urine Urobilinogen Normal Ur Leukocyte Esterase Neg Urine WBC (Auto) 1 Urine RBC (Auto) 2 Ur Squamous Epith Cells < 1 Urine Bacteria Rare Hyaline Casts 11-20 H 02/24/17 02/25/17 02/25/17 16:44 07:01 07:01 WBC 6.5 RBC 4.35 L Hgb 13.1 Hct 38.9 MCV 89.5 MCH 30.2 MCHC 33.7 RDW 15.0 H Plt Count 276 MPV 7.7 Neut % (Auto) 65.3 Lymph % (Auto) 18.1 L [place] % (Auto) 11.6 H Eos % (Auto) 4.5 H Baso % (Auto) 0.5 Neut # 4.3 Lymph # 1.2 [place] # 0.8 Eos # 0.3 Baso # 0.0 pO2 VBG pH VBG pCO2 VBG HCO3 VBG Total CO2 VBG O2 Sat (Calc) VBG Base Excess VBG Potassium Sodium 136 137 Chloride 101 103 Glucose Lactate Potassium 3.7 3.4 L Carbon Dioxide 23 26 Anion Gap 16 12 BUN 22 H 20 Creatinine 1.2 1.2 Est GFR ( Amer) > 60 > 60 Est GFR (Non-Af Amer) > 60 > 60 Random Glucose 86 90 Calcium 8.9 8.6 Total Bilirubin 1.5 H 1.2 AST 46 46 ALT 45 38 Alkaline Phosphatase 170 H 133 H D Troponin I 0.0280 Total Protein 8.3 6.7 Albumin 4.5 3.6 Globulin 3.8 3.1 Albumin/Globulin Ratio 1.2 1.2 Lipase 114 Venous Blood Potassium Urine Color Urine Clarity Urine pH Ur Specific [place] Urine Protein Urine Glucose (UA) Urine Ketones Urine Blood Urine Nitrate Urine Bilirubin Urine Urobilinogen Ur Leukocyte Esterase Urine WBC (Auto) Urine RBC (Auto) Ur Squamous Epith Cells Urine Bacteria Hyaline Casts
[2017-02-26] MEDS: Morphine 4 MG/ML VIAL IVP PRN (01:09)
[2017-02-26 07:18] LABS: BASO % 0.6 % (0.0-2.0); EOS # 0.3 K/uL (0.0-0.7); EOS % 5.7 % (0.0-4.0); HEMATOCRIT 38.2 % (35.0-51.0); LYMPH # 1.3 K/uL (1.0-4.3); MEAN CELL VOLUME 89.1 fL (80.0-94.0); MEAN CORPUSCULAR HEMOGLOBIN 29.9 pg (27.0-31.0); MEAN CORPUSCULAR HGB CONC 33.6 g/dL (33.0-37.0); MEAN PLATELET VOLUME 7.7 fL (7.2-11.7); MONO # 0.6 K/uL (0.0-0.8); MONO % 10.5 % (0.0-10.0); NRBC % 0.1 % (0.0-2.0); RED CELL DISTRIBUTION WIDTH 15.3 % (11.5-14.5); WHITE BLOOD COUNT 5.4 K/uL (4.8-10.8)
[2017-02-26 07:46] LABS: ALB/GLOB RATIO 1.2 (1.0-2.1); ALKALINE PHOSPHATASE 125 U/L (38-126); ALT/SGPT 37 U/L (21-72); AST/SGOT 34 U/L (17-59); BILIRUBIN,TOTAL 1.2 mg/dL (0.2-1.3); BLOOD UREA NITROGEN 17 mg/dL (9-20); CALCIUM 8.5 mg/dl (8.6-10.4); CARBON DIOXIDE 26 mmol/L (22-30); CHLORIDE 102 mmol/L (98-107); GFR AFRICAN-AMERICAN > 60; GLUCOSE,RANDOM 82 mg/dL (75-110); POTASSIUM 3.8 mmol/L (3.6-5.2); SODIUM 135 mmol/L (132-148); TOTAL PROTEIN 6.6 g/dL (6.3-8.3)
--- NOTE | 2017-02-26 08:27 | CP.PCM.PN ---
Subjective - Date & Time of Evaluation Date of Evaluation: 02/26/17 Time of Evaluation: 06:55 - Subjective Subjective: General Surgery- Dr. Hussein Patient seen and examined at bedside this morning. no acute events overnight. Patient currently passing flatus. No BM. Denies, nausea, vomiting, fever, chills , chest pain, shortness of breath. Objective - Vital Signs/Intake and Output Vital Signs (last 24 hours): Temp Pulse Resp BP Pulse Ox 98.2 F 69 20 145/84 96 02/26/17 08:15 02/26/17 08:15 02/26/17 08:15 02/26/17 08:15 02/26/17 08:15 Intake and Output: 02/26/17 02/26/17 06:59 18:59 Intake Total 1440 Balance 1440 - Medications Medications: Current Medications Clonidine HCl (Catapres) 0.1 mg PO DAILY [facility] Last Admin: 02/25/17 09:28 Dose: 0.1 mg Heparin Sodium (Porcine) (Heparin) 5,000 units SC Q12 [facility] Last Admin: 02/25/17 21:06 Dose: 5,000 units Dextrose/Sodium Chloride (Dextrose 5%/0.45% Ns 1000 Ml) 1,000 mls @ 80 mls/hr IV .[id number] [facility] Last Admin: 02/25/17 21:10 Dose: 80 mls/hr Lisinopril (Zestril) 10 mg PO DAILY [facility] Last Admin: 02/25/17 09:28 Dose: 10 mg Metoprolol Tartrate (Lopressor) 25 mg PO BID [facility] Last Admin: 02/25/17 17:09 Dose: 25 mg Morphine Sulfate (Morphine) 4 mg IVP Q4 PRN PRN Reason: Pain, moderate (4-7) Last Admin: 02/26/17 01:09 Dose: 4 mg Ondansetron HCl (Zofran Inj) 4 mg IVP Q4 PRN PRN Reason: Nausea/Vomiting Rosuvastatin Calcium (Crestor) 20 mg PO HS [facility] Last Admin: 02/25/17 21:06 Dose: 20 mg Spironolactone (Aldactone) 25 mg PO DAILY [facility] Last Admin: 02/25/17 09:28 Dose: 25 mg - Labs Labs: 02/26/17 06:59 02/26/17 06:59 - Constitutional Appears: Non-toxic, No Acute Distress - Head Exam Head Exam: ATRAUMATIC - Eye Exam Eye Exam: EOMI. absent: Scleral icterus - ENT Exam ENT Exam: Mucous Membranes Moist - Respiratory Exam Respiratory Exam: NORMAL BREATHING PATTERN. absent: Accessory Muscle Use, Respiratory Distress - GI/Abdominal Exam GI & Abdominal Exam: Soft, Hernia, Normal Bowel Sounds. absent: Firm, Guarding , Rigid, Tenderness Additional comments: Right inguinal hernia palpated in scrotal sac, most likely hydrocele - Extremities Exam Extremities Exam: Normal Inspection. absent: Calf Tenderness - Neurological Exam Neurological Exam: Alert, Awake, Oriented x3 - Skin Skin Exam: Intact, Warm Assessment and Plan - Assessment and Plan (Free Text) Assessment: 61M R inguinal hernia vs R testicular hydrocele Plan: - advance diet as tolerated - testicular US - Cardiac clearance from primary for possible surgery Wednesday pending results of US - possible OR Wednesday - discussed w/ Dr. Hussein surgical attending Preet Palafox PGY1
[2017-02-26] MEDS: Dextrose 5%/0.45% NS 1,000 ML IV SCH ×3 (09:25→21:24)
--- NOTE | 2017-02-26 13:34 | CP.PCM.PN ---
Subjective - Date & Time of Evaluation Date of Evaluation: 02/26/17 Time of Evaluation: 13:31 - Subjective Subjective: TOLERATING CLEAR LIQUIDS LESS ABD PAIN NO N/V /FEVER Objective - Vital Signs/Intake and Output Vital Signs (last 24 hours): Temp Pulse Resp BP Pulse Ox 98.2 F 69 20 145/84 96 02/26/17 08:15 02/26/17 08:15 02/26/17 08:15 02/26/17 09:25 02/26/17 08:15 Intake and Output: 02/26/17 02/26/17 11:59 23:59 Intake Total 640 Balance 640 - Medications Medications: Current Medications Clonidine HCl (Catapres) 0.1 mg PO DAILY [facility] Last Admin: 02/26/17 09:25 Dose: 0.1 mg Heparin Sodium (Porcine) (Heparin) 5,000 units SC Q12 [facility] Last Admin: 02/26/17 09:26 Dose: 5,000 units Dextrose/Sodium Chloride (Dextrose 5%/0.45% Ns 1000 Ml) 1,000 mls @ 80 mls/hr IV [id number] [facility] Last Admin: 02/25/17 21:10 Dose: 80 mls/hr Ciprofloxacin (Cipro 400mg/200ml Dsw) 400 mg in 200 mls @ 133 mls/hr IVPB Q12H [facility] Metronidazole (Flagyl) 500 mg in 100 mls @ 100 mls/hr IVPB Q8 [facility] Lisinopril (Zestril) 10 mg PO DAILY [facility] Last Admin: 02/26/17 09:26 Dose: 10 mg Metoprolol Tartrate (Lopressor) 25 mg PO BID [facility] Last Admin: 02/26/17 09:25 Dose: 25 mg Morphine Sulfate (Morphine) 4 mg IVP Q4 PRN PRN Reason: Pain, moderate (4-7) Last Admin: 02/26/17 01:09 Dose: 4 mg Ondansetron HCl (Zofran Inj) 4 mg IVP Q4 PRN PRN Reason: Nausea/Vomiting Rosuvastatin Calcium (Crestor) 20 mg PO HS [facility] Last Admin: 02/25/17 21:06 Dose: 20 mg Spironolactone (Aldactone) 25 mg PO DAILY [facility] Last Admin: 02/26/17 09:25 Dose: 25 mg - Labs Labs: 02/26/17 06:59 02/26/17 06:59 - Constitutional Appears: Well - Eye Exam Eye Exam: EOMI, Normal appearance, PERRL - ENT Exam ENT Exam: Mucous Membranes Moist, Normal Exam - Respiratory Exam Respiratory Exam: Clear to Ausculation Bilateral, NORMAL BREATHING PATTERN - Cardiovascular Exam Cardiovascular Exam: REGULAR RHYTHM, +S1, +S2. absent: Murmur - GI/Abdominal Exam GI & Abdominal Exam: Soft, Tenderness - Extremities Exam Extremities Exam: Full ROM, Normal Capillary Refill, Normal Inspection. absent : Joint Swelling, Pedal Edema - Neurological Exam Neurological Exam: Alert, Awake, CN II-XII Intact, Normal Gait, Oriented x3 Assessment and Plan (1) Acute abdomen Status: Acute (2) Intestinal obstruction due to recurrent inguinal hernia Status: Acute (3) Cardiomyopathy Status: Chronic
[2017-02-26] MEDS: metroNIDAZOLE IV 500 mg/100 ml 500 MG/100 ML BAG IVPB SCH ×2 (14:16→21:19)
[2017-02-26] MEDS ORDERED: Ciprofloxacin 400mg/200ml D5W 400 MG/200 ML BAG IVPB SCH (15:00)
--- NOTE | 2017-02-26 15:42 | US ---
HISTORY: r/o Hydrocele TECHNIQUE: Realtime sonography through the scrotum with color and doppler flow. COMPARISON: Scrotal ultrasound 02/08/2017. FINDINGS: RIGHT TESTICLE: Measures Once again, there is a tiny simple cyst identified upper pole right testicle measuring 0.2 x 1.20.2 x 0.2 x 0.2 cm. The right testicle is otherwise normal and echotexture diffusely with normal color Doppler blood flow appreciated no evidence of torsion. Right testicle measures 1.41.7 cm. A mild right hydroceles appreciated and there is a large right inguinal hernia with ascites in bowel adjacent contained in the right inguinal hernia. RIGHT EPIDIDYMIS: Epididymal head measures 1.9 x 1.4 x 1.7 Cm. Two tiny right epididymal head cysts are identified with both measuring 0.6 cm greatest dimension. LEFT TESTICLE: Measures 4.3 x 12.0 x 3.1 cm. Normal echotexture and flow. LEFT EPIDIDYMIS: Epididymal head measures 1.5 x 0.8 x 1.6 cm. Grossly unremarkable appearance with normal flow. HYDROCELE: Small bilateral hydroceles are identified. VARICOCELE: None. OTHER FINDINGS: None. IMPRESSION: Only limited bilateral hydroceles seen however large vertical hernia is identified containing bowel and ascites. Stable tiny right testicular cyst seen superiorly once again as well as 2 small right epididymal head cysts. Left hemiscrotum is unremarkable exclusive of limited left hydrocele.
[2017-02-26] MEDS: Ciprofloxacin 400mg/200ml D5W 400 MG/200 ML BAG IVPB SCH (15:53)
[2017-02-27] MEDS: Morphine 4 MG/ML VIAL IVP PRN ×2 (00:48→22:55)
[2017-02-27] MEDS: Ciprofloxacin 400mg/200ml D5W 400 MG/200 ML BAG IVPB SCH ×2 (04:05→16:50)
[2017-02-27] MEDS: metroNIDAZOLE IV 500 mg/100 ml 500 MG/100 ML BAG IVPB SCH ×3 (05:29→21:57)
[2017-02-27] MEDS: Dextrose 5%/0.45% NS 1,000 ML IV SCH (05:30)
--- NOTE | 2017-02-27 09:25 | CP.PCM.PN ---
Subjective - Date & Time of Evaluation Date of Evaluation: 02/27/17 Time of Evaluation: 06:45 - Subjective Subjective: General Surgery- Dr. Hussein Patient S&E at bedside this AM. no acute events overnight. Abdominal pain is doing better. tolerating CLD. Denies N/V CP/SOB F/C Objective - Vital Signs/Intake and Output Vital Signs (last 24 hours): Temp Pulse Resp BP Pulse Ox 97.7 F 68 20 136/75 98 02/27/17 08:32 02/27/17 08:32 02/27/17 08:32 02/27/17 08:32 02/27/17 08:32 Intake and Output: 02/27/17 02/27/17 06:59 18:59 Intake Total 1480 Balance 1480 - Medications Medications: Current Medications Clonidine HCl (Catapres) 0.1 mg PO DAILY [facility] Last Admin: 02/26/17 09:25 Dose: 0.1 mg Heparin Sodium (Porcine) (Heparin) 5,000 units SC Q12 [facility] Last Admin: 02/26/17 21:20 Dose: 5,000 units Dextrose/Sodium Chloride (Dextrose 5%/0.45% Ns 1000 Ml) 1,000 mls @ 80 mls/hr IV .[id number] [facility] Last Admin: 02/27/17 05:30 Dose: 80 mls/hr Metronidazole (Flagyl) 500 mg in 100 mls @ 100 mls/hr IVPB Q8 [facility] Last Admin: 02/27/17 05:29 Dose: 100 mls/hr Ciprofloxacin (Cipro 400mg/200ml Dsw) 400 mg in 200 mls @ 133 mls/hr IVPB Q12H [facility] Last Admin: 02/27/17 04:05 Dose: 133 mls/hr Lisinopril (Zestril) 10 mg PO DAILY [facility] Last Admin: 02/26/17 09:26 Dose: 10 mg Metoprolol Tartrate (Lopressor) 25 mg PO BID [facility] Last Admin: 02/26/17 17:02 Dose: 25 mg Morphine Sulfate (Morphine) 4 mg IVP Q4 PRN PRN Reason: Pain, moderate (4-7) Last Admin: 02/27/17 00:48 Dose: 4 mg Ondansetron HCl (Zofran Inj) 4 mg IVP Q4 PRN PRN Reason: Nausea/Vomiting Rosuvastatin Calcium (Crestor) 20 mg PO HS [facility] Last Admin: 02/26/17 21:19 Dose: 20 mg Spironolactone (Aldactone) 25 mg PO DAILY [facility] Last Admin: 02/26/17 09:25 Dose: 25 mg - Labs Labs: 02/26/17 06:59 02/26/17 06:59 - Constitutional Appears: Non-toxic, No Acute Distress - Head Exam Head Exam: ATRAUMATIC - Eye Exam Eye Exam: EOMI - ENT Exam ENT Exam: Mucous Membranes Moist - Respiratory Exam Respiratory Exam: NORMAL BREATHING PATTERN. absent: Accessory Muscle Use, Respiratory Distress - Cardiovascular Exam Cardiovascular Exam: +S1, +S2. absent: Bradycardia, Tachycardia - GI/Abdominal Exam GI & Abdominal Exam: Soft, Tenderness. absent: Distended, Firm, Guarding, Rigid Additional comments: mildly tender to deep palpation around umbilicus - Back Exam Back Exam: absent: CVA tenderness (L), CVA tenderness (R) - Neurological Exam Neurological Exam: Alert, Awake, Oriented x3 - Skin Skin Exam: Dry, Intact, Warm Assessment and Plan - Assessment and Plan (Free Text) Assessment: 61M w/ abdominal pain, R testicular hydrocele w/ enteritis Plan: - advance diet to regular - continue Abx - medical management per primary - no surgical intervention at this time - discussed with Dr. Jovita Palafox PGY1
--- NOTE | 2017-02-27 14:34 | CP.PCM.PN ---
Subjective - Date & Time of Evaluation Date of Evaluation: 02/27/17 Time of Evaluation: 14:33 - Subjective Subjective: LOWER QUAD. PAIN NO N/V ON REGULAR DIET IV AB NO OR Objective - Vital Signs/Intake and Output Vital Signs (last 24 hours): Temp Pulse Resp BP Pulse Ox 97.7 F 68 20 136/75 100 02/27/17 08:32 02/27/17 08:32 02/27/17 08:32 02/27/17 09:55 02/27/17 09:37 Intake and Output: 02/27/17 02/27/17 11:59 23:59 Intake Total 640 880 Balance 640 880 - Medications Medications: Current Medications Clonidine HCl (Catapres) 0.1 mg PO DAILY [facility] Last Admin: 02/27/17 09:55 Dose: 0.1 mg Heparin Sodium (Porcine) (Heparin) 5,000 units SC Q12 [facility] Last Admin: 02/27/17 09:55 Dose: 5,000 units Dextrose/Sodium Chloride (Dextrose 5%/0.45% Ns 1000 Ml) 1,000 mls @ 80 mls/hr IV .[id number] [facility] Last Admin: 02/27/17 05:30 Dose: 80 mls/hr Metronidazole (Flagyl) 500 mg in 100 mls @ 100 mls/hr IVPB Q8 [facility] Last Admin: 02/27/17 13:45 Dose: 100 mls/hr Ciprofloxacin (Cipro 400mg/200ml Dsw) 400 mg in 200 mls @ 133 mls/hr IVPB Q12H [facility] Last Admin: 02/27/17 04:05 Dose: 133 mls/hr Lisinopril (Zestril) 10 mg PO DAILY [facility] Last Admin: 02/27/17 09:55 Dose: 10 mg Metoprolol Tartrate (Lopressor) 25 mg PO BID [facility] Last Admin: 02/27/17 09:55 Dose: 25 mg Morphine Sulfate (Morphine) 4 mg IVP Q4 PRN PRN Reason: Pain, moderate (4-7) Last Admin: 02/27/17 00:48 Dose: 4 mg Ondansetron HCl (Zofran Inj) 4 mg IVP Q4 PRN PRN Reason: Nausea/Vomiting Rosuvastatin Calcium (Crestor) 20 mg PO HS [facility] Last Admin: 02/26/17 21:19 Dose: 20 mg Spironolactone (Aldactone) 25 mg PO DAILY [facility] Last Admin: 02/27/17 09:56 Dose: 25 mg - Labs Labs: 02/26/17 06:59 02/26/17 06:59 Assessment and Plan (1) Acute abdomen Status: Acute (2) Intestinal obstruction due to recurrent inguinal hernia Status: Acute (3) Cardiomyopathy Status: Chronic
[2017-02-28] MEDS: Ciprofloxacin 400mg/200ml D5W 400 MG/200 ML BAG IVPB SCH ×2 (03:30→16:49)
[2017-02-28] MEDS: metroNIDAZOLE IV 500 mg/100 ml 500 MG/100 ML BAG IVPB SCH ×3 (05:24→21:06)
--- NOTE | 2017-02-28 15:19 | CP.PCM.PN ---
Subjective - Date & Time of Evaluation Date of Evaluation: 02/28/17 Time of Evaluation: 15:18 - Subjective Subjective: FEELING BETTER MILD ABD PAIN PER SURGERY Objective - Vital Signs/Intake and Output Vital Signs (last 24 hours): Temp Pulse Resp BP Pulse Ox 98.6 F 70 20 144/65 98 02/28/17 07:51 02/28/17 07:51 02/28/17 07:51 02/28/17 09:37 02/28/17 07:51 Intake and Output: 02/28/17 02/28/17 11:59 23:59 Intake Total 820 880 Balance 820 880 - Medications Medications: Current Medications Clonidine HCl (Catapres) 0.1 mg PO DAILY [facility] Last Admin: 02/28/17 09:37 Dose: 0.1 mg Metronidazole (Flagyl) 500 mg in 100 mls @ 100 mls/hr IVPB Q8 [facility] Last Admin: 02/28/17 14:01 Dose: 100 mls/hr Ciprofloxacin (Cipro 400mg/200ml Dsw) 400 mg in 200 mls @ 133 mls/hr IVPB Q12H [facility] Last Admin: 02/28/17 03:30 Dose: 133 mls/hr Lisinopril (Zestril) 10 mg PO DAILY [facility] Last Admin: 02/28/17 09:37 Dose: 10 mg Metoprolol Tartrate (Lopressor) 25 mg PO BID [facility] Last Admin: 02/28/17 09:37 Dose: 25 mg Morphine Sulfate (Morphine) 4 mg IVP Q4 PRN PRN Reason: Pain, moderate (4-7) Last Admin: 02/27/17 22:55 Dose: 4 mg Ondansetron HCl (Zofran Inj) 4 mg IVP Q4 PRN PRN Reason: Nausea/Vomiting Rosuvastatin Calcium (Crestor) 20 mg PO HS [facility] Last Admin: 02/27/17 21:55 Dose: 20 mg Spironolactone (Aldactone) 25 mg PO DAILY [facility] Last Admin: 02/28/17 09:37 Dose: 25 mg - Labs Labs: 02/26/17 06:59 02/26/17 06:59 Assessment and Plan (1) Acute abdomen Status: Acute (2) Intestinal obstruction due to recurrent inguinal hernia Status: Acute (3) Cardiomyopathy Status: Chronic
--- NOTE | 2017-02-28 15:59 | CARD ---
APPROVED REPORT EKG Measurement Heart [id number] <Conclusion> Atrial-sensed ventricular-paced rhythm Abnormal ECG
[2017-03-01] MEDS: Ciprofloxacin 400mg/200ml D5W 400 MG/200 ML BAG IVPB SCH ×2 (04:06→16:14)
[2017-03-01] MEDS: metroNIDAZOLE IV 500 mg/100 ml 500 MG/100 ML BAG IVPB SCH ×3 (05:50→22:06)
[2017-03-01] MEDS ORDERED: Iohexol 240 (50 ml) PO ONE (12:00)
--- NOTE | 2017-03-01 12:39 | CP.PCM.DIS ---
Provider - Provider Date of Admission: 02/24/17 18:57 Attending physician: Margaret Liriano MD Time Spent in preparation of Discharge (in minutes): 30 Diagnosis - Discharge Diagnosis (1) Acute abdomen Status: Acute (2) Intestinal obstruction due to recurrent inguinal hernia Status: Acute (3) Cardiomyopathy Status: Chronic Hospital Course - Lab Results Lab Results: Micro Results 02/24/17 19:40 Blood-Venous Blood Culture - Preliminary NO GROWTH AFTER 4 DAYS 02/24/17 22:00 Blood-Venous Blood Culture - Preliminary NO GROWTH AFTER 4 DAYS Most Recent Lab Values WBC 5.4 K/uL (4.8-10.8) 02/26/17 06:59 RBC 4.29 Mil/uL (4.40-5.90) L 02/26/17 06:59 Hgb 12.8 g/dL (12.0-18.0) 02/26/17 06:59 Hct 38.2 % (35.0-51.0) 02/26/17 06:59 MCV 89.1 fL (80.0-94.0) 02/26/17 06:59 MCH 29.9 pg (27.0-31.0) 02/26/17 06:59 MCHC 33.6 g/dL (33.0-37.0) 02/26/17 06:59 RDW 15.3 % (11.5-14.5) H 02/26/17 06:59 Plt Count 270 K/uL (130-400) 02/26/17 06:59 MPV 7.7 fL (7.2-11.7) 02/26/17 06:59 Neut % (Auto) 59.2 % (50.0-75.0) 02/26/17 06:59 Lymph % (Auto) 24.0 % (20.0-40.0) 02/26/17 06:59 [place] % (Auto) 10.5 % (0.0-10.0) H 02/26/17 06:59 Eos % (Auto) 5.7 % (0.0-4.0) H 02/26/17 06:59 Baso % (Auto) 0.6 % (0.0-2.0) 02/26/17 06:59 Neut # 3.2 K/uL (1.8-7.0) 02/26/17 06:59 Lymph # 1.3 K/uL (1.0-4.3) 02/26/17 06:59 [place] # 0.6 K/uL (0.0-0.8) 02/26/17 06:59 Eos # 0.3 K/uL (0.0-0.7) 02/26/17 06:59 Baso # 0.0 K/uL (0.0-0.2) 02/26/17 06:59 pO2 41 mm/Hg (30-55) 02/24/17 16:40 VBG pH 7.39 (7.32-7.43) 02/24/17 16:40 VBG pCO2 45 mmHg (40-60) 02/24/17 16:40 VBG HCO3 25.7 mmol/L 02/24/17 16:40 VBG Total CO2 28.6 mmol/L (22-28) H 02/24/17 16:40 VBG O2 Sat (Calc) 78.5 % (40-65) H 02/24/17 16:40 VBG Base Excess 1.7 mmol/L (0.0-2.0) 02/24/17 16:40 VBG Potassium 3.7 mmol/L (3.6-5.2) 02/24/17 16:40 Sodium 141.0 mmol/l (132-148) 02/24/17 16:40 Chloride 108.0 mmol/L (98-107) H 02/24/17 16:40 Glucose 90 mg/dl (75-110) 02/24/17 16:40 Lactate 0.9 mmol/L (0.7-2.1) 02/24/17 16:40 Sodium 135 mmol/L (132-148) 02/26/17 06:59 Potassium 3.8 mmol/L (3.6-5.2) 02/26/17 06:59 Chloride 102 mmol/L (98-107) 02/26/17 06:59 Carbon Dioxide 26 mmol/L (22-30) 02/26/17 06:59 Anion Gap 11 (10-20) 02/26/17 06:59 BUN 17 mg/dL (9-20) 02/26/17 06:59 Creatinine 1.1 mg/dL (0.8-1.5) 02/26/17 06:59 Est GFR ( Amer) > 60 02/26/17 06:59 Est GFR (Non-Af Amer) > 60 02/26/17 06:59 Random Glucose 82 mg/dL (75-110) 02/26/17 06:59 Calcium 8.5 mg/dl (8.6-10.4) L 02/26/17 06:59 Total Bilirubin 1.2 mg/dL (0.2-1.3) 02/26/17 06:59 AST 34 U/L (17-59) 02/26/17 06:59 ALT 37 U/L (21-72) 02/26/17 06:59 Alkaline Phosphatase 125 U/L (38-126) 02/26/17 06:59 Troponin I 0.0280 ng/mL (0.00-0.120) 02/24/17 16:44 Total Protein 6.6 g/dL (6.3-8.3) 02/26/17 06:59 Albumin 3.6 g/dL (3.5-5.0) 02/26/17 06:59 Globulin 3.0 gm/dL (2.2-3.9) 02/26/17 06:59 Albumin/Globulin Ratio 1.2 (1.0-2.1) 02/26/17 06:59 Lipase 114 U/L (23-300) 02/24/17 16:44 Venous Blood Potassium 3.7 mmol/L (3.6-5.2) 02/24/17 16:40 Urine Color Yellow (YELLOW) 02/24/17 16:44 Urine Clarity Clear (Clear) 02/24/17 16:44 Urine pH 5.0 (5.0-8.0) 02/24/17 16:44 Ur Specific [place] 1.015 (1.003-1.030) 02/24/17 16:44 Urine Protein 1+ mg/dL (NEGATIVE) H 02/24/17 16:44 Urine Glucose (UA) Normal mg/dL (Normal) 02/24/17 16:44 Urine Ketones Negative mg/dL (NEGATIVE) 02/24/17 16:44 Urine Blood Negative (NEGATIVE) 02/24/17 16:44 Urine Nitrate Negative (NEGATIVE) 02/24/17 16:44 Urine Bilirubin Negative (NEGATIVE) 02/24/17 16:44 Urine Urobilinogen Normal mg/dL (0.2-1.0) 02/24/17 16:44 Ur Leukocyte Esterase Neg [place]ola/uL (Negative) 02/24/17 16:44 Urine WBC (Auto) 1 /hpf (0-5) 02/24/17 16:44 Urine RBC (Auto) 2 /hpf (0-3) 02/24/17 16:44 Ur Squamous Epith Cells < 1 /hpf (0-5) 02/24/17 16:44 Urine Bacteria Rare (<OCC) 02/24/17 16:44 Hyaline Casts 11-20 /lpf (0-2) H 02/24/17 16:44 - Hospital Course Hospital Course: ADMITTED WITH LOWER ABD PAIN FOR FEW DAYS AND HAS PROGRESSIVELY INCREASED IN INSTENSITY A/W VOMITING . CT SHOWED SBO AT R INGUINAL HERNIA AREA NO FEVER /LEUCOCYTOSIS PAST HIST. ALCOHOLIC CARDIOMYOPATHY, NOR. CORONARIES , LAST LV EF 35%, BI PACEMAKER WITH DEFBRILLATOR ,HTN SURGICAL CONSULT WAS OBTAINED PT WAS TREATED WITH IV AB AND IMPROVED THE SURGERY DIFFERED ANY INTERVENTION AND PT WAS D/JOSÉ IN STABLE CONDITION Discharge Exam - Head Exam Head Exam: ATRAUMATIC Discharge Plan - Follow Up Plan Condition: STABLE Disposition: HOME/ ROUTINE
[2017-03-01] MEDS ORDERED: Iodixanol 320 MG/ML 100 ML BOTTLE IV ONE (13:46)
--- NOTE | 2017-03-01 14:28 | CT ---
PROCEDURE: CT Abdomen and Pelvis with contrast HISTORY: r/o obstruction COMPARISON: Comparison is made to the previous study dated 02/24/2017 TECHNIQUE: Contrast dose: 100 mL Visipaque 320. Axial and reformatted coronal and sagittal CT images of the abdomen and pelvis were obtained after IV and oral contrast administration. Radiation dose: Total exam DLP = 659.77 mGy-cm. This CT exam was performed using one or more of the following dose reduction techniques: Automated exposure control, adjustment of the mA and/or kV according to patient size, and/or use of iterative reconstruction technique. FINDINGS: LOWER THORAX: Moderate cardiomegaly is again noted. No evidence of acute pulmonary disease at the lung bases. LIVER: Mild hepatomegaly is again noted. No evidence of acute pathology or mass lesion in the liver. GALLBLADDER AND BILE DUCTS: The gallbladder is contracted. PANCREAS: Unremarkable. No gross lesion or ductal dilatation. SPLEEN: Unremarkable. ADRENALS: Unremarkable. No mass. KIDNEYS AND URETERS: The kidneys enhance symmetrically without evidence of hydronephrosis or mass lesion VASCULATURE: Unremarkable. No aortic aneurysm. BOWEL: There is mildly dilated distal small bowel loops extending to moderate-size right inguinal hernia demonstrate mild wall thickening. No evidence of high-grade bowel obstruction. The oral contrast is seen at the right colon. No evidence of pneumatosis. APPENDIX: Normal appendix. PERITONEUM: Unremarkable. No free fluid. No free air. LYMPH NODES: Unremarkable. No enlarged lymph nodes. BLADDER: The urinary bladder is not distended therefore cannot be evaluated. REPRODUCTIVE: Enlarged prostate is again noted. BONES: No acute fracture. OTHER FINDINGS: None. IMPRESSION: [id number] dilated distal small bowel loops demonstrate wall thickening and extending into [id number]-ljfrn size right inguinal hernia. The herniated bowel also demonstrate wall thickening and surrounding with small amount of fluid. No evidence of high-grade bowel obstruction. The possibility of low-grade bowel obstruction is not totally excluded. The oral contrast reached the right colon. Otherwise no significant interval change since the previous exam.
--- NOTE | 2017-03-01 17:17 | CP.PCM.PN ---
Subjective - Date & Time of Evaluation Date of Evaluation: 03/01/17 Time of Evaluation: 08:00 - Subjective Subjective: General Surgery Note for Dr. Hussein Patient seen and examined at bedside today. No acute event overnight. Patient denies pain currently. Patient tolerating diet and passing gas. He had BM earlier today. CT abdomen pelvis with PO & IV contrast showed that bulge in scrotum is a hernia with possible ascitic fluid (see full report). Patient has no complaints at this time. Objective - Vital Signs/Intake and Output Vital Signs (last 24 hours): Temp Pulse Resp BP Pulse Ox 98.1 F 71 20 145/90 97 03/01/17 00:00 03/01/17 00:00 03/01/17 00:00 03/01/17 10:18 03/01/17 00:00 Intake and Output: 03/01/17 03/01/17 06:59 18:59 Intake Total 1290 Balance 1290 - Medications Medications: Current Medications Clonidine HCl (Catapres) 0.1 mg PO DAILY [facility] Last Admin: 03/01/17 10:17 Dose: 0.1 mg Metronidazole (Flagyl) 500 mg in 100 mls @ 100 mls/hr IVPB Q8 [facility] Last Admin: 03/01/17 13:12 Dose: 100 mls/hr Ciprofloxacin (Cipro 400mg/200ml Dsw) 400 mg in 200 mls @ 133 mls/hr IVPB Q12H [facility] Last Admin: 03/01/17 16:14 Dose: 133 mls/hr Lisinopril (Zestril) 10 mg PO DAILY [facility] Last Admin: 03/01/17 10:18 Dose: 10 mg Metoprolol Tartrate (Lopressor) 25 mg PO BID [facility] Last Admin: 03/01/17 10:18 Dose: 25 mg Morphine Sulfate (Morphine) 4 mg IVP Q4 PRN PRN Reason: Pain, moderate (4-7) Ondansetron HCl (Zofran Inj) 4 mg IVP Q4 PRN PRN Reason: Nausea/Vomiting Rosuvastatin Calcium (Crestor) 20 mg PO HS [facility] Last Admin: 02/28/17 21:04 Dose: 20 mg Spironolactone (Aldactone) 25 mg PO DAILY [facility] Last Admin: 03/01/17 10:17 Dose: 25 mg - Labs Labs: 02/26/17 06:59 02/26/17 06:59 - Constitutional Appears: No Acute Distress - Head Exam Head Exam: ATRAUMATIC, NORMOCEPHALIC - Eye Exam Eye Exam: Normal appearance - ENT Exam ENT Exam: Mucous Membranes Moist - Respiratory Exam Respiratory Exam: NORMAL BREATHING PATTERN - Cardiovascular Exam Cardiovascular Exam: REGULAR RHYTHM - GI/Abdominal Exam GI & Abdominal Exam: Soft, Tenderness (r inguinal), Hernia (r inguinal, soft, reducible, no signs of strangulation/incarceration), Normal Bowel Sounds. absent: Distended, Firm, Guarding, Rebound - Neurological Exam Neurological Exam: Alert, Awake, Oriented x3 - Psychiatric Exam Psychiatric exam: Normal Affect, Normal Mood - Skin Skin Exam: Dry, Intact, Normal Color, Warm Assessment and Plan - Assessment and Plan (Free Text) Plan: 61 M with r inguinal hernia -Plan for OR Wednesday -Hernia repair will likely be done under local/epidural due to cardiac history -f/u BNP -ECHO was done earlier this month - LVEF 13.8%, mod to severe pulm htn, dilatation of all four chambers (see full report) -Discussed with Dr. Jovita Chueng PGY1
[2017-03-02] MEDS: Ciprofloxacin 400mg/200ml D5W 400 MG/200 ML BAG IVPB SCH ×2 (04:43→16:16)
[2017-03-02] MEDS: metroNIDAZOLE IV 500 mg/100 ml 500 MG/100 ML BAG IVPB SCH ×2 (06:28→14:19)
--- NOTE | 2017-03-02 10:54 | CP.PCM.PN ---
Subjective - Date & Time of Evaluation Date of Evaluation: 03/02/17 Time of Evaluation: 07:00 - Subjective Subjective: GENERAL SURGERY PROGRESS NOTE FOR DR. HUSSEIN Patient seen and examined at bedside. He denies abdominal pain. He is tolerating his regular diet and denies nausea or vomiting. Objective - Vital Signs/Intake and Output Vital Signs (last 24 hours): Temp Pulse Resp BP Pulse Ox 98.1 F 63 20 117/66 98 03/02/17 08:00 03/02/17 08:00 03/02/17 08:00 03/02/17 10:04 03/02/17 08:00 Intake and Output: 03/02/17 03/02/17 06:59 18:59 Intake Total 1550 Output Total 700 Balance 850 - Medications Medications: Current Medications Clonidine HCl (Catapres) 0.1 mg PO DAILY [facility] Last Admin: 03/02/17 10:04 Dose: 0.1 mg Metronidazole (Flagyl) 500 mg in 100 mls @ 100 mls/hr IVPB Q8 [facility] Last Admin: 03/02/17 06:28 Dose: 100 mls/hr Ciprofloxacin (Cipro 400mg/200ml Dsw) 400 mg in 200 mls @ 133 mls/hr IVPB Q12H [facility] Last Admin: 03/02/17 04:43 Dose: 133 mls/hr Lisinopril (Zestril) 10 mg PO DAILY [facility] Last Admin: 03/02/17 10:04 Dose: 10 mg Metoprolol Tartrate (Lopressor) 25 mg PO BID [facility] Last Admin: 03/02/17 10:04 Dose: 25 mg Morphine Sulfate (Morphine) 4 mg IVP Q4 PRN PRN Reason: Pain, moderate (4-7) Ondansetron HCl (Zofran Inj) 4 mg IVP Q4 PRN PRN Reason: Nausea/Vomiting Rosuvastatin Calcium (Crestor) 20 mg PO HS [facility] Last Admin: 03/01/17 22:05 Dose: 20 mg Spironolactone (Aldactone) 25 mg PO DAILY [facility] Last Admin: 03/02/17 10:04 Dose: 25 mg - Labs Labs: 02/26/17 06:59 02/26/17 06:59 - Constitutional Appears: Non-toxic, No Acute Distress - Respiratory Exam Respiratory Exam: NORMAL BREATHING PATTERN. absent: Respiratory Distress - Cardiovascular Exam Cardiovascular Exam: +S1, +S2 - GI/Abdominal Exam GI & Abdominal Exam: Soft, Hernia (Right inguinal hernia, reducible). absent: Distended, Firm, Guarding, Rigid, Tenderness - Neurological Exam Neurological Exam: Alert, Awake - Psychiatric Exam Psychiatric exam: Normal Affect, Normal Mood Assessment and Plan - Assessment and Plan (Free Text) Assessment: 61yo M with PMHx of HTN, HLD, CVA, severe cardiomyopathy s/p recent ICD, R inguinal hernia, pneumonia presents with large right inguinal hernia - Tolerating regular diet - No surgery planned for inguinal hernia at this time due to EF of 13.8% - Follow up with Dr. Hussein in his office as an outpatient - Discussed plan with Dr. Jovita Palomo PGY-3
--- NOTE | 2017-03-02 13:33 | CP.PCM.DIS ---
Provider - Provider Date of Admission: 02/24/17 18:57 Attending physician: Margaret Liriano MD Time Spent in preparation of Discharge (in minutes): 35 Diagnosis - Discharge Diagnosis (1) Acute abdomen Status: Acute (2) Intestinal obstruction due to recurrent inguinal hernia Status: Acute (3) Cardiomyopathy Status: Chronic Hospital Course - Lab Results Lab Results: Micro Results 02/24/17 19:40 Blood-Venous Blood Culture - Final NO GROWTH AFTER 5 DAYS 02/24/17 19:40 Blood-Venous Gram Stain - Final TEST NOT PERFORMED 02/24/17 22:00 Blood-Venous Blood Culture - Final NO GROWTH AFTER 5 DAYS 02/24/17 22:00 Blood-Venous Gram Stain - Final TEST NOT PERFORMED Most Recent Lab Values WBC 5.4 K/uL (4.8-10.8) 02/26/17 06:59 RBC 4.29 Mil/uL (4.40-5.90) L 02/26/17 06:59 Hgb 12.8 g/dL (12.0-18.0) 02/26/17 06:59 Hct 38.2 % (35.0-51.0) 02/26/17 06:59 MCV 89.1 fL (80.0-94.0) 02/26/17 06:59 MCH 29.9 pg (27.0-31.0) 02/26/17 06:59 MCHC 33.6 g/dL (33.0-37.0) 02/26/17 06:59 RDW 15.3 % (11.5-14.5) H 02/26/17 06:59 Plt Count 270 K/uL (130-400) 02/26/17 06:59 MPV 7.7 fL (7.2-11.7) 02/26/17 06:59 Neut % (Auto) 59.2 % (50.0-75.0) 02/26/17 06:59 Lymph % (Auto) 24.0 % (20.0-40.0) 02/26/17 06:59 [place] % (Auto) 10.5 % (0.0-10.0) H 02/26/17 06:59 Eos % (Auto) 5.7 % (0.0-4.0) H 02/26/17 06:59 Baso % (Auto) 0.6 % (0.0-2.0) 02/26/17 06:59 Neut # 3.2 K/uL (1.8-7.0) 02/26/17 06:59 Lymph # 1.3 K/uL (1.0-4.3) 02/26/17 06:59 [place] # 0.6 K/uL (0.0-0.8) 02/26/17 06:59 Eos # 0.3 K/uL (0.0-0.7) 02/26/17 06:59 Baso # 0.0 K/uL (0.0-0.2) 02/26/17 06:59 pO2 41 mm/Hg (30-55) 02/24/17 16:40 VBG pH 7.39 (7.32-7.43) 02/24/17 16:40 VBG pCO2 45 mmHg (40-60) 02/24/17 16:40 VBG HCO3 25.7 mmol/L 02/24/17 16:40 VBG Total CO2 28.6 mmol/L (22-28) H 02/24/17 16:40 VBG O2 Sat (Calc) 78.5 % (40-65) H 02/24/17 16:40 VBG Base Excess 1.7 mmol/L (0.0-2.0) 02/24/17 16:40 VBG Potassium 3.7 mmol/L (3.6-5.2) 02/24/17 16:40 Sodium 141.0 mmol/l (132-148) 02/24/17 16:40 Chloride 108.0 mmol/L (98-107) H 02/24/17 16:40 Glucose 90 mg/dl (75-110) 02/24/17 16:40 Lactate 0.9 mmol/L (0.7-2.1) 02/24/17 16:40 Sodium 135 mmol/L (132-148) 02/26/17 06:59 Potassium 3.8 mmol/L (3.6-5.2) 02/26/17 06:59 Chloride 102 mmol/L (98-107) 02/26/17 06:59 Carbon Dioxide 26 mmol/L (22-30) 02/26/17 06:59 Anion Gap 11 (10-20) 02/26/17 06:59 BUN 17 mg/dL (9-20) 02/26/17 06:59 Creatinine 1.1 mg/dL (0.8-1.5) 02/26/17 06:59 Est GFR ( Amer) > 60 02/26/17 06:59 Est GFR (Non-Af Amer) > 60 02/26/17 06:59 Random Glucose 82 mg/dL (75-110) 02/26/17 06:59 Calcium 8.5 mg/dl (8.6-10.4) L 02/26/17 06:59 Total Bilirubin 1.2 mg/dL (0.2-1.3) 02/26/17 06:59 AST 34 U/L (17-59) 02/26/17 06:59 ALT 37 U/L (21-72) 02/26/17 06:59 Alkaline Phosphatase 125 U/L (38-126) 02/26/17 06:59 Troponin I 0.0280 ng/mL (0.00-0.120) 02/24/17 16:44 Total Protein 6.6 g/dL (6.3-8.3) 02/26/17 06:59 Albumin 3.6 g/dL (3.5-5.0) 02/26/17 06:59 Globulin 3.0 gm/dL (2.2-3.9) 02/26/17 06:59 Albumin/Globulin Ratio 1.2 (1.0-2.1) 02/26/17 06:59 Lipase 114 U/L (23-300) 02/24/17 16:44 Venous Blood Potassium 3.7 mmol/L (3.6-5.2) 02/24/17 16:40 Urine Color Yellow (YELLOW) 02/24/17 16:44 Urine Clarity Clear (Clear) 02/24/17 16:44 Urine pH 5.0 (5.0-8.0) 02/24/17 16:44 Ur Specific [place] 1.015 (1.003-1.030) 02/24/17 16:44 Urine Protein 1+ mg/dL (NEGATIVE) H 02/24/17 16:44 Urine Glucose (UA) Normal mg/dL (Normal) 02/24/17 16:44 Urine Ketones Negative mg/dL (NEGATIVE) 02/24/17 16:44 Urine Blood Negative (NEGATIVE) 02/24/17 16:44 Urine Nitrate Negative (NEGATIVE) 02/24/17 16:44 Urine Bilirubin Negative (NEGATIVE) 02/24/17 16:44 Urine Urobilinogen Normal mg/dL (0.2-1.0) 02/24/17 16:44 Ur Leukocyte Esterase Neg [place]/uL (Negative) 02/24/17 16:44 Urine WBC (Auto) 1 /hpf (0-5) 02/24/17 16:44 Urine RBC (Auto) 2 /hpf (0-3) 02/24/17 16:44 Ur Squamous Epith Cells < 1 /hpf (0-5) 02/24/17 16:44 Urine Bacteria Rare (<OCC) 02/24/17 16:44 Hyaline Casts 11-20 /lpf (0-2) H 02/24/17 16:44 - Hospital Course Hospital Course: ADMITTED WITH LOWER ABD PAIN FOR FEW DAYS AND HAS PROGRESSIVELY INCREASED IN INSTENSITY A/W VOMITING . CT SHOWED SBO AT R INGUINAL HERNIA AREA NO FEVER /LEUCOCYTOSIS PAST HIST. ALCOHOLIC CARDIOMYOPATHY, NOR. CORONARIES , LAST LV EF 35%, BI PACEMAKER WITH DEFBRILLATOR ,HTN SURGICAL CONSULT WAS OBTAINED PT WAS TREATED WITH IV AB AND IMPROVED CASE WAS D/W SURGERY AT LENGTH PT NEEDS SURGERY TO FIX HERNIA BUT IS HIGH RISK DUE TO VERY LOW LV EF PT IS IMPROVING ON CONSERVATIVE THERAPY WILL HOLD SURGERY, D/C ON PO AB SURGERY WILL REEVALUATE PT IN ONE WEEK IN OFFICE AND MAY PLAN ELECTIVE SURGERY UNDER LOCAL ANAESTHESIA ALL THE INFORMATION AND BENEFITS AND RISKS EXPLAINED TO PT PT HAS UNDERSTOOD THE PROBLEM AND ANSWERED ALL THE PT'S QUERIES PT AGREED TO GO HOME ON 03/03/17 Discharge Exam - Head Exam Head Exam: ATRAUMATIC, NORMOCEPHALIC Discharge Plan - Discharge Medications Prescriptions: Spironolactone [Aldactone] 25 mg PO DAILY #30 tab cloNIDine [Catapres] 0.1 mg PO DAILY #30 tab Ciprofloxacin [Cipro] 500 mg PO BID #10 tab metroNIDAZOLE [Flagyl] 500 mg PO Q8 #15 tab Metoprolol Tartrate [Lopressor] 25 mg PO BID #60 tab Lisinopril [Zestril] 10 mg PO DAILY #30 tab - Follow Up Plan Condition: STABLE Disposition: HOME/ ROUTINE Instructions: Ciprofloxacin (By mouth), Metoprolol (By mouth), Spironolactone ( By mouth), Lisinopril (By mouth), Clonidine (By mouth), Metronidazole (By mouth) , Bowel Obstruction (DC) Additional Instructions: FOLLOW UP WITH YOUR OWN PRIMARY PHYSICIAN IN ONE WEEK. Referrals: Eugene Hussein MD [Staff Provider] -
[2017-03-03 15:57] VITALS: BP 116/70; PULSE 64; TEMP 98.3; O2SAT 96
--- NOTE | 2017-03-03 17:24 | CP.PCM.PN ---
Subjective - Date & Time of Evaluation Date of Evaluation: 03/03/17 Time of Evaluation: 17:25 - Subjective Subjective: Alert, awake, no abdominal pain, tolerating diet. Objective - Vital Signs/Intake and Output Vital Signs (last 24 hours): Temp Pulse Resp BP Pulse Ox 98.3 F 64 20 116/70 96 03/03/17 15:56 03/03/17 15:56 03/03/17 15:56 03/03/17 15:56 03/03/17 15:56 Intake and Output: 03/03/17 03/03/17 06:59 18:59 Intake Total 1450 500 Output Total 500 Balance 950 500 - Labs Labs: 02/26/17 06:59 02/26/17 06:59 Assessment and Plan - Assessment and Plan (Free Text) Assessment: Patient is seen and examined. Alert and orientedx3, tolerating regular diet, denies abdominal pain. D/W DR Liriano, plan to discharge home today, to be followed up by surgery in 1 week. 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 made aware about the discharge plan and was spoken by DR Liriano.
--- NOTE | 2017-03-03 17:45 | PCM.HF ---
Heart Failure Core Measure KAMALJIT Inhibitor Prescribed: Yes Beta-Jazmin Prescribed: Metoprolol Succinate Angiotensin II Receptor Jazmin Prescribed: No Contraindication/Reason for not providing: on kamaljit Aldosterone Antagonist Prescribed: Yes - Follow up Will be discharged to: Home Follow Up Date (must be within 7 days from discharge): 03/08/17 Follow Up Time: 09:00
== END 2017-03-03 17:15 | disposition home or self-care (01) | DRG 188 ==
LOC: C.ER 15:45 → C.9E 18:57 → C.3T 20:27
PROVIDERS: ADMIT Internal Medicine Cardiovascular Disease; ATTEND Internal Medicine Cardiovascular Disease
DX: K40.31 Unilateral inguinal hernia, with obstruction, without gangrene, recurrent (principal); J44.0 Chronic obstructive pulmonary disease with (acute) lower respiratory infection; I42.6 Alcoholic cardiomyopathy; I11.0 Hypertensive heart disease with heart failure; I50.9 Heart failure, unspecified; R18.8 Other ascites; I69.351 Hemiplegia and hemiparesis following cerebral infarction affecting right dominant side; J44.9 Chronic obstructive pulmonary disease, unspecified; F10.21 Alcohol dependence, in remission; K52.9 Noninfective gastroenteritis and colitis, unspecified; I25.10 Atherosclerotic heart disease of native coronary artery without angina pectoris; E78.5 Hyperlipidemia, unspecified; Z95.810 Presence of automatic (implantable) cardiac defibrillator; N43.3 Hydrocele, unspecified; N44.2 Benign cyst of testis; Z87.01 Personal history of pneumonia (recurrent); J45.909 Unspecified asthma, uncomplicated

== ENCOUNTER 2017-06-13 17:16 | Observation (INO) | payer MEDICAID ==
[2017-06-13 17:25] VITALS: BMI 27.5
--- NOTE | 2017-06-13 19:24 | C.PDOC ---
History Of Present Illness 62yo male with history of hypertension, CAD, pacemaker, presents to ED with complaints of chest pain and states his "heart beats slow". He also states the pain presents "once in a while." Patient is a poor historian Time Seen by Provider: 06/13/17 19:03 Chief Complaint (Nursing): Chest Pain History Per: Patient Onset/Duration Of Symptoms: Days Current Symptoms Are (Timing): Still Present Past Medical History Reviewed: Historical Data, Nursing Documentation, Vital Signs Vital Signs: Last Vital Signs Temp 98 F 06/13/17 17:38 Pulse 66 06/14/17 04:01 Resp 16 06/14/17 04:01 BP 134/80 06/14/17 04:01 Pulse Ox 97 06/14/17 04:01 - Medical History PMH: Asthma, CAD, CHF, COPD, HTN Denies: Chronic Kidney Disease Surgical History: Pacemaker - [facility] Procedures FLUOROSCOPY OF LEFT HEART USING LOW OSMOLAR CONTRAST (11/30/16) FLUOROSCOPY OF MULT COR ART USING L OSM CONTRAST (11/30/16) MEASURE OF CARDIAC SAMPL & PRESSURE, L HEART, PERC APPROACH (11/30/16) Family History: States: No Known Family Hx - Social History Hx Alcohol Use: No Hx Substance Use: No - Immunization History Hx Tetanus Toxoid Vaccination: No Hx Influenza Vaccination: Yes Hx Pneumococcal Vaccination: No Review Of Systems Except As Marked, All Systems Reviewed And Found Negative. Constitutional: Negative for: Fever, Chills Cardiovascular: Positive for: Chest Pain Respiratory: Negative for: Shortness of Breath Gastrointestinal: Negative for: Nausea, Vomiting Physical Exam - Physical Exam Appears: Non-toxic, No Acute Distress Skin: Normal Color Head: Normacephalic Eye(s): bilateral: Normal Inspection Neck: Normal ROM, Supple Chest: Symmetrical Cardiovascular: Rhythm Regular Respiratory: Normal Breath Sounds Extremity: Normal ROM Neurological/Psych: Oriented x3 ED Course And Treatment - Laboratory Results Result Diagrams: 06/13/17 19:37 06/13/17 19:37 ECG: Interpreted By Me, Viewed By Me ECG Interpretation: Normal Interpretation Of ECG: Paced rhythm, no ST/T changes Rate From EC O2 Sat by Pulse Oximetry: 96 - Radiology CXR: Viewed By Me CXR Interpretation: Yes: Cardiomegaly Medical Decision Making Medical Decision Making: Impression: Chest pain r/o acs - ekg shows capture of pacemaker Plan: -- EKG -- Labs -- CXR -- Urinalysis 816: pt pain free. trop neg. accepted by landon haines for admission dr pacheco states has not seen patient recently, requests med on harriet ladmission Disposition - Disposition Disposition: HOSPITALIZED Disposition Time: 20:17 Condition: STABLE - Clinical Impression Clinical Impression: Chest pain - Scribe Statement The provider has reviewed the documentation as recorded by the Scribe (Kylie Doan) Provider Attestation: All medical record entries made by the Scribe were at my direction and personally dictated by me. I have reviewed the chart and agree that the record accurately reflects my personal performance of the history, physical exam, medical decision making, and the department course for this patient. I have also personally directed, reviewed, and agree with the discharge instructions and disposition. Decision To Admit - Pt Status Changed To: Hospital Disposition Of: Observation - . Bed Request Type: Telemetry Admitting Physician: Mark Haines Patient Diagnosis: Chest pain
[2017-06-13 19:40] LABS: BASO # 0.1 K/uL (0.0-0.2); EOS # 0.4 K/uL (0.0-0.7); EOS % 7.6 % (0.0-4.0); HEMOGLOBIN 12.1 g/dL (12.0-18.0); LYMPH # 1.7 K/uL (1.0-4.3); LYMPH % 30.4 % (20.0-40.0); MEAN CELL VOLUME 93.5 fL (80.0-94.0); MEAN CORPUSCULAR HEMOGLOBIN 32.2 pg (27.0-31.0); MEAN CORPUSCULAR HGB CONC 34.5 g/dL (33.0-37.0); MEAN PLATELET VOLUME 7.2 fL (7.2-11.7); MONO # 0.5 K/uL (0.0-0.8); MONO % 8.5 % (0.0-10.0); NEUT # 2.9 K/uL (1.8-7.0); NEUT % 52.5 % (50.0-75.0); RBC 3.76 Mil/uL (4.40-5.90); RED CELL DISTRIBUTION WIDTH 14.3 % (11.5-14.5); WHITE BLOOD COUNT 5.6 K/uL (4.8-10.8)
[2017-06-13 19:43] LABS: URINE BILIRUBIN NEGATIVE (NEGATIVE); URINE CLARITY Clear (Clear); URINE COLOR Yellow (YELLOW); URINE GLUCOSE (UA) NORMAL (Normal); URINE LEUKOCYTE ESTERASE NEG Leu/uL (Negative); URINE PROTEIN 1+ mg/dL (NEGATIVE); URINE UROBILINOGEN NORMAL mg/dL (0.2-1.0)
[2017-06-13 19:46] LABS: URINE BLOOD NEGATIVE (NEGATIVE)
[2017-06-13 19:48] LABS: INR 1.1; PROTHROMBIN TIME 12.8 SECONDS (9.7-12.2)
[2017-06-13 19:52] LABS: ALB/GLOB RATIO 1.1 (1.0-2.1); ALBUMIN 3.9 g/dL (3.5-5.0); ALT/SGPT 42 U/L (21-72); AST/SGOT 40 U/L (17-59); BLOOD UREA NITROGEN 15 mg/dL (9-20); CALCIUM 8.8 mg/dl (8.6-10.4); GFR AFRICAN-AMERICAN > 60; GFR NON-AFRICAN AMERICAN > 60
[2017-06-13] MEDS ORDERED: Potassium Chloride 20 mEq ER Tab PO STA (19:53)
[2017-06-13 20:04] LABS: B-TYPE NATRIURETIC PEPTIDE 821 pg/mL (0-900)
[2017-06-13] MEDS ORDERED: Potassium Chloride 20 mEq ER Tab PO ONE (20:09)
--- NOTE | 2017-06-13 22:58 | CP.PCM.HP ---
Past Patient History - Infectious Disease Hx of Infectious Diseases: None - Past Medical History & Family History Past Medical History?: Yes - Past Social History Smoking Status: Never Smoked - CARDIAC Hx Congestive Heart Failure: Yes Hx Hypertension: Yes Hx Pacemaker: Yes - PULMONARY Hx Asthma: Yes Hx Chronic Obstructive Pulmonary Disease (COPD): Yes - NEUROLOGICAL Hx Neurological Disorder: Yes HX Cerebrovascular Accident: Yes (2004) - HEENT Hx HEENT Problems: No - RENAL Hx Chronic Kidney Disease: No - ENDOCRINE/METABOLIC Hx Endocrine Disorders: No - HEMATOLOGICAL/ONCOLOGICAL Hx Blood Transfusions: No - INTEGUMENTARY Hx Dermatological Problems: No - MUSCULOSKELETAL/RHEUMATOLOGICAL Hx Musculoskeletal Disorders: Yes Hx Falls: Yes (in 2004 when he had a stroke) - GASTROINTESTINAL Hx Gastrointestinal Disorders: No - GENITOURINARY/GYNECOLOGICAL Hx Genitourinary Disorders: No - PSYCHIATRIC Hx Substance Use: No - SURGICAL HISTORY Hx Surgeries: Yes Other/Comment: pacemaker placement 2017 - ANESTHESIA Hx Anesthesia: No Hx Anesthesia Reactions: No Hx Malignant Hyperthermia: No Meds Allergies/Adverse Reactions: Allergies Allergy/AdvReac Type Severity Reaction Status Date / Time No Known Allergies Allergy Verified 06/13/17 17:24 Results - Vital Signs Recent Vital Signs: Last Vital Signs Temp 98 F 06/13/17 17:38 Pulse 71 06/13/17 20:51 Resp 21 06/13/17 20:51 BP 166/89 H 06/13/17 20:51 Pulse Ox 96 06/13/17 21:43 - Labs Result Diagrams: 06/13/17 19:37 06/13/17 19:37 Labs: Laboratory Results - last 24 hr 06/13/17 06/13/17 06/13/17 19:37 19:37 19:37 WBC 5.6 RBC 3.76 L Hgb 12.1 Hct 35.2 MCV 93.5 D MCH 32.2 H MCHC 34.5 RDW 14.3 Plt Count 214 MPV 7.2 Neut % (Auto) 52.5 Lymph % (Auto) 30.4 [place] % (Auto) 8.5 Eos % (Auto) 7.6 H Baso % (Auto) 1.0 Neut # (Auto) 2.9 Lymph # (Auto) 1.7 [place] # (Auto) 0.5 Eos # (Auto) 0.4 Baso # (Auto) 0.1 PT 12.8 H INR 1.1 APTT 29 Sodium Potassium Chloride Carbon Dioxide Anion Gap BUN Creatinine Est GFR ( Amer) Est GFR (Non-Af Amer) Random Glucose Calcium Total Bilirubin AST ALT Alkaline Phosphatase Troponin I NT-Pro-B Natriuret Pep Total Protein Albumin Globulin Albumin/Globulin Ratio Urine Color Yellow Urine Clarity Clear Urine pH 5.0 Ur Specific [place] 1.016 Urine Protein 1+ H Urine Glucose (UA) Normal Urine Ketones Negative Urine Blood Negative Urine Nitrate Negative Urine Bilirubin Negative Urine Urobilinogen Normal Ur Leukocyte Esterase Neg Urine WBC (Auto) < 1 06/13/17 19:37 WBC RBC Hgb Hct MCV MCH MCHC RDW Plt Count MPV Neut % (Auto) Lymph % (Auto) [place] % (Auto) Eos % (Auto) Baso % (Auto) Neut # (Auto) Lymph # (Auto) [place] # (Auto) Eos # (Auto) Baso # (Auto) PT INR APTT Sodium 142 Potassium 3.3 L Chloride 105 Carbon Dioxide 27 Anion Gap 14 BUN 15 Creatinine 1.2 Est GFR ( Amer) > 60 Est GFR (Non-Af Amer) > 60 Random Glucose 83 Calcium 8.8 Total Bilirubin 0.5 AST 40 ALT 42 Alkaline Phosphatase 86 Troponin I 0.0210 NT-Pro-B Natriuret Pep 821 Total Protein 7.4 Albumin 3.9 Globulin 3.5 Albumin/Globulin Ratio 1.1 Urine Color Urine Clarity Urine pH Ur Specific [place] Urine Protein Urine Glucose (UA) Urine Ketones Urine Blood Urine Nitrate Urine Bilirubin Urine Urobilinogen Ur Leukocyte Esterase Urine WBC (Auto)
[2017-06-14 04:10] LABS: CK-MB 2.45 ng/mL (0.0-3.38); TROPONIN I 0.024 ng/mL (0.00-0.120)
--- NOTE | 2017-06-14 08:15 | RAD ---
Chest x-ray single frontal view History: Chest pain. Comparison: 02/03/2017 Findings: No focal infiltrate or effusion. Cardiomegaly. Tortuous ectatic aorta. Left-sided pacemaker. Impression: Cardiomegaly.
[2017-06-14] MEDS: Enoxaparin 40 mg Syringe SC SCH (10:32)
[2017-06-14] MEDS: Pantoprazole 40 mg EC Tab PO SCH (10:34)
[2017-06-14 10:51] VITALS: RESP 20
[2017-06-14 11:43] LABS: ALB/GLOB RATIO 1.3 (1.0-2.1); ALBUMIN 4.2 g/dL (3.5-5.0); ALT/SGPT 39 U/L (21-72); AST/SGOT 47 U/L (17-59); BLOOD UREA NITROGEN 14 mg/dL (9-20); CALCIUM 9.1 mg/dl (8.6-10.4); GFR AFRICAN-AMERICAN > 60; GFR NON-AFRICAN AMERICAN > 60
[2017-06-14 11:50] LABS: CK-MB 2.34 ng/mL (0.0-3.38)
--- NOTE | 2017-06-14 12:43 | CARD ---
APPROVED REPORT EKG Measurement Heart [id number] <Conclusion> Atrial-sensed ventricular-paced rhythm Abnormal ECG
[2017-06-14 14:10] LABS: BASO % 0.8 % (0.0-2.0); EOS # 0.4 K/uL (0.0-0.7); EOS % 7.1 % (0.0-4.0); HEMOGLOBIN 11.7 g/dL (12.0-18.0); LYMPH # 1.3 K/uL (1.0-4.3); LYMPH % 25.8 % (20.0-40.0); MEAN CELL VOLUME 94.8 fL (80.0-94.0); MEAN CORPUSCULAR HEMOGLOBIN 32.3 pg (27.0-31.0); MEAN PLATELET VOLUME 7.8 fL (7.2-11.7); MONO # 0.5 K/uL (0.0-0.8); MONO % 9.8 % (0.0-10.0); NEUT # 2.9 K/uL (1.8-7.0); NEUT % 56.5 % (50.0-75.0); RBC 3.62 Mil/uL (4.40-5.90); RED CELL DISTRIBUTION WIDTH 14.3 % (11.5-14.5); WHITE BLOOD COUNT 5.1 K/uL (4.8-10.8)
--- NOTE | 2017-06-14 15:41 | CP.PCM.PN ---
Subjective - Date & Time of Evaluation Date of Evaluation: 06/14/17 Time of Evaluation: 10:10 - Subjective Subjective: clinically same Objective - Vital Signs/Intake and Output Vital Signs (last 24 hours): Temp Pulse Resp BP Pulse Ox 98.0 F 60 20 142/86 96 06/14/17 08:00 06/14/17 12:50 06/14/17 08:00 06/14/17 13:41 06/14/17 08:00 - Medications Medications: Current Medications Aspirin (Aspirin) 325 mg PO DAILY [facility] Last Admin: 06/14/17 10:34 Dose: 325 mg Clonidine HCl (Catapres) 0.1 mg PO DAILY [facility] Last Admin: 06/14/17 10:35 Dose: 0.1 mg Clopidogrel Bisulfate (Plavix) 75 mg PO DAILY [facility] Last Admin: 06/14/17 10:34 Dose: 75 mg Enoxaparin Sodium (Lovenox) 40 mg SC DAILY [facility] Last Admin: 06/14/17 10:32 Dose: 40 mg Furosemide (Lasix) 40 mg PO BID [facility] Last Admin: 06/14/17 10:33 Dose: 40 mg Lisinopril (Zestril) 10 mg PO DAILY [facility] Last Admin: 06/14/17 10:34 Dose: 10 mg Metoprolol Tartrate (Lopressor) 25 mg PO BID [facility] Last Admin: 06/14/17 10:34 Dose: 25 mg Pantoprazole Sodium (Protonix Ec Tab) 40 mg PO DAILY [facility] Last Admin: 06/14/17 10:34 Dose: 40 mg Rosuvastatin Calcium (Crestor) 20 mg PO [facility] Spironolactone (Aldactone) 25 mg PO DAILY [facility] Last Admin: 06/14/17 10:34 Dose: 25 mg - Labs Labs: 06/14/17 13:58 06/14/17 11:15 PT 12.8 SECONDS (9.7-12.2) H 06/13/17 19:37 INR 1.1 06/13/17 19:37 APTT 29 SECONDS (21-34) 06/13/17 19:37 - Constitutional Appears: Well - Head Exam Head Exam: ATRAUMATIC, NORMAL INSPECTION, NORMOCEPHALIC - Eye Exam Eye Exam: EOMI, Normal appearance, PERRL Pupil Exam: NORMAL ACCOMODATION, PERRL - ENT Exam ENT Exam: Mucous Membranes Moist, Normal Exam - Neck Exam Neck Exam: Full ROM, Normal Inspection. absent: Lymphadenopathy - Respiratory Exam Respiratory Exam: Decreased Breath Sounds - Cardiovascular Exam Cardiovascular Exam: REGULAR RHYTHM, +S1, +S2 - GI/Abdominal Exam GI & Abdominal Exam: Soft, Diminished Bowel Sounds - Rectal Exam Rectal Exam: Deferred Assessment and Plan - Assessment and Plan (Free Text) Plan: Spironolactone Continue Crestor Follow-up with the motion study technician Patient had a cardiology evaluations done at the [facility] before LAURA 3 negative Continue same
--- NOTE | 2017-06-14 17:05 | CP.PCM.CON ---
Past Patient History - Infectious Disease Hx of Infectious Diseases: None - Past Medical History & Family History Past Medical History?: Yes - Past Social History Smoking Status: Never Smoked - CARDIAC Hx Congestive Heart Failure: Yes Hx Hypertension: Yes Hx Pacemaker: Yes - PULMONARY Hx Asthma: Yes Hx Chronic Obstructive Pulmonary Disease (COPD): Yes - NEUROLOGICAL Hx Neurological Disorder: Yes HX Cerebrovascular Accident: Yes (2004) - HEENT Hx HEENT Problems: No - RENAL Hx Chronic Kidney Disease: No - ENDOCRINE/METABOLIC Hx Endocrine Disorders: No - HEMATOLOGICAL/ONCOLOGICAL Hx Blood Transfusions: No - INTEGUMENTARY Hx Dermatological Problems: No - MUSCULOSKELETAL/RHEUMATOLOGICAL Hx Musculoskeletal Disorders: Yes Hx Falls: Yes (in 2004 when he had a stroke) - GASTROINTESTINAL Hx Gastrointestinal Disorders: No - GENITOURINARY/GYNECOLOGICAL Hx Genitourinary Disorders: No - PSYCHIATRIC Hx Substance Use: No - SURGICAL HISTORY Hx Surgeries: Yes Other/Comment: pacemaker placement 2017 - ANESTHESIA Hx Anesthesia: No Hx Anesthesia Reactions: No Hx Malignant Hyperthermia: No Meds Allergies/Adverse Reactions: Allergies Allergy/AdvReac Type Severity Reaction Status Date / Time No Known Allergies Allergy Verified 06/13/17 17:24 - Medications Medications: Current Medications Aspirin (Aspirin) 325 mg PO DAILY [facility] Last Admin: 06/14/17 10:34 Dose: 325 mg Clonidine HCl (Catapres) 0.1 mg PO DAILY [facility] Last Admin: 06/14/17 10:35 Dose: 0.1 mg Clopidogrel Bisulfate (Plavix) 75 mg PO DAILY [facility] Last Admin: 06/14/17 10:34 Dose: 75 mg Enoxaparin Sodium (Lovenox) 40 mg SC DAILY [facility] Last Admin: 06/14/17 10:32 Dose: 40 mg Furosemide (Lasix) 40 mg PO BID [facility] Last Admin: 06/14/17 10:33 Dose: 40 mg Lisinopril (Zestril) 10 mg PO DAILY [facility] Last Admin: 06/14/17 10:34 Dose: 10 mg Metoprolol Tartrate (Lopressor) 25 mg PO BID [facility] Last Admin: 06/14/17 10:34 Dose: 25 mg Pantoprazole Sodium (Protonix Ec Tab) 40 mg PO DAILY [facility] Last Admin: 06/14/17 10:34 Dose: 40 mg Rosuvastatin Calcium (Crestor) 20 mg PO [facility] Spironolactone (Aldactone) 25 mg PO DAILY [facility] Last Admin: 06/14/17 10:34 Dose: 25 mg Results - Vital Signs Recent Vital Signs: Last Vital Signs Temp 98.0 F 06/14/17 15:58 Pulse 65 06/14/17 16:06 Resp 20 06/14/17 15:58 BP 150/88 06/14/17 15:58 Pulse Ox 96 06/14/17 16:06 - Labs Result Diagrams: 06/14/17 13:58 06/14/17 11:15 Labs: Laboratory Results - last 24 hr 06/13/17 06/13/17 06/13/17 19:37 19:37 19:37 WBC 5.6 RBC 3.76 L Hgb 12.1 Hct 35.2 MCV 93.5 D MCH 32.2 H MCHC 34.5 RDW 14.3 Plt Count 214 MPV 7.2 Neut % (Auto) 52.5 Lymph % (Auto) 30.4 [place] % (Auto) 8.5 Eos % (Auto) 7.6 H Baso % (Auto) 1.0 Neut # (Auto) 2.9 Lymph # (Auto) 1.7 [place] # (Auto) 0.5 Eos # (Auto) 0.4 Baso # (Auto) 0.1 PT 12.8 H INR 1.1 APTT 29 Sodium Potassium Chloride Carbon Dioxide Anion Gap BUN Creatinine Est GFR ( Amer) Est GFR (Non-Af Amer) Random Glucose Calcium Total Bilirubin AST ALT Alkaline Phosphatase Total Creatine Kinase CK-MB (Mass) Troponin I NT-Pro-B Natriuret Pep Total Protein Albumin Globulin Albumin/Globulin Ratio Urine Color Yellow Urine Clarity Clear Urine pH 5.0 Ur Specific [place] 1.016 Urine Protein 1+ H Urine Glucose (UA) Normal Urine Ketones Negative Urine Blood Negative Urine Nitrate Negative Urine Bilirubin Negative Urine Urobilinogen Normal Ur Leukocyte Esterase Neg Urine WBC (Auto) < 1 06/13/17 06/14/17 06/14/17 19:37 03:45 11:15 WBC RBC Hgb Hct MCV MCH MCHC RDW Plt Count MPV Neut % (Auto) Lymph % (Auto) [place] % (Auto) Eos % (Auto) Baso % (Auto) Neut # (Auto) Lymph # (Auto) [place] # (Auto) Eos # (Auto) Baso # (Auto) PT INR APTT Sodium 142 142 Potassium 3.3 L 3.6 Chloride 105 103 Carbon Dioxide 27 27 Anion Gap 14 16 BUN 15 14 Creatinine 1.2 1.2 Est GFR ( Amer) > 60 > 60 Est GFR (Non-Af Amer) > 60 > 60 Random Glucose 83 111 H Calcium 8.8 9.1 Total Bilirubin 0.5 0.6 AST 40 47 ALT 42 39 Alkaline Phosphatase 86 91 Total Creatine Kinase 205 H 241 H CK-MB (Mass) 2.45 2.34 Troponin I 0.0210 0.0240 0.0230 NT-Pro-B Natriuret Pep 821 Total Protein 7.4 7.6 Albumin 3.9 4.2 Globulin 3.5 3.3 Albumin/Globulin Ratio 1.1 1.3 Urine Color Urine Clarity Urine pH Ur Specific [place] Urine Protein Urine Glucose (UA) Urine Ketones Urine Blood Urine Nitrate Urine Bilirubin Urine Urobilinogen Ur Leukocyte Esterase Urine WBC (Auto) 06/14/17 13:58 WBC 5.1 RBC 3.62 L Hgb 11.7 L Hct 34.3 L MCV 94.8 H MCH 32.3 H MCHC 34.0 RDW 14.3 Plt Count 213 MPV 7.8 Neut % (Auto) 56.5 Lymph % (Auto) 25.8 [place] % (Auto) 9.8 Eos % (Auto) 7.1 H Baso % (Auto) 0.8 Neut # (Auto) 2.9 Lymph # (Auto) 1.3 [place] # (Auto) 0.5 Eos # (Auto) 0.4 Baso # (Auto) 0.0 PT INR APTT Sodium Potassium Chloride Carbon Dioxide Anion Gap BUN Creatinine Est GFR ( Amer) Est GFR (Non-Af Amer) Random Glucose Calcium Total Bilirubin AST ALT Alkaline Phosphatase Total Creatine Kinase CK-MB (Mass) Troponin I NT-Pro-B Natriuret Pep Total Protein Albumin Globulin Albumin/Globulin Ratio Urine Color Urine Clarity Urine pH Ur Specific [place] Urine Protein Urine Glucose (UA) Urine Ketones Urine Blood Urine Nitrate Urine Bilirubin Urine Urobilinogen Ur Leukocyte Esterase Urine WBC (Auto)
[2017-06-15 06:27] LABS: BASO % 0.6 % (0.0-2.0); EOS # 0.4 K/uL (0.0-0.7); EOS % 8.2 % (0.0-4.0); HEMOGLOBIN 12.1 g/dL (12.0-18.0); LYMPH # 1.4 K/uL (1.0-4.3); LYMPH % 32.4 % (20.0-40.0); MEAN CELL VOLUME 94.3 fL (80.0-94.0); MEAN CORPUSCULAR HEMOGLOBIN 33.2 pg (27.0-31.0); MEAN CORPUSCULAR HGB CONC 35.2 g/dL (33.0-37.0); MONO # 0.4 K/uL (0.0-0.8); MONO % 9.4 % (0.0-10.0); NEUT # 2.2 K/uL (1.8-7.0); NEUT % 49.4 % (50.0-75.0); RBC 3.65 Mil/uL (4.40-5.90); WHITE BLOOD COUNT 4.4 K/uL (4.8-10.8)
[2017-06-15 06:39] LABS: ALB/GLOB RATIO 1.2 (1.0-2.1); ALBUMIN 3.7 g/dL (3.5-5.0); ALT/SGPT 36 U/L (21-72); AST/SGOT 36 U/L (17-59); BLOOD UREA NITROGEN 17 mg/dL (9-20); CALCIUM 8.7 mg/dl (8.6-10.4); GFR AFRICAN-AMERICAN > 60; GFR NON-AFRICAN AMERICAN 56
[2017-06-15] MEDS: Enoxaparin 40 mg Syringe SC SCH (09:07)
[2017-06-15] MEDS: Pantoprazole 40 mg EC Tab PO SCH (09:07)
--- NOTE | 2017-06-15 10:01 | CP.PCM.PN ---
<Hilario Hawley - Last Filed: 06/15/17 13:02> Subjective - Date & Time of Evaluation Date of Evaluation: 06/15/17 Time of Evaluation: 10:01 - Subjective Subjective: Progress Note for Dr. Ordonez's Service Pt seen and examined at bedside. He is sitting up in bed states that he is feeling better. He denies any chest pain currently. No other acute events reported. Objective - Vital Signs/Intake and Output Vital Signs (last 24 hours): Temp Pulse Resp BP Pulse Ox 97.9 F 64 20 155/90 H 97 06/15/17 07:51 06/15/17 07:51 06/15/17 07:51 06/15/17 09:07 06/15/17 07:51 Intake and Output: 06/15/17 06/15/17 06:59 18:59 Intake Total 350 Balance 350 - Medications Medications: Current Medications Aspirin (Aspirin) 325 mg PO DAILY [facility] Last Admin: 06/15/17 09:07 Dose: 325 mg Clonidine HCl (Catapres) 0.1 mg PO DAILY [facility] Last Admin: 06/15/17 09:07 Dose: 0.1 mg Clopidogrel Bisulfate (Plavix) 75 mg PO DAILY [facility] Last Admin: 06/15/17 09:07 Dose: 75 mg Enoxaparin Sodium (Lovenox) 40 mg SC DAILY [facility] Last Admin: 06/15/17 09:07 Dose: 40 mg Furosemide (Lasix) 40 mg PO BID [facility] Last Admin: 06/15/17 09:07 Dose: 40 mg Lisinopril (Zestril) 10 mg PO DAILY [facility] Last Admin: 06/15/17 09:07 Dose: 10 mg Metoprolol Tartrate (Lopressor) 25 mg PO BID [facility] Last Admin: 06/15/17 09:07 Dose: 25 mg Pantoprazole Sodium (Protonix Ec Tab) 40 mg PO DAILY [facility] Last Admin: 06/15/17 09:07 Dose: 40 mg Rosuvastatin Calcium (Crestor) 20 mg PO HS [facility] Last Admin: 06/14/17 21:36 Dose: 20 mg Spironolactone (Aldactone) 25 mg PO DAILY [facility] Last Admin: 06/15/17 09:07 Dose: 25 mg - Labs Labs: 06/15/17 06:12 06/15/17 06:12 PT 12.8 SECONDS (9.7-12.2) H 06/13/17 19:37 INR 1.1 06/13/17 19:37 APTT 29 SECONDS (21-34) 06/13/17 19:37 - Head Exam Head Exam: ATRAUMATIC, NORMOCEPHALIC - Eye Exam Eye Exam: EOMI, Normal appearance Pupil Exam: PERRL - ENT Exam ENT Exam: Mucous Membranes Moist - Cardiovascular Exam Cardiovascular Exam: REGULAR RHYTHM, +S1, +S2 - GI/Abdominal Exam GI & Abdominal Exam: Soft. absent: Tenderness - Neurological Exam Neurological Exam: Alert, Awake, Oriented x3 - Skin Skin Exam: Dry, Warm Assessment and Plan - Assessment and Plan (Free Text) Plan: Chest pain s/p pacemaker placement @ [place] in 2016 Cardiology consult placed to Dr. 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 AICD interrogation recommended Echo Feb 2017- Profound bi-ventricular systolic dysfunction. Moderate diastolic dysfunction. Mod-sev pulm HTN. Mod mitral regurgitation. Mod-sev tricuspid regurgitation. TROP- 0.0210-0.0240-0.0230 CXR- cardiomegaly Plavix 75mg PO daily ASA 325mg PO daily CHF- combined systolic/diastolic Cath/echo study as detailed above Lasix 40mg IV BID coreg 25mg PO BID BNP 821 CVA in 2004 -no residual deficits -continue statin, plavix, ASA Hx of substance abuse- cocaine -Patient reports drug free since 1995 HTN Uncontrolled -lisinopril increase to 10 BID as per cardiology, with recommendation to titrate further if tolerated -as per cardio change metoprolol to coreg 25 BID -continue clonidine 0.1mg po daily prophylaxis lovenox 40mg sc daily Protonix 40mg PO daily D/C planning with outpatient f/u if AICD interogation is ok, as per cardio. I have called [employer] and requested the rep to interrogate the device. Currently awaiting call back. Case discussed with Dr. Ordonez. All management as per Dr. Ordonez. <Mark Ordonez S - Last Filed: 06/15/17 17:28> Subjective - Subjective Subjective: case seen and d/w staff and resdient mitch same Objective - Vital Signs/Intake and Output Vital Signs (last 24 hours): Temp Pulse Resp BP Pulse Ox 98.0 F 63 20 124/74 99 06/15/17 15:41 06/15/17 16:39 06/15/17 15:41 06/15/17 15:41 06/15/17 16:39 Intake and Output: 06/15/17 06/15/17 06:59 18:59 Intake Total 350 400 Balance 350 400 - Medications Medications: Current Medications Aspirin (Aspirin) 325 mg PO DAILY [facility] Last Admin: 06/15/17 09:07 Dose: 325 mg Carvedilol (Coreg) 25 mg PO BID [facility] Clonidine HCl (Catapres) 0.1 mg PO DAILY [facility] Last Admin: 06/15/17 09:07 Dose: 0.1 mg Clopidogrel Bisulfate (Plavix) 75 mg PO DAILY [facility] Last Admin: 06/15/17 09:07 Dose: 75 mg Enoxaparin Sodium (Lovenox) 40 mg SC DAILY [facility] Last Admin: 06/15/17 09:07 Dose: 40 mg Furosemide (Lasix) 40 mg PO BID [facility] Last Admin: 06/15/17 09:07 Dose: 40 mg Lisinopril (Zestril) 10 mg PO BID [facility] Pantoprazole Sodium (Protonix Ec Tab) 40 mg PO DAILY [facility] Last Admin: 06/15/17 09:07 Dose: 40 mg Rosuvastatin Calcium (Crestor) 20 mg PO HS [facility] Last Admin: 06/14/17 21:36 Dose: 20 mg Spironolactone (Aldactone) 25 mg PO DAILY [facility] Last Admin: 06/15/17 09:07 Dose: 25 mg - Labs Labs: 06/15/17 06:12 06/15/17 06:12 PT 12.8 SECONDS (9.7-12.2) H 06/13/17 19:37 INR 1.1 06/13/17 19:37 APTT 29 SECONDS (21-34) 06/13/17 19:37
--- NOTE | 2017-06-15 11:50 | CP.PCM.CON ---
History of Present Illness - History of Present Illness History of Present Illness: 62 Y/o Presents with CP > Throbbing, off and on, r. 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 > Patient reports [employer] AICD placed 1 year ago at [place] > denies [place] history, no CABG > CVA 2004: no residual deficits > Hx of cocaine prior to 1995, no smoking > HTN > asthma > no diabetes Review of Systems - Review of Systems All systems: reviewed and no additional remarkable complaints except Past Patient History - Infectious Disease Hx of Infectious Diseases: None - Past Medical History & Family History Past Medical History?: Yes - Past Social History Smoking Status: Never Smoked - CARDIAC Hx Congestive Heart Failure: Yes Hx Hypertension: Yes Hx Pacemaker: Yes - PULMONARY Hx Asthma: Yes Hx Chronic Obstructive Pulmonary Disease (COPD): Yes - NEUROLOGICAL Hx Neurological Disorder: Yes HX Cerebrovascular Accident: Yes (2004) - HEENT Hx HEENT Problems: No - RENAL Hx Chronic Kidney Disease: No - ENDOCRINE/METABOLIC Hx Endocrine Disorders: No - HEMATOLOGICAL/ONCOLOGICAL Hx Blood Transfusions: No - INTEGUMENTARY Hx Dermatological Problems: No - MUSCULOSKELETAL/RHEUMATOLOGICAL Hx Musculoskeletal Disorders: Yes Hx Falls: Yes (in 2004 when he had a stroke) - GASTROINTESTINAL Hx Gastrointestinal Disorders: No - GENITOURINARY/GYNECOLOGICAL Hx Genitourinary Disorders: No - PSYCHIATRIC Hx Substance Use: No - SURGICAL HISTORY Hx Surgeries: Yes Other/Comment: pacemaker placement 2017 - ANESTHESIA Hx Anesthesia: No Hx Anesthesia Reactions: No Hx Malignant Hyperthermia: No Meds Allergies/Adverse Reactions: Allergies Allergy/AdvReac Type Severity Reaction Status Date / Time No Known Allergies Allergy Verified 06/13/17 17:24 - Medications Medications: Current Medications Aspirin (Aspirin) 325 mg PO DAILY [facility] Last Admin: 06/15/17 09:07 Dose: 325 mg Clonidine HCl (Catapres) 0.1 mg PO DAILY [facility] Last Admin: 06/15/17 09:07 Dose: 0.1 mg Clopidogrel Bisulfate (Plavix) 75 mg PO DAILY [facility] Last Admin: 06/15/17 09:07 Dose: 75 mg Enoxaparin Sodium (Lovenox) 40 mg SC DAILY [facility] Last Admin: 06/15/17 09:07 Dose: 40 mg Furosemide (Lasix) 40 mg PO BID [facility] Last Admin: 06/15/17 09:07 Dose: 40 mg Lisinopril (Zestril) 10 mg PO DAILY [facility] Last Admin: 06/15/17 09:07 Dose: 10 mg Metoprolol Tartrate (Lopressor) 25 mg PO BID [facility] Last Admin: 06/15/17 09:07 Dose: 25 mg Pantoprazole Sodium (Protonix Ec Tab) 40 mg PO DAILY [facility] Last Admin: 06/15/17 09:07 Dose: 40 mg Rosuvastatin Calcium (Crestor) 20 mg PO HS [facility] Last Admin: 06/14/17 21:36 Dose: 20 mg Spironolactone (Aldactone) 25 mg PO DAILY [facility] Last Admin: 06/15/17 09:07 Dose: 25 mg Physical Exam - Constitutional Appears: No Acute Distress - Head Exam Head Exam: ATRAUMATIC, NORMAL INSPECTION, NORMOCEPHALIC - Eye Exam Eye Exam: EOMI, Normal appearance, PERRL - ENT Exam ENT Exam: Mucous Membranes Moist, Normal Oropharynx - Respiratory Exam Respiratory Exam: Clear to Auscultation Bilateral, NORMAL BREATHING PATTERN. absent: Rhonchi, Wheezes - Cardiovascular Exam Cardiovascular Exam: REGULAR RHYTHM, +S1, +S2. absent: Gallop, JVD, +S4, Systolic Murmur Additional comments: + AICD L. upper chest - GI/Abdominal Exam GI & Abdominal Exam: Normal Bowel Sounds, Soft. absent: Rebound, Tenderness - Exam Additional comments: + R. inguinal hernia - Extremities Exam Extremities exam: Positive for: normal inspection, pedal pulses present. Negative for: pedal edema - Neurological Exam Neurological exam: Alert, Oriented x3 - Psychiatric Exam Psychiatric exam: Normal Affect, Normal Mood - Skin Skin Exam: Normal Color, Warm Results - Vital Signs Recent Vital Signs: Last Vital Signs Temp 97.9 F 06/15/17 07:51 Pulse 64 06/15/17 07:51 Resp 20 06/15/17 07:51 BP 155/90 H 06/15/17 09:07 Pulse Ox 97 06/15/17 07:51 - Labs Result Diagrams: 06/15/17 06:12 06/15/17 06:12 Labs: Laboratory Results - last 24 hr 06/14/17 06/14/17 06/15/17 11:15 13:58 06:12 WBC 5.1 4.4 L RBC 3.62 L 3.65 L Hgb 11.7 L 12.1 Hct 34.3 L 34.5 L MCV 94.8 H 94.3 H MCH 32.3 H 33.2 H MCHC 34.0 35.2 RDW 14.3 14.0 Plt Count 213 201 MPV 7.8 8.0 Neut % (Auto) 56.5 49.4 L Lymph % (Auto) 25.8 32.4 Early % (Auto) 9.8 9.4 Eos % (Auto) 7.1 H 8.2 H Baso % (Auto) 0.8 0.6 Neut # (Auto) 2.9 2.2 Lymph # (Auto) 1.3 1.4 Early # (Auto) 0.5 0.4 Eos # (Auto) 0.4 0.4 Baso # (Auto) 0.0 0.0 Sodium Potassium Chloride Carbon Dioxide Anion Gap BUN Creatinine Est GFR ( Amer) Est GFR (Non-Af Amer) Random Glucose Calcium Total Bilirubin AST ALT Alkaline Phosphatase CK-MB (Mass) 2.34 Troponin I 0.0230 Total Protein Albumin Globulin Albumin/Globulin Ratio 06/15/17 06:12 WBC RBC Hgb Hct MCV MCH MCHC RDW Plt Count MPV Neut % (Auto) Lymph % (Auto) Early % (Auto) Eos % (Auto) Baso % (Auto) Neut # (Auto) Lymph # (Auto) Early # (Auto) Eos # (Auto) Baso # (Auto) Sodium 140 Potassium 3.6 Chloride 99 Carbon Dioxide 29 Anion Gap 15 BUN 17 Creatinine 1.3 Est GFR ( Amer) > 60 Est GFR (Non-Af Amer) 56 Random Glucose 80 Calcium 8.7 Total Bilirubin 0.5 AST 36 ALT 36 Alkaline Phosphatase 89 CK-MB (Mass) Troponin I Total Protein 6.8 Albumin 3.7 Globulin 3.1 Albumin/Globulin Ratio 1.2 Assessment & Plan - Assessment and Plan (Free Text) Assessment: > CHest pain Atypical/non-cardiac...UT ruled out Now resolved EKG directly viewed by me: NSR, BIV paced, LVH with strain CAD: non obstructive Hx of severe cardiomyopathy: 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 -> No volume overload, NYHA 1-2 is baseline, -> Suggest AICD-PPM interogation prior to d/c as hx of noncompliance with outpatient f/u -> Patient reports [employer] AICD placed 1 year ago at [place] -> Cont with CHF therapy: RAAS blockade, BB, Lasix, > CVA 2004: no residual deficits -> cont statin, plavix, ASA > Hx of cocaine prior to 1995, no smoking -> Patient reports drug free since 1995 > HTN Uncontrolled -> inc lisinopril to 10 BID and titrate further if tolerated -> change metoprolol to coreg 25 BID --> also on clonidine > asthma > no diabetes D/C planning with outpatient f/u if AICD interogation is ok.
--- NOTE | 2017-06-15 17:28 | CP.PCM.PN ---
Subjective - Date & Time of Evaluation Date of Evaluation: 06/15/17 Time of Evaluation: 09:00 - Subjective Subjective: clinically same Objective - Vital Signs/Intake and Output Vital Signs (last 24 hours): Temp Pulse Resp BP Pulse Ox 98.0 F 63 20 124/74 99 06/15/17 15:41 06/15/17 16:39 06/15/17 15:41 06/15/17 15:41 06/15/17 16:39 Intake and Output: 06/15/17 06/15/17 06:59 18:59 Intake Total 350 400 Balance 350 400 - Medications Medications: Current Medications Aspirin (Aspirin) 325 mg PO DAILY [facility] Last Admin: 06/15/17 09:07 Dose: 325 mg Carvedilol (Coreg) 25 mg PO BID [facility] Clonidine HCl (Catapres) 0.1 mg PO DAILY [facility] Last Admin: 06/15/17 09:07 Dose: 0.1 mg Clopidogrel Bisulfate (Plavix) 75 mg PO DAILY [facility] Last Admin: 06/15/17 09:07 Dose: 75 mg Enoxaparin Sodium (Lovenox) 40 mg SC DAILY [facility] Last Admin: 06/15/17 09:07 Dose: 40 mg Furosemide (Lasix) 40 mg PO BID [facility] Last Admin: 06/15/17 09:07 Dose: 40 mg Lisinopril (Zestril) 10 mg PO BID [facility] Pantoprazole Sodium (Protonix Ec Tab) 40 mg PO DAILY [facility] Last Admin: 06/15/17 09:07 Dose: 40 mg Rosuvastatin Calcium (Crestor) 20 mg PO HS [facility] Last Admin: 06/14/17 21:36 Dose: 20 mg Spironolactone (Aldactone) 25 mg PO DAILY [facility] Last Admin: 06/15/17 09:07 Dose: 25 mg - Labs Labs: 06/15/17 06:12 06/15/17 06:12 PT 12.8 SECONDS (9.7-12.2) H 06/13/17 19:37 INR 1.1 06/13/17 19:37 APTT 29 SECONDS (21-34) 06/13/17 19:37 - Constitutional Appears: Well - Head Exam Head Exam: ATRAUMATIC, NORMAL INSPECTION, NORMOCEPHALIC - Eye Exam Eye Exam: EOMI, Normal appearance, PERRL Pupil Exam: NORMAL ACCOMODATION, PERRL - ENT Exam ENT Exam: Mucous Membranes Moist, Normal Exam - Neck Exam Neck Exam: Full ROM, Normal Inspection. absent: Lymphadenopathy - Respiratory Exam Respiratory Exam: Decreased Breath Sounds - Cardiovascular Exam Cardiovascular Exam: REGULAR RHYTHM, +S1, +S2 - GI/Abdominal Exam GI & Abdominal Exam: Soft, Diminished Bowel Sounds - Rectal Exam Rectal Exam: Deferred Assessment and Plan - Assessment and Plan (Free Text) Plan: Continue aspirin continue Crestor continue Lasix Continue Lovenox continue Plavix continue lisinopril status post cardiology follow-up with cardiology recommendation agreed to suggest AICD PPM interrogation prior to discharge his history of noncompliance with outpatient this posterior seen by Dr. Yanez on 830 with ischemic dilated cardiomyopathy left ventricular end-diastolic volume was 16 Continue same We will do interrogation
[2017-06-16 06:19] LABS: BASO % 0.6 % (0.0-2.0); EOS # 0.4 K/uL (0.0-0.7); EOS % 8.2 % (0.0-4.0); HEMOGLOBIN 12.6 g/dL (12.0-18.0); LYMPH # 1.6 K/uL (1.0-4.3); LYMPH % 33.5 % (20.0-40.0); MEAN CELL VOLUME 94.2 fL (80.0-94.0); MEAN CORPUSCULAR HEMOGLOBIN 32.6 pg (27.0-31.0); MEAN CORPUSCULAR HGB CONC 34.6 g/dL (33.0-37.0); MEAN PLATELET VOLUME 7.7 fL (7.2-11.7); MONO # 0.4 K/uL (0.0-0.8); MONO % 8.8 % (0.0-10.0); NEUT # 2.3 K/uL (1.8-7.0); NEUT % 48.9 % (50.0-75.0); NRBC % 0.1 % (0.0-2.0); RBC 3.88 Mil/uL (4.40-5.90); RED CELL DISTRIBUTION WIDTH 14.3 % (11.5-14.5); WHITE BLOOD COUNT 4.8 K/uL (4.8-10.8)
[2017-06-16 06:41] LABS: ALB/GLOB RATIO 1.2 (1.0-2.1); ALBUMIN 3.9 g/dL (3.5-5.0); CALCIUM 9.2 mg/dl (8.6-10.4)
[2017-06-16 07:56] VITALS: O2SAT 96
[2017-06-16] MEDS: Enoxaparin 40 mg Syringe SC SCH (09:47)
--- NOTE | 2017-06-16 10:44 | CP.PCM.PN ---
Subjective - Date & Time of Evaluation Date of Evaluation: 06/16/17 Time of Evaluation: 10:42 - Subjective Subjective: Progress Note for Dr. Ordonez's Service Pt seen and examined at bedside. He is sitting up in bed states that he is well. He denies any chest pain currently. No other acute events reported. He states that his pacer was interrogated yesterday and told that the pacer was working fine. He acknowledges that he would like to go home today. Objective - Vital Signs/Intake and Output Vital Signs (last 24 hours): Temp Pulse Resp BP Pulse Ox 98.2 F 60 20 157/88 H 96 06/16/17 07:20 06/16/17 07:20 06/16/17 07:20 06/16/17 09:47 06/16/17 07:20 Intake and Output: 06/16/17 06/16/17 06:59 18:59 Intake Total 1850 Balance 1850 - Medications Medications: Current Medications Aspirin (Aspirin) 325 mg PO DAILY [facility] Last Admin: 06/16/17 09:47 Dose: 325 mg Carvedilol (Coreg) 25 mg PO BID [facility] Last Admin: 06/16/17 09:46 Dose: 25 mg Clonidine HCl (Catapres) 0.1 mg PO DAILY [facility] Last Admin: 06/16/17 09:47 Dose: 0.1 mg Clopidogrel Bisulfate (Plavix) 75 mg PO DAILY [facility] Last Admin: 06/16/17 09:46 Dose: 75 mg Enoxaparin Sodium (Lovenox) 40 mg SC DAILY [facility] Last Admin: 06/16/17 09:47 Dose: 40 mg Famotidine (Pepcid) 20 mg PO DAILY [facility] Last Admin: 06/16/17 09:46 Dose: 20 mg Furosemide (Lasix) 40 mg PO BID [facility] Last Admin: 06/16/17 09:47 Dose: 40 mg Lisinopril (Zestril) 10 mg PO BID [facility] Last Admin: 06/16/17 09:47 Dose: 10 mg Rosuvastatin Calcium (Crestor) 20 mg PO HS [facility] Last Admin: 06/15/17 21:06 Dose: 20 mg Spironolactone (Aldactone) 25 mg PO DAILY [facility] Last Admin: 06/16/17 09:47 Dose: 25 mg - Labs Labs: 06/16/17 06:09 06/16/17 06:09 PT 12.8 SECONDS (9.7-12.2) H 06/13/17 19:37 INR 1.1 06/13/17 19:37 APTT 29 SECONDS (21-34) 06/13/17 19:37 - Head Exam Head Exam: ATRAUMATIC, NORMOCEPHALIC - Eye Exam Eye Exam: EOMI - ENT Exam ENT Exam: Mucous Membranes Moist - Respiratory Exam Respiratory Exam: Clear to Ausculation Bilateral, NORMAL BREATHING PATTERN - Cardiovascular Exam Cardiovascular Exam: REGULAR RHYTHM, +S1, +S2 - GI/Abdominal Exam GI & Abdominal Exam: Soft. absent: Tenderness - Neurological Exam Neurological Exam: Alert, Awake, Oriented x3 - Psychiatric Exam Psychiatric exam: Normal Affect, Normal Mood - Skin Skin Exam: Dry, Warm Assessment and Plan - Assessment and Plan (Free Text) Plan: Chest pain s/p pacemaker placement @ [place] in 2016 Cardiology consult placed to Dr. Lua- recs appreciated Atypical/non-cardiac EKG reviewed : NSR, BIV paced, LVH with strain hx of non-obstructive CAD and severe cardiomyopathy 12/02/16: Glue Maker procedure performed by Dr. Garcia showing nonobstructive CAD , ischemic dilated cardiomyopathy, LV end diastolic pressure was 16mmHg. AICD interrogation recommended Echo Feb 2017- Profound bi-ventricular systolic dysfunction. Moderate diastolic dysfunction. Mod-sev pulm HTN. Mod mitral regurgitation. Mod-sev tricuspid regurgitation. TROP- 0.0210-0.0240-0.0230 CXR- cardiomegaly Plavix 75mg PO daily ASA 325mg PO daily pacemaker was interrogated yesterday by [employer] rep- normal function. Case was discussed with Dr. Lua who explained that d/c was appropriate so long as pacemaker was functioning properly. CHF- combined systolic/diastolic Cath/echo study as detailed above Lasix 40mg IV BID coreg 25mg PO BID BNP 821 CVA in 2004 -no residual deficits -continue statin, plavix, ASA Hx of substance abuse- cocaine -Patient reports drug free since 1995 HTN Uncontrolled -lisinopril increase to 10 BID as per cardiology, with recommendation to titrate further if tolerated -as per cardio change metoprolol to coreg 25 BID -continue clonidine 0.1mg po daily prophylaxis lovenox 40mg sc daily Protonix 40mg PO daily D/C planning with outpatient follow up. He will also need outpatient follow up for hernia repair. Patient to see PMD Dr. Liriano. Case discussed with Dr. Ordonez. All management as per Dr. Ordonez.
[2017-06-16] MEDS ORDERED: Iohexol 240 (50 ml) PO ONE (11:30)
[2017-06-16] MEDS ORDERED: Iodixanol 320 MG/ML 100 ML BOTTLE IV ONE (15:12)
--- NOTE | 2017-06-16 16:22 | CT ---
PROCEDURE: CT Abdomen and Pelvis with oral and IV contrast. HISTORY: right inguinal hernia pain; r/o strangulation COMPARISON: CT abdomen and pelvis with contrast performed 03/01/17 TECHNIQUE: Contiguous axial images of the abdomen and pelvis. Oral and IV contrast was administered. Coronal and Sagittal reformats generated and reviewed. Contrast dose: 100 mL Visipaque 100 Radiation dose: Total exam DLP = 535.36 mGy-cm. This CT exam was performed using one or more of the following dose reduction techniques: Automated exposure control, adjustment of the mA and/or kV according to patient size, and/or use of iterative reconstruction technique. FINDINGS: LOWER THORAX: No visible consolidation, pleural effusion, or pneumothorax. Partially imaged cardiomegaly. Partially imaged AICD wires. LIVER: Unremarkable. GALLBLADDER AND BILE DUCTS: Decompressed gallbladder appears otherwise unremarkable. PANCREAS: Unremarkable. SPLEEN: Unremarkable. ADRENALS: Unremarkable. KIDNEYS AND URETERS: The kidneys enhance symmetrically. No hydronephrosis or obstructing renal calculus. BLADDER: Under distended urinary bladder appears otherwise unremarkable. REPRODUCTIVE: The prostate gland measured approximately 3.4 x 4.0 cm. APPENDIX: The appendix appears within normal limits of caliber. No secondary signs of acute appendicitis. BOWEL: The stomach is nondistended. Large right inguinal hernia which contains bowel without evidence of bowel obstruction. Moderate constipation. PERITONEUM: No significant free fluid. No definite free air. LYMPH NODES: No bulky lymphadenopathy identified. VASCULATURE: No aortic aneurysm. BONES: Degenerative changes. OTHER FINDINGS: None. IMPRESSION: Large right inguinal hernia which contains bowel without evidence of bowel obstruction. Moderate constipation. Additional findings as above.
[2017-06-16 16:31] VITALS: BP 118/73; PULSE 66; TEMP 97.9
== END 2017-06-16 17:35 | disposition home or self-care (01) ==
LOC: C.ER 17:16 → C.9E 20:14 → C.5S 06-14 06:52
PROVIDERS: ADMIT Internal Medicine Nephrology; ATTEND Internal Medicine Nephrology
DX: I25.10 Atherosclerotic heart disease of native coronary artery without angina pectoris (principal); I11.0 Hypertensive heart disease with heart failure; I25.5 Ischemic cardiomyopathy; I50.9 Heart failure, unspecified; J44.9 Chronic obstructive pulmonary disease, unspecified; Z86.73 Personal history of transient ischemic attack (TIA), and cerebral infarction without residual deficits; Z91.19 Patient's noncompliance with other medical treatment and regimen; I42.0 Dilated cardiomyopathy; Z95.0 Presence of cardiac pacemaker
CPT/HCPCS: 36415; 71045; 74177; 80053; 81001; 83880; 84484; 85025; 85610; 85730; 93005; 99285; G0378; J1650; J1885; Q9966; Q9967

== ENCOUNTER 2017-08-09 11:20 | Observation (INO) | payer MEDICAID ==
[2017-08-09 11:20] VITALS: BMI 27.5
[2017-08-09 14:02] LABS: URINE BILIRUBIN NEGATIVE (NEGATIVE); URINE BLOOD NEGATIVE (NEGATIVE); URINE CLARITY Clear (Clear); URINE COLOR Straw (YELLOW); URINE GLUCOSE (UA) NORMAL (Normal); URINE LEUKOCYTE ESTERASE NEG Leu/uL (Negative); URINE PROTEIN NEGATIVE (NEGATIVE); URINE UROBILINOGEN NORMAL mg/dL (0.2-1.0)
[2017-08-09 14:04] LABS: BASO # 0.1 K/uL (0.0-0.2); BASO % 0.9 % (0.0-2.0); EOS # 0.3 K/uL (0.0-0.7); EOS % 5.9 % (0.0-4.0); HEMOGLOBIN 12.6 g/dL (12.0-18.0); LYMPH # 1.6 K/uL (1.0-4.3); LYMPH % 29.7 % (20.0-40.0); MEAN CELL VOLUME 92.5 fL (80.0-94.0); MEAN CORPUSCULAR HEMOGLOBIN 32.4 pg (27.0-31.0); MEAN PLATELET VOLUME 7.6 fL (7.2-11.7); MONO # 0.5 K/uL (0.0-0.8); MONO % 8.5 % (0.0-10.0); RBC 3.88 Mil/uL (4.40-5.90); RED CELL DISTRIBUTION WIDTH 13.7 % (11.5-14.5); WHITE BLOOD COUNT 5.5 K/uL (4.8-10.8)
--- NOTE | 2017-08-09 14:04 | RAD ---
PROCEDURE: CHEST RADIOGRAPH, 1 VIEW HISTORY: SOB COMPARISON: Comparison made with prior study 06/13/2017 FINDINGS: LUNGS: There appears to be mild mild chronic compensated central pulmonary venous congestive changes. PLEURA: No pneumothorax or pleural fluid seen. CARDIOVASCULAR: Cardiomegaly. No change multi lead pacemaker/ defibrillator OSSEOUS STRUCTURES: No significant abnormalities. VISUALIZED UPPER ABDOMEN: Normal. OTHER FINDINGS: None. IMPRESSION: Findings suggest mild chronic compensated central pulmonary venous congestion.
[2017-08-09 14:09] LABS: INR 1.2; PROTHROMBIN TIME 12.6 SECONDS (9.7-12.2)
--- NOTE | 2017-08-09 14:11 | C.PDOC ---
History Of Present Illness 62 yo male with PMD asthma, CAD, CHF, COPD, HTN, pacemaker c/o left sided chest pain since yesterday. Denies radiation of pain. No change in sensation. Notes he has a h/o of similar episodes with cath last year- unclear of results. Denies SOB, leg swelling, fever, URI symptoms, n/v, or abdominal pain. Time Seen by Provider: 08/09/17 13:05 Chief Complaint (Nursing): Chest Pain Past Medical History Vital Signs: Last Vital Signs Temp 97.9 F 08/12/17 16:28 Pulse 67 08/12/17 16:28 Resp 20 08/12/17 16:28 BP 134/80 08/12/17 16:28 Pulse Ox 100 08/13/17 23:57 - Medical History PMH: Asthma, CAD, CHF, COPD, HTN Denies: Chronic Kidney Disease Surgical History: Pacemaker - [facility] Procedures FLUOROSCOPY OF LEFT HEART USING LOW OSMOLAR CONTRAST (11/30/16) FLUOROSCOPY OF MULT COR ART USING L OSM CONTRAST (11/30/16) MEASURE OF CARDIAC SAMPL & PRESSURE, L HEART, PERC APPROACH (11/30/16) Family History: States: Unknown Family Hx - Social History Hx Alcohol Use: No Hx Substance Use: No - Immunization History Hx Tetanus Toxoid Vaccination: No Hx Influenza Vaccination: Yes Hx Pneumococcal Vaccination: No Physical Exam - Physical Exam Appears: Well, Non-toxic, No Acute Distress Skin: Normal Color, Warm, Dry Head: Atraumatic, Normacephalic Eye(s): bilateral: Normal Inspection, EOMI Nose: Normal Oral Mucosa: Moist Neck: Normal, Normal ROM, Supple Chest: Symmetrical, Other ((+) pacemaker L upper chest wall) Cardiovascular: Rhythm Regular Respiratory: Normal Breath Sounds, No Accessory Muscle Use Gastrointestinal/Abdominal: Normal Exam, Soft, No Tenderness Back: Normal Inspection Extremity: Normal ROM Neurological/Psych: Oriented x3, Normal Speech ED Course And Treatment - Laboratory Results Result Diagrams: 08/09/17 13:46 08/09/17 14:22 ECG: Interpreted By Me ( Dr Sharma), Viewed By Me ECG Rhythm: AV Paced Rate From EC O2 Sat by Pulse Oximetry: 100 - Radiology CXR: Interpreted by Me, Viewed By Me CXR Interpretation: Yes: No Acute Disease Progress Note: CAse discussed with Dr Liriano, agreed upon admission. Disposition - Disposition Disposition: HOSPITALIZED Disposition Time: 12:00 Condition: STABLE - Clinical Impression Clinical Impression: Chest pain
[2017-08-09 14:41] LABS: ALB/GLOB RATIO 1.1 (1.0-2.1); ALBUMIN 3.8 g/dL (3.5-5.0); ALT/SGPT 25 U/L (21-72); AST/SGOT 35 U/L (17-59); BLOOD UREA NITROGEN 18 mg/dL (9-20); CALCIUM 9.3 mg/dl (8.6-10.4); GFR AFRICAN-AMERICAN > 60; GFR NON-AFRICAN AMERICAN 56
[2017-08-09 14:52] LABS: B-TYPE NATRIURETIC PEPTIDE 591 pg/mL (0-900)
--- NOTE | 2017-08-09 16:30 | CP.PCM.HP ---
History of Present Illness - History of Present Illness History of Present Illness: COMPREHENSIVE HISTORY & PHYSICAL EXAM HPI Patient presents to [facility] emergency room complaining of atypical chest pain with no radiation localized to retrosternal for the last 1 day. There are no any associated symptoms. Patient had a cardiac catheterization done last year in February 2017, showed left ventricle ejection fraction of 15%, nonsignificant distal vessel disease, 40-50% of her diagonal and 50-55% of posterolateral branch of the PDA. Most of the main trunk arteries are normal. Patient also has a right-sided testicular swelling which has been evaluated in the past and was found to have a hernia. Because of the patients cardiac risk factors the surgery has been postponed in the past. Patient currently is anxious to get his hernia repaired also. PAST HIST. As stated above PERSONAL HIST: Smoking. N Alcohol. Heavy in the past Allergy N Travel_- . FAMILY HIST : ROS : Constitutional: Negative for weight change, chills, night sweats, fatigue and usage of assist device. Eyes: Negative for redness, swelling, itching, discharge, vision changes, blurry vision, double vision, glaucoma, cataracts, Ears: Negative for hearing loss, ringing, , tinnitus, vertigo Nose: Negative for rhinorrhea, stuffiness, sniffing, itching, postnasal drip, discoloration, nasal congestion and epistaxis. Throat: Negative for throat clearing, sore throat, hoarseness, difficulty swallowing and difficulty speaking. Respiratory: Negative for cough, , sputum production, chest tightness, wheezing, pleuritic chest pain ,daytime somnolence, chronic cough, hemoptysis, snoring at night, Cardiovascular: Negative for, Edema of legs, leg cramps, angina, claudication, , irregular heartbeat, Neurology: Negative for irritability, muscle weakness, numbness and tingling, seizures, tremors, migraines, slurred speech, syncope, memory loss, mood changes , recurrent headaches Gastrointestinal: Negative for difficulty swallowing, diarrhea, constipation, black stools, rectal bleeding, nausea, flatulence, reflux, poor appetite, changes in bowel habits, abdominal pain Genitourinary: Negative for frequent urination, hematuria, discharge, incontinence, urinary retention, frequent UTI, Psychiatric: Negative for depression, anxiety/panic, suicidal tendencies, Musculoskeletal: Negative for swollen joints, back pain, , neck pain, morning stiffness of joints, . Skin: Negative for rash, ulcers, itching, dry skin and pigmented lesions. P/E: Constitutional: Appears stated age and in no apparent distress. Head: Normocephalic. Ears: External ear canals patent without inflammation. Tympanic membranes intact with normal light reflex and landmark. Eyes: Pupils are central, bilaterally equal, symmetrical and reacts to light with normal movements and no icterus or pallor. Nose: External nares are patent. Mucosa is pink Mouth-Throat: Good general appearance and condition. No post-pharyngeal/oropharyngeal erythema and tonsillar hypertrophy. Good dental hygiene. Neck-Lymphatic: Neck is supple with normal ROM, no thyromegaly, lymph nodes or masses. JVD is normal with no carotid bruit. Lungs: Clear to percussion and auscultation with bilateral normal air entry. Cardiovascular: S1 and S2 are normal with no murmurs, gallops and rub. GI Exam: No hepatomegaly. Abdomen is soft and non-tender. No Organomegaly , masses or hernias are evident and bowel sounds are normal and active. On the right groin there is a swelling which extends from the inguinal ligament to the right testis soft and movable and reducible. Neurology: Higher function and all cranial nerves intact, with no gross motor or sensory deficit. Superficial and deep reflexes are normal with downwards planters. No cerebellar deficit with normal gait. Musculoskeletal: No tender spots with normal curvature of the spine with no swelling or restricted ROM of the small and large joints. Extremities: Homans sign absent. Intact pulses with no pitting edema, calf tenderness or skin color changes. Skin: No rash, eruptions or abnormal skin pigmentation LAB/RADIOLOGY: ASSESMENT : Atypical chest pain with history of minimal coronary artery disease with severely depressed left ventricle ejection fraction of 15% probably secondary to previous alcohol abuse. Moderately large right inguinal hernia, non-complicated PLAN: Serial cardiac enzymes to evaluate any myocardial ischemia. Currently patient does not need any further cardiac workup is recently has been extensively done and needs medical therapy. We will get a surgical evaluation for hernia repair. Present on Admission - Present on Admission Any Indicators Present on Admission: No Past Patient History - Infectious Disease Hx of Infectious Diseases: None - Past Medical History & Family History Past Medical History?: Yes - Past Social History Smoking Status: Never Smoked - CARDIAC Hx Congestive Heart Failure: Yes Hx Hypertension: Yes Hx Pacemaker: Yes - PULMONARY Hx Asthma: Yes Hx Chronic Obstructive Pulmonary Disease (COPD): Yes - NEUROLOGICAL Hx Neurological Disorder: Yes HX Cerebrovascular Accident: Yes (2004) - HEENT Hx HEENT Problems: No - RENAL Hx Chronic Kidney Disease: No - ENDOCRINE/METABOLIC Hx Endocrine Disorders: No - HEMATOLOGICAL/ONCOLOGICAL Hx Blood Transfusions: No - INTEGUMENTARY Hx Dermatological Problems: No - MUSCULOSKELETAL/RHEUMATOLOGICAL Hx Musculoskeletal Disorders: Yes Hx Falls: Yes (in 2004 when he had a stroke) - GASTROINTESTINAL Hx Gastrointestinal Disorders: No - GENITOURINARY/GYNECOLOGICAL Hx Genitourinary Disorders: No - PSYCHIATRIC Hx Substance Use: No - SURGICAL HISTORY Hx Surgeries: Yes Other/Comment: pacemaker placement 2017 - ANESTHESIA Hx Anesthesia: Yes Hx Anesthesia Reactions: No Hx Malignant Hyperthermia: No Meds Allergies/Adverse Reactions: Allergies Allergy/AdvReac Type Severity Reaction Status Date / Time No Known Allergies Allergy Verified 08/09/17 11:26 Results - Vital Signs Recent Vital Signs: Last Vital Signs Temp 98.1 F 08/09/17 11:26 Pulse 60 08/09/17 12:33 Resp 16 08/09/17 11:26 BP 159/81 H 08/09/17 12:33 Pulse Ox 100 08/09/17 14:17 - Labs Result Diagrams: 08/09/17 13:46 08/09/17 14:22 Labs: Laboratory Results - last 24 hr 08/09/17 08/09/17 08/09/17 13:46 13:46 13:46 WBC 5.5 RBC 3.88 L Hgb 12.6 Hct 35.9 MCV 92.5 MCH 32.4 H MCHC 35.0 RDW 13.7 Plt Count 206 MPV 7.6 Neut % (Auto) 55.0 Lymph % (Auto) 29.7 [place] % (Auto) 8.5 Eos % (Auto) 5.9 H Baso % (Auto) 0.9 Neut # (Auto) 3.0 Lymph # (Auto) 1.6 [place] # (Auto) 0.5 Eos # (Auto) 0.3 Baso # (Auto) 0.1 PT 12.6 H INR 1.2 APTT 31 Sodium Potassium Chloride Carbon Dioxide Anion Gap BUN Creatinine Est GFR ( Amer) Est GFR (Non-Af Amer) Random Glucose Calcium Total Bilirubin AST ALT Alkaline Phosphatase Total Creatine Kinase CK-MB (Mass) Troponin I NT-Pro-B Natriuret Pep Total Protein Albumin Globulin Albumin/Globulin Ratio Lipase Urine Color Straw Urine Clarity Clear Urine pH 5.0 Ur Specific [place] 1.011 Urine Protein Negative Urine Glucose (UA) Normal Urine Ketones Negative Urine Blood Negative Urine Nitrate Negative Urine Bilirubin Negative Urine Urobilinogen Normal Ur Leukocyte Esterase Neg Urine WBC (Auto) < 1 Urine RBC (Auto) < 1 08/09/17 08/09/17 13:46 14:22 WBC RBC Hgb Hct MCV MCH MCHC RDW Plt Count MPV Neut % (Auto) Lymph % (Auto) [place] % (Auto) Eos % (Auto) Baso % (Auto) Neut # (Auto) Lymph # (Auto) [place] # (Auto) Eos # (Auto) Baso # (Auto) PT INR APTT Sodium Cancelled 143 Potassium Cancelled 3.9 Chloride Cancelled 107 Carbon Dioxide Cancelled 27 Anion Gap Cancelled 13 BUN Cancelled 18 Creatinine Cancelled 1.3 Est GFR ( Amer) Cancelled > 60 Est GFR (Non-Af Amer) Cancelled 56 Random Glucose Cancelled 85 Calcium Cancelled 9.3 Total Bilirubin Cancelled 0.6 AST Cancelled 35 ALT Cancelled 25 Alkaline Phosphatase Cancelled 88 Total Creatine Kinase Cancelled CK-MB (Mass) Cancelled Troponin I Cancelled 0.0140 NT-Pro-B Natriuret Pep Cancelled 591 Total Protein Cancelled 7.2 Albumin Cancelled 3.8 Globulin Cancelled 3.4 Albumin/Globulin Ratio Cancelled 1.1 Lipase Cancelled Urine Color Urine Clarity Urine pH Ur Specific [place] Urine Protein Urine Glucose (UA) Urine Ketones Urine Blood Urine Nitrate Urine Bilirubin Urine Urobilinogen Ur Leukocyte Esterase Urine WBC (Auto) Urine RBC (Auto)
[2017-08-09] MEDS ORDERED: Enoxaparin 40 mg Syringe ONE (17:02)
[2017-08-09] MEDS: Enoxaparin 40 mg Syringe SC SCH (17:04)
[2017-08-09] MEDS: Nitroglycerin 2% Ointment Foilpak UD TOP SCH (17:04)
[2017-08-09 17:49] VITALS: RESP 20
[2017-08-09 20:22] LABS: CK-MB 1.31 ng/mL (0.0-3.38); TROPONIN I 0.017 ng/mL (0.00-0.120)
[2017-08-10] MEDS: Nitroglycerin 2% Ointment Foilpak UD TOP SCH ×3 (00:07→16:45)
[2017-08-10 01:29] LABS: CK-MB 1.28 ng/mL (0.0-3.38); TROPONIN I 0.021 ng/mL (0.00-0.120)
[2017-08-10 07:45] LABS: CK-MB 1.23 ng/mL (0.0-3.38); TROPONIN I 0.029 ng/mL (0.00-0.120)
[2017-08-10] MEDS: Enoxaparin 40 mg Syringe SC SCH (10:33)
--- NOTE | 2017-08-10 12:50 | CARD ---
APPROVED REPORT EKG Measurement Heart [id number] <Conclusion> Atrial-sensed ventricular-paced rhythm Abnormal ECG
--- NOTE | 2017-08-10 14:13 | CP.PCM.PN ---
Subjective - Date & Time of Evaluation Date of Evaluation: 08/10/17 Time of Evaluation: 14:11 - Subjective Subjective: Patient has no further chest pain. Cardiac enzymes are all negative. There is no any acute ST-T changes on the EKG. Echocardiography was postponed as patient recently had an echo a few months ago which showed a left ventricle ejection fraction of 15%. Surgical evaluation for right inguinal hernia repair. Objective - Vital Signs/Intake and Output Vital Signs (last 24 hours): Temp Pulse Resp BP Pulse Ox 98.0 F 60 20 136/75 97 08/10/17 07:00 08/10/17 07:00 08/10/17 07:00 08/10/17 10:32 08/10/17 07:00 - Medications Medications: Current Medications Aspirin (Aspirin Chewable) 81 mg PO DAILY [facility] Last Admin: 08/10/17 10:33 Dose: 81 mg Clonidine HCl (Catapres) 0.1 mg PO DAILY [facility] Last Admin: 08/10/17 10:33 Dose: 0.1 mg Clopidogrel Bisulfate (Plavix) 75 mg PO DAILY [facility] Last Admin: 08/10/17 10:32 Dose: 75 mg Enoxaparin Sodium (Lovenox) 40 mg SC DAILY [facility] Last Admin: 08/10/17 10:33 Dose: 40 mg Lisinopril (Zestril) 20 mg PO DAILY [facility] Last Admin: 08/10/17 10:32 Dose: 20 mg Metoprolol Tartrate (Lopressor) 25 mg PO BID [facility] Last Admin: 08/10/17 10:32 Dose: 25 mg Nitroglycerin (Nitro-Bid 2% Oint) 1 ea TOP Q8H [facility] Last Admin: 08/10/17 08:14 Dose: 1 ea Rosuvastatin Calcium (Crestor) 20 mg PO HS [facility] Last Admin: 08/09/17 21:07 Dose: 20 mg Spironolactone (Aldactone) 25 mg PO DAILY [facility] Last Admin: 08/10/17 10:33 Dose: 25 mg - Labs Labs: 08/09/17 13:46 08/09/17 14:22 PT 12.6 SECONDS (9.7-12.2) H 08/09/17 13:46 INR 1.2 08/09/17 13:46 APTT 31 SECONDS (21-34) 08/09/17 13:46
[2017-08-11] MEDS: Nitroglycerin 2% Ointment Foilpak UD TOP SCH ×3 (00:10→18:21)
--- NOTE | 2017-08-11 08:31 | CP.PCM.PN ---
Subjective - Date & Time of Evaluation Date of Evaluation: 08/11/17 Time of Evaluation: 08:29 - Subjective Subjective: Patient's left ventricle ejection fraction is 15%. No there is no evidence of acute ischemia. patient is cleared for surgery, Patient has moderate to severe cardiac risk factor for general anesthesia. Objective - Vital Signs/Intake and Output Vital Signs (last 24 hours): Temp Pulse Resp BP Pulse Ox 98.1 F 62 20 149/79 97 08/11/17 07:01 08/11/17 07:01 08/11/17 07:01 08/11/17 07:01 08/11/17 07:01 Intake and Output: 08/10/17 08/11/17 23:59 11:59 Intake Total 0 Balance 0 - Medications Medications: Current Medications Aspirin (Aspirin Chewable) 81 mg PO DAILY [facility] Last Admin: 08/10/17 10:33 Dose: 81 mg Clonidine HCl (Catapres) 0.1 mg PO DAILY [facility] Last Admin: 08/10/17 10:33 Dose: 0.1 mg Clopidogrel Bisulfate (Plavix) 75 mg PO DAILY [facility] Last Admin: 08/10/17 10:32 Dose: 75 mg Enoxaparin Sodium (Lovenox) 40 mg SC DAILY [facility] Last Admin: 08/10/17 10:33 Dose: 40 mg Lisinopril (Zestril) 20 mg PO DAILY [facility] Last Admin: 08/10/17 10:32 Dose: 20 mg Metoprolol Tartrate (Lopressor) 25 mg PO BID [facility] Last Admin: 08/10/17 20:08 Dose: 25 mg Nitroglycerin (Nitro-Bid 2% Oint) 1 ea TOP Q8H [facility] Last Admin: 08/11/17 00:10 Dose: 1 ea Rosuvastatin Calcium (Crestor) 20 mg PO HS [facility] Last Admin: 08/10/17 21:27 Dose: 20 mg Spironolactone (Aldactone) 25 mg PO DAILY [facility] Last Admin: 08/10/17 10:33 Dose: 25 mg - Labs Labs: 08/09/17 13:46 08/09/17 14:22 PT 12.6 SECONDS (9.7-12.2) H 08/09/17 13:46 INR 1.2 08/09/17 13:46 APTT 31 SECONDS (21-34) 08/09/17 13:46
[2017-08-11] MEDS: Enoxaparin 40 mg Syringe SC SCH (09:39)
--- NOTE | 2017-08-11 19:22 | CARD ---
APPROVED REPORT EKG Measurement Heart [id number] <Conclusion> AV dual-paced rhythm Abnormal ECG
[2017-08-12] MEDS: Nitroglycerin 2% Ointment Foilpak UD TOP SCH ×3 (00:51→17:28)
[2017-08-12] MEDS: Enoxaparin 40 mg Syringe SC SCH (10:09)
--- NOTE | 2017-08-12 13:44 | CP.PCM.DIS ---
Provider - Provider Date of Admission: 08/09/17 15:23 Attending physician: Margaret Liriano MD Time Spent in preparation of Discharge (in minutes): 35 Hospital Course - Lab Results Lab Results: Most Recent Lab Values WBC 5.5 K/uL (4.8-10.8) 08/09/17 13:46 RBC 3.88 Mil/uL (4.40-5.90) L 08/09/17 13:46 Hgb 12.6 g/dL (12.0-18.0) 08/09/17 13:46 Hct 35.9 % (35.0-51.0) 08/09/17 13:46 MCV 92.5 fL (80.0-94.0) 08/09/17 13:46 MCH 32.4 pg (27.0-31.0) H 08/09/17 13:46 MCHC 35.0 g/dL (33.0-37.0) 08/09/17 13:46 RDW 13.7 % (11.5-14.5) 08/09/17 13:46 Plt Count 206 K/uL (130-400) 08/09/17 13:46 MPV 7.6 fL (7.2-11.7) 08/09/17 13:46 Neut % (Auto) 55.0 % (50.0-75.0) 08/09/17 13:46 Lymph % (Auto) 29.7 % (20.0-40.0) 08/09/17 13:46 [place] % (Auto) 8.5 % (0.0-10.0) 08/09/17 13:46 Eos % (Auto) 5.9 % (0.0-4.0) H 08/09/17 13:46 Baso % (Auto) 0.9 % (0.0-2.0) 08/09/17 13:46 Neut # (Auto) 3.0 K/uL (1.8-7.0) 08/09/17 13:46 Lymph # (Auto) 1.6 K/uL (1.0-4.3) 08/09/17 13:46 [place] # (Auto) 0.5 K/uL (0.0-0.8) 08/09/17 13:46 Eos # (Auto) 0.3 K/uL (0.0-0.7) 08/09/17 13:46 Baso # (Auto) 0.1 K/uL (0.0-0.2) 08/09/17 13:46 PT 12.6 SECONDS (9.7-12.2) H 08/09/17 13:46 INR 1.2 08/09/17 13:46 APTT 31 SECONDS (21-34) 08/09/17 13:46 Sodium 143 mmol/L (132-148) 08/09/17 14:22 Potassium 3.9 mmol/L (3.6-5.2) 08/09/17 14:22 Chloride 107 mmol/L (98-107) 08/09/17 14:22 Carbon Dioxide 27 mmol/L (22-30) 08/09/17 14:22 Anion Gap 13 (10-20) 08/09/17 14:22 BUN 18 mg/dL (9-20) 08/09/17 14:22 Creatinine 1.3 mg/dL (0.8-1.5) 08/09/17 14:22 Est GFR ( Amer) > 60 08/09/17 14:22 Est GFR (Non-Af Amer) 56 08/09/17 14:22 Random Glucose 85 mg/dL (75-110) 08/09/17 14:22 Calcium 9.3 mg/dl (8.6-10.4) 08/09/17 14:22 Total Bilirubin 0.6 mg/dL (0.2-1.3) 08/09/17 14:22 AST 35 U/L (17-59) 08/09/17 14:22 ALT 25 U/L (21-72) 08/09/17 14:22 Alkaline Phosphatase 88 U/L (38-126) 08/09/17 14:22 Total Creatine Kinase 148 U/L (55-170) 08/10/17 07:12 CK-MB (Mass) 1.23 ng/mL (0.0-3.38) 08/10/17 07:12 Troponin I 0.0290 ng/mL (0.00-0.120) 08/10/17 07:12 NT-Pro-B Natriuret Pep 591 pg/mL (0-900) 08/09/17 14:22 Total Protein 7.2 g/dL (6.3-8.3) 08/09/17 14:22 Albumin 3.8 g/dL (3.5-5.0) 08/09/17 14:22 Globulin 3.4 gm/dL (2.2-3.9) 08/09/17 14:22 Albumin/Globulin Ratio 1.1 (1.0-2.1) 08/09/17 14:22 Lipase Cancelled 08/09/17 13:46 Urine Color Straw (YELLOW) 08/09/17 13:46 Urine Clarity Clear (Clear) 08/09/17 13:46 Urine pH 5.0 (5.0-8.0) 08/09/17 13:46 Ur Specific [place] 1.011 (1.003-1.030) 08/09/17 13:46 Urine Protein Negative mg/dL (NEGATIVE) 08/09/17 13:46 Urine Glucose (UA) Normal mg/dL (Normal) 08/09/17 13:46 Urine Ketones Negative mg/dL (NEGATIVE) 08/09/17 13:46 Urine Blood Negative (NEGATIVE) 08/09/17 13:46 Urine Nitrate Negative (NEGATIVE) 08/09/17 13:46 Urine Bilirubin Negative (NEGATIVE) 08/09/17 13:46 Urine Urobilinogen Normal mg/dL (0.2-1.0) 08/09/17 13:46 Ur Leukocyte Esterase Neg [place]/uL (Negative) 08/09/17 13:46 Urine WBC (Auto) < 1 /hpf (0-5) 08/09/17 13:46 Urine RBC (Auto) < 1 /hpf (0-3) 08/09/17 13:46 - Hospital Course Hospital Course: Patient presents to [facility] emergency room complaining of atypical chest pain with no radiation localized to retrosternal for the last 1 day. There are no any associated symptoms. Patient had a cardiac catheterization done last year in February 2017, showed left ventricle ejection fraction of 15%, nonsignificant distal vessel disease, 40-50% of her diagonal and 50-55% of posterolateral branch of the PDA. Most of the main trunk arteries are normal. Patient also has a right-sided testicular swelling which has been evaluated in the past and was found to have a hernia. Because of the patients cardiac risk factors the surgery has been postponed in the past. Patient currently is anxious to get his hernia repaired also. PATIENT WAS OBSERVED ON THE TELEMETRY. PATIENT HAD NO FURTHER CHEST PAIN. CARDIAC ENZYMES WERE NEGATIVE ECHOCARDIOGRAM WAS POSTPONED PATIENT RECENTLY HAD AN ECHO WHICH SHOWED SEVERELY DEPRESSED LEFT MEDICAL EJECTION FRACTION AT 15 %. FROM THE CURRENT ADMISSION PATIENT HAS NO FURTHER PROGRESSION OF CORONARY ARTERY DISEASE. PATIENT ALSO HAD A LARGE INGUINAL HERNIA. SURGICAL CONSULT WAS OBTAINED AND PATIENT COULD NOT GO FOR SURGERY BECAUSE OF PATIENT WAS ON PLAVIX. PLAVIX WILL DISCONTINUE AND PATIENT WILL UNDERGO SURGERY 5 DAYS FROM LATER. PATIENT IS CURRENTLY DISCHARGE WILL BE GET READMITTED FOR HERNIA REPAIR. STATED ABOVE PATIENT IS CLEAR FOR SURGERY BUT UNDER MODERATE TO SEVERE RISK BECAUSE OF THE LOW EF. Discharge Plan - Follow Up Plan Condition: GOOD Disposition: HOME/ ROUTINE
[2017-08-12 16:29] VITALS: BP 134/80; PULSE 67; TEMP 97.9
--- NOTE | 2017-08-12 16:31 | CP.PCM.PN ---
Subjective - Date & Time of Evaluation Date of Evaluation: 08/12/17 Time of Evaluation: 16:31 - Subjective Subjective: -FOLLOW UP WITH DR. LINDER IN THE OFFICE IN 1-2 WEEKS---CALL FOR APPT TIME. -CONTINUE YOUR HOME MEDICATIONS USUAL. PLEASE TAKE YOUR PLAVIX UNTIL YOU SEE DR. WASHBURN AND SCHEDULE SURGERY FOR YOUR HERNIA. -SEE DR. WASHBURN IN THE OFFICE NEXT WEEK TO DISCUSS HERNIA SURGERY SCHEDULING. -FOR FURTHER QUESTIONS, CONTACT DR. LINDER. Objective - Vital Signs/Intake and Output Vital Signs (last 24 hours): Temp Pulse Resp BP Pulse Ox 97.9 F 67 20 134/80 97 08/12/17 16:28 08/12/17 16:28 08/12/17 16:28 08/12/17 16:28 08/12/17 16:28 Intake and Output: 08/12/17 08/12/17 06:59 18:59 Intake Total 500 Balance 500 - Medications Medications: Current Medications Aspirin (Aspirin Chewable) 81 mg PO DAILY [facility] Last Admin: 08/12/17 10:08 Dose: 81 mg Clonidine HCl (Catapres) 0.1 mg PO DAILY [facility] Last Admin: 08/12/17 10:08 Dose: 0.1 mg Enoxaparin Sodium (Lovenox) 40 mg SC DAILY [facility] Last Admin: 08/12/17 10:09 Dose: 40 mg Lisinopril (Zestril) 20 mg PO DAILY [facility] Last Admin: 08/12/17 10:09 Dose: 20 mg Metoprolol Tartrate (Lopressor) 25 mg PO BID [facility] Last Admin: 08/12/17 10:08 Dose: 25 mg Nitroglycerin (Nitro-Bid 2% Oint) 1 ea TOP Q8H [facility] Last Admin: 08/12/17 08:27 Dose: 1 ea Rosuvastatin Calcium (Crestor) 20 mg PO HS [facility] Last Admin: 08/11/17 21:39 Dose: 20 mg Spironolactone (Aldactone) 25 mg PO DAILY [facility] Last Admin: 08/12/17 10:08 Dose: 25 mg - Labs Labs: 08/09/17 13:46 08/09/17 14:22 PT 12.6 SECONDS (9.7-12.2) H 08/09/17 13:46 INR 1.2 08/09/17 13:46 APTT 31 SECONDS (21-34) 08/09/17 13:46
[2017-08-13 23:54] VITALS: O2SAT 100
== END 2017-08-12 17:49 | disposition home or self-care (01) ==
LOC: C.ER 11:20 → C.9E 15:23 → C.6T 15:23
PROVIDERS: ADMIT Internal Medicine Cardiovascular Disease; ATTEND Internal Medicine Cardiovascular Disease
DX: R07.9 Chest pain, unspecified (principal); I25.10 Atherosclerotic heart disease of native coronary artery without angina pectoris; I11.0 Hypertensive heart disease with heart failure; I50.9 Heart failure, unspecified; J44.9 Chronic obstructive pulmonary disease, unspecified; K40.90 Unilateral inguinal hernia, without obstruction or gangrene, not specified as recurrent; Z86.73 Personal history of transient ischemic attack (TIA), and cerebral infarction without residual deficits; Z95.0 Presence of cardiac pacemaker
CPT/HCPCS: 36415; 71045; 80053; 81001; 83880; 84484; 85025; 85610; 85730; 93005; 96372; 99285; G0378; J1650

== ENCOUNTER 2017-09-07 20:18 | Inpatient (IN) | payer MEDICAID ==
[2017-09-07 20:18] VITALS: BMI 27.5
--- NOTE | 2017-09-07 20:54 | C.PDOC ---
History Of Present Illness Patient presents to ED with c/o right inguinal pain secondary to chronic worsening inguinal hernia. Patient reports difficulty ambulating secondary to symptoms and denies fever, chills, nausea, vomiting or any other complaints at this time. Time Seen by Provider: 09/07/17 20:54 Chief Complaint (Nursing): Male Genitourinary History Per: Patient History/Exam Limitations: no limitations Onset/Duration Of Symptoms: Days Current Symptoms Are (Timing): Still Present Severity: Severe Pain Scale Rating Of: 7 Quality Of Discomfort: "Pain" Associated Symptoms: denies: Fever, Chills, Nausea, Urinary Symptoms Alleviating Factors: None Recent travel outside of the [place]: No Additional History Per: Patient Past Medical History Reviewed: Historical Data, Nursing Documentation, Vital Signs Vital Signs: Last Vital Signs Temp 98.7 F 09/07/17 20:44 Pulse 77 09/07/17 20:44 Resp 18 09/07/17 20:44 BP 154/79 H 09/07/17 20:44 Pulse Ox 98 09/07/17 21:44 - Medical History PMH: Asthma, CAD, CHF, COPD, HTN Surgical History: Pacemaker - [facility] Procedures FLUOROSCOPY OF LEFT HEART USING LOW OSMOLAR CONTRAST (11/30/16) FLUOROSCOPY OF MULT COR ART USING L OSM CONTRAST (11/30/16) MEASURE OF CARDIAC SAMPL & PRESSURE, L HEART, PERC APPROACH (11/30/16) Family History: States: No Known Family Hx - Social History Hx Alcohol Use: No Hx Substance Use: No - Immunization History Hx Tetanus Toxoid Vaccination: No Hx Influenza Vaccination: Yes Hx Pneumococcal Vaccination: No Review Of Systems Constitutional: Negative for: Fever, Chills Cardiovascular: Negative for: Chest Pain Respiratory: Negative for: Shortness of Breath Gastrointestinal: Negative for: Nausea, Vomiting Genitourinary: Positive for: Other (Inguinal hernia pain ). Negative for: Dysuria Musculoskeletal: Negative for: Back Pain Skin: Negative for: Rash Neurological: Negative for: Weakness Psych: Negative for: Anxiety Physical Exam - Physical Exam Appears: Non-toxic, No Acute Distress Skin: Warm, Dry, No Rash Head: Normacephalic Eye(s): bilateral: PERRL, EOMI Oral Mucosa: Moist Neck: Supple Chest: Other (pacemaker to left chest wall ) Cardiovascular: Rhythm Regular Respiratory: Normal Breath Sounds, No Rales, No Rhonchi, No Wheezing Gastrointestinal/Abdominal: Soft, Tenderness (mild diffuse), No Guarding, No Rebound Male Genital: No Testicular Tenderness, Inguinal Tenderness, Other (right large inguinal hernia. non reducible . Scrotum diffusely enlarged) Neurological/Psych: Oriented x3 ED Course And Treatment - Laboratory Results Result Diagrams: 09/07/17 21:29 ECG: Interpreted By Me, Viewed By Me ECG Rhythm: Sinus Rhythm (74), Nonspecific Changes (atrial sensed ventricular paced) O2 Sat by Pulse Oximetry: 98 (RA) Pulse Ox Interpretation: Normal Disposition Discussed With Dr.: Jass Manning Comment: accepted the pt on his service and took over the care at 9:30 PM Doctor Will See Patient In The: Hospital Counseled Patient/Family Regarding: Studies Performed, Diagnosis - Disposition Disposition: HOSPITALIZED Disposition Time: 20:54 Condition: FAIR - Clinical Impression Clinical Impression: Inguinal hernia, Hypertension - Scribe Statement The provider has reviewed the documentation as recorded by the Abbeyibjerri Langley All medical record entries made by the Abbeyibe were at my direction and personally dictated by me. I have reviewed the chart and agree that the record accurately reflects my personal performance of the history, physical exam, medical decision making, and the department course for this patient. I have also personally directed, reviewed, and agree with the discharge instructions and disposition. Decision To Admit - Pt Status Changed To: Hospital Disposition Of: Inpatient - Admit Certification Admit to Inpatient:: After my assessment, the patient will require hospitalization for at least two midnights. This is because of the severity of symptoms shown, intensity of services needed, and/or the medical risk in this patient being treated as an outpatient. - InPatient: Physician Admission Certification: I certify that this patient requires 2 or more midnights of care for the following reason:: After my assessment, the patient will require hospitalization for at least two midnights. This is because of the severity of symptoms shown, intensity of services needed, and/or the medical risk in this patient being treated as an outpatient. - . Bed Request Type: Regular Admitting Physician: Jass Manning Patient Diagnosis: Inguinal hernia, Hypertension
[2017-09-07 21:34] LABS: BASO # 0.1 K/uL (0.0-0.2); BASO % 0.8 % (0.0-2.0); EOS # 0.3 K/uL (0.0-0.7); EOS % 5.1 % (0.0-4.0); HEMOGLOBIN 12.1 g/dL (12.0-18.0); LYMPH # 2.2 K/uL (1.0-4.3); LYMPH % 33.8 % (20.0-40.0); MEAN CELL VOLUME 90.8 fL (80.0-94.0); MEAN CORPUSCULAR HEMOGLOBIN 32.1 pg (27.0-31.0); MEAN CORPUSCULAR HGB CONC 35.4 g/dL (33.0-37.0); MEAN PLATELET VOLUME 7.8 fL (7.2-11.7); MONO # 0.6 K/uL (0.0-0.8); MONO % 8.8 % (0.0-10.0); NEUT # 3.4 K/uL (1.8-7.0); NEUT % 51.5 % (50.0-75.0); NRBC % 0.2 % (0.0-2.0); RBC 3.75 Mil/uL (4.40-5.90); RED CELL DISTRIBUTION WIDTH 13.6 % (11.5-14.5); WHITE BLOOD COUNT 6.6 K/uL (4.8-10.8)
[2017-09-07] MEDS: Sodium Chloride 0.9% 1,000 ML IV SCH (21:36)
[2017-09-07 21:37] LABS: VENOUS BLOOD GAS BASE EXCESS 0.8 mmol/L (0.0-2.0); VENOUS BLOOD GAS PCO2 49 mmHg (40-60); VENOUS BLOOD GAS PO2 40 mm/Hg (30-55); VENOUS BLOOD PH 7.35 (7.32-7.43)
[2017-09-07 21:42] LABS: INR 1.1; PROTHROMBIN TIME 12.4 SECONDS (9.7-12.2)
[2017-09-07] MEDS ORDERED: Piperacillin/Tazobact 3.375 gm 100 ML IVPB STA (21:46)
[2017-09-07] MEDS ORDERED: Piperacillin/Tazobact 3.375 gm 100 ML IVPB ONE (21:51)
[2017-09-07 22:15] LABS: ALB/GLOB RATIO 1.3 (1.0-2.1); ALBUMIN 4.2 g/dL (3.5-5.0); ALT/SGPT 30 U/L (21-72); AST/SGOT 36 U/L (17-59); BLOOD UREA NITROGEN 18 mg/dL (9-20); CALCIUM 8.5 mg/dl (8.6-10.4); GFR AFRICAN-AMERICAN > 60; GFR NON-AFRICAN AMERICAN 56
[2017-09-08] MEDS ORDERED: Hydrocodone/Acetaminophen 5 mg /300 mg Tab PO PRN (00:13)
[2017-09-08 03:44] LABS: URINE BILIRUBIN NEGATIVE (NEGATIVE); URINE BLOOD 1+ (NEGATIVE); URINE CLARITY Clear (Clear); URINE COLOR Straw (YELLOW); URINE GLUCOSE (UA) NORMAL (Normal); URINE LEUKOCYTE ESTERASE NEG Leu/uL (Negative); URINE PROTEIN NEGATIVE (NEGATIVE); URINE UROBILINOGEN NORMAL mg/dL (0.2-1.0)
[2017-09-08] MEDS: Sodium Chloride 0.9% 1,000 ML IV SCH (06:24)
--- NOTE | 2017-09-08 08:45 | RAD ---
Chest x-ray single frontal view History: Shortness of breath. Comparison: 02/03/2017 Findings Cardiomegaly. Enlarged ectatic aorta. Left-sided pacemaker. Mild venous congestion. Mild atelectatic changes in the right midlung zone. Mild patchy increased markings at the left lung base. Degenerative changes in the spine. Impression Cardiomegaly. Enlarged ectatic aorta. Left-sided pacemaker. Mild venous congestion. Mild atelectatic changes in the right midlung zone. Mild patchy increased markings at the left lung base.
[2017-09-08] MEDS ORDERED: ceFAZolin IV 2 gm in Dextrose 2 GM/50 ML BAG IVPB ONE (10:34)
[2017-09-08] MEDS ORDERED: Morphine 4 MG/ML VIAL ONE (10:38)
[2017-09-08] MEDS ORDERED: Propofol 10 mg/ml Inj (20 ML) ONE (10:39)
[2017-09-08] MEDS ORDERED: Etomidate 20 mg/10ml Inj IV ONE (10:43)
[2017-09-08] MEDS: Bupivacaine HCl 0.25% PF (30 ml) Inj ONE ×2 (11:04→11:27)
[2017-09-08] MEDS ORDERED: Neostigmine Methylsulfate 3mg/3ml Syringe IV ONE (11:34)
[2017-09-08] MEDS: HYDROmorphone 0.5 mg/0.5 ml ISec IVP PRN ×2 (12:36→13:11)
--- NOTE | 2017-09-08 13:56 | CP.PCM.CON ---
History of Present Illness - History of Present Illness History of Present Illness: COMPREHENSIVE HISTORY & PHYSICAL EXAM HPI Patient is admitted for repair of the hernia, inguinal. 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 Patient also has a AICD. Patient has a inguinal hernia for some time and currently patient is having symptoms and needs to be operated. PAST HIST. PERSONAL HIST: Smoking. N Alcohol. Yes Allergy N Travel_- . FAMILY HIST : ROS : Constitutional: Negative for weight change, chills, night sweats, fatigue and usage of assist device. Eyes: Negative for redness, swelling, itching, discharge, vision changes, blurry vision, double vision, glaucoma, cataracts, Ears: Negative for hearing loss, ringing, , tinnitus, vertigo Nose: Negative for rhinorrhea, stuffiness, sniffing, itching, postnasal drip, discoloration, nasal congestion and epistaxis. Throat: Negative for throat clearing, sore throat, hoarseness, difficulty swallowing and difficulty speaking. Respiratory: Negative for cough, , sputum production, chest tightness, wheezing, pleuritic chest pain ,daytime somnolence, chronic cough, hemoptysis, snoring at night, Cardiovascular: Negative for chest pain, palpitations, orthopnea, PND, Edema of legs, leg cramps, angina, claudication, , irregular heartbeat, Neurology: Negative for irritability, muscle weakness, numbness and tingling, seizures, tremors, migraines, slurred speech, syncope, memory loss, mood changes , recurrent headaches Gastrointestinal: Negative for difficulty swallowing, diarrhea, constipation, black stools, rectal bleeding, nausea, flatulence, reflux, poor appetite, changes in bowel habits, abdominal pain Genitourinary: Negative for frequent urination, hematuria, discharge, incontinence, urinary retention, frequent UTI, Psychiatric: Negative for depression, anxiety/panic, suicidal tendencies, Musculoskeletal: Negative for swollen joints, back pain, , neck pain, morning stiffness of joints, . Skin: Negative for rash, ulcers, itching, dry skin and pigmented lesions. P/E: Constitutional: Appears stated age and in no apparent distress. Head: Normocephalic. Ears: External ear canals patent without inflammation. Tympanic membranes intact with normal light reflex and landmark. Eyes: Pupils are central, bilaterally equal, symmetrical and reacts to light with normal movements and no icterus or pallor. Nose: External nares are patent. Mucosa is pink Mouth-Throat: Good general appearance and condition. No post-pharyngeal/oropharyngeal erythema and tonsillar hypertrophy. Good dental hygiene. Neck-Lymphatic: Neck is supple with normal ROM, no thyromegaly, lymph nodes or masses. JVD is normal with no carotid bruit. Lungs: Clear to percussion and auscultation with bilateral normal air entry. Cardiovascular: S1 and S2 are normal with no murmurs, gallops and rub. GI Exam: No hepatomegaly. Abdomen is soft and non-tender. No Organomegaly , masses or hernias are evident and bowel sounds are normal and active. Left- sided large direct inguinal hernia Neurology: Higher function and all cranial nerves intact, with no gross motor or sensory deficit. Superficial and deep reflexes are normal with downwards planters. No cerebellar deficit with normal gait. Musculoskeletal: No tender spots with normal curvature of the spine with no swelling or restricted ROM of the small and large joints. Extremities: Homans sign absent. Intact pulses with no pitting edema, calf tenderness or skin color changes. 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 Continue his present medication Past Patient History - Infectious Disease Hx of Infectious Diseases: None - Past Medical History & Family History Past Medical History?: Yes - Past Social History Smoking Status: Never Smoked - CARDIAC Hx Cardiac Disorders: Yes Hx Congestive Heart Failure: Yes Hx Hypertension: Yes Hx Pacemaker: Yes - PULMONARY Hx Respiratory Disorders: Yes Hx Asthma: Yes Hx Chronic Obstructive Pulmonary Disease (COPD): Yes - NEUROLOGICAL Hx Neurological Disorder: Yes HX Cerebrovascular Accident: Yes (2004) - HEENT Hx HEENT Problems: No - RENAL Hx Chronic Kidney Disease: No - ENDOCRINE/METABOLIC Hx Endocrine Disorders: No - HEMATOLOGICAL/ONCOLOGICAL Hx Blood Disorders: No Hx Blood Transfusions: No - INTEGUMENTARY Hx Dermatological Problems: No - MUSCULOSKELETAL/RHEUMATOLOGICAL Hx Musculoskeletal Disorders: Yes Hx Falls: Yes (in 2004 when he had a stroke) - GASTROINTESTINAL Hx Gastrointestinal Disorders: No - GENITOURINARY/GYNECOLOGICAL Hx Genitourinary Disorders: No - PSYCHIATRIC Hx Psychophysiologic Disorder: No Hx Substance Use: No - SURGICAL HISTORY Hx Surgeries: Yes Other/Comment: pacemaker placement 2017. on L chest wall - ANESTHESIA Hx Anesthesia: Yes Hx Anesthesia Reactions: No Meds Allergies/Adverse Reactions: Allergies Allergy/AdvReac Type Severity Reaction Status Date / Time No Known Allergies Allergy Verified 09/07/17 20:43 - Medications Medications: Current Medications Hydrocodone Bitart/Acetaminophen (Vicodin 5 Mg-300 Mg) 1 tab PO Q6 PRN PRN Reason: Pain, severe (8-10) Stop: 09/15/17 00:14 Aspirin (Aspirin Chewable) 81 mg PO DAILY [facility] Last Admin: 09/08/17 10:45 Dose: Not Given Clonidine HCl (Catapres) 0.1 mg PO DAILY [facility] Last Admin: 09/08/17 09:19 Dose: 0.1 mg Clopidogrel Bisulfate (Plavix) 75 mg PO DAILY [facility] Sodium Chloride (Sodium Chloride 0.9%) 1,000 mls @ 100 mls/hr IV .Q10H [facility] Last Admin: 09/08/17 06:24 Dose: 100 mls/hr Lisinopril (Zestril) 20 mg PO DAILY [facility] Last Admin: 09/08/17 09:18 Dose: 20 mg Metoprolol Tartrate (Lopressor) 25 mg PO BID [facility] Last Admin: 09/08/17 09:25 Dose: 25 mg Rosuvastatin Calcium (Crestor) 20 mg PO [facility] Spironolactone (Aldactone) 25 mg PO DAILY [facility] Last Admin: 09/08/17 09:19 Dose: 25 mg Results - Vital Signs Recent Vital Signs: Last Vital Signs Temp 98 F 09/08/17 11:45 Pulse 60 09/08/17 12:45 Resp 15 09/08/17 12:45 BP 162/92 H 09/08/17 12:45 Pulse Ox 100 09/08/17 12:45 - Labs Result Diagrams: 09/07/17 21:29 09/07/17 21:29 Labs: Laboratory Results - last 24 hr 09/07/17 09/07/17 09/07/17 21:01 21:29 21:29 WBC 6.6 RBC 3.75 L Hgb 12.1 Hct 34.0 L MCV 90.8 MCH 32.1 H MCHC 35.4 RDW 13.6 Plt Count 159 MPV 7.8 Neut % (Auto) 51.5 Lymph % (Auto) 33.8 [place] % (Auto) 8.8 Eos % (Auto) 5.1 H Baso % (Auto) 0.8 Neut # (Auto) 3.4 Lymph # (Auto) 2.2 [place] # (Auto) 0.6 Eos # (Auto) 0.3 Baso # (Auto) 0.1 PT 12.4 H INR 1.1 APTT 32 pO2 VBG pH VBG pCO2 VBG HCO3 VBG Total CO2 VBG O2 Sat (Calc) VBG Base Excess VBG Potassium Glucose Lactate FiO2 Sodium Potassium Chloride Carbon Dioxide Anion Gap BUN Creatinine Est GFR ( Amer) Est GFR (Non-Af Amer) Random Glucose Calcium Total Bilirubin AST ALT Alkaline Phosphatase Total Protein Albumin Globulin Albumin/Globulin Ratio Venous Blood Potassium Urine Color Straw Urine Clarity Clear Urine pH 5.0 Ur Specific [place] 1.009 Urine Protein Negative Urine Glucose (UA) Normal Urine Ketones Negative Urine Blood 1+ H Urine Nitrate Negative Urine Bilirubin Negative Urine Urobilinogen Normal Ur Leukocyte Esterase Neg Urine WBC (Auto) < 1 Urine RBC (Auto) < 1 Blood Type Antibody Screen 09/07/17 09/07/17 09/07/17 21:29 21:30 21:39 WBC RBC Hgb Hct MCV MCH MCHC RDW Plt Count MPV Neut % (Auto) Lymph % (Auto) [place] % (Auto) Eos % (Auto) Baso % (Auto) Neut # (Auto) Lymph # (Auto) [place] # (Auto) Eos # (Auto) Baso # (Auto) PT INR APTT pO2 40 VBG pH 7.35 VBG pCO2 49 VBG HCO3 24.9 VBG Total CO2 28.6 H VBG O2 Sat (Calc) 75.7 H VBG Base Excess 0.8 VBG Potassium 3.6 Glucose 100 Lactate 1.3 FiO2 21.0 Sodium 147 144.0 Potassium 3.8 Chloride 107 109.0 H Carbon Dioxide 25 Anion Gap 18 BUN 18 Creatinine 1.3 Est GFR ( Amer) > 60 Est GFR (Non-Af Amer) 56 Random Glucose 93 Calcium 8.5 L Total Bilirubin 0.5 AST 36 ALT 30 Alkaline Phosphatase 100 Total Protein 7.5 Albumin 4.2 Globulin 3.3 Albumin/Globulin Ratio 1.3 Venous Blood Potassium 3.6 Urine Color Urine Clarity Urine pH Ur Specific [place] Urine Protein Urine Glucose (UA) Urine Ketones Urine Blood Urine Nitrate Urine Bilirubin Urine Urobilinogen Ur Leukocyte Esterase Urine WBC (Auto) Urine RBC (Auto) Blood Type A POSITIVE Antibody Screen Negative
--- NOTE | 2017-09-08 22:46 | OP ---
PROCEDURE DATE: 09/08/2017 PREOPERATIVE DIAGNOSIS: Incarcerated right inguinal hernia. POSTOPERATIVE DIAGNOSIS: Incarcerated right inguinal hernia. PROCEDURE PERFORMED: Repair of incarcerated right inguinal hernia. SURGEON: Jass Manning MD ANESTHESIA: General. BLOOD LOSS: 40 mL. POSTOPERATIVE CONDITION: Stable. INDICATIONS FOR SURGERY: A 62-year-old male admitted through the ER last night with an incarcerated inguinal hernia, now taken to the OR for a repair. GROSS FINDINGS: There was a larger right inguinal scrotal hernia with a hernia sac containing bowel and omentum. There were no other abnormal findings. PROCEDURE: The patient was taken to the operating room, general anesthesia was administered. The abdomen was prepped and draped. A standard right inguinal incision was made. The large hernia sac was almost immediately encountered and dissected into the scrotum, where the sac was carefully delivered into the wound. It was opened and the bowel contents and omentum were carefully reduced back into the abdomen. There were adhesions and the adhesions were taken down and a small serosal tear of the bowel was repaired with silk. Once this had been completely reduced, the portion of the sac was excised and the remainder was reduced back into the abdomen. There was fair amount of bleeding noted from the spermatic cord, secondary to this measure and the bleeding spermatic artery was repaired with 7-0 Prolene and blood flow was confirmed by Doppler. A large cord lipoma was excised along with the hernia sac. Once the sac had been reduced back into the abdomen, an extra large ProLoop mesh was inserted and sutured in place with interrupted 2-0 Prolene suture. The wound was copiously irrigated with saline and closed in layers using a 2-0 Monocryl suture. The skin was closed with clips. The patient tolerated the procedure well and returned to recovery room in stable condition. Jass Manning MD
[2017-09-09 00:08] VITALS: RESP 20
[2017-09-09] MEDS: Sodium Chloride 0.9% 1,000 ML IV SCH (03:15)
[2017-09-09] MEDS: Morphine 4 MG/ML VIAL IVP PRN ×2 (03:55→13:36)
[2017-09-09 06:43] LABS: BASO % 0.1 % (0.0-2.0); EOS % 0.2 % (0.0-4.0); HEMOGLOBIN 11.5 g/dL (12.0-18.0); LYMPH # 0.9 K/uL (1.0-4.3); LYMPH % 10.9 % (20.0-40.0); MEAN CELL VOLUME 90.4 fL (80.0-94.0); MEAN CORPUSCULAR HEMOGLOBIN 32.1 pg (27.0-31.0); MEAN CORPUSCULAR HGB CONC 35.5 g/dL (33.0-37.0); MEAN PLATELET VOLUME 7.9 fL (7.2-11.7); MONO # 0.8 K/uL (0.0-0.8); NEUT # 6.4 K/uL (1.8-7.0); NEUT % 78.8 % (50.0-75.0); RBC 3.58 Mil/uL (4.40-5.90); RED CELL DISTRIBUTION WIDTH 13.6 % (11.5-14.5); WHITE BLOOD COUNT 8.2 K/uL (4.8-10.8)
[2017-09-09 07:03] LABS: ALB/GLOB RATIO 1.2 (1.0-2.1); ALBUMIN 3.9 g/dL (3.5-5.0)
--- NOTE | 2017-09-09 13:54 | CP.PCM.PN ---
Subjective - Date & Time of Evaluation Date of Evaluation: 09/09/17 Time of Evaluation: 13:52 - Subjective Subjective: Patient is postoperative in a #2 Postop pain with nausea and vomiting Wound is healing Cardiac status stable. Labs are normal. Objective - Vital Signs/Intake and Output Vital Signs (last 24 hours): Temp Pulse Resp BP Pulse Ox 99.0 F 108 H 20 186/87 H 96 09/09/17 08:00 09/09/17 08:00 09/09/17 08:00 09/09/17 11:17 09/09/17 08:00 Intake and Output: 09/09/17 09/09/17 11:59 23:59 Intake Total 150 Balance 150 - Medications Medications: Current Medications Hydrocodone Bitart/Acetaminophen (Vicodin 5 Mg-300 Mg) 1 tab PO Q6 PRN PRN Reason: Pain, severe (8-10) Stop: 09/15/17 00:14 Last Admin: 09/08/17 14:55 Dose: 1 tab Aspirin (Aspirin Chewable) 81 mg PO DAILY [facility] Last Admin: 09/09/17 11:17 Dose: 81 mg Clonidine HCl (Catapres) 0.1 mg PO DAILY [facility] Last Admin: 09/09/17 11:17 Dose: 0.1 mg Clopidogrel Bisulfate (Plavix) 75 mg PO DAILY [facility] Lisinopril (Zestril) 20 mg PO DAILY [facility] Last Admin: 09/09/17 11:18 Dose: 20 mg Metoprolol Tartrate (Lopressor) 25 mg PO BID [facility] Last Admin: 09/09/17 11:17 Dose: 25 mg Morphine Sulfate (Morphine) 4 mg IVP Q4 PRN PRN Reason: break through pain Last Admin: 09/09/17 13:36 Dose: 4 mg Ondansetron HCl (Zofran Inj) 4 mg IVP Q8H PRN PRN Reason: Nausea/Vomiting Rosuvastatin Calcium (Crestor) 20 mg PO HS [facility] Last Admin: 09/08/17 22:45 Dose: 20 mg Spironolactone (Aldactone) 25 mg PO DAILY [facility] Last Admin: 09/09/17 11:18 Dose: 25 mg - Labs Labs: 09/09/17 06:39 09/09/17 06:39 PT 12.4 SECONDS (9.7-12.2) H 09/07/17 21:29 INR 1.1 09/07/17 21:29 APTT 32 SECONDS (21-34) 09/07/17 21:29
[2017-09-09 16:17] VITALS: BP 149/89; PULSE 85; TEMP 97.9; O2SAT 98
--- NOTE | 2017-09-10 05:30 | CARD ---
APPROVED REPORT EKG Measurement Heart [id number] <Conclusion> Atrial-sensed ventricular-paced rhythm Abnormal ECG
== END 2017-09-09 17:45 | disposition home or self-care (01) | DRG 161 ==
LOC: SUPCPDRO 20:18 → C.ER 20:18 → C.9E 21:04 → C.3T 22:27
PROVIDERS: ADMIT Surgery; ATTEND Surgery
PROC: 0VB Male Reproductive System, Excision (ICD-10-PCS; 2017-09-08)
PROC: 0YQ50ZZ Repair Right Inguinal Region, Open Approach (ICD-10-PCS; principal; 2017-09-08 10:00)
DX: K40.30 Unilateral inguinal hernia, with obstruction, without gangrene, not specified as recurrent (principal); D17.6 Benign lipomatous neoplasm of spermatic cord; I11.0 Hypertensive heart disease with heart failure; I42.9 Cardiomyopathy, unspecified; I50.9 Heart failure, unspecified; J44.9 Chronic obstructive pulmonary disease, unspecified; I50.84 End stage heart failure; Z86.73 Personal history of transient ischemic attack (TIA), and cerebral infarction without residual deficits; Z95.810 Presence of automatic (implantable) cardiac defibrillator

== ENCOUNTER 2017-11-28 14:55 | Observation (INO) | payer MEDICAID ==
[2017-11-28 14:55] VITALS: BMI 27.5
[2017-11-28 15:39] LABS: BASO % 0.5 % (0.0-2.0); EOS # 0.2 K/uL (0.0-0.7); EOS % 3.9 % (0.0-4.0); HEMOGLOBIN 12.3 g/dL (12.0-18.0); LYMPH # 1.5 K/uL (1.0-4.3); LYMPH % 30.2 % (20.0-40.0); MEAN CELL VOLUME 86.9 fL (80.0-94.0); MEAN CORPUSCULAR HEMOGLOBIN 30.1 pg (27.0-31.0); MEAN CORPUSCULAR HGB CONC 34.7 g/dL (33.0-37.0); MEAN PLATELET VOLUME 7.5 fL (7.2-11.7); MONO # 0.4 K/uL (0.0-0.8); MONO % 7.3 % (0.0-10.0); NEUT # 2.9 K/uL (1.8-7.0); NEUT % 58.1 % (50.0-75.0); NRBC % 0.2 % (0.0-2.0); RBC 4.1 Mil/uL (4.40-5.90); RED CELL DISTRIBUTION WIDTH 14.5 % (11.5-14.5); WHITE BLOOD COUNT 4.9 K/uL (4.8-10.8)
[2017-11-28 15:46] LABS: INR 1.2
[2017-11-28 16:08] LABS: ALB/GLOB RATIO 1.3 (1.0-2.1); ALBUMIN 4.2 g/dL (3.5-5.0); ALT/SGPT 31 U/L (21-72); AST/SGOT 32 U/L (17-59); BLOOD UREA NITROGEN 12 mg/dL (9-20); CALCIUM 9.2 mg/dl (8.6-10.4); GFR NON-AFRICAN AMERICAN 56
[2017-11-28 16:20] LABS: CK-MB 1.64 ng/mL (0.0-3.38)
--- NOTE | 2017-11-28 16:28 | RAD ---
Date of service: 11/28/2017 PROCEDURE: CHEST RADIOGRAPH, 1 VIEW HISTORY: cp COMPARISON: Portable chest 09/07/2017. FINDINGS: LUNGS: No acute pulmonary disease appreciated bilaterally. AICD/pacemaker reiterated. PLEURA: No pneumothorax or pleural fluid seen. CARDIOVASCULAR: Stable cardiomegaly. No pulmonary vascular congestion. OSSEOUS STRUCTURES: No significant abnormalities. VISUALIZED UPPER ABDOMEN: Normal. OTHER FINDINGS: None. IMPRESSION: No interval acute cardiopulmonary disease appreciate. Stable cardiomegaly. Pacemaker AICD reiterated.
[2017-11-28] MEDS ORDERED: Potassium Chloride 20 mEq ER Tab PO STA (17:10)
[2017-11-28] MEDS ORDERED: Potassium Chloride 20 mEq ER Tab PO ONE (17:19)
--- NOTE | 2017-11-28 17:36 | C.PDOC ---
History Of Present Illness Patient presents to ED c/o intermittent sharp substernal chest pain since yesterday. Pain is nonradiating, nonpleuritic, nonreproducible, and not associated with cough, SOB, orthopnea, PND, leg edema, fever, abdominal pain, nausea/vomiting. Patient has PMHx of HTN, CAD, CHF, COPD, AICD. Time Seen by Provider: 11/28/17 15:15 Chief Complaint (Nursing): Chest Pain History Per: Patient History/Exam Limitations: no limitations Onset/Duration Of Symptoms: Days (2), Intermittent Episodes Current Symptoms Are (Timing): Better Severity: Mild Quality: "Pain" Exacerbating Factors: denies: Movement, Deep Breathing Past Medical History Reviewed: Historical Data, Nursing Documentation, Vital Signs Vital Signs: Last Vital Signs Temp 98.1 F 11/28/17 15:09 Pulse 64 11/28/17 17:09 Resp 13 11/28/17 17:09 BP 137/92 H 11/28/17 17:09 Pulse Ox 96 11/28/17 17:09 - Medical History PMH: Asthma, CAD, CHF, COPD, HTN Surgical History: Pacemaker - [facility] Procedures EXCISION OF RIGHT SEMINAL VESICLE, OPEN APPROACH (09/07/17) FLUOROSCOPY OF LEFT HEART USING LOW OSMOLAR CONTRAST (11/30/16) FLUOROSCOPY OF MULT COR ART USING L OSM CONTRAST (11/30/16) MEASURE OF CARDIAC SAMPL & PRESSURE, L HEART, PERC APPROACH (11/30/16) REPAIR RIGHT INGUINAL REGION, OPEN APPROACH (09/07/17) Family History: States: No Known Family Hx - Social History Hx Alcohol Use: No Hx Substance Use: No - Immunization History Hx Tetanus Toxoid Vaccination: No Hx Influenza Vaccination: Yes Hx Pneumococcal Vaccination: No Review Of Systems Constitutional: Negative for: Fever, Chills Cardiovascular: Positive for: Chest Pain. Negative for: Palpitations Respiratory: Negative for: Cough, Shortness of Breath, Wheezing Gastrointestinal: Negative for: Nausea, Vomiting, Abdominal Pain Skin: Negative for: Rash Physical Exam - Physical Exam Appears: Well, Non-toxic, No Acute Distress Skin: Normal Color, Warm, Dry, No Rash Oral Mucosa: Moist Cardiovascular: Rhythm Regular, Murmur (2/6 holosystolic murmur ) Respiratory: Normal Breath Sounds, No Rales, No Rhonchi, No Wheezing Gastrointestinal/Abdominal: Normal Exam, Bowel Sounds, Soft, No Tenderness Extremity: Normal ROM, No Pedal Edema, No Calf Tenderness Pulses: Left Dorsalis Pedis: Normal, Right Dorsalis Pedis: Normal Neurological/Psych: Oriented x3 ED Course And Treatment - Laboratory Results Result Diagrams: 11/28/17 15:30 11/28/17 15:30 ECG: Interpreted By Me, Viewed By Me (atrial paced rhythm with LBBB morphology at 69 bpm, normal axis, discordant ST elevation 2-3 mm in V3, V4 - does not meet Sgarbossa criteria, and similar to prior EKGs) ECG Interpretation: No Acute Changes O2 Sat by Pulse Oximetry: 96 (RA) Pulse Ox Interpretation: Normal Progress Note: Blood work, CXR, EKG ordered and reviewed. Patient given PO ASA. He is without active chest pain/SOB on ED arrival. Disposition - Disposition
[2017-11-28 20:07] LABS: CK-MB 1.52 ng/mL (0.0-3.38)
[2017-11-28 20:12] LABS: TROPONIN I 0.02 ng/mL (0.00-0.120)
[2017-11-28 22:18] VITALS: RESP 20
[2017-11-29 04:57] LABS: CK-MB 1.1 ng/mL (0.0-3.38); TROPONIN I 0.024 ng/mL (0.00-0.120)
[2017-11-29] MEDS ORDERED: Barium Sulfate for Susp 96% w/w 176g Bottle PR ONE (09:44)
[2017-11-29] MEDS ORDERED: Barium Sulfate for Susp 98% w/w 340g Bottle ONE (09:44)
[2017-11-29] MEDS: Enoxaparin 40 mg Syringe SC SCH (10:37)
--- NOTE | 2017-11-29 11:31 | RAD ---
Date of service: 11/29/2017 PROCEDURE: Upper GI series HISTORY: stomach pain COMPARISON: Not available TECHNIQUE: An upper GI series was performed utilizing biphasic technique. Swallowing of barium was monitored fluoroscopically. FINDINGS: A field naturalist radiograph of the abdomen demonstrates the bowel gas pattern to be unremarkable. No masses or abnormal intra-abdominal calcifications are appreciated. The esophagus is normal in caliber and mucosal detail. Normal propulsive peristaltic activity was observed fluoroscopically. No tertiary peristaltic activity was observed. There is no esophageal mass or ulceration seen. There is a very small sliding hiatal hernia. No gastroesophageal reflux was witnessed. The stomach is normal in size, contour, position and mucosal detail. No gastric mass or ulceration is identified. The duodenal bulb and sweep are normal in contour, position and mucosal detail. No mass or ulceration is appreciated. IMPRESSION: Very small sliding hiatal hernia. Otherwise unremarkable examination.
--- NOTE | 2017-11-29 13:47 | CP.PCM.HP ---
History of Present Illness - History of Present Illness History of Present Illness: COMPREHENSIVE HISTORY & PHYSICAL EXAM Patient was admitted from emergency room with atypical chest pain HPI Patient with chest pain for about 48 hours retrosternal atypical sometimes increases on breathing sometimes on movement. Patient was evaluated in the ER and admitted for further observation EKG showed left bundle block. Lastly patient was admitted for similar complaints. Cardiac workup shows left ventricle ejection fraction of 30% and normal coronaries. Patient then underwent AICD at [facility]. Certainly patient was admitted to [facility] and underwent hernia surgery because of angulation. Currently patient is being treated for high blood pressure PAST HIST. PERSONAL HIST: Smoking. N Alcohol. N Allergy N Travel_- . FAMILY HIST : ROS : Constitutional: Negative for weight change, chills Eyes: Negative for redness, swelling, itching, discharge, vision changes, blurry vision, double vision, glaucoma, cataracts, Ears: Negative for hearing loss, ringing, , tinnitus, vertigo Nose: Negative for rhinorrhea, stuffiness, sniffing, itching, postnasal drip, discoloration, nasal congestion and epistaxis. Throat: Negative for throat clearing, sore throat, hoarseness, difficulty swallowing and difficulty speaking. Respiratory: Negative for cough, , sputum production, chest tightness, wheezing, pleuritic chest pain ,daytime somnolence, chronic cough, hemoptysis, snoring at night, Cardiovascular: Negative for chest pain, palpitations, orthopnea, PND, Edema of legs, leg cramps, angina, claudication, , irregular heartbeat, Neurology: Negative for irritability, muscle weakness, numbness and tingling, seizures, tremors, migraines, slurred speech, syncope, memory loss, mood changes , recurrent headaches Gastrointestinal: Negative for difficulty swallowing, diarrhea, constipation, black stools, rectal bleeding, nausea, flatulence, reflux, poor appetite, changes in bowel habits, abdominal pain Genitourinary: Negative for frequent urination, hematuria, discharge, incontinence, urinary retention, frequent UTI, Psychiatric: Negative for depression, anxiety/panic, suicidal tendencies, Musculoskeletal: Negative for swollen joints, back pain, , neck pain, morning stiffness of joints, . Skin: Negative for rash, ulcers, itching, dry skin and pigmented lesions. P/E: Constitutional: Appears stated age and in no apparent distress. Head: Normocephalic. Ears: External ear canals patent without inflammation. Tympanic membranes intact with normal light reflex and landmark. Eyes: Pupils are central, bilaterally equal, symmetrical and reacts to light with normal movements and no icterus or pallor. Nose: External nares are patent. Mucosa is pink Mouth-Throat: Good general appearance and condition. No post-pharyngeal/oropharyngeal erythema and tonsillar hypertrophy. Good dental hygiene. Neck-Lymphatic: Neck is supple with normal ROM, no thyromegaly, lymph nodes or masses. JVD is normal with no carotid bruit. Lungs: Clear to percussion and auscultation with bilateral normal air entry. Cardiovascular: S1 and S2 are normal with no murmurs, gallops and rub. GI Exam: No hepatomegaly. Abdomen is soft and non-tender. No Organomegaly , masses or hernias are evident and bowel sounds are normal and active. Neurology: Higher function and all cranial nerves intact, with no gross motor or sensory deficit. Superficial and deep reflexes are normal with downwards planters. No cerebellar deficit with normal gait. Musculoskeletal: No tender spots with normal curvature of the spine with no swelling or restricted ROM of the small and large joints. Extremities: Homans sign absent. Intact pulses with no pitting edema, calf tenderness or skin color changes. Skin: No rash, eruptions or abnormal skin pigmentation LAB/RADIOLOGY: ASSESMENT : Nonischemic dilated cardiomyopathy left ventral ejection fraction of 30% with AICD with normal coronaries complaining of chest pain rule out cardiac and GI causes of chest pain PLAN: Serial cardiac enzymes, upper GI series and medications as outlined on the order sheet Present on Admission - Present on Admission Any Indicators Present on Admission: No Past Patient History - Infectious Disease Hx of Infectious Diseases: None - Past Medical History & Family History Past Medical History?: Yes - Past Social History Smoking Status: Never Smoked - CARDIAC Hx Congestive Heart Failure: Yes Hx Hypertension: Yes Hx Pacemaker: Yes - PULMONARY Hx Asthma: Yes Hx Chronic Obstructive Pulmonary Disease (COPD): Yes - NEUROLOGICAL HX Cerebrovascular Accident: Yes (2004) - HEENT Hx HEENT Problems: No - RENAL Hx Chronic Kidney Disease: No - ENDOCRINE/METABOLIC Hx Endocrine Disorders: No - HEMATOLOGICAL/ONCOLOGICAL Hx Blood Disorders: No Hx Blood Transfusions: No - INTEGUMENTARY Hx Dermatological Problems: No - MUSCULOSKELETAL/RHEUMATOLOGICAL Hx Musculoskeletal Disorders: Yes Hx Falls: Yes (in 2004 when he had a stroke) - GASTROINTESTINAL Hx Gastrointestinal Disorders: No - GENITOURINARY/GYNECOLOGICAL Hx Genitourinary Disorders: No - PSYCHIATRIC Hx Substance Use: No - SURGICAL HISTORY Hx Surgeries: Yes Other/Comment: pacemaker placement 2017. on L chest wall - ANESTHESIA Hx Anesthesia: Yes Hx Anesthesia Reactions: No Meds Allergies/Adverse Reactions: Allergies Allergy/AdvReac Type Severity Reaction Status Date / Time No Known Allergies Allergy Verified 11/28/17 14:59 Results - Vital Signs Recent Vital Signs: Last Vital Signs Temp 98.5 F 11/29/17 07:30 Pulse 59 L 11/29/17 07:30 Resp 20 11/29/17 07:30 BP 179/90 H 11/29/17 07:30 Pulse Ox 94 L 11/29/17 07:30 - Labs Result Diagrams: 11/28/17 15:30 11/28/17 15:30 Labs: Laboratory Results - last 24 hr 11/28/17 11/28/17 11/28/17 15:24 15:30 15:30 WBC 4.9 RBC 4.10 L Hgb 12.3 Hct 35.6 MCV 86.9 D MCH 30.1 MCHC 34.7 RDW 14.5 Plt Count 191 MPV 7.5 Neut % (Auto) 58.1 Lymph % (Auto) 30.2 Randolph % (Auto) 7.3 Eos % (Auto) 3.9 Baso % (Auto) 0.5 Neut # (Auto) 2.9 Lymph # (Auto) 1.5 Randolph # (Auto) 0.4 Eos # (Auto) 0.2 Baso # (Auto) 0.0 PT 13.0 H INR 1.2 APTT 32 Sodium Potassium Chloride Carbon Dioxide Anion Gap BUN Creatinine Est GFR ( Amer) Est GFR (Non-Af Amer) POC Glucose (mg/dL) 124 H Random Glucose Calcium Total Bilirubin AST ALT Alkaline Phosphatase Total Creatine Kinase CK-MB (Mass) Troponin I Total Protein Albumin Globulin Albumin/Globulin Ratio 11/28/17 11/28/17 11/29/17 15:30 19:30 04:24 WBC RBC Hgb Hct MCV MCH MCHC RDW Plt Count MPV Neut % (Auto) Lymph % (Auto) Randolph % (Auto) Eos % (Auto) Baso % (Auto) Neut # (Auto) Lymph # (Auto) Randolph # (Auto) Eos # (Auto) Baso # (Auto) PT INR APTT Sodium 143 Potassium 3.0 L Chloride 105 Carbon Dioxide 28 Anion Gap 14 BUN 12 Creatinine 1.3 Est GFR ( Amer) > 60 Est GFR (Non-Af Amer) 56 POC Glucose (mg/dL) Random Glucose 125 H Calcium 9.2 Total Bilirubin 0.5 AST 32 ALT 31 Alkaline Phosphatase 114 Total Creatine Kinase 309 H 277 H 221 H CK-MB (Mass) 1.64 1.52 1.10 Troponin I 0.0170 0.0200 0.0240 Total Protein 7.4 Albumin 4.2 Globulin 3.2 Albumin/Globulin Ratio 1.3
[2017-11-29 16:55] LABS: BLOOD UREA NITROGEN 14 mg/dL (9-20); CALCIUM 8.6 mg/dl (8.6-10.4); GFR NON-AFRICAN AMERICAN > 60
[2017-11-30 04:52] VITALS: O2SAT 98
[2017-11-30] MEDS: Enoxaparin 40 mg Syringe SC SCH (10:54)
--- NOTE | 2017-11-30 13:23 | CP.PCM.DIS ---
Provider - Provider Date of Admission: 11/28/17 18:00 Attending physician: Margaret Liriano MD Time Spent in preparation of Discharge (in minutes): 35 Hospital Course - Lab Results Lab Results: Most Recent Lab Values WBC 4.9 K/uL (4.8-10.8) 11/28/17 15:30 RBC 4.10 Mil/uL (4.40-5.90) L 11/28/17 15:30 Hgb 12.3 g/dL (12.0-18.0) 11/28/17 15:30 Hct 35.6 % (35.0-51.0) 11/28/17 15:30 MCV 86.9 fL (80.0-94.0) D 11/28/17 15:30 MCH 30.1 pg (27.0-31.0) 11/28/17 15:30 MCHC 34.7 g/dL (33.0-37.0) 11/28/17 15:30 RDW 14.5 % (11.5-14.5) 11/28/17 15:30 Plt Count 191 K/uL (130-400) 11/28/17 15:30 MPV 7.5 fL (7.2-11.7) 11/28/17 15:30 Neut % (Auto) 58.1 % (50.0-75.0) 11/28/17 15:30 Lymph % (Auto) 30.2 % (20.0-40.0) 11/28/17 15:30 Ida % (Auto) 7.3 % (0.0-10.0) 11/28/17 15:30 Eos % (Auto) 3.9 % (0.0-4.0) 11/28/17 15:30 Baso % (Auto) 0.5 % (0.0-2.0) 11/28/17 15:30 Neut # (Auto) 2.9 K/uL (1.8-7.0) 11/28/17 15:30 Lymph # (Auto) 1.5 K/uL (1.0-4.3) 11/28/17 15:30 Ida # (Auto) 0.4 K/uL (0.0-0.8) 11/28/17 15:30 Eos # (Auto) 0.2 K/uL (0.0-0.7) 11/28/17 15:30 Baso # (Auto) 0.0 K/uL (0.0-0.2) 11/28/17 15:30 PT 13.0 SECONDS (9.7-12.2) H 11/28/17 15:30 INR 1.2 11/28/17 15:30 APTT 32 SECONDS (21-34) 11/28/17 15:30 Sodium 141 mmol/L (132-148) 11/29/17 16:32 Potassium 3.5 mmol/L (3.6-5.2) L 11/29/17 16:32 Chloride 104 mmol/L (98-107) 11/29/17 16:32 Carbon Dioxide 29 mmol/L (22-30) 11/29/17 16:32 Anion Gap 12 (10-20) 11/29/17 16:32 BUN 14 mg/dL (9-20) 11/29/17 16:32 Creatinine 1.1 mg/dL (0.8-1.5) 11/29/17 16:32 Est GFR ( Amer) > 60 11/29/17 16:32 Est GFR (Non-Af Amer) > 60 11/29/17 16:32 POC Glucose (mg/dL) 124 mg/dL (65-110) H 11/28/17 15:24 Random Glucose 95 mg/dL (75-110) 11/29/17 16:32 Calcium 8.6 mg/dl (8.6-10.4) 11/29/17 16:32 Total Bilirubin 0.5 mg/dL (0.2-1.3) 11/28/17 15:30 AST 32 U/L (17-59) 11/28/17 15:30 ALT 31 U/L (21-72) 11/28/17 15:30 Alkaline Phosphatase 114 U/L (38-126) 11/28/17 15:30 Total Creatine Kinase 221 U/L (55-170) H 11/29/17 04:24 CK-MB (Mass) 1.10 ng/mL (0.0-3.38) 11/29/17 04:24 Troponin I 0.0240 ng/mL (0.00-0.120) 11/29/17 04:24 Total Protein 7.4 g/dL (6.3-8.3) 11/28/17 15:30 Albumin 4.2 g/dL (3.5-5.0) 11/28/17 15:30 Globulin 3.2 gm/dL (2.2-3.9) 11/28/17 15:30 Albumin/Globulin Ratio 1.3 (1.0-2.1) 11/28/17 15:30 - Hospital Course Hospital Course: Patient with chest pain for about 48 hours retrosternal atypical sometimes increases on breathing sometimes on movement. Patient was evaluated in the ER and admitted for further observation EKG showed left bundle block. Lastly patient was admitted for similar complaints. Cardiac workup shows left ventricle ejection fraction of 30% and normal coronaries. Patient then underwent AICD at [facility]. Certainly patient was admitted to [facility] and underwent hernia surgery because of angulation. Currently patient is being treated for high blood pressure Patient was admitted on telemetry floor. Chronic enzymes were negative 3. There was no any evidence of cardiac arrhythmias. Upper GI series shortness of small hiatus hernia. Patient improved on Pepcid. Patient will be discharged patient will also need follow-up with [facility] to monitor his AICD Discharge Plan - Follow Up Plan Condition: GOOD Disposition: HOME/ ROUTINE
[2017-11-30 15:59] VITALS: TEMP 98
[2017-11-30 17:07] VITALS: BP 153/89; PULSE 72
--- NOTE | 2017-12-01 09:24 | PCM.HF ---
Heart Failure Core Measure - Heart Failure Ejection Fraction: Less Than 40 % KAMALJIT Inhibitor Prescribed: Yes Beta-Jazmin Prescribed: Metoprolol Succinate Angiotensin II Receptor Jazmin Prescribed: No Contraindication/Reason for not providing: on kamaljit AnticoagulationTherapy for Atrial Fibrillation/Atrialflutter: No Contraindication/Reason for not providing: no hx of afib Aldosterone Antagonist Prescribed: Yes Hydralazine Nitrate Prescribed: No Contraindication/Reason for not providing: on clonidine Implantable Cardioverter Defibrillator Therapy: No Contraindication/Reason for not providing: pt has AICD Cardiac Resynchronization Therapy Prescribed: No Contraindication/Reason for not providing: pt has AICD - Follow up Will be discharged to: Home Follow Up Date (must be within 7 days from discharge): 12/07/17 Follow Up Time: 09:00
--- NOTE | 2017-12-01 15:00 | CARD ---
APPROVED REPORT Date of service: 11/29/2017 EKG Measurement Heart [id number] 152P [id number] <Conclusion> Ventricular-paced rhythm Abnormal ECG
--- NOTE | 2017-12-01 15:01 | CARD ---
APPROVED REPORT Date of service: 11/28/2017 EKG Measurement Heart [id number] <Conclusion> Atrial-sensed ventricular-paced rhythm Abnormal ECG
== END 2017-11-30 18:35 | disposition home or self-care (01) ==
LOC: C.ER 14:55 → C.9E 18:00 → C.6T 18:39
PROVIDERS: ADMIT Internal Medicine Cardiovascular Disease; ATTEND Internal Medicine Cardiovascular Disease
DX: R07.89 Other chest pain (principal); I11.0 Hypertensive heart disease with heart failure; I50.9 Heart failure, unspecified; I42.0 Dilated cardiomyopathy; K44.9 Diaphragmatic hernia without obstruction or gangrene; J44.9 Chronic obstructive pulmonary disease, unspecified; Z95.810 Presence of automatic (implantable) cardiac defibrillator; Z86.73 Personal history of transient ischemic attack (TIA), and cerebral infarction without residual deficits
CPT/HCPCS: 36415; 71045; 74241; 80048; 80053; 82550; 82553; 82948; 84484; 85025; 85610; 85730; 93306; 99285; G0378; J1650

== ENCOUNTER 2018-02-18 15:59 | Observation (INO) | payer MEDICAID, OTHER ==
[2018-02-18 15:59] VITALS: BMI 27.5
--- NOTE | 2018-02-18 16:32 | C.PDOC ---
History Of Present Illness 62 year old male with PMHx of HTN, HLD, and CAD presents to the ED complaining of chest pain for the last few days. pt states midsternal sharp pain Also complains of pain to pacemaker site. Denies any fever, cough, diaphoresis, shor tness of breath, and any other complaints. HPI limited. Patient is a poor historian. Time Seen by Provider: 02/18/18 16:15 Chief Complaint (Nursing): Chest Pain History Per: Patient History/Exam Limitations: no limitations Onset/Duration Of Symptoms: Days Current Symptoms Are (Timing): Still Present Quality: "Pain" Associated Symptoms: denies: Dyspnea, Diaphoresis Past Medical History Reviewed: Historical Data, Nursing Documentation, Vital Signs Vital Signs: Last Vital Signs Temp 98.5 F 02/18/18 16:09 Pulse 80 02/18/18 16:09 Resp 20 02/18/18 16:09 BP 197/105 H 02/18/18 16:09 Pulse Ox 99 02/18/18 16:09 - Medical History PMH: Asthma, CAD, CHF, COPD, HTN Denies: Chronic Kidney Disease Surgical History: Pacemaker - [facility] Procedures EXCISION OF RIGHT SEMINAL VESICLE, OPEN APPROACH (09/07/17) FLUOROSCOPY OF LEFT HEART USING LOW OSMOLAR CONTRAST (11/30/16) FLUOROSCOPY OF MULT COR ART USING L OSM CONTRAST (11/30/16) MEASURE OF CARDIAC SAMPL & PRESSURE, L HEART, PERC APPROACH (11/30/16) REPAIR RIGHT INGUINAL REGION, OPEN APPROACH (09/07/17) Family History: States: No Known Family Hx - Social History Hx Alcohol Use: No Hx Substance Use: No - Immunization History Hx Tetanus Toxoid Vaccination: No Hx Influenza Vaccination: Yes Hx Pneumococcal Vaccination: Yes Review Of Systems Except As Marked, All Systems Reviewed And Found Negative. Constitutional: Negative for: Fever, Chills, Sweats Cardiovascular: Positive for: Chest Pain. Negative for: Edema Respiratory: Negative for: Cough, Shortness of Breath Physical Exam - Physical Exam Appears: Non-toxic, No Acute Distress Skin: Warm, Dry, No Rash Head: Atraumatic, Normacephalic Eye(s): bilateral: Normal Inspection Nose: Normal Oral Mucosa: Moist Neck: Normal ROM, Supple Chest: Symmetrical Cardiovascular: Rhythm Regular Respiratory: Normal Breath Sounds, No Rales, No Rhonchi, No Wheezing Gastrointestinal/Abdominal: Soft, No Tenderness Extremity: Bilateral: Atraumatic, Normal Color And Temperature, Normal ROM Neurological/Psych: Oriented x3, Normal Speech Gait: Steady ED Course And Treatment - Laboratory Results Result Diagrams: 02/18/18 16:38 18 16:38 ECG: Interpreted By Me, Viewed By Me ECG Rhythm: Sinus Rhythm ECG Interpretation: Normal Rate From EC O2 Sat by Pulse Oximetry: 99 (RA) Pulse Ox Interpretation: Normal - Radiology CXR: Viewed By Me, Read By Radiologist CXR Interpretation: Yes: No Acute Disease Medical Decision Making Medical Decision Making: cp h/o of cad Plan -- EKG -- Bloodwork -- CXR -- Aspiring 325mg PO labs neg. previou scath non obstrutive cad. accpeted dr mckeon. Disposition - Disposition Disposition: HOSPITALIZED Disposition Time: 16:36 Condition: STABLE - Clinical Impression Clinical Impression: Chest pain - Scribe Statement The provider has reviewed the documentation as recorded by the Abbeyibjerri Cade All medical record entries made by the Abbeyibjerri were at my direction and personally dictated by me. I have reviewed the chart and agree that the record accurately reflects my personal performance of the history, physical exam, medical decision making, and the department course for this patient. I have also personally directed, reviewed, and agree with the discharge instructions and disposition.
[2018-02-18 16:43] LABS: BASO # 0.1 K/uL (0.0-0.2); BASO % 0.7 % (0.0-2.0); EOS # 0.3 K/uL (0.0-0.7); EOS % 3.1 % (0.0-4.0); HEMOGLOBIN 12.8 g/dL (12.0-18.0); LYMPH # 3.2 K/uL (1.0-4.3); LYMPH % 35.2 % (20.0-40.0); MEAN CELL VOLUME 86.4 fL (80.0-94.0); MEAN CORPUSCULAR HEMOGLOBIN 30.7 pg (27.0-31.0); MEAN CORPUSCULAR HGB CONC 35.5 g/dL (33.0-37.0); MEAN PLATELET VOLUME 8.5 fL (7.2-11.7); MONO # 0.7 K/uL (0.0-0.8); MONO % 7.3 % (0.0-10.0); NEUT # 4.8 K/uL (1.8-7.0); NEUT % 53.7 % (50.0-75.0); NRBC % 0.5 % (0.0-2.0); RBC 4.18 Mil/uL (4.40-5.90); RED CELL DISTRIBUTION WIDTH 14.8 % (11.5-14.5)
[2018-02-18 16:56] LABS: BLOOD UREA NITROGEN 17 mg/dL (9-20); GFR NON-AFRICAN AMERICAN 56
[2018-02-18 16:58] LABS: ALB/GLOB RATIO 1.2 (1.0-2.1); ALBUMIN 4.8 g/dL (3.5-5.0); ALT/SGPT 9 U/L (21-72); AST/SGOT 70 U/L (17-59)
[2018-02-18 17:07] LABS: INR 1.2; PROTHROMBIN TIME 12.6 SECONDS (9.7-12.2)
--- NOTE | 2018-02-18 17:20 | RAD ---
Date of service: 02/18/2018 PROCEDURE: CHEST RADIOGRAPH, 1 VIEW HISTORY: chest pain COMPARISON: 11/28/2017 FINDINGS: LUNGS: Clear. PLEURA: No pneumothorax or pleural fluid seen. CARDIOVASCULAR: No aortic atherosclerotic calcification present. Cardiomegaly. No evidence of acute, significant cardiovascular disease. Position/ configuration of pacemaker OSSEOUS STRUCTURES: No significant abnormalities. VISUALIZED UPPER ABDOMEN: Normal. OTHER FINDINGS: None. IMPRESSION: No active disease.No significant interval change compared to the prior examination(s).
--- NOTE | 2018-02-18 18:20 | CP.PCM.HP ---
<Luis London - Last Filed: 02/18/18 19:34> History of Present Illness - History of Present Illness History of Present Illness: PGY-[address] Cerrato Patient is a 62 year old male who presents to [facility] [place] ED with chest pain that began yesterday. Patient states that he noticed having pain at the area where he has a pacemaker, but did also have pain in the center of his chest as well. This pain has been intermittent since yesterday. The pain does not radiate, and patient does state that he notices that it hurts more in certain positions, though unsure exactly what makes the pain worse. He has not taken anything to help with pain. States that it has been an 8/10 and is a 7/10 at present. Pt states he wanted to come to ED yesterday but did not due to snow. Patient denies any shortness of breath. He states that he is in the process of re- applying for insurance, and has not taken any of his medications several weeks as he has not been able to see his primary doctor. Patient denies any history of smoking, alcohol, or drug use. Surgical history: AICD placement 02/2017. Hernia repair 2017. Medical history: CHF with EF 15%, HTN, cerebral aneurysm Allergies: NKA Social: Denies alcohol, tobacco, or drug use. Currently unemployed on disability, lives with . Hospitalizations: Multiple for CHF, hernia repair Family History: Father - COPD, Mother: Stroke Medications: ASA 81 PO daily, Clonidine 0.1 mg PO BID, Plavix 75 mg PO daily, pepcid 20 mg BID, Lisinopril 20 mg daily, atorvastatin 40 mg PO daily, Metoprolol 25 mg PO BID PMD: Dr. Liriano (has not seen since previous insurance ) Present on Admission - Present on Admission Any Indicators Present on Admission: No Review of Systems - Constitutional Constitutional: absent: Fatigue, Fever - EENT Eyes: absent: Blurred Vision, Change in Vision Nose/Mouth/Throat: absent: Nasal Congestion, Nasal Discharge - Cardiovascular Cardiovascular: Chest Pain, Chest Pain at Rest. absent: Edema, Palpitations - Respiratory Respiratory: absent: Cough, Dyspnea, Wheezing Additional comments: No shortness of breath - Gastrointestinal Gastrointestinal: absent: Abdominal Pain, Diarrhea, Nausea - Genitourinary Genitourinary: absent: Dysuria, Urinary Hesitance - Musculoskeletal Musculoskeletal: absent: Back Pain, Neck Pain - Neurological Neurological: absent: Dizziness Additional comments: +Intermitten L leg pain and numbness - symptoms residual from previous CVA - Psychiatric Psychiatric: absent: Anxiety, Depression - Endocrine Endocrine: absent: Fatigue, Palpitations Past Patient History - Infectious Disease Hx of Infectious Diseases: None - Past Medical History & Family History Past Medical History?: Yes - Past Social History Smoking Status: Never Smoked - CARDIAC Hx Congestive Heart Failure: Yes Hx Hypertension: Yes Hx Pacemaker: Yes - PULMONARY Hx Asthma: Yes Hx Chronic Obstructive Pulmonary Disease (COPD): Yes - NEUROLOGICAL HX Cerebrovascular Accident: Yes (2004) - HEENT Hx HEENT Problems: No - RENAL Hx Chronic Kidney Disease: No - ENDOCRINE/METABOLIC Hx Endocrine Disorders: No - HEMATOLOGICAL/ONCOLOGICAL Hx Blood Disorders: No Hx Blood Transfusions: No - INTEGUMENTARY Hx Dermatological Problems: No - MUSCULOSKELETAL/RHEUMATOLOGICAL Hx Musculoskeletal Disorders: Yes Hx Falls: Yes (in 2004 when he had a stroke) - GASTROINTESTINAL Hx Gastrointestinal Disorders: No - GENITOURINARY/GYNECOLOGICAL Hx Genitourinary Disorders: No - PSYCHIATRIC Hx Substance Use: No - SURGICAL HISTORY Hx Surgeries: Yes Other/Comment: pacemaker placement 2017. on L chest wall - ANESTHESIA Hx Anesthesia: Yes Hx Anesthesia Reactions: No Meds Allergies/Adverse Reactions: Allergies Allergy/AdvReac Type Severity Reaction Status Date / Time No Known Allergies Allergy Verified 02/18/18 16:12 Physical Exam - Constitutional Appears: Non-toxic, No Acute Distress - Head Exam Head Exam: ATRAUMATIC, NORMAL INSPECTION - Eye Exam Eye Exam: EOMI, Normal appearance - ENT Exam ENT Exam: Mucous Membranes Moist - Neck Exam Neck exam: Positive for: Full Rom - Respiratory Exam Respiratory Exam: Chest Wall Tenderness, Clear to Auscultation Bilateral, NORMAL BREATHING PATTERN. absent: Rales, Rhonchi, Wheezes, Respiratory Distress - Cardiovascular Exam Cardiovascular Exam: REGULAR RHYTHM, +S1, +S2. absent: +S4, Systolic Murmur Additional comments: No JVD, no carotid bruit - GI/Abdominal Exam GI & Abdominal Exam: Normal Bowel Sounds, Soft. absent: Tenderness - Back Exam Back exam: absent: paraspinal tenderness, vertebral tenderness - Neurological Exam Neurological exam: Alert, CN II-XII Intact, Oriented x3 - Psychiatric Exam Psychiatric exam: Normal Affect, Normal Mood - Skin Skin Exam: Dry, Intact, Normal Color, Warm Results - Vital Signs Recent Vital Signs: Last Vital Signs Temp 98.5 F 02/18/18 16:09 Pulse 80 02/18/18 16:09 Resp 20 02/18/18 16:09 BP 197/105 H 02/18/18 16:09 Pulse Ox 99 02/18/18 18:05 - Labs Result Diagrams: 02/18/18 16:38 02/18/18 16:38 Labs: Laboratory Results - last 24 hr 02/18/18 02/18/18 02/18/18 16:38 16:38 16:38 WBC 9.0 D RBC 4.18 L Hgb 12.8 Hct 36.2 MCV 86.4 MCH 30.7 MCHC 35.5 RDW 14.8 H Plt Count 182 MPV 8.5 Neut % (Auto) 53.7 Lymph % (Auto) 35.2 [place] % (Auto) 7.3 Eos % (Auto) 3.1 Baso % (Auto) 0.7 Neut # (Auto) 4.8 Lymph # (Auto) 3.2 [place] # (Auto) 0.7 Eos # (Auto) 0.3 Baso # (Auto) 0.1 PT 12.6 H INR 1.2 APTT 20 L Sodium 141 Potassium 5.1 Chloride 102 Carbon Dioxide 25 Anion Gap 19 BUN 17 Creatinine 1.3 Est GFR ( Amer) > 60 Est GFR (Non-Af Amer) 56 Random Glucose 97 Calcium 9.0 Total Bilirubin 1.6 H AST 70 H D ALT 9 L D Alkaline Phosphatase 88 Troponin I 0.0410 Total Protein 8.9 H Albumin 4.8 Globulin 4.1 H Albumin/Globulin Ratio 1.2 Assessment & Plan - Assessment and Plan (Free Text) Assessment: Chest Pain, history CHF with AICD - Chest X-ray 02/18: No active disease. No significant interval change compared to the prior examinations. - Home Meds restarted: - --ASA 81 PO daily - --Clonidine 0.1 mg PO BID - --Plavix 75 mg PO daily - --Pepcid 20 mg BID - --Lisinopril 20 mg daily - --Crestor 20 mg PO HS (sub for atorvastatin) - --Metoprolol 25 mg PO BID --> Plan to restart tomorrow - F/u ROMIs and EKGs 22:30, 04:30 - Toradol 30 mg IV Q6 prn for moderate pain - Cardiology Consulted for AICD interrogation, Dr. Johnson. Help appreciated, will f/u recs Proph -DVT: Heparin 5000 U SC Q8 Assessment and Plan discussed with Dr. Blossom London, PGY-1 <Alex Cerrato - Last Filed: 02/19/18 07:13> Results - Vital Signs Recent Vital Signs: Last Vital Signs Temp 97.6 F 02/19/18 00:00 Pulse 70 02/19/18 04:00 Resp 20 02/19/18 00:00 BP 159/90 H 02/19/18 00:00 Pulse Ox 98 02/19/18 00:00 - Labs Result Diagrams: 02/19/18 06:24 02/18/18 16:38 Labs: Laboratory Results - last 24 hr 02/18/18 02/18/18 02/18/18 16:38 16:38 16:38 WBC 9.0 D RBC 4.18 L Hgb 12.8 Hct 36.2 MCV 86.4 MCH 30.7 MCHC 35.5 RDW 14.8 H Plt Count 182 MPV 8.5 Neut % (Auto) 53.7 Lymph % (Auto) 35.2 [place] % (Auto) 7.3 Eos % (Auto) 3.1 Baso % (Auto) 0.7 Neut # (Auto) 4.8 Lymph # (Auto) 3.2 [place] # (Auto) 0.7 Eos # (Auto) 0.3 Baso # (Auto) 0.1 Differential Comment PT 12.6 H INR 1.2 APTT 20 L D-Dimer, Quantitative Sodium 141 Potassium 5.1 Chloride 102 Carbon Dioxide 25 Anion Gap 19 BUN 17 Creatinine 1.3 Est GFR ( Amer) > 60 Est GFR (Non-Af Amer) 56 Random Glucose 97 Calcium 9.0 Total Bilirubin 1.6 H AST 70 H D ALT 9 L D Alkaline Phosphatase 88 Total Creatine Kinase CK-MB (Mass) Troponin I 0.0410 Total Protein 8.9 H Albumin 4.8 Globulin 4.1 H Albumin/Globulin Ratio 1.2 02/18/18 02/18/18 02/19/18 23:19 23:19 06:24 WBC 4.4 L D RBC 3.67 L Hgb 11.0 L Hct 32.2 L MCV 87.7 MCH 30.1 MCHC 34.3 RDW 14.6 H Plt Count 168 MPV 7.7 Neut % (Auto) 54.3 Lymph % (Auto) 32.5 [place] % (Auto) 8.1 Eos % (Auto) 4.4 H Baso % (Auto) 0.7 Neut # (Auto) 2.4 Lymph # (Auto) 1.4 [place] # (Auto) 0.4 Eos # (Auto) 0.2 Baso # (Auto) 0.0 Differential Comment PT INR APTT D-Dimer, Quantitative 322 H Sodium Potassium Chloride Carbon Dioxide Anion Gap BUN Creatinine Est GFR ( Amer) Est GFR (Non-Af Amer) Random Glucose Calcium Total Bilirubin AST ALT Alkaline Phosphatase Total Creatine Kinase 184 H CK-MB (Mass) 1.37 Troponin I 0.0330 Total Protein Albumin Globulin Albumin/Globulin Ratio 02/19/18 02/19/18 06:24 06:24 WBC RBC Hgb Hct MCV MCH MCHC RDW Plt Count MPV Neut % (Auto) Lymph % (Auto) [place] % (Auto) Eos % (Auto) Baso % (Auto) Neut # (Auto) Lymph # (Auto) [place] # (Auto) Eos # (Auto) Baso # (Auto) Differential Comment PT 13.8 H INR 1.3 APTT D-Dimer, Quantitative Sodium Potassium Chloride Carbon Dioxide Anion Gap BUN Creatinine Est GFR ( Amer) Est GFR (Non-Af Amer) Random Glucose Calcium Total Bilirubin AST ALT Alkaline Phosphatase Total Creatine Kinase 160 CK-MB (Mass) 1.22 Troponin I 0.0320 Total Protein Albumin Globulin Albumin/Globulin Ratio Attending/Attestation - Attestation I have personally seen and examined this patient.: Yes I have fully participated in the care of the patient.: Yes I have reviewed all pertinent clinical information: Yes Notes (Text): Medical attending: Patient was seen and examined by me. Agree with the above note by the medical assisting instructor The patient was not in any acute distress when we came and saw The chest pain did seem reproducible with palpation of the anterior chest. There is also pain with palpation of the area around AICD/pacer - he does not have a manufacture's card for the device. He is also not been taking his medications saying that he recently ran out of them He is also not aware of
[2018-02-18 21:33] VITALS: RESP 20
[2018-02-18] MEDS: Enoxaparin 80 mg Syringe SC SCH (22:15)
[2018-02-18 23:47] LABS: CK-MB 1.37 ng/mL (0.0-3.38); TROPONIN I 0.033 ng/mL (0.00-0.120)
[2018-02-19 06:31] LABS: INR 1.3; PROTHROMBIN TIME 13.8 SECONDS (9.7-12.2)
[2018-02-19 06:36] LABS: BASO % 0.7 % (0.0-2.0); EOS # 0.2 K/uL (0.0-0.7); EOS % 4.4 % (0.0-4.0); LYMPH # 1.4 K/uL (1.0-4.3); LYMPH % 32.5 % (20.0-40.0); MEAN CELL VOLUME 87.7 fL (80.0-94.0); MEAN CORPUSCULAR HEMOGLOBIN 30.1 pg (27.0-31.0); MEAN CORPUSCULAR HGB CONC 34.3 g/dL (33.0-37.0); MEAN PLATELET VOLUME 7.7 fL (7.2-11.7); MONO # 0.4 K/uL (0.0-0.8); MONO % 8.1 % (0.0-10.0); NEUT # 2.4 K/uL (1.8-7.0); NEUT % 54.3 % (50.0-75.0); NRBC % 0.1 % (0.0-2.0); RBC 3.67 Mil/uL (4.40-5.90); RED CELL DISTRIBUTION WIDTH 14.6 % (11.5-14.5); WHITE BLOOD COUNT 4.4 K/uL (4.8-10.8)
[2018-02-19 06:55] LABS: CK-MB 1.22 ng/mL (0.0-3.38); TROPONIN I 0.032 ng/mL (0.00-0.120)
[2018-02-19] MEDS: Enoxaparin 80 mg Syringe SC SCH ×2 (09:06→21:15)
--- NOTE | 2018-02-19 10:12 | CP.PCM.PN ---
<Pk Charles - Last Filed: 02/19/18 16:25> Subjective - Date & Time of Evaluation Date of Evaluation: 02/19/18 Time of Evaluation: 10:12 - Subjective Subjective: Progress note for Hospitalist service Patient seen and examined at bedside. He states that his pain is located around the site of his pacemaker. He is sure of who placed the pacemaker and does not have the card. He denies fevers, chills, shortness of breath, palpitations, nausea, vomiting, diarrhea. Objective - Vital Signs/Intake and Output Vital Signs (last 24 hours): Temp Pulse Resp BP Pulse Ox 98.0 F 76 20 164/84 H 97 02/19/18 07:00 02/19/18 09:05 02/19/18 07:00 02/19/18 09:05 02/19/18 07:00 Intake and Output: 02/19/18 02/19/18 06:59 18:59 Intake Total 300 Balance 300 - Medications Medications: Current Medications Aspirin (Aspirin Chewable) 81 mg PO DAILY [facility] Last Admin: 02/19/18 09:05 Dose: 81 mg Carvedilol (Coreg) 3.125 mg PO BID [facility] Last Admin: 02/19/18 09:06 Dose: 3.125 mg Clonidine HCl (Catapres) 0.1 mg PO BID [facility] Last Admin: 02/19/18 09:06 Dose: 0.1 mg Clopidogrel Bisulfate (Plavix) 75 mg PO DAILY [facility] Last Admin: 02/19/18 09:06 Dose: 75 mg Enoxaparin Sodium (Lovenox) 80 mg SC Q12 [facility] Last Admin: 02/19/18 09:06 Dose: 80 mg Famotidine (Pepcid) 20 mg PO BID [facility] Last Admin: 02/19/18 09:06 Dose: 20 mg Ketorolac Tromethamine (Toradol) 30 mg IVP Q6 PRN PRN Reason: Pain, moderate (4-7) Lisinopril (Zestril) 20 mg PO DAILY [facility] Last Admin: 02/19/18 09:06 Dose: 20 mg Rosuvastatin Calcium (Crestor) 20 mg PO HS [facility] Last Admin: 02/18/18 21:43 Dose: 20 mg - Labs Labs: 02/19/18 06:24 02/18/18 16:38 PT 13.8 SECONDS (9.7-12.2) H 02/19/18 06:24 INR 1.3 02/19/18 06:24 APTT 20 SECONDS (21-34) L 02/18/18 16:38 - Constitutional Appears: Well, No Acute Distress - Head Exam Head Exam: ATRAUMATIC, NORMOCEPHALIC - Eye Exam Eye Exam: EOMI - ENT Exam ENT Exam: Mucous Membranes Moist - Neck Exam Neck Exam: Full ROM - Respiratory Exam Respiratory Exam: Clear to Ausculation Bilateral. absent: Rales, Rhonchi, Wheezes, Respiratory Distress, Stridor - Cardiovascular Exam Cardiovascular Exam: REGULAR RHYTHM, +S1, +S2. absent: JVD Additional comments: (+) AICD in place on left anterior chest (+) mild tenderness to palpation around site of AICD - GI/Abdominal Exam GI & Abdominal Exam: Soft, Normal Bowel Sounds. absent: Distended, Firm, Guarding, Rigid, Tenderness, Organomegaly - Extremities Exam Extremities Exam: Normal Capillary Refill. absent: Calf Tenderness, Pedal Edema - Neurological Exam Neurological Exam: Alert, Awake, Oriented x3 - Skin Skin Exam: Dry, Normal Color, Warm Assessment and Plan - Assessment and Plan (Free Text) Plan: A/P Chest Pain, History CHF with AICD - Chest X-ray 02/18: No active disease. No significant interval change compared to the prior examinations. - Home Meds restarted: - ASA 81 PO daily - Clonidine 0.1 mg PO BID - Plavix 75 mg PO daily - Pepcid 20 mg BID - Lisinopril 20 mg daily - Crestor 20 mg PO HS - Coreg 3.125mg PO BID - Trops x3 negative - Toradol 30 mg IV Q6 prn for moderate pain - Cardiology Consulted for AICD interrogation, Dr. Johnson. Help appreciated, will f/u recs - f/u echo - f/u CT angio Proph - DVT: Lovenox 80mg SC Q12 - GI: Pepcid 20mg PO daily - Heart healthy diet Case discussed with Dr. Blossom Charles, PGY1 <Alex Cerrato - Last Filed: 02/19/18 17:13> Objective - Vital Signs/Intake and Output Vital Signs (last 24 hours): Temp Pulse Resp BP Pulse Ox 97.8 F 65 20 144/82 97 02/19/18 15:00 02/19/18 16:12 02/19/18 15:00 02/19/18 15:00 02/19/18 15:00 Intake and Output: 02/19/18 02/19/18 06:59 18:59 Intake Total 300 Balance 300 - Medications Medications: Current Medications Aspirin (Aspirin Chewable) 81 mg PO DAILY [facility] Last Admin: 02/19/18 09:05 Dose: 81 mg Carvedilol (Coreg) 3.125 mg PO BID [facility] Last Admin: 02/19/18 09:06 Dose: 3.125 mg Clonidine HCl (Catapres) 0.1 mg PO BID [facility] Last Admin: 02/19/18 09:06 Dose: 0.1 mg Clopidogrel Bisulfate (Plavix) 75 mg PO DAILY [facility] Last Admin: 02/19/18 09:06 Dose: 75 mg Enoxaparin Sodium (Lovenox) 80 mg SC Q12 [facility] Last Admin: 02/19/18 09:06 Dose: 80 mg Famotidine (Pepcid) 20 mg PO BID [facility] Last Admin: 02/19/18 09:06 Dose: 20 mg Ketorolac Tromethamine (Toradol) 30 mg IVP Q6 PRN PRN Reason: Pain, moderate (4-7) Lisinopril (Zestril) 20 mg PO DAILY [facility] Last Admin: 02/19/18 09:06 Dose: 20 mg Rosuvastatin Calcium (Crestor) 20 mg PO HS [facility] Last Admin: 02/18/18 21:43 Dose: 20 mg - Labs Labs: 02/19/18 06:24 02/18/18 16:38 PT 13.8 SECONDS (9.7-12.2) H 02/19/18 06:24 INR 1.3 02/19/18 06:24 APTT 20 SECONDS (21-34) L 02/18/18 16:38 Attending/Attestation - Attestation I have personally seen and examined this patient.: Yes I have fully participated in the care of the patient.: Yes I have reviewed all pertinent clinical information, including history, physical exam and plan: Yes Notes (Text): Medical attending: Patient was seen and examined by me. Agree with the above note by the resident Patient was not in any acute distress. On review of telemetry he was paced rthym. He did not report pain at rest, the pain is present with palpation of the anterior chest wall as well as around the AICD/pacer area. The cardiac enzymes were negative and at this time was still pending on echo
[2018-02-19] MEDS ORDERED: Iodixanol 320 MG/ML 100 ML BOTTLE IV ONE (15:10)
--- NOTE | 2018-02-19 16:39 | CT ---
Date of service: 02/19/2018 PROCEDURE: CT Chest with contrast (Pulmonary Angiogram) HISTORY: Chest pain. Evaluate for pulmonary embolism. COMPARISON: None available. TECHNIQUE: Axial computed tomography images were obtained of the chest in the pulmonary arterial phase of enhancement. Coronal and sagittal reformatted images were created and reviewed. Radiation dose: Total exam DLP = 629.18 mGy-cm. This CT exam was performed using one or more of the following dose reduction techniques: Automated exposure control, adjustment of the mA and/or kV according to patient size, and/or use of iterative reconstruction technique. FINDINGS: PULMONARY ARTERIES: No central pulmonary embolism. More limited evaluation of the segmental and subsegmental branches particularly at the level of the right lower lobe pulmonary artery with there is prominent motion and streak artifact for example a questionable filling defect is noted on series 601, image 73 as well as images 77-85. Additional questionable filling defects are noted within segmental branches the left lower lobe pulmonary artery on series 601, images 78-83. AORTA: No aortic atherosclerotic calcification or mural plaque present. Mild prominence of the ascending thoracic aorta measuring up to 4.2 centimeters. No evidence of acute aortic dissection. Small amount of fluid seen adjacent to the proximal aorta, nonspecific. LUNGS: Right lung: Mild atelectasis. Left lung: Mild atelectasis. PLEURAL SPACES: As above. HEART: Cardiomegaly. Small amount of fluid adjacent to the aorta proximally. Left-sided pacemaker. LYMPH NODES: No lymphadenopathy. BONES, CHEST WALL: Degenerative changes in the spine. Degenerative changes in the shoulders. OTHER FINDINGS: Heterogeneous attenuation the thyroid. IMPRESSION: 1. No central pulmonary embolism. More limited evaluation of the segmental and subsegmental branches particularly at the level of the right lower lobe pulmonary artery with there is prominent motion and streak artifact for example a questionable filling defect is noted on series 601, image 73 as well as images 77-85. Additional questionable filling defects are noted within segmental branches the left lower lobe pulmonary artery on series 601, images 78-83. 2. Mild prominence of the ascending thoracic aorta measuring up to 4.2 centimeters. No evidence of acute aortic dissection. Small amount of fluid seen adjacent to the proximal aorta, nonspecific. 3. Cardiomegaly. Small amount of fluid adjacent to the aorta proximally. Left-sided pacemaker.
[2018-02-19 17:46] LABS: ALB/GLOB RATIO 1.2 (1.0-2.1); ALBUMIN 3.7 g/dL (3.5-5.0); ALT/SGPT 27 U/L (21-72); AST/SGOT 27 U/L (17-59); BLOOD UREA NITROGEN 19 mg/dL (9-20); CALCIUM 9.1 mg/dl (8.6-10.4); GFR NON-AFRICAN AMERICAN 52
--- NOTE | 2018-02-19 21:15 | CON ---
DATE: 02/19/2018 REASON FOR CONSULTATION: Cardiomyopathy, status post ICD placement. HISTORY OF PRESENT ILLNESS: The patient 62-year-old male who has history of cardiomyopathy and underwent ICD placement almost a year ago at [facility]. The patient has history of hypertension and presented to the emergency room with midsternal chest pain. The patient never followed up with any green feed attendant after his ICD placement. The patient most recent cardiac catheterization was in November of last year which was consistent with nonischemic cardiomyopathy. MEDICATIONS: Aspirin 81 mg once a day, clonidine 0.1 mg b.i.d., Coreg 3.125 mg twice a day, Crestor 20 mg once a day, Lovenox 80 mg subcutaneous twice a day, Plavix 75 mg once a day and Zestril 20 mg once a day. PHYSICAL EXAMINATION: GENERAL: The patient is a middle-aged male who does not appear to be in acute distress. VITAL SIGNS: Blood pressure 164/84, heart rate 76, temperature 98, respirations 20. HEENT: Normocephalic. Chest: Absent breath sounds over the bases. HEART: S1 and S2 regular. EXTREMITIES: Trace leg edema. LABORATORY DATA: Today's INR is 1.7. Yesterday's D-dimer 322. Today's hemoglobin and hematocrit 11 and 32.3. White count 4.4, platelet count 168,000. Admitting SMA-7 is within normal limits. Three sets of troponins are not in elevated range. EKG revealed atrial sensed ventricular paced rhythm. Chest x-ray Revealed cardiomegaly with an ICD and biventricular pacemaker, no infiltrate or effusion. I did review the echocardiography study performed in November which was consistent with cardiomyopathy and likely apical thrombus. ASSESSMENT: 1. Chest pain. The patient is known to have nonischemic cardiomyopathy on a cardiac catheterization performed in November of last year. 2. Status post biventricular pacemaker/ICD placement last year at [facility]. 3. Rule out pulmonary infarction. 4. History of apical left ventricular thrombus. RECOMMENDATIONS: Continue current aspirin, clonidine, Coreg, Crestor, therapeutic subcutaneous Lovenox, Plavix and Zestril. I requested echocardiogram studies yesterday; however, it will be postponed until Wednesday and I will order order chest CT angiogram to rule out pulmonary embolus. Allan Johnson MD
[2018-02-20 07:35] LABS: BASO % 0.7 % (0.0-2.0); EOS # 0.2 K/uL (0.0-0.7); EOS % 4.8 % (0.0-4.0); HEMOGLOBIN 12.4 g/dL (12.0-18.0); LYMPH # 1.7 K/uL (1.0-4.3); LYMPH % 34.3 % (20.0-40.0); MEAN CELL VOLUME 88.2 fL (80.0-94.0); MEAN CORPUSCULAR HEMOGLOBIN 30.6 pg (27.0-31.0); MEAN CORPUSCULAR HGB CONC 34.7 g/dL (33.0-37.0); MEAN PLATELET VOLUME 7.6 fL (7.2-11.7); MONO # 0.4 K/uL (0.0-0.8); MONO % 7.3 % (0.0-10.0); NEUT # 2.6 K/uL (1.8-7.0); NEUT % 52.9 % (50.0-75.0); RBC 4.03 Mil/uL (4.40-5.90); RED CELL DISTRIBUTION WIDTH 14.7 % (11.5-14.5); WHITE BLOOD COUNT 4.9 K/uL (4.8-10.8)
[2018-02-20 07:38] LABS: INR 1.2; PROTHROMBIN TIME 13.2 SECONDS (9.7-12.2)
[2018-02-20 07:51] LABS: ALB/GLOB RATIO 1.3 (1.0-2.1); ALBUMIN 3.9 g/dL (3.5-5.0); ALT/SGPT 30 U/L (21-72); AST/SGOT 30 U/L (17-59); BLOOD UREA NITROGEN 20 mg/dL (9-20); CALCIUM 9.2 mg/dl (8.6-10.4); GFR NON-AFRICAN AMERICAN 56
[2018-02-20] MEDS: Enoxaparin 80 mg Syringe SC SCH ×2 (09:31→21:21)
--- NOTE | 2018-02-20 10:35 | CP.PCM.PN ---
<Pk Charles - Last Filed: 02/20/18 16:04> Subjective - Date & Time of Evaluation Date of Evaluation: 02/20/18 Time of Evaluation: 10:35 - Subjective Subjective: Progress note for Hospitalist service Patient seen and examined at bedside. He states that he experiences the pain in his chest only when he lies on his left side. He denies fevers, chills, abdominal pain, shortness of breath, diarrhea, nausea, vomiting, leg pain. Objective - Vital Signs/Intake and Output Vital Signs (last 24 hours): Temp Pulse Resp BP Pulse Ox 97.7 F 77 20 140/75 98 02/20/18 07:00 02/20/18 09:31 02/20/18 07:00 02/20/18 09:31 02/20/18 07:00 Intake and Output: 02/20/18 02/20/18 06:59 18:59 Intake Total 1300 Balance 1300 - Medications Medications: Current Medications Aspirin (Aspirin Chewable) 81 mg PO DAILY [facility] Last Admin: 02/20/18 09:32 Dose: 81 mg Carvedilol (Coreg) 3.125 mg PO BID [facility] Last Admin: 02/20/18 09:32 Dose: 3.125 mg Clonidine HCl (Catapres) 0.1 mg PO BID [facility] Last Admin: 02/20/18 09:32 Dose: 0.1 mg Clopidogrel Bisulfate (Plavix) 75 mg PO DAILY [facility] Last Admin: 02/20/18 09:32 Dose: 75 mg Enoxaparin Sodium (Lovenox) 80 mg SC Q12 [facility] Last Admin: 02/20/18 09:31 Dose: 80 mg Famotidine (Pepcid) 20 mg PO BID [facility] Last Admin: 02/20/18 09:32 Dose: 20 mg Ketorolac Tromethamine (Toradol) 30 mg IVP Q6 PRN PRN Reason: Pain, moderate (4-7) Lisinopril (Zestril) 20 mg PO DAILY [facility] Last Admin: 02/20/18 09:32 Dose: 20 mg Rosuvastatin Calcium (Crestor) 20 mg PO HS [facility] Last Admin: 02/19/18 21:14 Dose: 20 mg - Labs Labs: 02/20/18 07:23 02/20/18 07:23 PT 13.2 SECONDS (9.7-12.2) H 02/20/18 07:23 INR 1.2 02/20/18 07:23 APTT 20 SECONDS (21-34) L 02/18/18 16:38 - Constitutional Appears: No Acute Distress - Head Exam Head Exam: ATRAUMATIC, NORMOCEPHALIC - Eye Exam Eye Exam: EOMI, PERRL - ENT Exam ENT Exam: Mucous Membranes Moist - Respiratory Exam Respiratory Exam: Clear to Ausculation Bilateral. absent: Rales, Rhonchi, Wheezes, Respiratory Distress, Stridor - Cardiovascular Exam Cardiovascular Exam: REGULAR RHYTHM, +S1, +S2. absent: Gallop, Rubs, Murmur Additional comments: AICD in place on left anterior chest mild tenderness to palpation around AICD - GI/Abdominal Exam GI & Abdominal Exam: Soft, Normal Bowel Sounds. absent: Firm, Guarding, Rigid, Tenderness - Extremities Exam Extremities Exam: absent: Calf Tenderness, Pedal Edema - Neurological Exam Neurological Exam: Alert, Awake, Oriented x3 - Skin Skin Exam: Dry, Intact, Warm Assessment and Plan - Assessment and Plan (Free Text) Plan: A/P Chest Pain, History CHF with AICD - Chest X-ray 02/18: No active disease. No significant interval change compared to the prior examinations. - Home Meds restarted: - ASA 81 PO daily - Clonidine 0.1 mg PO BID - Plavix 75 mg PO daily - Pepcid 20 mg BID - Lisinopril 20 mg daily - Crestor 20 mg PO HS - Coreg 3.125mg PO BID - Trops x3 negative - Toradol 30 mg IV Q6 prn for moderate pain - Cardiology Consulted for AICD interrogation, Dr. Johnson. Help appreciated, will f/u recs - f/u echo As per Dr. Johnson, concern for apical thrombus - CT angio 1. No central pulmonary embolism. More limited evaluation of the segmental and subsegmental branches particularly at the level of the right lower lobe pulmonary artery with there is prominent motion and streak artifact for example a questionable filling defect is noted on series 601, image 73 as well as images 77-85. Additional questionable filling defects are noted within segmental branches the left lower lobe pulmonary artery on series 601, images 78-83. 2. Mild prominence of the ascending thoracic aorta measuring up to 4.2 centimeters. No evidence of acute aortic dissection. Small amount of fluid seen adjacent to the proximal aorta, nonspecific. 3. Cardiomegaly. Small amount of fluid adjacent to the aorta proximally. Left-sided pacemaker. Proph - DVT: Lovenox 80mg SC Q12 - GI: Pepcid 20mg PO daily Case discussed with Dr. Blossom Charles, PGY1 <Alex Cerrato H - Last Filed: 02/20/18 18:07> Objective - Vital Signs/Intake and Output Vital Signs (last 24 hours): Temp Pulse Resp BP Pulse Ox 98 F 60 20 155/80 H 98 02/20/18 15:00 02/20/18 15:50 02/20/18 15:00 02/20/18 15:00 02/20/18 15:00 Intake and Output: 02/20/18 02/20/18 06:59 18:59 Intake Total 1300 Balance 1300 - Medications Medications: Current Medications Aspirin (Aspirin Chewable) 81 mg PO DAILY [facility] Last Admin: 02/20/18 09:32 Dose: 81 mg Carvedilol (Coreg) 3.125 mg PO BID [facility] Last Admin: 02/20/18 17:24 Dose: 3.125 mg Clonidine HCl (Catapres) 0.1 mg PO BID [facility] Last Admin: 02/20/18 17:25 Dose: 0.1 mg Clopidogrel Bisulfate (Plavix) 75 mg PO DAILY [facility] Last Admin: 02/20/18 09:32 Dose: 75 mg Enoxaparin Sodium (Lovenox) 80 mg SC Q12 [facility] Last Admin: 02/20/18 09:31 Dose: 80 mg Famotidine (Pepcid) 20 mg PO BID [facility] Last Admin: 02/20/18 17:23 Dose: 20 mg Ketorolac Tromethamine (Toradol) 30 mg IVP Q6 PRN PRN Reason: Pain, moderate (4-7) Lisinopril (Zestril) 20 mg PO DAILY [facility] Last Admin: 02/20/18 09:32 Dose: 20 mg Rosuvastatin Calcium (Crestor) 20 mg PO HS [facility] Last Admin: 02/19/18 21:14 Dose: 20 mg - Labs Labs: 02/20/18 07:23 02/20/18 07:23 PT 13.2 SECONDS (9.7-12.2) H 02/20/18 07:23 INR 1.2 02/20/18 07:23 APTT 20 SECONDS (21-34) L 02/18/18 16:38 Attending/Attestation - Attestation I have personally seen and examined this patient.: Yes I have fully participated in the care of the patient.: Yes I have reviewed all pertinent clinical information, including history, physical exam and plan: Yes Notes (Text): 02/20/18 18:00 Medical attending: Patient was seen and examined by me. Reviewed the above note by the emergency medical service coordinator and agree with the above Per cardiology the patient has concerning findings on previous echocardiogram showing an apical thrombus. He is currently on lovenox SC at theraputic doses for the time being. Per cardiology we need to wait for a new echo in order to get more information with reguards to the potential apical thrombus. He had a CTA done yesterday and this was negative for PE Alex Cerrato
--- NOTE | 2018-02-20 17:11 | PN ---
DATE: 02/20/2018 SUBJECTIVE: The patient denies any chest pain. PHYSICAL EXAMINATION: VITAL SIGNS: Blood pressure 140/75, heart rate 77, temperature 97.7, respirations 20. HEENT: Normocephalic. CHEST: Minimal rhonchi. HEART: S1 and S2 regular. EXTREMITIES: Trace leg edema. LABORATORY DATA: Today's SMA-7 is entirely within normal limit. Today's hemoglobin, hematocrit, white count and platelet count are within normal limit. Chest CT angio, no central pulmonary embolism. Mild prominence of the ascending aorta measuring 4.2 cm. No evidence of articular section or cardiomegaly. ASSESSMENT: 1. Chest pain. The patient is known to have nonischemic cardiomyopathy on the cardiac catheterization that was performed in 11/2016. 2. Status post implantable-cardioverter defibrillator, biventricular pacemaker placement. 3. Dilated aortic root. 4. History of left ventricular apical thrombus. RECOMMENDATIONS: Case was discussed with the hospitalist, Dr. Cerrato. Continue aspirin, clonidine, Coreg and therapeutic and subcutaneous Lovenox, Crestor, Plavix and Zestril. The patient will undergo echocardiography study tomorrow. Allan Johnson MD
[2018-02-21 08:51] LABS: BASO % 0.4 % (0.0-2.0); EOS # 0.2 K/uL (0.0-0.7); EOS % 4.9 % (0.0-4.0); HEMOGLOBIN 12.4 g/dL (12.0-18.0); LYMPH # 1.5 K/uL (1.0-4.3); MEAN CORPUSCULAR HEMOGLOBIN 30.7 pg (27.0-31.0); MEAN CORPUSCULAR HGB CONC 34.9 g/dL (33.0-37.0); MEAN PLATELET VOLUME 7.9 fL (7.2-11.7); MONO # 0.4 K/uL (0.0-0.8); MONO % 9.2 % (0.0-10.0); NEUT # 2.4 K/uL (1.8-7.0); NEUT % 52.5 % (50.0-75.0); RBC 4.04 Mil/uL (4.40-5.90); RED CELL DISTRIBUTION WIDTH 14.8 % (11.5-14.5); WHITE BLOOD COUNT 4.6 K/uL (4.8-10.8)
[2018-02-21 08:52] LABS: INR 1.2; PROTHROMBIN TIME 13.4 SECONDS (9.7-12.2)
[2018-02-21 09:10] LABS: ALB/GLOB RATIO 1.2 (1.0-2.1); ALBUMIN 3.6 g/dL (3.5-5.0); ALT/SGPT 24 U/L (21-72); AST/SGOT 35 U/L (17-59); BLOOD UREA NITROGEN 19 mg/dL (9-20); GFR NON-AFRICAN AMERICAN 52
[2018-02-21] MEDS: Enoxaparin 80 mg Syringe SC SCH (09:11)
--- NOTE | 2018-02-21 16:22 | CP.PCM.DIS ---
Provider - Provider Date of Admission: 02/18/18 17:23 Attending physician: Gricelda Patel MD Primary care physician: Taylor Liriano Consults: cardiology Time Spent in preparation of Discharge (in minutes): 45 Diagnosis - Discharge Diagnosis (1) Chest pain Status: Resolved Priority: High (2) Congestive heart failure Status: Chronic Priority: High Hospital Course - Lab Results Lab Results: Most Recent Lab Values WBC 4.6 K/uL (4.8-10.8) L 02/21/18 08:41 RBC 4.04 Mil/uL (4.40-5.90) L 02/21/18 08:41 Hgb 12.4 g/dL (12.0-18.0) 02/21/18 08:41 Hct 35.5 % (35.0-51.0) 02/21/18 08:41 MCV 88.0 fL (80.0-94.0) 02/21/18 08:41 MCH 30.7 pg (27.0-31.0) 02/21/18 08:41 MCHC 34.9 g/dL (33.0-37.0) 02/21/18 08:41 RDW 14.8 % (11.5-14.5) H 02/21/18 08:41 Plt Count 199 K/uL (130-400) 02/21/18 08:41 MPV 7.9 fL (7.2-11.7) 02/21/18 08:41 Neut % (Auto) 52.5 % (50.0-75.0) 02/21/18 08:41 Lymph % (Auto) 33.0 % (20.0-40.0) 02/21/18 08:41 Cloud % (Auto) 9.2 % (0.0-10.0) 02/21/18 08:41 Eos % (Auto) 4.9 % (0.0-4.0) H 02/21/18 08:41 Baso % (Auto) 0.4 % (0.0-2.0) 02/21/18 08:41 Neut # (Auto) 2.4 K/uL (1.8-7.0) 02/21/18 08:41 Lymph # (Auto) 1.5 K/uL (1.0-4.3) 02/21/18 08:41 Cloud # (Auto) 0.4 K/uL (0.0-0.8) 02/21/18 08:41 Eos # (Auto) 0.2 K/uL (0.0-0.7) 02/21/18 08:41 Baso # (Auto) 0.0 K/uL (0.0-0.2) 02/21/18 08:41 Differential Comment 02/18/18 16:38 PT 13.4 SECONDS (9.7-12.2) H 02/21/18 08:41 INR 1.2 02/21/18 08:41 APTT 20 SECONDS (21-34) L 02/18/18 16:38 D-Dimer, Quantitative 322 ng/mlDDU (0-243) H 02/18/18 23:19 Sodium 139 mmol/L (132-148) 02/21/18 08:41 Potassium 3.8 mmol/L (3.6-5.2) 02/21/18 08:41 Chloride 99 mmol/L (98-107) 02/21/18 08:41 Carbon Dioxide 31 mmol/L (22-30) H 02/21/18 08:41 Anion Gap 14 (10-20) 02/21/18 08:41 BUN 19 mg/dL (9-20) 02/21/18 08:41 Creatinine 1.4 mg/dL (0.8-1.5) 02/21/18 08:41 Est GFR ( Amer) > 60 02/21/18 08:41 Est GFR (Non-Af Amer) 52 02/21/18 08:41 Random Glucose 87 mg/dL (75-110) 02/21/18 08:41 Calcium 9.0 mg/dl (8.6-10.4) 02/21/18 08:41 Phosphorus 3.8 mg/dL (2.5-4.5) 02/21/18 08:41 Magnesium 2.0 mg/dL (1.6-2.3) 02/21/18 08:41 Total Bilirubin 0.5 mg/dL (0.2-1.3) 02/21/18 08:41 AST 35 U/L (17-59) 02/21/18 08:41 ALT 24 U/L (21-72) 02/21/18 08:41 Alkaline Phosphatase 79 U/L (38-126) 02/21/18 08:41 Total Creatine Kinase 160 U/L (55-170) 02/19/18 06:24 CK-MB (Mass) 1.22 ng/mL (0.0-3.38) 02/19/18 06:24 Troponin I 0.0320 ng/mL (0.00-0.120) 02/19/18 06:24 Total Protein 6.8 g/dL (6.3-8.3) 02/21/18 08:41 Albumin 3.6 g/dL (3.5-5.0) 02/21/18 08:41 Globulin 3.1 gm/dL (2.2-3.9) 02/21/18 08:41 Albumin/Globulin Ratio 1.2 (1.0-2.1) 02/21/18 08:41 - Hospital Course Hospital Course: Patient is a 62 year old male who presented to the ED with chest pain that began yesterday. Patient states that he noticed having pain at the area where he has a pacemaker, but did also have pain in the center of his chest as well. This pain has been intermittent since yesterday. The pain does not radiate, and patient does state that he notices that it hurts more in certain positions, though unsure exactly what makes the pain worse. He has not taken anything to help with pain. States that it has been an 8/10 and is a 7/10 at present. Pt states he wanted to come to ED yesterday but did not due to snow. Patient denies any shortness of breath. He states that he is in the process of re- applying for insurance, and has not taken any of his medications several weeks as he has not been able to see his primary doctor. Patient denies any history of smoking, alcohol, or drug use. Upon admission, EKG did not show any acute changes. Troponins were negative x3. CXR did not show acute changes/disease. CTA ruled out PE. Cardiology saw patient and he was started on Coreg and Crestor. Echo was done to rule out apical thrombus that was seen on previous echo (no thrombus was visualized). Upon discharge, patient denied chest pain and SOB. He was sleeping and eating well. Vital signs were stable. Discharge Exam - Head Exam Head Exam: ATRAUMATIC, NORMOCEPHALIC - Eye Exam Eye Exam: EOMI, Normal appearance, PERRL - ENT Exam ENT Exam: Mucous Membranes Moist - Neck Exam Neck exam: Normal Inspection - Respiratory Exam Respiratory Exam: Clear to PA & Lateral, NORMAL BREATHING PATTERN, UNREMARKABLE - Cardiovascular Exam Cardiovascular Exam: REGULAR RHYTHM, +S1, +S2. absent: Systolic Murmur - GI/Abdominal Exam GI & Abdominal Exam: Normal Bowel Sounds, Soft, Unremarkable. absent: Tenderness - Rectal Exam Rectal Exam: Deferred - Extremities Exam Extremities exam: normal inspection - Neurological Exam Neurological exam: Alert, CN II-XII Intact, Normal Gait, Oriented x3 - Psychiatric Exam Psychiatric exam: Normal Affect, Normal Mood - Skin Skin Exam: Dry, Intact, Normal Color, Warm Discharge Plan - Discharge Medications Prescriptions: Carvedilol [Coreg] 3.125 mg PO BID #60 tab cloNIDine [Catapres] 0.1 mg PO BID #60 tab Lisinopril [Zestril] 20 mg PO DAILY 30 Days #30 tab Rosuvastatin Calcium [Crestor] 20 mg PO HS #30 tab - Follow Up Plan Condition: STABLE Disposition: HOME/ ROUTINE Patient education suggested?: Yes Instructions: Heart Failure, Adult (DC), Chest Pain (DC), Carvedilol, Clonidine, Lisinopril, Rosuvastatin Additional Instructions: Please follow-up with your primary care provider and supervisor front, Dr. Liriano, within 3-5 days of discharge. You will be given prescriptions for: Coreg 3.125 mg- take twice daily Crestor- take once at night Clonidine 0.1 mg- take twice daily (increase from your current dose from once to twice a day) Please discontinue your metoprolol. If symptoms recur, return to the nearest emergency department. Referrals: David Lewis MD [Staff Provider] - Allan Johnson MD [Staff Provider] - Margaret Liriano MD [Staff Provider] -
--- NOTE | 2018-02-21 19:25 | PN ---
DATE: 02/21/2018 SUBJECTIVE: The patient is comfortable. He denies chest pain. Echocardiography study was performed today and my own review was consistent with ejection fraction, no definite apical thrombus. PHYSICAL EXAMINATION: VITAL SIGNS: Blood pressure 155/80, heart rate 74, temperature 98.1, respirations 20. HEENT: Normocephalic. CHEST: Clear. HEART: S1, S2 regular. EXTREMITIES: No edema. LABORATORY DATA: Today's hemoglobin and hematocrit are 12.4 and 35.5. White count 4.6, platelet count 199,000. Today's SMA-7 is within normal limits except carbon dioxide of 31. ASSESSMENT: 1. Nonischemic cardiomyopathy. 2. Status post implantable cardioverter-defibrillator biventricular pacemaker placement. 3. Dilated aortic root. RECOMMENDATIONS: Continue current aspirin 81 mg once a day, clonidine 0.1 mg twice a day, Coreg 3.125 mg twice a day, Crestor 20 mg once a day, Lovenox will be changed to 30 mg subcutaneously daily. Continue Zestril 20 mg once a day. Electrophysiology consult has been requested. Allan Johnson MD
--- NOTE | 2018-02-21 23:14 | CARD ---
APPROVED REPORT Date of service: 02/19/2018 EKG Measurement Heart [id number] <Conclusion> Atrial-sensed ventricular-paced rhythm Abnormal ECG
[2018-02-22 00:38] VITALS: PULSE 70
[2018-02-22 00:39] VITALS: BP 172/99; TEMP 98.3; O2SAT 98
[2018-02-22] MEDS ORDERED: Enoxaparin 30 mg Syringe SC SCH (10:00)
--- NOTE | 2018-02-22 18:53 | CARD ---
APPROVED REPORT Date of service: 02/21/2018 EXAM: LIMITED Two-dimensional and M-mode echocardiogram. 2D DIMENSIONS IVSd1.3 (0.7-1.1cm)LVDd5.2 (3.9-5.9cm) PWd1.3 (0.7-1.1cm)LVDs4.4 (2.5-4.0cm) FS (%) 14.6 %LVEF (%)40.0 (>50%) LVEF (Suazo's)45.10 % M-Mode DIMENSIONS IVSd1.11 (0.7-1.1cm)LVDd5.79 (4.0-5.6cm) PWd1.19 (0.7-1.1cm)FS (%) 22 % LVDs4.53 (2.0-3.8cm)LVEF (%)43 (>50%) Mitral Valve E/A ratio0.0 TDI E/Lateral E'0.0E/Medial E'0.0 LEFT VENTRICLE The left ventricle is normal size. There is mild concentric left ventricular hypertrophy. The Ejection Fraction is 40-45%. There is global hypokinesis of the left ventricle. incomplete study to comment on diastolic function. RIGHT VENTRICLE The right ventricle is normal size. The right ventricular systolic function is normal. There is a pacemaker lead in the right ventricle. ATRIA The left atrium size is normal. The right atrium size is normal. The interatrial septum is intact with no evidence for an atrial septal defect. AORTIC VALVE The aortic valve is normal in structure. No aortic regurgitation is present. MITRAL VALVE The mitral valve is normal in structure. There is no mitral valve regurgitation noted. TRICUSPID VALVE The tricuspid valve is normal in structure. tr not seen. PULMONIC VALVE The pulmonary valve is normal in structure. GREAT VESSELS The aortic root is normal in size. PERICARDIAL EFFUSION There is no pericardial effusion. <Conclusion> incomplete study. m mode & doppler is not complete. The left ventricle is normal size. There is mild concentric left ventricular hypertrophy. The Ejection Fraction is 40-45%. There is global hypokinesis of the left ventricle. incomplete study to comment on diastolic function. There is no pericardial effusion.
--- NOTE | 2018-02-22 20:27 | CARD ---
APPROVED REPORT Date of service: 02/18/2018 EKG Measurement Heart [id number] <Conclusion> Atrial-sensed ventricular-paced rhythm Abnormal ECG
--- NOTE | 2018-02-22 22:14 | CARD ---
APPROVED REPORT Date of service: 02/18/2018 EKG Measurement Heart [id number] <Conclusion> Poor data quality, interpretation may be adversely affected Atrial-sensed ventricular-paced rhythm Abnormal ECG
== END 2018-02-21 17:12 | disposition home or self-care (01) ==
LOC: C.ER 15:59 → C.9E 17:23 → C.5S 20:51
PROVIDERS: ADMIT Internal Medicine; ATTEND Internal Medicine
DX: I50.9 Heart failure, unspecified (principal); I11.0 Hypertensive heart disease with heart failure; Z86.73 Personal history of transient ischemic attack (TIA), and cerebral infarction without residual deficits; E78.5 Hyperlipidemia, unspecified; I25.10 Atherosclerotic heart disease of native coronary artery without angina pectoris; I42.9 Cardiomyopathy, unspecified; I77.810 Thoracic aortic ectasia; J44.9 Chronic obstructive pulmonary disease, unspecified; Z79.02 Long term (current) use of antithrombotics/antiplatelets; Z79.899 Other long term (current) drug therapy; Z82.3 Family history of stroke; Z82.5 Family history of asthma and other chronic lower respiratory diseases; Z95.0 Presence of cardiac pacemaker; Z95.810 Presence of automatic (implantable) cardiac defibrillator
CPT/HCPCS: 36415; 71045; 71275; 80053; 83735; 84100; 84484; 85025; 85378; 85610; 85730; 93005; 93321; 99285; G0378; J1644; J1650; Q9967

== ENCOUNTER 2018-03-27 13:26 | Emergency (ER) | payer MEDICAID, OTHER ==
[2018-03-27 13:26] VITALS: BMI 27.5
[2018-03-27] MEDS ORDERED: Albuterol-Ipratrop 3 mg / 0.5 (3 ml) UD INH STA ×3 (13:50→15:05)
[2018-03-27 14:02] LABS: BASO % 0.8 % (0.0-2.0); EOS # 0.2 K/uL (0.0-0.7); EOS % 3.7 % (0.0-4.0); HEMOGLOBIN 12.5 g/dL (12.0-18.0); LYMPH # 1.4 K/uL (1.0-4.3); LYMPH % 25.6 % (20.0-40.0); MEAN CORPUSCULAR HGB CONC 34.4 g/dL (33.0-37.0); MEAN PLATELET VOLUME 7.6 fL (7.2-11.7); MONO # 0.5 K/uL (0.0-0.8); MONO % 9.5 % (0.0-10.0); NEUT # 3.3 K/uL (1.8-7.0); NEUT % 60.4 % (50.0-75.0); NRBC % 0.1 % (0.0-2.0); RBC 4.03 Mil/uL (4.40-5.90); RED CELL DISTRIBUTION WIDTH 14.6 % (11.5-14.5); WHITE BLOOD COUNT 5.4 K/uL (4.8-10.8)
[2018-03-27] MEDS ORDERED: Albuterol-Ipratrop 3 mg / 0.5 (3 ml) UD ONE ×3 (14:11→15:13)
[2018-03-27 14:17] LABS: ALB/GLOB RATIO 1.3 (1.0-2.1); ALBUMIN 4.2 g/dL (3.5-5.0); ALT/SGPT 35 U/L (21-72); AST/SGOT 39 U/L (17-59); BLOOD UREA NITROGEN 13 mg/dL (9-20); CALCIUM 8.7 mg/dl (8.6-10.4); GFR NON-AFRICAN AMERICAN > 60
[2018-03-27 14:29] LABS: B-TYPE NATRIURETIC PEPTIDE 460 pg/mL (0-900)
--- NOTE | 2018-03-27 14:47 | C.PDOC ---
History Of Present Illness 63 year old male with a history of asthma, dry cough, and wheezing presents to the ED for evaluation of exacerbated asthma, dry cough, and wheezing for 1 day. The patient notes having a left upper chest pacemaker. Admits to using an inhaler x1 today and notes he has a home nebulizer but no nebulizer treatment today. He was admitted in this ED February 18- for chest wall discomfort where he received a normal workup and had a CTA, negative for PE. Denies fever, chills, nausea, vomiting, and any other associated symptoms. Time Seen by Provider: 03/27/18 13:43 Chief Complaint (Nursing): Chest Pain History Per: Patient History/Exam Limitations: no limitations Onset/Duration Of Symptoms: Days (x1) Current Symptoms Are (Timing): Still Present Associated Symptoms: Cough (dry) Past Medical History Reviewed: Historical Data, Nursing Documentation, Vital Signs Vital Signs: Last Vital Signs Temp 98.2 F 03/27/18 13:30 Pulse 78 03/27/18 13:30 Resp 0 L 03/27/18 13:57 BP 176/94 H 03/27/18 13:30 Pulse Ox 97 03/27/18 13:30 - Medical History PMH: Asthma, CAD, CHF, COPD, HTN Denies: Chronic Kidney Disease Surgical History: Pacemaker - [facility] Procedures EXCISION OF RIGHT SEMINAL VESICLE, OPEN APPROACH (09/07/17) FLUOROSCOPY OF LEFT HEART USING LOW OSMOLAR CONTRAST (11/30/16) FLUOROSCOPY OF MULT COR ART USING L OSM CONTRAST (11/30/16) MEASURE OF CARDIAC SAMPL & PRESSURE, L HEART, PERC APPROACH (11/30/16) REPAIR RIGHT INGUINAL REGION, OPEN APPROACH (09/07/17) Family History: States: Unknown Family Hx - Social History Hx Alcohol Use: No Hx Substance Use: No - Immunization History Hx Tetanus Toxoid Vaccination: No Hx Influenza Vaccination: Yes (2018) Hx Pneumococcal Vaccination: Yes (2018) Review Of Systems Except As Marked, All Systems Reviewed And Found Negative. Constitutional: Negative for: Fever, Chills Cardiovascular: Positive for: Other (left upper chest pacemaker. ) Respiratory: Positive for: Cough (dry), Wheezing, Other (exacerbated asthma.) Gastrointestinal: Negative for: Nausea, Vomiting Physical Exam - Physical Exam Appears: Well, Non-toxic, No Acute Distress, Other (black, thin male. ) Skin: Normal Color, Warm, Dry Head: Atraumatic, Normacephalic Eye(s): bilateral: Normal Inspection Oral Mucosa: Moist Neck: Normal ROM, Supple Chest: Symmetrical, No Deformity Cardiovascular: Rhythm Regular, No Murmur Respiratory: Normal Breath Sounds, No Rales, No Rhonchi, Wheezing Gastrointestinal/Abdominal: Normal Exam, Soft, No Tenderness Neurological/Psych: Oriented x3, Normal Speech, Normal Cognition ED Course And Treatment - Laboratory Results Result Diagrams: 03/27/18 13:55 03/27/18 13:55 Lab Interpretation: Normal (bnp/trop neg.) ECG: Interpreted By Ma ECG Rhythm: AV Paced ECG Interpretation: Normal Rate From EC O2 Sat by Pulse Oximetry: 97 (RA) Pulse Ox Interpretation: Normal - Radiology CXR: Interpreted by Ma CXR Interpretation: Yes: No Acute Disease, Heart Size, Other (+ airway dz) Reevaluation Time: 14:45 Reassessment Condition: Improved (+ mild wheezing now c/w opening bronchi and improved breathing) Medical Decision Making Medical Decision Making: Plan: -EKG -CXR -Blood sent. -Catapress -Coreg -Duoneb -Prednisone Progress/Update: Patient stable for discharge home. Prescribed Aerichamber, Deltasone, Compact Compressor Nebulizer, Prinivil, Catapres, and Coreg. Patient advised to return to the ED if symptoms worsen. HTN: poor med compliance pt with poor insight to taking daily meds consider options to Clonidine which do not have rebound hypertension Asthma: h/o same nonsmoker improved with ED tx home tx w prednisone/nebs. Disposition Doctor Will See Patient In The: Office Counseled Patient/Family Regarding: Studies Performed, Diagnosis - Disposition Referrals: Margaret Liriano MD [Staff Provider] - Disposition: HOME/ ROUTINE Disposition Time: 14:46 Condition: GOOD Additional Instructions: Hypertension: Take your meds as prescribed: Carvedilol 6.25 mg twice a day: 8AM and 4PM Clonidine 0.1 mg twice a day: 8AM and 4PM Lisinopril 20 mg daily 8AM Crestor 20 mg (choleterol med) at night Prednisone 40 mg daily for 4 more days Nebulized Duoneb treatments 5-7x/day for 4 days opens airways Go to Pharmacy to buy nebulizer machine follow-up with Dr. Liriano in 2 days for re-evaluation. Prescriptions: Albuterol HFA [Ventolin HFA 90 mcg/actuation (8 g)] 2 puff IH Q4H PRN #1 puff PRN Reason: asthma Albuterol/Ipratropium [Duoneb 3 MG/3 Ml-0.5 MG/3 Ml 3 Ml] 6 ml IH Q4H PRN #100 neb PRN Reason: asthma Carvedilol [Coreg] 6.25 mg PO BID #60 tab cloNIDine [Catapres] 0.1 mg PO BID #60 tab Lisinopril [Prinivil] 20 mg PO DAILY #30 tablet Nebulizer [Compact Compressor Nebulizer] 1 dev XX PRN PRN #1 dev PRN Reason: asthma Prednisone [Deltasone] 40 mg PO DAILY #8 tablet Spacer, Inhalation [Aerochamber] 1 dev IH DAILY #1 dev Instructions: Asthma in Adults, High Blood Pressure (DC) Forms: [employer] (Citizen [place]) - Clinical Impression Clinical Impression: Asthma, Hypertension - Scribe Statement The provider has reviewed the documentation as recorded by the Scribe (Arielle gee) Provider Attestation: All medical record entries made by the Scribe were at my direction and personally dictated by me. I have reviewed the chart and agree that the record accurately reflects my personal performance of the history, physical exam, medical decision making, and the department course for this patient. I have also personally directed, reviewed, and agree with the discharge instructions and disposition.
[2018-03-27 15:42] VITALS: BP 170/89; PULSE 72; RESP 20; TEMP 99
--- NOTE | 2018-03-27 17:40 | RAD ---
Date of service: 03/27/2018 HISTORY: SOB COMPARISON: 02/18/2018 TECHNIQUE: Chest PA and lateral FINDINGS: LUNGS: No active pulmonary disease. PLEURA: No significant pleural effusion identified. No pneumothorax apparent. CARDIOVASCULAR: No aortic atherosclerotic calcification present. Normal cardiac size. No congestive change. AICD. OSSEOUS STRUCTURES: No significant abnormalities. VISUALIZED UPPER ABDOMEN: Normal. OTHER FINDINGS: None. IMPRESSION: No active disease.
[2018-03-27 18:49] VITALS: O2SAT 97
--- NOTE | 2018-03-29 08:39 | CARD ---
APPROVED REPORT Date of service: 03/27/2018 EKG Measurement Heart [id number] [id number] <Conclusion> Atrial-sensed ventricular-paced rhythm Abnormal ECG
== END 2018-03-27 15:52 | disposition home or self-care (01) ==
LOC: C.ER 13:26
DX: J45.909 Unspecified asthma, uncomplicated (principal); I10 Essential (primary) hypertension; I50.9 Heart failure, unspecified; I25.10 Atherosclerotic heart disease of native coronary artery without angina pectoris